=== PATIENT | female | born 1950 | race American Indian/Alaskan Native ===

== ENCOUNTER 2020-08-23 10:27 | Outpatient (REF) | payer MEDICARE, MEDICAID, SELFPAY ==
--- NOTE | 2020-08-23 11:02 | MHC.AU.HAS ---
Hearing Aid Evaluation Date of Visit: 08/23/20 Historical Information: Description of Hearing: Right: Borderline-normal sloping to moderate sensorineural hearing loss Left: Borderline-normal sloping to moderately-severe sensorineural hearing loss Summary: Patient was initially seen at our clinic in 2019 for a hearing aid evaluation; however, there was an issue with her insurance at the time. Her insurance has since been resolved, and she has received an updated audiological evaluation on 08/06/2020 at [facility]. Patient reports that she hears when people are talking to her, but often can't quite make out what they're saying. She also has noticed difficulty localizing sound. Hearing aid options were discussed. Patient would like a MICHELLE option with disposable batteries. Hearing Aid Prescription: Based on the individual?s shared listening needs, communication environments, dexterity, desire for connectivity, and personal preferences, the following prescription for amplification has been made: Right ear: Nail Feeder: Phonak Model: Audeo P70-13T Battery Size: 13 Color: P7 Grader Green Meat: 1M Left ear: Nail Feeder: Phonak Model: Audeo P70-13T Battery Size: 13 Color: P7 Grader Green Meat: 1M Action Taken/Action Needed: Hearing Instrument Fitting to be scheduled when materials arrive. Primary Diagnosis: H90.3 Bilateral Sensorineural Hearing Loss Signature: Provider: Cedric Bain CCC-A
== END 2020-08-23 10:28 | disposition home or self-care (01) ==
LOC: HO.HAP 10:27
PROVIDERS: Visit Provider Otolaryngology
DX: Z46.1 Encounter for fitting and adjustment of hearing aid (principal); H90.3 Sensorineural hearing loss, bilateral
CPT/HCPCS: 92591

== ENCOUNTER 2020-09-06 10:23 | Outpatient (REF) | payer MEDICARE, MEDICAID, SELFPAY ==
--- NOTE | 2020-09-06 12:52 | MHC.AU.HFA ---
Hearing Instrument Fitting- Adult- Binaural Date of Visit: 09/06/2020 Hearing Instruments Dispensed: Right Ear: Scrap Stripper Hand: Phonak Model: Audeo P70-13T Serial Number: [id number] Repair Warranty: 11/22/2023 Loss and Damage Warranty: 11/22/2023 Service Plan: 09/06/2021 Battery Size: 13 Color: P7 J2Ee Engineer: 1M Type of Dome: Small Open Type of Wax Guard: CeruShield Left Ear: Scrap Stripper Hand: Phonak Model: Audeo P70-13T Serial Number: [id number] Repair Warranty: 11/22/2023 Loss and Damage Warranty: 11/22/2023 Service Plan: 09/06/2021 Battery Size: 13 Color: P7 J2Ee Engineer: 1M Type of Dome: Small Open Type of Wax Guard: CeruShield Summary of Fitting: Feedback improvement manager run. Verifit performed and levels adjusted to better reach targets. Patient felt 100% was too loud. Lowered until patient felt was comfortable at 85%. Patient was pleased with the sound of the instruments. Hearing aid care and use were discussed and practiced. Paired hearing aids to her phone. Paired hearing aids to the JW Player dao. Recommendations: A hearing instrument follow-up was scheduled. Please call our clinic with any questions or concerns. Diagnosis Code(s): Primary Diagnosis: H90.3 Bilateral Sensorineural Hearing Loss Signature: Provider: Cedric Bain, [facility]
== END 2020-09-06 10:24 | disposition home or self-care (01) ==
LOC: HO.HAP 10:23
PROVIDERS: PCP Internal Medicine; Visit Provider Otolaryngology
DX: Z46.1 Encounter for fitting and adjustment of hearing aid (principal); H90.3 Sensorineural hearing loss, bilateral
CPT/HCPCS: V5011; V5020; V5160; V5261; V5266

== ENCOUNTER 2020-09-20 10:23 | Outpatient (REF) | payer MEDICARE, MEDICAID, SELFPAY ==
--- NOTE | 2020-09-21 08:12 | MHC.AU.HFU ---
Hearing Instrument Follow-Up- Binaural Date of Visit: 09/20/20 Right Ear: Vice President Of Sales: Phonak Model: Audeo P70-13T Serial Number: [id number] Repair Warranty: 12/13/2023 Loss and Damage Warranty: 12/13/2023 Service Plan: 09/20/2021 Battery Size: 13 Color: Ord Ironworker: 2M Type of Dome: Cap Dome Type of Wax Guard: CeruShield Dispensed By: [facility] Date of Fittin09/20/2020 Left Ear: Vice President Of Sales: Phonak Model: Audeo P70-13T Serial Number: [id number] Repair Warranty: 12/13/2023 Loss and Damage Warranty: 12/13/2023 Service Plan: 09/20/2020 Battery Size: 13 Color: Ord Ironworker: 1M Type of Dome: Cap Dome Type of Wax Guard: CeruShield Dispensed By: [facility] Date of Fittin09/20/2021 Follow-Up Summary: After patient's last appointment, she called to say she would prefer skin tone over the original color chosen. A pair was ordered in [employer]. The original pair (#[id number], [id number]) will be returned for credit to [employer]. The new hearing aids were programmed with the same settings as the original hearing aids. Patient reports that over the past few weeks with the hearing aids, she has gotten used to them and is now uncertain how much they are helping. Target gain was last set to 85%. Increased gain to 100%. Patient reported a significant improvement in sound, and stated that it was clear and comfortable. Patient reports she really liked the hearing aids connected to her phone, but her phone recently started to experience unrelated technical problems. She would like to re-pair them to the phone whenever it is able to be fixed or replaced. Patient felt she was having difficulty inserting the receivers deep enough into her ears, moreso in the right ear. A longer reefer truck driver (size 2M) was placed on the right instrument. This helped, but there was still difficulty maneuvering it into place. Replaced both domes with cap domes and changed acoustics/re-ran feedback ux design manager. Patient reported it was much easier to place the hearing aids in with the cap domes. Recommendations: Hearing instrument follow-up or maintenance as needed. Diagnosis Code(s): Primary Diagnosis: H90.3 Bilateral Sensorineural Hearing Loss Signature: Provider: Cedric Bain, [facility]
== END 2020-09-20 10:24 | disposition home or self-care (01) ==
LOC: HO.HAP 10:23
PROVIDERS: Visit Provider Internal Medicine
DX: Z13.89 Encounter for screening for other disorder (principal)

== ENCOUNTER 2020-12-31 10:29 | Outpatient (REF) | payer MEDICARE, MEDICAID, SELFPAY ==
--- NOTE | 2020-12-31 11:07 | MHC.AU.P13 ---
Hearing Instrument Problem Date of Visit: 12/31/20 Right Ear: Bridge Crew Member: Phonak Model: Audeo P70-13T Serial Number: [id number] Repair Warranty: 12/13/2023 Loss and Damage Warranty: 12/13/2023 Service Plan: 09/20/2021 Battery Size: 13 Color: [place] Voice Data Communications Engineer: 2M Type of Dome: Cap Dome Type of Wax Guard: CeruShield Dispensed By: [facility] Date of Fittin09/20/2020 Left Ear: Bridge Crew Member: Phonak Model: Audeo P70-13T Serial Number: [id number] Repair Warranty: 12/13/2023 Loss and Damage Warranty: 12/13/2023 Service Plan: 09/20/2020 Battery Size: 13 Color: [place] Voice Data Communications Engineer: 1M Type of Dome: Cap Dome Type of Wax Guard: CeruShield Dispensed By: [facility] Date of Fittin09/20/2021 Follow-Up Summary: Patient scheduled as maint as aids not working. Both aids cleaned, wax guards, batteries, and cap domes replaced - both amplifying clearly. Patient stated still not hearing well. Caryn Gilbetr saw patient - no occluding cerumen but firmware update was performed on hearing aids and patient stated sound was better. Recommendations: Recommendations: Hearing instrument follow-up or maintenance as needed. Diagnosis Code(s): Primary Diagnosis: H90.3 Bilateral Sensorineural Hearing Loss Signature: Provider: NILTON Eason-HIS
== END 2020-12-31 10:30 | disposition home or self-care (01) ==
LOC: HO.HAP 10:29
PROVIDERS: Visit Provider Internal Medicine
DX: Z13.89 Encounter for screening for other disorder (principal)

== ENCOUNTER 2021-01-31 11:28 | Outpatient (REF) | payer MEDICARE, MEDICAID, SELFPAY | END 2021-01-31 11:29 | disposition home or self-care (01) | LOC: HO.HAP 11:28 | PROVIDERS: Visit Provider Internal Medicine | DX: Z46.1 Encounter for fitting and adjustment of hearing aid (principal); H90.3 Sensorineural hearing loss, bilateral | CPT/HCPCS: V5266 ==

== ENCOUNTER 2021-02-28 09:53 | Outpatient (REF) | payer MEDICARE, MEDICAID, SELFPAY ==
--- NOTE | 2021-02-28 11:51 | MHC.AU.HFU ---
Hearing Instrument Follow-Up- Binaural Date of Visit: 02/28/21 Right Ear: [place]rene Dehydration Reactor Operator: Phonak Model: Audeo P70-13T Serial Number: [id number] Repair Warranty: 12/13/2023 Loss and Damage Warranty: 12/13/2023 Battery Size: 13 Color: [place] Plating Technician: 2M Type of Dome: Cap Dome Type of Wax Guard: CeruShield Dispensed By: [facility] Date of Fittin09/20/2020 Left Ear: Styrene Dehydration Reactor Operator: Phonak Model: Audeo P70-13T Serial Number: [id number] Repair Warranty: 12/13/2023 Loss and Damage Warranty: 12/13/2023 Battery Size: 13 Color: [place] Plating Technician: 1M Type of Dome: Cap Dome Type of Wax Guard: CeruShield Dispensed By: [facility] Date of Fittin09/20/2020 Follow-Up Summary: Patient reports she continues to not hear well with the hearing aids and wants custom ITC hearing aids. Extensively discussed we are past the trial period so brenda cannot exchange for a different model and she will not be eligible for new aids for 5 years. Patient wants prior authorization [facility] to try to get ITC aids. In discussing the hearing problems, patient reports the domes move in ears and sound quality of aids can vary significantly intermittently. Per Gail Klein, we will try custom c-shell molds then if problem continues will try to obtain prior authorization for change in model. Took impressions of both ears without complication. The impression show basically a right angle canal bends and very small canals. The shape of the canals are likely causing reduced sound quality when using the domes. Discussed how custom c-shells will likely improve sound quality/hearing. Patient continues to not be happy with not getting new aids, as well as reporting she thinks the aids were switched while she was sleeping as she reported to Tonio Sharma previously. Discussed if she were to get custom ITC aids, with the shape and size of the canals, the aids would look more like half or full shell customs which patient was also not happy about. Recommendations: Schedule appointment for Earmold Fitting and programming changes when c-shells are received. Services Performed: Ear Impression (Quantity): 2 Signature: Provider: Cedric Gilbert, [facility]
== END 2021-02-28 09:54 | disposition home or self-care (01) ==
LOC: HO.HAP 09:53
PROVIDERS: Visit Provider Internal Medicine
DX: Z46.1 Encounter for fitting and adjustment of hearing aid (principal); H90.3 Sensorineural hearing loss, bilateral
CPT/HCPCS: V5275

== ENCOUNTER 2021-03-19 12:25 | Outpatient (REF) | payer MEDICARE, MEDICAID, SELFPAY | END 2021-03-19 12:26 | disposition home or self-care (01) | LOC: HO.HAP 12:25 | PROVIDERS: Visit Provider Internal Medicine | DX: Z46.1 Encounter for fitting and adjustment of hearing aid (principal); H90.3 Sensorineural hearing loss, bilateral | CPT/HCPCS: V5264 ==

== ENCOUNTER 2022-04-08 18:37 | Inpatient (IN) | payer MEDICARE, MEDICAID, SELFPAY ==
--- OUTSIDE RECORDS SUMMARY | 2022-04-08 18:41 | XMS_ITS | Continuity of Care Document ---
:1950 Author Organization [facility] Address [address] [place] [address]- Care Team Providers Name Role Phone Ludmila Oviedo MD Primary Care Physician Encounter [facility] ACCT R [id number] Date(s): 01/07/22 - 02/13/[address] [address]- Encounter Diagnosis Muscle weakness (generalized) (Final) - Discharge Disposition: A-D/C Home Attending Physician: Ludmila Oviedo MD Admitting Physician: Ludmila Oviedo MD Referring Physician: Ludmila Oviedo MD Allergies, Adverse Reactions, Alerts No Known Allergies Medications Fiber Choice = 3 Gm, By Mouth, Daily, Maintenance, 07/05/17 9:31:10 EDT Start Date: 07/05/17 Status: Orderedlithium 300 mg oral capsule 1 capsule = 300 mg, By Mouth, Daily in AM, Maintenance, 07/05/17 9:27:26 EDT, Capsule Start Date: 07/05/17 Status: Orderedlithium 300 mg oral capsule 2 capsule = 600 mg, By Mouth, Daily at bedtime, 0 Refills, Maintenance, 07/05/17 12:54:34 EDT, Capsule Start Date: 07/05/17 Status: OrderedMultivitamin 1 tablet, By Mouth, Daily, Maintenance, 07/05/17 9:29:14 EDT Start Date: 07/05/17 Status: Orderedomeprazole 20 mg oral enteric coated capsule 1 capsule = 20 mg, By Mouth, Daily, # 30 capsule, 2 Refills, Maintenance, 09/25/20 14:28:00 EDT, EC Capsule, [id number], Partial fill upon patient request if the prescription is for a schedule II opioid drug. Start Date: 09/25/20 Stop Date: 12/24/20 Status: OrderedRisperDAL 0.25 mg oral tablet 0.25 mg, 1, tablet, By Mouth, 2 times a day, Refills 0, Maintenance, 10/26/19 13:57:00 EDT Start Date: 10/26/19 Status: Orderedtopiramate 100 mg oral tablet 1 tablet = 100 mg, By Mouth, Daily, Maintenance, 07/05/17 9:27:30 EDT, Tablet Start Date: 07/05/17 Status: OrderedTylenol Extra Strength 500 mg oral tablet 1 tablet = 500 mg, By Mouth, Every 4 hours, PRN as needed for fever, Maintenance, 07/05/17 9:32:17 EDT, Tablet Start Date: 07/05/17 Status: Ordered Problem List Condition Confirmation Course Effective Dates Status Health Stat us Informant Bipolar disease, Confirmed Active chronic Carpal tunnel Confirmed Active syndrome Insomnia Confirmed Active Social History Social History Type Response Smoking Status Never (less than 100 in life time) entered on: 10/26/19 Sex Patient Care team information Care Team PersonnelName: Ludmila Oviedo MD Position: Reference Physician Member Role: PCP Address: Address: [address] [address]- Care Team Related PersonsName: SANDIP POPE Name: NONE, NONE
--- OUTSIDE RECORDS SUMMARY | 2022-04-08 18:41 | XMS_ITS | Continuity of Care Document ---
:1950 Author Organization [facility] Address Unavailable , Care Team Providers Name Role Phone Armand KELLY, Jim Amezcua Primary Care Physician Encounter [facility] ACCT R [id number] Date(s): 04/24/21 - 08/22/21 [facility] Attending Physician: Howie ARREOLA, Kaia Zaman Admitting Physician: Howie ARREOLA, Kaia Zaman Referring Physician: Regino Combs Allergies, Adverse Reactions, Alerts No Known Allergies [...] Refills, Maintenance, 09/25/20 14:28:00 EDT, EC Capsule, [facility]pharm[facility] #[id number], Partial fill upon patient request if the [...] Date: 07/05/17 Status: Ordered Problem List Condition Effective Dates Status Health Status Informant Bipolar disease, chronic(Confirmed) Active Carpal tunnel syndrome(Confirmed) Active Insomnia(Confirmed) Active Social History Social History Type Response Smoking Status Never (less than 100 in life time) entered on: 10/26/19 Sex
--- OUTSIDE RECORDS SUMMARY | 2022-04-08 18:41 | XMS_ITS | Continuity of Care Document ---
:1950 Author Organization [facility] Address [address] [place] [address]- Care Team Providers Name Role Phone Jim Acuna MD Primary Care Physician [place] [facility] [place](s): 09/25/20 - 10/25/20 [facility] [address] [place] [address]- Attending Physician: Yamini Desai Admitting Physician: Yamini Desai Referring Physician: AdmtrYamini Allergies, Adverse Reactions, Alerts Substance Reaction Severity Status NKA Active Medications Fiber Choice = 3 Gm, By [...] Refills, Maintenance, 09/25/20 14:28:00 EDT, EC Capsule, [facility]/pharmacy #[id number], Partial fill upon patient request if the [...]
--- OUTSIDE RECORDS SUMMARY | 2022-04-08 18:41 | XMS_ITS | Continuity of Care Document ---
:1950 Author Organization [facility] Address [address] [place] [address]- Care Team Providers Name Role Phone Armand KELLY, Jim Amezcua Primary Care Physician Encounter [facility] Date(s): 11/23/19 - 12/23/19 [facility] [address] [place] [address]- [facility] Allergies, Adverse Reactions, Alerts Substance Reaction Severity [...] 07/05/17 9:29:14 EDT Start Date: 07/05/17 Status: OrderedRisperDAL 0.25 mg oral tablet 0.25 [...]
--- OUTSIDE RECORDS SUMMARY | 2022-04-08 18:41 | XMS_ITS | Continuity of Care Document ---
:1950 Author Organization [facility] Address [address] [place] [address]- Care Team Providers Name Role Phone Not on Staff, PCP Primary Care Physician Unavailable Encounter [facility] Date(s): 02/07/22 - 03/29/[address] [address]- Attending Physician: Danna Church NP Admitting Physician: Danna Church NP Referring Physician: Danna Church NP Allergies, Adverse Reactions, Alerts No Known Allergies Medications cetirizine 10 mg oral tablet 1 tablet = 10 mg, By Mouth, Daily, # 30 tablet, 0 Refills, Maintenance, 03/25/22 14:31:00 EST, Tablet, Partial fill upon patient request if the prescription is for a schedule II opioid drug. Start Date: 03/25/22 Status: OrderedFiber Choice = 3 Gm, By Mouth, Daily, Maintenance, 07/05/17 9:31:10 EDT Start Date: 07/05/17 Status: Orderedfurosemide 20 mg oral tablet 20 mg, 1, tablet, By Mouth, Daily, # 30 tablet, Refills 0, Maintenance, 03/25/22 14:33:00 EST, Partial fill upon patient request if the prescription is for a schedule II opioid drug. Start Date: 03/25/22 Status: OrderedhydrOXYzine hydrochloride 50 mg oral tablet 1 tablet = 50 mg, By Mouth, 4 times a day, PRN for anxiety, # 40 tablet, 0 Refills, Maintenance, 03/25/22 14:31:00 EST, Tablet, Partial fill upon patient request if the prescription is for a schedule II opioid drug. Start Date: 03/25/22 Status: Orderedlithium 300 mg oral capsule 1 capsule = 300 mg, By Mouth, Daily in AM, Maintenance, 07/05/17 9:27:26 EDT, Capsule Start Date: 07/05/17 Status: Orderedlithium 300 mg oral capsule 2 capsule = 600 mg, By Mouth, Daily at bedtime, 0 Refills, Maintenance, 07/05/17 12:54:34 EDT, Capsule Start Date: 07/05/17 Status: Orderedlithium 600 mg oral capsule 1 capsule = 600 mg, By Mouth, 2 times a day, # 60 capsule, 0 Refills, Maintenance, 03/25/22 14:32:00EST, Capsule, Partial fill upon patient request if the prescription is for a schedule II opioid drug. Start Date: 03/25/22 Status: OrderedMultivitamin 1 tablet, By Mouth, Daily, Maintenance, 07/05/17 9:29:14 EDT Start Date: 07/05/17 Status: Orderedomeprazole 20 mg oral enteric coated capsule 1 capsule = 20 mg, By Mouth, Daily, # 30 capsule, 2 Refills, Maintenance, 09/25/20 14:28:00 EDT, EC Capsule, [facility]/pharmacy #[id number], Partial fill upon patient request if the prescription is for a schedule II opioid drug. Start Date: 09/25/20 Stop Date: 12/24/20 Status: OrderedRisperDAL 0.25 mg oral tablet 0.25 mg, 1, tablet, By Mouth, 2 times a day, Refills 0, Maintenance, 10/26/19 13:57:00 EDT Start Date: 10/26/19 Status: OrderedrisperiDONE 1 mg oral tablet 1 mg, 1, tablet, By Mouth, Daily, # 30 tablet, Refills 0, Maintenance, 03/25/22 14:32:00 EST, Partial fill upon patient request if the prescription is for a schedule II opioid drug. Start Date: 03/25/22 Status: Orderedrosuvastatin 10 mg oral tablet 1 tablet = 10 mg, By Mouth, Daily, # 30 tablet, 0 Refills, Maintenance, 03/25/22 14:31:00 EST, Tablet, Partial fill upon patient request if the prescription is for a schedule II opioid drug. Start Date: 03/25/22 Status: Orderedtopiramate 100 mg oral tablet 1 tablet = 100 mg, By Mouth, Daily, Maintenance, 07/05/17 9:27:30 EDT, Tablet Start Date: 07/05/17 Status: Orderedtopiramate 200 mg oral tablet 1 tablet = 200 mg, By Mouth, 2 times a day, 0 Refills, Maintenance, 03/25/22 14:32:00 EST, Partial fill upon patient request if the prescription is for a schedule II opioid drug. Start Date: 03/25/22 Status: OrderedTylenol Extra Strength 500 mg oral [...] Patient Care team information Care Team PersonnelName: Not on Staff, PCP Position: S Physician (General Medicine) Member Role: PCP Care Team Related PersonsName: SANDIP POPE Name: NONE, NONE
--- OUTSIDE RECORDS SUMMARY | 2022-04-08 18:41 | XMS_ITS | Continuity of Care Document ---
:1950 Author Organization [facility] Address [address] [place] [address]- Care Team Providers Name Role Phone Armand KELLY, Jim Amezcua Primary Care Physician Encounter [facility] Date(s): 11/15/19 - 12/15/19 [facility] [address] [place] [address]- [facility] Allergies, Adverse Reactions, Alerts Substance Reaction Severity [...]
--- OUTSIDE RECORDS SUMMARY | 2022-04-08 18:41 | XMS_ITS | Continuity of Care Document ---
:1950 Author Organization [facility] Address [address] [place] [address]- Care Team Providers Name Role Phone Ludmila Oviedo MD Primary [id number] Date[facility] 12/11/21 - 03/07/22 [facility] [address] [place], [place] [address] Attending Physician: Ludmila Oviedo MD Admitting Physician: [...] Maintenance, 09/25/20 14:28:00 EDT, EC Capsule, [id number], Partial fill upon patient request if the [...] Physician Member Role: PCP Address: Address: [address] [address]- Care Team Related PersonsName: SANDIP POPE Name: NONE, NONE
--- OUTSIDE RECORDS SUMMARY | 2022-04-08 18:41 | XMS_ITS | Continuity of Care Document ---
:1950 Author Organization [facility] Address [address] [place] [address]- Care Team Providers Name Role Phone Not on Staff, PCP Primary Care Physician Unavailable [place] [facility] [place](s): 02/26/22 - 03/28/22 [facility] [address] [place] [address]- Attending Physician: Yamini Desai Admitting Physician: Ymaini Desai Referring Physician: Yamini Desai Allergies, Adverse Reactions, Alerts No Known Allergies [...] Refills, Maintenance, 09/25/20 14:28:00 EDT, EC Capsule, [facility]/pharmacy #[id number], Partial fill upon patient request if the [...]
--- OUTSIDE RECORDS SUMMARY | 2022-04-08 18:41 | XMS_ITS | Continuity of Care Document ---
:1950 Author Organization [facility] Address [address] [place] [address]- Care Team Providers Name Role Phone Jim Acuna MD Primary Care Physician Encounter [facility] Date(s): 04/01/19 - 04/01/[address] [address]- [facility] Attending Physician: Jim Acuna MD Allergies, Adverse Reactions, Alerts Substance Reaction Severity [...] 07/05/17 9:29:14 EDT Start Date: 07/05/17 Status: Orderedtopiramate 100 mg oral tablet 1 [...]
--- OUTSIDE RECORDS SUMMARY | 2022-04-08 18:42 | XMS_ITS | Continuity of Care Document ---
:1950 Author Organization [facility] Address [address] [place] [address]- Care Team Providers Name Role Phone Jim Acuna MD Primary Care Physician Encounter [facility] Date(s): 01/23/20 - 02/22/20 [facility] [address] [place] [address]- Attending Physician: Yamini Desai Admitting Physician: Yamini [...]
--- OUTSIDE RECORDS SUMMARY | 2022-04-08 18:42 | XMS_ITS | Continuity of Care Document ---
:1950 Author Organization [facility] Address [address] [place] [address]- Care Team Providers Name Role Phone Jim Acuna MD Primary Care Physician En[place] [facility] Date(s): 04/30/20 - 05/30/20 [facility] [address] [facility] [place] [address]- Attending Physician: Yamini Desai Admitting Physician: Yamini [...]
--- OUTSIDE RECORDS SUMMARY | 2022-04-08 18:42 | XMS_ITS | Continuity of Care Document ---
:1950 Author Organization [facility] Address [address] [place] [address]- Care Team Providers Name Role Phone Armand KELLY, Jim Amezcua Primary Care Physician [place] [facility] Date(s): 11/21/19 - 12/21/19 [facility] [address] [place] [address]- [facility] Allergies, Adverse Reactions, Alerts Substance Reaction Severity [...]
--- OUTSIDE RECORDS SUMMARY | 2022-04-08 18:42 | XMS_ITS ---
:1950 Author Name Jim Acuna Care Team Providers Name Role Phone Jim Acuna Unavailable Unavailable PROBLEMS Type Condition ICD9-CM Code [id number] Code Onset Condition SNO MED Code Dates Status Problem Flat foot [pes M21.42 Active 25868 007 planus] (acquired), left foot Problem Primary M19.071 Active [id number] osteoarthritis, right ankle and foot Problem Flat foot [pes M21.41 Active 99051 007 planus] (acquired), right foot ALLERGIES No Known Allergies ENCOUNTERS Encounter Location Date Diagnosis [facility] [address] June, [place] [facility] [place] [address] [facility] [place] [address] Nov, [place] [address] [facility] [address] [place] [address] Sep, [place] [address] [facility] [place] [address] May, 2015 [place] [address] [facility] [address] Apr, [place] [address] [facility] [address] [place] [address] Mar, Pain in t oe of right foot [facility] [place] M79.674 ; [place] [address] left foot M79.67 5 ; Keratoma L57.0 a nd Hyperhidrosis L7 4.[address] [facility] Mar, [place] [address] [facility] [address] [place] [address] Jan, [place] [address] [facility] [place] [address] Jan, Tinea ped is B35.3 ; Pain [place], [place] in toe of right foot M79.674 and Pain in toe of left foot M79 .675 [facility] [address] Jan, [place] [address] [facility] [place] [address] Dec, Peroneal tendinitis, [place], [place] right leg M76.71 ; Primary osteoart hritis, right ankle and foot M19.071 ; Tinea pedis B35.3 ; Flat lazaro t [pes planus] (acquire d), left foot M21.42 and Flat foot [pes planus] (ac quired), right foot M21.4 1 [facility] [place] [address] Nov, Primary o steoarthritis, [place], [place] right ankle and foot M19.071 ; Flat f oot [pes planus] (acquire d), left foot M21.42 ; Fl at foot [pes planus] (ac quired), right foot M21.4 1 and Peroneal tendini tis, right leg M76.71 [facility] [place] [address] Nov, [place] [address] [facility] [address] Oct, [place] [address] [facility] [address] Oct, Flat Foot , Congenital [place], [place] 754.61 ; Peronea l Tendonitis 726.7 9 and Arthritis - Dege nerative 719.97 IMMUNIZATIONS No Known Immunizations SOCIAL HISTORY Never Assessed REASON FOR REFERRAL FUNCTIONAL STATUS PLAN OF CARE VITAL SIGNS Height 5 ft 7 in in 2015-03-07 Weight 199 lbs 2015-03-07 BMI 31.16 kg/m2 2015-03-07 Heart Rate 53 /min 2015-03-07 Blood pressure systolic 150 mm Hg 2015-03-07 Blood pressure diastolic 84 mm Hg 2015-03-07 MEDICATIONS Medication Instructions Dosage Frequency Start End Duration Statu s Date Date Physical R > L pes . 18 Dec, 3-4 weeks Active Therapy . planus with 2014 peroneal tendonitis 2-3x/week Ciclopirox Apply to external 12h 18 Dec, 30 days Active Olamine 0.77% effected areas 2014 twice a day [place] Orally Three 1 capsule 8h Active Carbonate 300 times a day MG SEROquel 400 Orally Once a 1 tablet at 24h N ot-Taki MG day bedtime ng Topiramate 75 Orally Once a 1 tablet 24h Act jarett mg day Clotrimazole- Externally 1 application Jan, 30 days A ctive Betamethasone Twice a day to to affected 2014 1-0.05 % affected areas area on feet Oxybutynin Active clonazePAM Active PROCEDURES Procedure Date Ordered Result Body Site X-RAY EXAM OF RIGHT FOOT 3V Nov 01, 2014 RESULTS Name Result Date Reference Range X ray : Foot, right 3V REASON FOR VISIT Insurance Providers [facility] Health Member Patient Patient Patient Patient Patient Subscriber Subscriber Subscriber Group Insurance Plan Plan Plan Plan ID Relationship Address Phone Name Date of ID Name Date of No Type Insurance Insurance Insurance Coverage to Subscriber Address Phone Name Dates Medicare National [id number] Medicare self [place] [id number] 18 [id number] [facility] [address] [facility] [address] [facility] [place] [address] MEDICAL (GENERAL) HISTORY Type Description Date Medical History Back,Hip,and Knee pain Medical History Depression Medical History Fibromyalgia Medical History Chicken pox
--- OUTSIDE RECORDS SUMMARY | 2022-04-08 18:42 | XMS_ITS | Continuity of Care Document ---
:1950 Author Organization [facility] Address [address] [place] [address]- Care Team Providers Name Role Phone Not on Staff, PCP Primary Care Physician Unavailable Encounter [facility] Date(s): 02/27/22 - 03/29/[address] [address] Attending Physician: Yamini Desai Admitting Physician: Yamini Desai Referring Physician: Yamini Desai Allergies, Adverse [...] Refills, Maintenance, 09/25/20 14:28:00 EDT, EC Capsule, [facility]/pharmacy #[id number], Partial fill upon patient request if [...]
--- OUTSIDE RECORDS SUMMARY | 2022-04-08 18:42 | XMS_ITS | Continuity of Care Document ---
:1950 Author Organization [facility] Address [address] [place] [address]- Care Team Providers Name Role Phone Not on Staff, PCP Primary Care Physician Unavailable En[place] [facility] Date(s): 12/11/21 - 03/28/22 [facility] [address] [place] [address]- Attending Physician: Ludmila Oviedo MD Admitting Physician: [...] Refills, Maintenance, 09/25/20 14:28:00 EDT, EC Capsule, [facility]/pharmacy #[id number], Partial fill upon patient request if the [...]
--- OUTSIDE RECORDS SUMMARY | 2022-04-08 18:42 | XMS_ITS | Continuity of Care Document ---
:1950 Author Organization [facility] Address [address] [place] [address]- Care Team Providers Name Role Phone Ludmila Oviedo MD Primary Care Physician Encounter [facility] Date(s): 02/04/22 - 03/06/[address] [address] Attending Physician: Yamini Desai Admitting Physician: [...] Maintenance, 09/25/20 14:28:00 EDT, EC Capsule, [facility] #[id number], Partial fill upon patient request if the [...] Reference Physician Member Role: PCP Address: Address: [facility] [address] [address]- Care Team Related PersonsName: SANDIP POPE Name: NONE, NONE
--- OUTSIDE RECORDS SUMMARY | 2022-04-08 18:42 | XMS_ITS | Continuity of Care Document ---
:1950 Author Organization [facility] Address [address] [facility], 3rd Floor, [address] [place] [address]- Care Team Providers Name Role Phone Armand KELLY, Jim Amezcua Primary Care Physician Encounter [facility] Date(s): 02/16/19 - 02/26/19 [facility] [address] [facility], 3rd Floor, [address] [place] [address] [facility] Attending Physician: Yamini Desai Admitting Physician: Yamini Desai Referring Physician: Yamini Desai Allergies, Adverse Reactions, Alerts Substance Reaction Severity [...]
--- OUTSIDE RECORDS SUMMARY | 2022-04-08 18:42 | XMS_ITS | Continuity of Care Document ---
:1950 Author Organization [facility] Address Unavailable , Care Team Providers Name Role Phone Jim Acuna MD Primary Care Physician [place] [facility] Date(s): 11/21/20 - 12/21/20 [facility] Attending Physician: Yamini Desai Admitting Physician: Yamini [...] Refills, Maintenance, 09/25/20 14:28:00 EDT, EC Capsule, [facility]/pharmacy #[id number], Partial fill upon patient request if the [...]
--- OUTSIDE RECORDS SUMMARY | 2022-04-08 18:42 | XMS_ITS | Continuity of Care Document ---
:1950 Author Organization [facility] Address [address] [facility], 3rd Floor, [address] [place] [address]- Care Team Providers Name Role Phone Jim Acuna MD Primary Care Physician En[place] [facility] Date(s): 11/18/18 - 03/18/19 [facility] [address] [facility], 3rd Floor, [address] [place] [address]- [facility] Attending Physician: Owen Rasmussen MD Admitting Physician: Owen Rasmussen MD Referring Physician: Jim Acuna MD Allergies, Adverse Reactions, [...]
--- OUTSIDE RECORDS SUMMARY | 2022-04-08 18:42 | XMS_ITS | Continuity of Care Document ---
:1950 Author Organization [facility] Address [address] [place] [address]- Care Team Providers Name Role Phone Jim Acuna MD Primary Care Physician [place] [facility] [place](s): 01/16/20 - 02/15/20 [facility] [address] [place] [address]- Allergies, Adverse Reactions, Alerts Substance Reaction Severity [...]
--- OUTSIDE RECORDS SUMMARY | 2022-04-08 18:42 | XMS_ITS | Continuity of Care Document ---
:1950 Author Organization [facility] Address [address] [place] [address]- Care Team Providers Name Role Phone Jim Acuna MD Primary Care Physician [place] [facility] [id number] Date(s): 09/08/18 - 02/13/[address] [address]- [facility] Discharge Disposition: A-D/C Home Attending Physician: Jim Acuna MD Admitting Physician: Jim Acuna MD Referring Physician: Jim Acuna MD Allergies, [...]
[2022-04-08 20:00] VITALS: BP 119/69; PULSE 73; RESP 16; TEMP 36.8; O2SAT 97
--- NOTE | 2022-04-08 22:13 | PC.NURSE ---
pt arrived via ambulance and is a hospital to hospital transfer. a hospitalist consult has been entered. pts legal status is section 12b. please note that prior to hospital transfer pt was medicated with ativan 2 mg im for agitation. on arrival pt is very somnolent and is briefly attentive with verbal interaction. pt wants to be left alone to sleep. on arrival to her room pt experienced urinary urgency and incontinence. pt presents 04-04-22 at [facility] ED with c/o of dizziness and fall. pt has a hx of bradycardia. multiple radiological studies were performed as well as ekg and the gamut of lab work. all radiological studies were negative. (cta of head/neck/xray of right shoulder and hip). 12 lead ecg shows bradycardia with st and t wave abnormalities. lab work remarkable for sub therapeutic lithium level. while in the confines of the ed, pt began to exhibit paranoid and delusional thinking. pts current residence [facility] and staff at the group home expressed concerns with pts paranoia and delusional thinking. as noted previously, pt is very sedated and somnolent. she awakens to voice. she knows that she is at the [facility]. she is unsure of the date. as her conversation continues pt describes a bug that was implanted by the [employer] in her left ear. her conversation continues to develop into a conspiracy theory of the Jehovah witnesses taking over the world. at this juncture pt makes it quite clear that she wishes to sleep and does not want to participate in the interview any longer.
--- NOTE | 2022-04-08 23:16 | PC.ADMIT ---
pt arrived via ambulance and is a hospital to hospital transfer. a hospitalist consult has been entered. pts legal status is section 12b. please note that prior to hospital transfer pt was medicated with ativan 2 mg im for agitation. on arrival pt is very somnolent and is briefly attentive with verbal interaction. pt wants to be left alone to sleep. on arrival to her room pt experienced urinary urgency and incontinence. pt presents 04-04-22 at [facility] ED with c/o of dizziness and fall. pt has a hx of bradycardia. multiple radiological studies were performed as well as ekg and the gamut of lab work. all radiological studies were negative. (cta of head/neck/xray of right shoulder and hip). 12 lead ecg shows bradycardia with st and t wave abnormalities. lab work remarkable for sub therapeutic lithium level. while in the confines of the ed, pt began to exhibit paranoid and delusional thinking. [facility] and staff at the [facility] expressed concerns with pts paranoia and delusional thinking. as noted previously, pt is very sedated and somnolent. she awakens to voice. she knows that she is at the [facility]. she is unsure of the date. as her conversation continues pt describes a bug that was implanted by the [employer] in her left ear. her conversation continues to develop into a conspiracy theory of the Jehov[employer] witnesses taking over the world. at this juncture pt makes it quite clear that she wishes to sleep and does not want to participate in the interview any longer. Initialized on 04/08/22 22:13 - END OF NOTE
[2022-04-09 01:14] VITALS: BMI 28.0
[2022-04-09 07:30] VITALS: BP 125/68; PULSE 79; RESP 16; TEMP 36.9; O2SAT 97
[2022-04-09] MEDS: Lithium Carbonate 300 MG TABLET 600 MG PO ×2 (08:20→20:02)
[2022-04-09] MEDS: Topiramate 100 MG TABLET 200 MG PO (08:20)
[2022-04-09 08:46] LABS: Alanine Aminotransferase 12 U/L (0-31); Albumin Level 4.2 g/dL (3.5-5.0); Alkaline Phosphatase 100 U/L (39-117); Anion Gap 17 (12-20); Aspartate Amino Transferase 22 U/L (5-31); Bilirubin Total 0.6 mg/dL (0.0-1.0); Blood Urea Nitrogen 20 mg/dL (9-16); Calcium 9.8 mg/dL (8.4-10.2); Carbon Dioxide 20 mmol/L (22-29); Chloride 110 mmol/L (96-108); Cholesterol 224 mg/dL; Creatinine Clr Calc Pharmacy 74.5; Estimated Glomerular Filt Rate > 60; Glucose Fasting 99 mg/dL (60-99); HDL Cholesterol 63 mg/dL; LDL Cholesterol Calculated 146 mg/dl; Potassium 4.5 mmol/L (3.3-5.1); Sodium 142 mmol/L (135-145); Total Protein 7.2 g/dL (6.5-8.0); Triglycerides 77 mg/dL
--- NOTE | 2022-04-09 14:27 | P.CONHOSP_ITS ---
History of Present Illness Data of Consult Service Date: 04/09/22 Requesting physician: Adam Mason Primary Care Provider: Demar Physician Review of Systems Review of Systems: Denies any recent fever chills or decrease in appetite respiratory denies any shortness of breath coverage production cardiovascular Denied chest pain gastrointestinal denies any dysphagia abdominal pain nausea vomiting or diarrhea genitourinary denies any dysuria frequency or hematuria musculoskeletal denies any joint pain or swelling neuropsych denies any weakness or seizures all other systems reviewed are negative [facility] Medical History (Updated 04/09/22 @ 14:28 by Eliz Eason NP) Hyperlipidemia Social History Household Members: None Housing: Other Do you presently have visiting nurse or other home services: No Unable to assess alcohol history related to: Unknown Patient Tobacco Use Status: Tobacco use Unknown Smoked in Last 30 Days: No e-Cigarette/Vaping Use: Never Used Patient Interested in Nicotine Replacement: No Patient Given Instructions on How to Stop Smoking: No Second Hand Smoke Exposure: No Use of substances other than those prescribed or required for medical reasons: Unknown Substance Use Type: Unknown Last Used Substance: Unknown Currently Displaying Signs/Symptoms of Drug Intoxication Withdrawal: No Any prior treatment program specific to substance use: No Have you been hit, kicked, punched, or otherwise hurt by someone within the past year? If so, by whom?: No Do you feel safe in your current relationship?: No Current Relationship Is there a partner from a previous relationship who is making you feel unsafe now?: No Are you made to feel afraid or neglected: No Advance Directives: No Advance Directives Information Provided: No Do you have thoughts of harming others: None Do you have a plan to hurt others: No Plan Nutrition Risks: No Nutritional Risk Patient : No : No Poor oral hygiene: No Meds Allergies Allergy/AdvReac Type Severity Reaction Status Date / Time No Known Allergies Allergy Unverified 11/17/19 16:08 [No Known Allergies*] Active Medications: Current Medications Acetaminophen (Acetaminophen 325 Mg Tablet) 650 mg PO Q6H PRN PRN Reason: Headache/Pain Mild Scale (1-3) Al Hydroxide/Mg Hydroxide (Magnesium Hydrox/Alum Hydrox 30 Ml Oral.Susp) 30 ml PO Q6H PRN PRN Reason: Heartburn/Nausea Atorvastatin Calcium (Atorvastatin Calcium 40 Mg Tablet) 40 mg PO BEDTIME RAINA Last Admin: 04/08/22 21:00 Dose: Not Given Hydroxyzine HCl (Hydroxyzine Hcl 25 Mg Tablet) 25 mg PO Q6H PRN PRN Reason: Anxiety Hydroxyzine HCl (Hydroxyzine Hcl 50 Mg Tablet) 50 mg PO BEDTIME PRN PRN Reason: Sleep Morning Glory Carbonate (Morning Glory Carbonate 300 Mg Tablet) 600 mg PO BID [facility] Last Admin: 04/09/22 08:20 Dose: 600 mg Magnesium Hydroxide (Milk Of Magnesia 30 Ml Oral.Susp) 30 ml PO DAILY PRN PRN Reason: Constipation Risperidone (Risperidone 1 Mg Tablet) 1 mg PO BEDTIME [facility] Last Admin: 04/08/22 21:00 Dose: Not Given Topiramate (Topiramate 100 Mg Tablet) 200 mg PO DAILY [facility] Last Admin: 04/09/22 08:20 Dose: 200 mg Trazodone HCl (Trazodone Hcl 50 Mg Tablet) 50 mg PO BEDTIME MRX1 PRN PRN Reason: Insomnia Home Medications Medication Instructions Recorded Confirmed Last Taken Type Risperdal 1 mg PO BEDTIME 04/08/22 04/08/22 Unknown History Topamax 200 mg DAILY 04/08/22 04/08/22 Unknown History Vistaril 50 mg PO BEDTIME PRN Sleep 04/08/22 04/08/22 Unknown History lithium carbonate 600 mg PO BID 04/08/22 04/08/22 Unknown History rosuvastatin 10 mg tablet (Crestor) 10 mg PO BEDTIME 04/08/22 04/08/22 Unknown History Physical Exam Vital Signs and Narrative: Vital Signs: Last Vital Signs Temp 98.4 F 04/09/22 07:30 Pulse 79 04/09/22 07:30 Resp 16 04/09/22 07:30 BP 125/68 04/09/22 07:30 Pulse Ox 97 04/09/22 07:30 O2 Del Method 04/09/22 07:30 BMI result Body Mass Index 28.0 Appearing in no acute distress head is normocephalic atraumatic eyes pupils are PERRLA sclera is anicteric mouth throat mucous membranes are intact and moist neck is supple no lymphadenopathy, no JVD noted lung sounds are clear to auscultation heart regular rate rhythm, clear S1, S2 positive bowel sounds, abdomen is soft, nontender neuro patient is alert x3, no focal deficits Results Labs 04/09/22 07:47 Labs: Laboratory Results - last 24 hr 04/09/22 07:47 Anion Gap 17 Estim Creat Clear Calc 74.5 Estimated GFR > 60 Fasting Glucose 99 Calcium 9.8 Total Bilirubin 0.6 AST 22 ALT 12 Alkaline Phosphatase 100 Total Protein 7.2 Albumin 4.2 Triglycerides 77 Cholesterol 224 LDL Cholesterol, Calc 146 HDL Cholesterol 63 Assessment and Plan Plan 71 year old women admitted to [facility] psych Mental health management as per psychiatric team Hyperlipidemia statin Time Spent With Patient Time: Total time managing care of this patient today ____ minutes.
--- NOTE | 2022-04-09 15:05 | P.HPPS_ITS ---
[facility] Date of Service: 04/09/22 Chief Complaint: Psychosis Sources of Information: patient interviewed, chart reviewed and crisis/core team assessment reviewed Additional Sources of Information: Dr. Church was contacted with the permission of the patient HPI Subjective Notes: Cadena Warning and Section 12B Narrative: The patient is a 71-year-old female, , mother of 2 adult children, living in a facility called [facility], chronically homeless, with limited social support referred from the emergency room of [facility] for paranoia and psychosis. According to the crisis assessment, the patient fell in the nails alone, at that moment she reported to the EMS staff that she did not feel safe for driving and she was rushed to the emergency room for medical treatment. While she was in the emergency room, the patient was fully workout and disposition was for subacute rehab. While she was in the emergency room, the patient verbalized paranoid statements regarding Jehovah's witnesses who were interfering with her. The staff of [facility] was contact and appa rently the patient has been decompensating since November last year with paranoid statements against other residents and probably her compliance was poor.. The patient was transferring to this facility in a Section 12 be for psychiatric treatment. On interview the patient was pleasant and superficially cooperative, she explain how come she in the bone the emergency room, she stated that she follows treatment with Dr. Jonathan Church, in the past she had vertigo and she was admitted into the emergency room after falling. She adamantly denies suicidal ideation, homicidal ideation, auditory hallucinations. Even though she verbalize paranoid thoughts against providers stating that they are Jehovah's witnesses that harrasses her and she has accused that there is certain medical staff that are Jehovah's witnesses. We have the authorization of the patient regarding contacting collateral information and she agreed to give us permission to talk with his outpatient psychiatrist. Past Psychiatric History: The patient denied prior psychiatric history but she was a prior admission at [facility] in 2017 and she had other prior crisis assessments. Apparently, she follows treatment with an outpatient psychiatrist and she has been prescribed with lithium another medications. Her lithium level was nearly 0. Medical Evaluation Reviewed: Yes PMFSH Medical History Hyperlipidemia Family History: Denies Social History: The patient is the oldest of 4 children, her milestones were achieved at expected age and she was raised by her parents. She refused to provide any other information but apparently she is the mother of 2 adult children, she has very limited social support and she has worked in the past. At this moment she is chronically homeless and she has a housing unit at [facility] Substance History: Denies Trauma History: Denies Diagnostics Vital Signs (24Hr): Vital Signs - 24 hr 04/08/22 20:00 04/09/22 07:30 Temperature 98.2 F 98.4 F Pulse Rate 73 79 Respiratory Rate 16 16 Blood Pressure 119/69 125/68 Pulse Oximetry 97 97 Oxygen Delivery Method Room Air Room Air BMI result Body Mass Index 28.0 Labs 04/09/22 07:47 Labs: Laboratory Results - last 48 hr 04/09/22 07:47 Sodium 142 Potassium 4.5 Chloride 110 H Carbon Dioxide 20 L Anion Gap 17 BUN 20 H Creatinine 0.78 Estim Creat Clear Calc 74.5 Estimated GFR > 60 Fasting Glucose 99 Calcium 9.8 Total Bilirubin 0.6 AST 22 ALT 12 Alkaline Phosphatase 100 Total Protein 7.2 Albumin 4.2 Triglycerides 77 Cholesterol 224 LDL Cholesterol, Calc 146 HDL Cholesterol 63 Meds/Allergies Meds Home Medications Medication Instructions Recorded Confirmed Type Risperdal 1 mg PO BEDTIME 04/08/22 04/08/22 History Topamax 200 mg DAILY 04/08/22 04/08/22 History Vistaril 50 mg PO BEDTIME PRN Sleep 04/08/22 04/08/22 History lithium carbonate 600 mg PO BID 04/08/22 04/08/22 History rosuvastatin 10 mg tablet (Crestor) 10 mg PO BEDTIME 04/08/22 04/08/22 History Allergies Allergies Allergy/AdvReac Type Severity Reaction Status Date / Time No Known Allergies Allergy Unverified 11/17/19 16:08 [No Known Allergies*] Mental Status Exam Mental Status Exam Patient Appearance: Appropriate Patient Orientation: Person and Situation Level of Consciousness: Awake and Appropriate Patient Behavior: Guarded and Suspicious Mood Description: Calm and Relaxed Affect Description: Withdrawn and Labile Patient Cognition Impaired: No Ability to Follow Directions: Fair Speech Pattern: Clear Hallucinations: None Delusions: Paranoid Ideation Thought Process: Distracted and Slowed Thinking Thought Content: positive for [place], positive for Perseveration and positive for Poverty of Content Judgement: Fair Assessment & Plan Assessment & Plan (1) Bipolar disorder: Status: Acute Code(s): F31.9 - Bipolar disorder, unspecified (2) Psychosis: Status: Acute Code(s): F29 - Unspecified psychosis not due to a substance or known physiological condition Plan The patient is an elderly female with a prior history of bipolar disorder and chronic homelessness who was brought to the emergency room of [facility] after she fell in a nail salon. She was initially workout for medical problems but later on she showed paranoid delusions against staff and [place] was with Mrs.. She was transferring to this facility for psychiatric stabilization. According to the emergency room of [facility], her lithium level was nearly 0. Plan 1. Gather collateral information. We will call Dr. Church to gather more collateral information. 2. Continue with lithium Risperdal and other psychotropics medications. 3. Continue with medical workout. 4. Reassessment results include 4 hours Patient educated on: diagnosis and therapeutic strategies Guardian/Caregiver educated on: therapeutic strategies Informed Consent: further education needed Reason for continued inpatient stay Substantial Risk for: inability to function, rapid decompensation and med/psych decompensation Statement Statement: I have reviewed the history and physical and performed a pertinent examination on my patient. No changes have occurred unless specified. If the History and Physical was not performed prior to admission, the Hospitalist's service will be consulted for completing the admission physical. Time Spent With Patient Time: Total time managing care of this patient today _45___ minutes.
--- NOTE | 2022-04-09 15:10 | P.EN_ITS ---
Event Note Date of Service: 04/09/22 Event Note: Attempted to see patient for consultation at approximately 15:00. Patient was in a meeting room with the director social service. She was on the phone and the director social service had stated that she was still working with the patient. Unable to complete a full medical consultation. Time Spent With Patient Time: Total time managing care of this patient today ____ minutes.
[2022-04-09 18:00] VITALS: BP 131/69; PULSE 54; RESP 18; TEMP 36.2; O2SAT 98
[2022-04-09] MEDS: Atorvastatin Calcium 40 MG TABLET PO (20:02)
[2022-04-09] MEDS: hydrOXYzine HCL 50 MG TABLET PO (20:02)
[2022-04-09] MEDS: risperiDONE 1 MG TABLET PO (20:03)
[2022-04-10 07:30] VITALS: BP 127/69; PULSE 52; RESP 16; TEMP 36.5; O2SAT 100
[2022-04-10] MEDS: Lithium Carbonate 300 MG TABLET 600 MG PO (08:11)
[2022-04-10] MEDS: Topiramate 100 MG TABLET 200 MG PO (08:11)
--- NOTE | 2022-04-10 11:53 | P.DS_ITS ---
DS: Providers Provider Date of Service: 04/10/22 Date of admission: 04/08/22 18:37 Date of discharge: 04/10/22 Primary care physician: Unknown Physician Consults: 04/08/22 19:02 Consult to Hospitalist Routine Consulting Provider: Hospitalist Reason For Exam: Direct admission DS: Diagnosis Discharge Diagnosis (1) Bipolar disorder: Status: Acute (2) Psychosis: Status: Acute DS: Medications Discharge Medications Home Medications: Home Medications Medication Instructions Recorded Confirmed Risperdal 1 mg PO BEDTIME 04/08/22 04/08/22 Topamax 200 mg DAILY 04/08/22 04/08/22 Vistaril 50 mg PO BEDTIME PRN Sleep 04/08/22 04/08/22 lithium carbonate 600 mg PO BID 04/08/22 04/08/22 rosuvastatin 10 mg tablet (Crestor) 10 mg PO BEDTIME 04/08/22 04/08/22 Mental Status Exam Mental Status Exam Patient Appearance: Well Grooomed Patient Orientation: Person and Situation Level of Consciousness: Awake and Appropriate Patient Behavior: Guarded and Cooperative Mood Description: Withdrawn Affect Description: Constricted Patient Cognition Impaired: No Ability to Follow Directions: Good Speech Pattern: Clear Hallucinations: None Delusions: Paranoid Ideation Thought Process: Linear Thought Content: positive for Circumstantial Judgement: Fair Data Data Completed and Pending Completed studies during hospitalization [Text1]: 04/09/22 07:47 Sodium 142 Potassium 4.5 Chloride 110 H Carbon Dioxide 20 L Anion Gap 17 BUN 20 H Creatinine 0.78 Estim Creat Clear Calc 74.5 Estimated GFR > 60 Fasting Glucose 99 Calcium 9.8 Total Bilirubin 0.6 AST 22 ALT 12 Alkaline Phosphatase 100 Total Protein 7.2 Albumin 4.2 Triglycerides 77 Cholesterol 224 LDL Cholesterol, Calc 146 HDL Cholesterol 63 DS: Summary Hospital Course Hospital Course: The patient is a 71-year-old female with a long history of bipolar disorder who was admitted initially to the emergency room a [facility] after she fell in a salon, later assess for psychosis and transferred to this facility for psychiatric stabilization. Please see the HPI note of the admission note for further details. On admission, the patient presented herself with a Kadeem weighted grooming and proper ADL less and reported that she was doing fine she did know why she was brought here, she admitted chronic paranoid delusions against providers but she adamantly denies any safety concern concerns such as suicidal or homicidal thoughts. She wanted to be discharged she was on a 12 be. She agreed that we could contact his outpatient provider and I called him and he reported that she has a long history of noncompliance but overall she is safe in the community. We contact the staff of [facility] and they are not willing to take her back due to some concerns of safety. Even though that it is clear that the patient has chronic noncompliance and psychotic symptoms, there is no imminent risk to self or others that will suffice to file a Section 7 and 8. We discussed the situation with the patient and she wanted to be discharged. She will continue outpatient services with her regular providers. Time spent discussing smoking cessation with patient: 3 to 10 minutes Status at Discharge Functional status at discharge: independent ambulation Overall status at discharge: patient is back to baseline Time Spent with Patient Time attestation: Total time managing care of this patient today ____ minutes. Time spent: Less than 30 minutes Discharge Plan Discharge Anticipated Discharge Date/Time: 04/10/22 12:08 Patient Disposition: Home, Self-Care Discharge Diagnosis: Schizoaffective disorder bipolar type Referrals: Dr Ranjit MD [facility] [Other] - 1 Week Discharge Medications: Continued rosuvastatin [Crestor] 10 mg Tablet 10 mg PO BEDTIME 30 Days Qty: 30 0RF Risperdal 1 mg PO BEDTIME 30 Days Qty: 30 0RF Vistaril 50 mg PO BEDTIME PRN (Reason: Sleep) 30 Days Qty: 30 0RF Rx Instructions: may take 1 to 2 caps at bedtime lithium carbonate 600 mg PO BID 30 Days Qty: 60 0RF Changed Topamax 200 mg PO DAILY 30 Days Qty: 30 0RF Discharge Orders: Discharge Order (Routine); Ordered 04/10/22 Ordered By: Adam Mason Diet: Advance to usual diet Activity on Discharge: As tolerated Stand Alone Forms: Patient Portal Discharge page Care Plan Goals: Care plan goals achieved, no safety concerns Health Concerns: Continue treatment with outpatient providers Plan of Treatment: Continue treatment with outpatient provider Assessment: Elderly female with a long history of schizoaffective disorder bipolar type who was brought into the facility for delusional thinking against providers. Even though the patient is poorly compliant with treatment and she has chronic delusions as per his regular provider, she does not criteria of imminent danger to self or others so she will be discharged today
== END 2022-04-10 13:35 | disposition home or self-care (01) | DRG 885 ==
PROVIDERS: Admitting Provider Psychiatry & Neurology Psychiatry; Visit Provider Psychiatry & Neurology Psychiatry
DX: F31.9 Bipolar disorder, unspecified (principal); E78.5 Hyperlipidemia, unspecified; Z59.01 Sheltered homelessness; Z79.899 Other long term (current) drug therapy
CPT/HCPCS: 36415; 80053; 80061

== ENCOUNTER 2023-04-27 08:49 | Outpatient (REF) | payer MEDICARE, MEDICAID, SELFPAY ==
--- NOTE | ~2023-04-27 | XR_ITS ---
EXAMINATION: XR KNEE, RIGHT CLINICAL INFORMATION: Pain in right knee. COMPARISON: 01/14/2017 TECHNIQUE: 3 views of the right knee. FINDINGS: Trace joint effusion. Bones are diffusely demineralized. Severe degenerative changes in the lateral patellofemoral compartments with loss of the joint space, subchondral sclerosis and hypertrophic change. [id number]-ji-wkfnhlad degenerative changes in the medial compartment. XR/XR knee RT 3V IMPRESSION: Severe degenerative changes in the lateral and patellofemoral compartments.
== END 2023-04-27 08:50 | disposition home or self-care (01) ==
LOC: HO.HOSX 08:49
PROVIDERS: Visit Provider Orthopaedic Surgery
DX: M25.561 Pain in right knee (principal); Z79.899 Other long term (current) drug therapy
CPT/HCPCS: 73562; 99202

== ENCOUNTER 2023-04-27 11:13 | Outpatient (AMB) | payer MEDICARE, MEDICAID, SELFPAY ==
--- NOTE | 2023-04-27 11:56 | MHC.OFFVIS ---
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 Patient reports her pain has been going on for about a year and half. The patient states that she has been seen at [facility]. She has had injections which gave her minimal relief. She has also tried wearing a knee brace which gives her no relief. The patient states that she was told by a physician at [facility] that she has pins in my knees and questions whether or not they should be removed. Allergies No Known Allergies [No Known Allergies*] Allergy (Verified 04/27/23 12:04) Medication List - Last Reconciled 04/27/23 by Gurinder Doe MD hydroxyzine pamoate mg PO [lithium carbonate 600 mg PO BID 30 days] [Risperdal 1 mg PO BEDTIME 30 days] [Topamax 200 mg PO DAILY 30 days] PFSH Medical History Hyperlipidemia Social History Household Members: None Housing: Other Do you presently have visiting nurse or other home services: No Unable to assess alcohol history related to: Unknown Patient Tobacco Use Status: Never used Tobacco e-Cigarette/Vaping Use: Never Used Second Hand Smoke Exposure: No Substance Use Type: Unknown service: No Current occupational status: retired Sexual orientation: Straight/Heterosexual Physical Exam Vital Signs: BMI result Body Mass Index 25.8 Const Other: Well-nourished well-developed very friendly female awake alert and oriented x3 in no acute distress Extrem Other: Right knee examination shows a minimal effusion, palpable crepitus with range of motion, pain with range of motion, no instability Results Reviewed Results Reviewed: X-rays of the patient's right knee show severe joint space narrowing with grade 4 [id number] arthritis in the lateral compartment, no acute bony abnormalities, no evidence of foreign bodies Assessment & Plan Assessment & Plan (1) Right knee pain: Code(s): M25.561 - Pain in right knee Plan Ms. Bruce presents with right knee pain due to degenerative joint disease. I had a lengthy discussion with the patient regarding the treatment options. The patient's questions whether or not she has pins in her knee which need to be removed. I told the patient that I do not see any evidence of foreign bodies on her x-rays. I did discuss the possibility of total knee replacement surgery. The patient is not interested in that type of surgery at this time. She will continue with her activities as tolerated. She will follow up with me on an as-needed basis. I spent 22 minutes in reviewing the patient's records and imaging studies, seeing the patient and documenting in the medical record. Orders: Orders XR knee RT 3V Today M25.561 - Pain in right knee Coding Level of Care Code New Pt Level 2 (69080) Diagnoses Right knee pain M25.561
[2023-04-27 12:00] VITALS: BMI 25.8
== END 2023-04-27 12:35 | disposition home or self-care (01) ==
PROVIDERS: Visit Provider Orthopaedic Surgery
DX: M25.561 Pain in right knee (principal)
CPT/HCPCS: 99202

== ENCOUNTER 2023-06-02 09:56 | Outpatient (AMB) | payer MEDICARE, MEDICAID, SELFPAY ==
[2023-06-02 09:58] VITALS: BMI 25.8
--- NOTE | 2023-06-02 09:58 | A.OFFVIS_ITS ---
Intake Vital Signs 06/02/23 09:58 Height 5 ft 7 in Weight 165 lb BMI 25.8 Intake Visit Reasons: New Prop/ LT shoulder pain Intake Note: Mercedez is a 72 year old Right hand dominate female who presents with complaints of intermittent discomfort in her left shoulder. She denies any recent injuries. The patient states that she has difficulty sleeping because of her pain. She has not had an injection or been to physical therapy. Allergies No Known Allergies [No Known Allergies*] Allergy (Verified 06/02/23 10:47) Medication List - Last Reconciled 06/02/23 by Gurinder Doe MD hydroxyzine pamoate mg PO [lithium carbonate 600 mg PO BID 30 days] [Risperdal 1 mg PO BEDTIME 30 days] [Topamax 200 mg PO DAILY 30 days] [facility] Medical History Hyperlipidemia Social History (Updated 06/02/23 @ 10:48 by Shari Platt CMA) Household Members: None Housing: Other Do you presently have visiting nurse or other home services: No Unable to assess alcohol history related to: Unknown Patient Tobacco Use Status: Never used Tobacco e-Cigarette/Vaping Use: Never Used Second Hand Smoke Exposure: No Substance Use Type: Unknown service: No Current occupational status: retired Current occupation: Right hand dominate Sexual orientation: Straight/Heterosexual Physical Exam Vital Signs: BMI result Body Mass Index 25.8 Const Other: Well-nourished well-developed very friendly female awake alert and oriented x3 in no acute distress Extrem Other: Bilateral upper extremity examination shows good capillary refill, no skin lesions noted, normal sensation light touch Left shoulder examination shows slightly decreased range of motion when compared to her right shoulder, 4+ out of 5 strength with supraspinatus testing, positive impingement signs, no instability Results Reviewed Results Reviewed: X-rays of the patient's left shoulder show moderate acromioclavicular joint narrowing, a type 2 acromion, mild glenohumeral joint degenerative changes Assessment & Plan Assessment & Plan (1) Left shoulder pain: Code(s): M25.512 - Pain in left shoulder Plan Ms. Bruce presents with intermittent left shoulder discomfort due to impingement syndrome and early glenohumeral joint arthritis. I had a lengthy discussion with the patient regarding the treatment options. Not wish for a cortisone injection at this time. She does not wish to go to physical therapy. I did give her a prescription for Celebrex to help with her discomfort. She will continue with her range of motion exercises to prevent stiffness. She will follow up with me on an as-needed basis should her symptoms not plateau at an unacceptable level over the next few months. I spent 19 minutes in reviewing the patient's records and imaging studies, seeing the patient and documenting in the medical record. Orders: Orders XR shoulder LT min 2V Today M25.512 - Pain in left shoulder Medications: New celecoxib (Celebrex) 200 mg PO DAILY PRN 30 caps 2RF pain Coding Level of Care Code Est Pt Level 2 (71117) Diagnoses Left shoulder pain M25.512
== END 2023-06-02 11:03 | disposition home or self-care (01) ==
PROVIDERS: Visit Provider Orthopaedic Surgery
DX: M25.512 Pain in left shoulder (principal)
CPT/HCPCS: 99214

== ENCOUNTER 2023-06-02 11:19 | Outpatient (REF) | payer MEDICARE, MEDICAID, SELFPAY ==
--- NOTE | ~2023-06-02 | XR_ITS ---
EXAMINATION: XR SHOULDER, LEFT CLINICAL INFORMATION: Pain COMPARISON: None available. TECHNIQUE: AP external rotation, Grashey, scapular Y, and axillary views of the left shoulder. FINDINGS: Mild acromioclavicular joint space narrowing. Humeral spurring. No fracture or dislocation. Visualized ribs are unremarkable. Slightly elevated left hemidiaphragm with mild basilar atelectasis. XR/XR shoulder LT min 2V IMPRESSION: Mild degenerative changes.
== END 2023-06-02 11:20 | disposition home or self-care (01) ==
LOC: HO.HOSX 11:19
PROVIDERS: Visit Provider Orthopaedic Surgery
DX: M25.512 Pain in left shoulder (principal)
CPT/HCPCS: 73030; 99212

== ENCOUNTER 2023-08-13 10:39 | Outpatient (AMB) | payer MEDICARE, SELFPAY ==
--- NOTE | 2023-08-13 10:40 | MHC.OFFVIS ---
Intake Visit Reasons: Right knee pain Intake Note: Mercedez is a 73 year old female who presents to the office today with complaints of progressively worsening right knee pain and swelling. The patient describes her pain as sharp in nature. Her pain has gotten worse over the last year in spite of continued non operative treatments. The patient states that her insurance company would not cover the Celebrex. She continues to take Tylenol which gives her minimal relief. She wishes to hold off on surgery for as long as possible. She has done physical therapy exercises which aggravated her pain. The patient did have a cortisone injection in the past which gave her temporary relief. Allergies No Known Allergies [No Known Allergies*] Allergy (Verified 08/13/23 10:41) Medication List - Last Reconciled 08/14/23 by Gurinder Doe MD hydroxyzine pamoate mg PO [lithium carbonate 600 mg PO BID 30 days] meloxicam 15 mg PO DAILY PRN [Risperdal 1 mg PO BEDTIME 30 days] [Topamax 200 mg PO DAILY 30 days] [facility] Medical History Hyperlipidemia Social History (Updated 06/02/23 @ 10:48 by Shari Platt CMA) Household Members: None Housing: Other Do you presently have visiting nurse or other home services: No Unable to assess alcohol history related to: Unknown Patient Tobacco Use Status: Never used Tobacco e-Cigarette/Vaping Use: Never Used Second Hand Smoke Exposure: No Substance Use Type: Unknown service: No Current occupational status: retired Current occupation: Right hand dominate Sexual orientation: Straight/Heterosexual Physical Exam Const Other: Well-nourished well-developed very friendly female awake alert and oriented x3 in no acute distress Extrem Other: Bilateral lower extremity examination shows good capillary refill, no skin lesions noted, normal sensation light touch Right knee examination shows a moderate effusion, palpable crepitus with range of motion, pain with range of motion, no instability Office Procedures Joint Injection/Drain Joint Injection/Drain Primary Site: right knee Prep: site was prepped using aseptic technique Injected: 40 mg of, DepoMedrol and 1% plain lidocaine Procedure: The patient tolerated the procedure well Coding 42981 - Large joint Procedure code (CPT) selection complete Results Reviewed Results Reviewed: X-rays of the patient's right knee show joint space narrowing, subchondral sclerosis, no acute bony abnormalities Assessment & Plan Assessment & Plan (1) Arthritis of right knee: Code(s): M17.11 - Unilateral primary osteoarthritis, right knee Category: Medical (2) Right knee pain: Code(s): M25.561 - Pain in right knee Category: Medical Plan Ms. Bruce presents with progressively worsening right knee pain due to degenerative joint disease. I had a lengthy discussion with the patient regarding her treatment options. The patient wishes to hold off on total knee replacement surgery for as long as possible. I agree with this plan. The risks and benefits of a right knee cortisone injection were discussed at length with the patient. The patient wished to proceed. Prior to the injection I aspirated 10 cc of clear fluid from her right knee. The patient tolerated the injection well. She will continue with her activity modifications. She will follow up with me on an as-needed basis should her symptoms not plateau at an unacceptable level over the next few months. I spent 20 minutes in reviewing the patient's records and imaging studies, seeing the patient and documenting in the medical record. Orders: Orders AMB Joint Injection/Aspiration 08/13/23 M17.11 - Unilateral primary osteoarthritis, right knee Medications: New meloxicam 15 mg PO DAILY PRN 30 tabs 2RF pain Discontinued celecoxib (Celebrex) Discontinued Reason: Doctor's Order 200 mg PO DAILY PRN 30 caps 2RF pain Coding Level of Care Code Est Pt Level 3 (41378) Diagnoses Arthritis of right knee M17.11 Right knee pain M25.561 CPT Codes Coding - 84730 Large joint: 67290 - Large joint ([id number])
== END 2023-08-13 11:02 | disposition home or self-care (01) ==
PROVIDERS: Visit Provider Orthopaedic Surgery
DX: M17.11 Unilateral primary osteoarthritis, right knee (principal); M25.561 Pain in right knee
CPT/HCPCS: 20610; 99214

== ENCOUNTER → 2023-08-13 10:39 | Outpatient (BNVA) | payer MEDICARE, MEDICAID, SELFPAY | PROVIDERS: Visit Provider Orthopaedic Surgery | DX: M17.11 Unilateral primary osteoarthritis, right knee (principal); M25.561 Pain in right knee | CPT/HCPCS: 20610; 99212; J3301 ==

== ENCOUNTER 2023-11-06 11:20 | Outpatient (AMB) | payer MEDICARE, SELFPAY ==
[2023-11-06 11:29] VITALS: BMI 25.8
--- NOTE | 2023-11-06 11:29 | MHC.OFFVIS ---
Vital Signs 11/06/23 11:29 Height 5 ft 7 in Weight 165 lb BMI 25.8 Intake Visit Reasons: Right knee pain , Low back pain Intake Note: Mercedez is a 72 year old female who presents for follow-up of her right knee pain. Today the patient once again asks, are they are still pins in my knees? I have discussed with the patient at previous visits that I do not see any type of hardware on her x-rays. The patient states that at times her right knee ?bounces. She has been seen at [facility] but stopped going because they kept messing up my appointments. The patient did have a cortisone injection given into her right knee earlier this year which seemed to worsen her pain. She also reports intermittent low back pain. She does walk with a cane because of her pains. Allergies No Known Allergies [No Known Allergies*] Allergy (Verified 11/06/23 11:30) Medication List - Last Reconciled 11/06/23 by Gurinder Doe MD cane As directed hydroxyzine pamoate mg PO [lithium carbonate 600 mg PO BID 30 days] meloxicam 15 mg PO DAILY PRN [Risperdal 1 mg PO BEDTIME 30 days] [Topamax 200 mg PO DAILY 30 days] [facility] Medical History Hyperlipidemia Social History (Updated 06/02/23 @ 10:48 by Shari Platt CMA) Household Members: None Housing: Other Do you presently have visiting nurse or other home services: No Unable to assess alcohol history related to: Unknown Patient Tobacco Use Status: Never used Tobacco e-Cigarette/Vaping Use: Never Used Second Hand Smoke Exposure: No Substance Use Type: Unknown service: No Current occupational status: retired Current occupation: Right hand dominate Sexual orientation: Straight/Heterosexual Physical Exam Vital Signs: BMI result Body Mass Index 25.8 Back/Spine/Pelvis Other: Low back examination shows bilateral paraspinal muscle tenderness, negative straight leg raise bilaterally at 70 degrees, pain with range of motion Extrem Other: Right knee examination shows a minimal effusion, palpable crepitus with range of motion, pain with range of motion Results Reviewed Results Reviewed: X-rays of the patient's right knee taken in April of 2023 show severe joint space narrowing, subchondral sclerosis, no obvious hardware present Assessment & Plan Assessment & Plan (1) Right knee pain: Code(s): M25.561 - Pain in right knee Category: Medical (2) Low back pain: Code(s): M54.50 - Low back pain, unspecified Category: Medical Plan Ms. Bruce presents with low back pain most likely due to degenerative disc disease as well as right knee pain due to degenerative joint disease. I had a lengthy discussion with the patient regarding the treatment options. We will hold off on another cortisone injection because the last injection seemed to aggravate her pain. Because of the patient's history of significant psychosis I do not feel that she is a good candidate for a major elective surgical procedure such as a total knee arthroplasty. The patient is certainly welcome to go back to [facility] if she chooses to do so. The patient may be a candidate for something less invasive like a nerve block procedure or possible low back cortisone injection. Thus, I will arrange for her to have a consultation with Dr. Sahu here in our pain management department. She will follow-up as instructed. She will follow up with me on an as-needed basis. I spent 22 minutes in reviewing the patient's records and imaging studies, seeing the patient and documenting in the medical record. Orders: Referrals Pain Management Referral M25.561 - Pain in right knee, M54.50 - Low back pain, unspecified Coding Level of Care Code Est Pt Level 3 (77429) Complex EM visit Add On G2211 Diagnoses Right knee pain M25.561 Low back pain M54.50
== END 2023-11-06 11:47 | disposition home or self-care (01) ==
PROVIDERS: Visit Provider Orthopaedic Surgery
DX: M25.561 Pain in right knee (principal); M54.50 Low back pain, unspecified
CPT/HCPCS: 99213; G2211

== ENCOUNTER → 2023-11-06 11:20 | Outpatient (BNVA) | payer MEDICARE, MEDICAID, SELFPAY | PROVIDERS: Visit Provider Orthopaedic Surgery | DX: M25.561 Pain in right knee (principal); M54.50 Low back pain, unspecified | CPT/HCPCS: 99212 ==

== ENCOUNTER 2023-12-29 10:15 | Outpatient (REF) | payer MEDICARE, SELFPAY ==
[2023-12-29 12:20] LABS: Lithium 0.57 mmol/L (0.60-1.20)
[2023-12-29 12:54] LABS: Anion Gap 8 (12-20); Blood Urea Nitrogen 13 mg/dL (9-16); Calcium 9.9 mg/dL (8.4-10.2); Carbon Dioxide 27 mmol/L (22-29); Chloride 111 mmol/L (96-108); Estimated Glomerular Filt Rate > 60; Glucose Random 93 mg/dL (60-115); Potassium 3.3 mmol/L (3.3-5.1); Sodium 143 mmol/L (135-145)
[2023-12-29 12:59] LABS: Thyroid Stimulating Hormone 0.64 uIU/mL (0.32-4.0)
== END 2023-12-29 10:16 | disposition home or self-care (01) ==
LOC: HO.LAB 10:15
PROVIDERS: Visit Provider Clinical Nurse Specialist Psychiatric/Mental Health, Adult
DX: Z79.899 Other long term (current) drug therapy (principal)
CPT/HCPCS: 36415; 80048; 80178; 84443

== ENCOUNTER 2024-05-09 11:18 | Outpatient (AMB) | payer MEDICARE, SELFPAY ==
--- NOTE | 2024-05-09 11:20 | MHC.OFFVIS ---
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 She has a background of degenerative joint disease in the right knee, a condition for which a corticosteroid injection aggravated her symptoms. Due to her psychosis, surgical options were deferred. Degenerative disc disease contributes to her lumbar spine pain. She also has left shoulder pain from impingement syndrome and early arthritis, for which she refused cortisone. Current significant pain and swelling in the right leg may stem from venous or neuropathic etiologies. Recommendations include ultrasound for venous reflux. Pain Description - Pain has onset of several years, primarily in the right knee, now extending to the right calf and leg. - Described as pressure-like, with occasional sensations of being kicked. - Primary location: right calf extending to the ankle. - Exacerbating factors: ambulation over longer distances, community stress. - Alleviating factors: Not clearly stated. - Interferes with daily walking; fear of falling due to pain noted. Physical Exam - Musculoskeletal- Mild edema in the right claire; right leg appears slightly swollen compared to the left. Results - Tests: Recommended lower extremity duplex ultrasound to assess venous reflux. Pain Management - Affect: Pain significantly impacts mobility, causing fear of falls; frustration expressed over delay in surgical intervention. - Analgesia: Previously tried Celebrex; unclear continuation or current medication state; no goal pain levels stated. - Adverse Effects: Aggravation of pain noted post-corticosteroid injection in knee. - Activities of Daily Living: Difficulty walking; significant interference with ambulation and daily activities. - Aberrant Drug Related Behaviors: None reported. [facility] Medical History Hyperlipidemia Social History (Updated 06/02/23 @ 10:48 by Shari Platt CMA) Household Members: None Housing: Other Do you presently have visiting nurse or other home services: No Unable to assess alcohol history related to: Unknown Patient Tobacco Use Status: Never used Tobacco e-Cigarette/Vaping Use: Never Used Second Hand Smoke Exposure: No Substance Use Type: Unknown service: No Current occupational status: retired Current occupation: Right hand dominate Sexual orientation: Straight/Heterosexual Physical Exam Vital Signs: Last Vital Signs Pulse 54 05/09/24 11:22 Resp 16 05/09/24 11:22 BP 121/66 05/09/24 11:22 Pulse Ox 93 05/09/24 11:22 Oxygen Delivery Method Room Air 05/09/24 11:22 BMI result Body Mass Index 25.7 Assessment & Plan Assessment & Plan (1) Right calf pain: Code(s): M79.661 - Pain in right lower leg Category: Medical Plan Plan The patient's chronic conditions requiring management include degenerative joint disease in the right knee and degenerative disc disease of the lumbar spine. Different includes venous insufficiency for calf pain. An ultrasound will be performed to assess for venous reflux, with possible vascular surgery referral if findings support venous insufficiency. Compression stockings are advised to assist with swelling. Prior shoulder pain issues and knee-related concerns remain stable. Patient was informed and verbally consented to the use of an ambient scribe for clinic note documentation during this visit. Discussion Notes During our discussion, I addressed the potential for venous reflux contributing to the patient's right calf and leg pain, distinct from her knee issues. I explained the benefits and next steps of conducting an ultrasound to ascertain venous reflux existence. I outlined that if venous issues are confirmed, venous ablation might be pursued. Compression stockings were recommended as an interim strategy, with emphasis on usage protocol for maximum effectiveness. The patient consented to the plan, while we also discussed the timeline for follow-up following the diagnostic ultrasound. Patient Instructions - Expect a call to schedule a lower extremity duplex ultrasound. - Begin wearing compression stockings daily, starting in the morning before getting out of bed. - Monitor leg pain and swelling; reach out if symptoms significantly worsen. - Follow up post-ultrasound for further discussion on management based on results. Orders: Orders US venous duplex LE BI 05/09/24 M79.661 - Pain in right lower leg Coding Level of Care Code New Pt Level 4 (23535) Diagnoses Right calf pain M79.661
[2024-05-09 11:22] VITALS: BP 121/66; PULSE 54; RESP 16; O2SAT 93; BMI 25.7
--- OUTSIDE RECORDS SUMMARY | 2024-05-09 12:57 | XMS_ITS | Clinical Summary ---
Author Organization [facility] ity Address [address] [place] [address] Care Team Providers Care Emergency Nurse Name Role Phone Jim Acuna MD Primary Care Provider [phone] Social History Tobacco Use Types Packs/Day Years Used Date Smoking Tobacco: Never Assessed Comments Unknown Sex and Gender Information Value Date Recorded Sex Assigned at Not on file Legal Sex Female 7:20 AM EST Gender Identity Not on file Sexual Orientation Not on file Plan of Treatment Health Maintenance Due Date Last Done Comments Breast Cancer Screening 1950 DTaP,Tdap,and Td Vaccines (1 - Tdap) 06/18/1971 Pneumococcal Vaccine: 50+ Ye ars (1 of 1 - PCV) 2002 Zoster Vaccines (1 of 2) 2002 Colorectal Cancer Screening: Colonoscopy 02/02/2022 Depression Screening 02/02/2022 Falls Risk Assessment 02/02/2022 Hepatitis C Screening 02/02/2022 Osteoporosis Screening (Bone Density Screening) 02/02/2022 Social Influencers of Health Screening 02/02/2022 COVID-19 Vaccine ( - 2023-2 5 season) 2023 Influenza Vaccine (#1) 2023 RSV Immunization Patients 60 + Years Old (1 - 1-dose 75+ series) 06/18/2027 HIB Vaccines Aged Out No longer eligi ble based on patient's age to complete this topic HPV Vaccines Aged Out No longer eligi ble based on patient's age to complete this topic Hepatitis A Vaccines Aged Out No long er eligible based on patient's age to complete this topic Hepatitis B Vaccines Aged Out No long er eligible based on patient's age to complete this topic IPV Vaccines Aged Out No longer eligi ble based on patient's age to complete this topic MMR Vaccines Aged Out No longer eligi ble based on patient's age to complete this topic Meningococcal ACWY Vaccine Aged Out N o longer eligible based on patient's age to complete this topic Meningococcal B Vacine Aged Out No lo nger eligible based on patient's age to complete this topic RSV Immunization Patients Un allan 20 months Aged Out No longer eligible b ased on patient's age to complete this topic Varicella Vaccines Aged Out No longer eligible based on patient's age to complete this topic Care Teams Emergency Nurse Relationship Specialty Start Date End Date Jim Acuna MD [id number] PCP - General Internal Medicine 01/13/14
--- OUTSIDE RECORDS SUMMARY | 2024-05-09 12:57 | XMS_ITS | Data Portability ---
Author Organization [facility], Main Office Address [address] [place] [address] Care Team Providers Care Aeronautical Engineering Teacher Name Role Phone RAMIRO CHAPMAN Maintenance Mechanic Elevators [phone] [facility] Psychiatrist JUAN J MARSH Orthopedic Surgeon MISKEESHA MCKEE Neurologist URIAH DIMAS Tank Processor [phone] [facility] BREAST [facility] WELLNESS IMAGING ORDERS Glenda st Surgeon KALEB CUETO Fuel Verification Technician DARREN CALLAWAY Primary Care Provider Assessment Encounter Date Assessment Date Assessment LastModified by Organization Details LastModified Time 09/27/2021 09/27/2021 Portions of this record may have been created with voice recognition software. [email or web address] Not available 09/27/2021 12:42:54 Plan of Treatment Reminders Order Date Submit Date Provider Last Modified By Organization Details Last Modified Time Details Appointments None record ed. Lab lipid panel, serum 2021 [facility], [address], [place] [address], [address], 19:25:39 LDL, serum 2021 022 [facility], [address], [address], [place], [address], 19:25:37 noninv asive colore ctal cancer DNA + occult blood screen ing, QL, stool 2021 [facility] (Cologuard Orders Only), [address], [address], [place], [address], 14:00:27 unlist ed lab - GI profil e, stool, PCR 2021 [facility], [address], [address], [place], [address], 11:51:58 unlist ed lab - urinal ysis w/refl ex cultur e 2021 PATRICIA [facility] (Centralized Electronic Ordering - All Locations), Patient Can Go To The Location Of Their Choice, [id number] 15:10:36 BMP, serum or plasma 2021 PATRICIA [facility] (Centralized Electronic Ordering - All Locations), Patient Can Go To The Location Of Their Choice, [id number] 15:33:59 magnes ium, serum or plasma 2021 PATRICIA [facility] (Centralized Electronic Ordering - All Locations), Patient Can Go To The Location Of Their Choice, [id number] 15:34:00 CBC w/ auto diff 2021 PATRICIA [facility] (Centralized Electronic Ordering - All Locations), Patient Can Go To The Location Of Their Choice, [id number] 15:01:55 fecal occult blood, immuno assay, stool 2021 PATRICIA In-Office Order, Internal Use Only DO Not Attach Compendium DO Not Attach Compendium, Do Not Delete/merge, [id number] 05:01:02 Referral physic al therap ist referr al 2021 [email or web address] [facility], [address] [place], [address], 2 15:43:50 physic al therap ist referr al - Please see for BPPV 2021 [email or web address] [facility], [address], [place], [address], 3 10:48:56 dermat ologis t referr al - dark area of nail pls eval unsure if possib le melano ma 2021 [facility], [address], [address], [place], [address], 3 14:48:58 care manage ment referr al - Please set up RPM with BP monito r [facility], [address], [address], [place], [address], 2 09:06:09 Procedures None record ed. Surgeries None record ed. Imaging bone densit y 2021 bsmary [facility], [address], [place], [address], 3 12:44:58 US, duplex , arteri al, lower extrem ity, comple te 2021 [email or web address] Not available 3 12:54:43 ankle brachi al index, comple te [address] [facility], [address], [address], [place], [address], 3 11:58:56 pulse volume record ing 2021 [email or web address] [facility], [address], [address], [place], [address], 3 11:58:56 electr ocardi ogram 2021 [id number] In-Office Order, Internal Use Only DO Not Attach Compendium DO Not Attach Compendium, Do Not Delete/merge, [id number] 11:45:12 US, siobhan rdiogr am 2021 [email or web address] [facility] (Outt Non-Invasive Cardiology Scheduling), [address], [place], [address], 16:13:09 Medication Orders furose mide 20 mg tablet 2021 [id number], [address] [place], [address], 10:50:19 Patient TargetsNo targets recorded. Patient Instructions Encounter Date Encounter Id Patient Instructions Last Modified By Organization Details Last Modified Time 06/19/2021 [id number] colon cancer screening: care instructions [email or web address] Not available 06/19/2021 13:26:51 09/27/2021 [id number] advance care planning: care instructions [email or web address] Not available 09/27/2021 11:11:24 benign paroxysmal positional vertigo (bppv): care instructions [email or web address] Not available 09/27/2021 12:55:48 orthostatic vitals* [email or web address] Not available 10/07/2021 08:40:07 12/06/2021 [id number] preventing falls: care instructions [email or web address] Not available 12/06/2021 14:37:03 medicare preventive services guide (female 74yrs and under) [email or web address] Not available 12/06/2021 14:37:02 colon cancer screening: care instructions [email or web address] Not available 12/06/2021 14:37:02 high blood pressure: care instructions ckokar Not available 12/06/2021 14:37:03 learning about high blood pressure ckokar Not available 12/06/2021 14:37:03 02/08/2022 [id number] leg and ankle edema: care instructions [email or web address] Not available 02/08/2022 10:50:17 Reason for Referral Please set up RPM with BP mo nitor Referring Physician: Darren Callaway, Family Medicine, Encounter Date: 06/19/2021 Child Development Director Referral for N ail changes dark area of nail pls eval unsure if possible melanoma Referring Physician: Darren Callaway [facility], Encounter Date: 09/27/2021 Physical Therapist Referral for Benign paroxysmal positional vertigo Please see for BPPV Referring Physician: Darren Callaway [facility], Encounter Date: 09/27/2021 Physical Therapist Referral for Adult health examination Referring Physician: Darren Callaway [facility], Encounter Date: 12/06/2021 Results Created Date Observation Date Name Description Value Unit Range Abnormal Flag Note LastModifiedBy Organization Detail LastModifiedTime 12/07/1912/06/2022 COLOG UARD cologuard result Cancel led - Order d not applic able Not Available [facility] (Cologuard Orders Only) [address], [place], [address], 12/06/2022 06:47:57 09/28/1909/27/2021 GI PROFI LE, STOOL , PCR results Test Cance lled, food service order clerk error Not Available [facility] (Centralized Electronic Ordering - All Locations) Patient Can Go To The Location Of Their Choice, [id number] 09/27/2021 11:51:58 09/28/1909/27/2021 COMPL ETE CBC WITH DIFF WBC 3.6 K/mm3 (4.0-1 1.0) low Not Available [facility] (Centralized Electronic Ordering - All Locations) Patient Can Go To The Location Of Their Choice, 09/27/2021 15:01:54 09/28/1909/27/2021 COMPL ETE CBC WITH DIFF RBC 4.20 M/mm3 (4.20- 5.40) Not Available [facility] (Centralized Electronic Ordering - All Locations) Patient Can Go To The Location Of Their Choice, 09/27/2021 15:01:54 09/28/19 22 09/27/2021 COMPL ETE CBC WITH DIFF HGB 13.1 gm/dL (11.7- 15.5) Not Available [facility] (Centralized Electronic Ordering - All Locations) Patient Can Go To The Location Of Their Choice, 09/27/2021 15:01:54 09/28/1909/27/2021 COMPL ETE CBC WITH DIFF HCT 42.9 % (35.7- 45.8) Not Available [facility] (Centralized Electronic Ordering - All Locations) Patient Can Go To The Location Of Their Choice, 09/27/2021 15:01:54 09/28/1909/27/2021 COMPL ETE CBC WITH DIFF MCV 102.1 fL (80.0- 100.0) high Not Available [facility] (Centralized Electronic Ordering - All Locations) Patient Can Go To The Location Of Their Choice, 09/27/2021 15:01:54 09/28/1909/27/2021 COMPL ETE CBC WITH DIFF MCH 31.2 pg (27.0- 34.0) Not Available [facility] (Centralized Electronic Ordering - All Locations) Patient Can Go To The Location Of Their Choice, 09/27/2021 15:01:54 09/28/1909/27/2021 COMPL ETE CBC WITH DIFF MCHC 30.5 g/dL (33.0- 37.0) low Not Available [facility] (Centralized Electronic Ordering - All Locations) Patient Can Go To The Location Of Their Choice, 09/27/2021 15:01:54 09/28/1909/27/2021 COMPL ETE CBC WITH DIFF plt 213 K/mm3 (150-4 60) Not Available [facility] (Centralized Electronic Ordering - All Locations) Patient Can Go To The Location Of Their Choice, 09/27/2021 15:01:54 09/28/1909/27/2021 COMPL ETE CBC WITH DIFF RDW-SD 50.5 fL (<47.0 ) high Not Available [facility] (Centralized Electronic Ordering - All Locations) Patient Can Go To The Location Of Their Choice, 09/27/2021 15:01:54 09/28/1909/27/2021 COMPL ETE CBC WITH DIFF MPV 10.8 fL (9.4-1 2.4) Not Available [facility] (Centralized Electronic Ordering - All Locations) Patient Can Go To The Location Of Their Choice, 09/27/2021 15:01:54 09/28/1909/27/2021 COMPL ETE CBC WITH DIFF automated NRBC 0.0 #/100 _WBC' s Not Available [facility] (Centralized Electronic Ordering - All Locations) Patient Can Go To The Location Of Their Choice, 09/27/2021 15:01:54 09/28/19 22 09/27/2021 COMPL ETE CBC WITH DIFF abs. NRBC 0.0 K/mm3 Not Available [facility] (Centralized Electronic Ordering - All Locations) Patient Can Go To The Location Of Their Choice, 09/27/2021 15:01:54 09/28/1909/27/2021 COMPL ETE CBC WITH DIFF neut # 2.1 K/mm3 (1.3-7 .0) Not Available [facility] (Centralized Electronic Ordering - All Locations) Patient Can Go To The Location Of Their Choice, 09/27/2021 15:01:54 09/28/1909/27/2021 COMPL ETE CBC WITH DIFF lymph # 1.0 K/mm3 (0.8-3 .1) Not Available [facility] (Centralized Electronic Ordering - All Locations) Patient Can Go To The Location Of Their Choice, 09/27/2021 15:01:54 09/28/1909/27/2021 COMPL ETE CBC WITH DIFF mono# 0.4 K/mm3 (0.4-0 .9) Not Available [facility] (Centralized Electronic Ordering - All Locations) Patient Can Go To The Location Of Their Choice, 09/27/2021 15:01:54 09/28/1909/27/2021 COMPL ETE CBC WITH DIFF eo # 0.1 K/mm3 (0.0-0 .4) Not Available [facility] (Centralized Electronic Ordering - All Locations) Patient Can Go To The Location Of Their Choice, 09/27/2021 15:01:54 09/28/1909/27/2021 COMPL ETE CBC WITH DIFF baso # 0.0 K/mm3 (0.0-0 .1) Not Available [facility] (Centralized Electronic Ordering - All Locations) Patient Can Go To The Location Of Their Choice, 09/27/2021 15:01:54 09/28/1909/27/2021 COMPL ETE CBC WITH DIFF abs. imm gran 0.0 K/mm3 Not Available [facility] (Central[facility] Ordering - All Locations) Patient Can Go To The Location Of Their Choice, 09/27/2021 15:01:54 09/28/1909/27/2021 COMPL ETE CBC WITH DIFF neut 58.9 % (44-76 ) Not Available [facility] (Centralized Electronic Ordering - All Locations) Patient Can Go To The Location Of Their Choice, 09/27/2021 15:01:54 09/28/1909/27/2021 COMPL ETE CBC WITH DIFF lymph 27.5 % (15-43 ) Not Available [facility] (Centralized Electronic Ordering - All Locations) Patient Can Go To The Location Of Their Choice, 09/27/2021 15:01:54 09/28/1909/27/2021 COMPL ETE CBC WITH DIFF monocyte 10.2 % (4.5-1 0.5) Not Available [facility] (Centralized Electronic Ordering - All Locations) Patient Can Go To The Location Of Their Choice, 09/27/2021 15:01:54 09/28/1909/27/2021 COMPL ETE CBC WITH DIFF eo 2.5 % (0-6) Not Available [facility] (Centralized Electronic Ordering - All Locations) Patient Can Go To The Location Of Their Choice, 09/27/2021 15:01:54 09/28/1909/27/2021 COMPL ETE CBC WITH DIFF baso 0.6 % (0-2) Not Available [facility] (Centralized Electronic Ordering - All Locations) Patient Can Go To The Location Of Their Choice, 09/27/2021 15:01:54 09/28/1909/27/2021 COMPL ETE CBC WITH DIFF imm gran 0.3 % Not Available [facility] (Centralized Electronic Ordering - All Locations) Patient Can Go To The Location Of Their Choice, 09/27/2021 15:01:54 09/28/1909/27/2021 BASIC METAB OLIC PANEL glucose 84 mg/dL (70-99 ) Not Available [facility] (Centralized Electronic Ordering - All Locations) Patient Can Go To The Location Of Their Choice, 09/27/2021 15:33:59 09/28/1909/27/2021 BASIC METAB OLIC PANEL BUN 14 mg/dL (8-23) Not Available [facility] (Centralized Electronic Ordering - All Locations) Patient Can Go To The Location Of Their Choice, 09/27/2021 15:33:59 09/28/1909/27/2021 BASIC METAB OLIC PANEL creatinine 0.8 mg/dL (0.5-1 .0) Not Available [facility] (Centralized Electronic Ordering - All Locations) Patient Can Go To The Location Of Their Choice, 09/27/2021 15:33:59 09/28/1909/27/2021 BASIC METAB OLIC PANEL sodium 139 mmol/ L (133-1 45) Not Available [facility] (Centralized Electronic Ordering - All Locations) Patient Can Go To The Location Of Their Choice, 09/27/2021 15:33:59 09/28/1909/27/2021 BASIC METAB OLIC PANEL potassium 4.0 mmol/ L (3.6-5 .2) Not Available [facility] (Centralized Electronic Ordering - All Locations) Patient Can Go To The Location Of Their Choice, 09/27/2021 15:33:59 09/28/1909/27/2021 BASIC METAB OLIC PANEL chloride 109 mmol/ L (98-10 7) high Not Available [facility] (Centralized Electronic Ordering - All Locations) Patient Can Go To The Location Of Their Choice, 09/27/2021 15:33:59 09/28/1909/27/2021 BASIC METAB OLIC PANEL bicarbonate 21 mmol/ L (22-29 ) low Not Available [facility] (Centralized Electronic Ordering - All Locations) Patient Can Go To The Location Of Their Choice, 09/27/2021 15:33:59 09/28/1909/27/2021 BASIC METAB OLIC PANEL anion gap 9 (4-17) Not Available [facility] (Centralized Electronic Ordering - All Locations) Patient Can Go To The Location Of Their Choice, 09/27/2021 15:33:59 09/28/1909/27/2021 BASIC METAB OLIC PANEL calcium 9.5 mg/dL (8.6-1 0.5) Not Available [facility] (Centralized Electronic Ordering - All Locations) Patient Can Go To The Location Of Their Choice, 09/27/2021 15:33:59 09/28/1909/27/2021 BASIC METAB OLIC PANEL estimated GFR creatinine 80 mL/mi n/1.7 3_M2 Creat inine based estim ated glome rular filtr ation (eGFR ) in adult s is calcu lated using the Natio nal Kidne y Found ation recom martha d 2020 CKD-E PI equat ion. Estim ates GFR from serum creat inine , age and sex. Not Available [facility] (Centralized Electronic Ordering - All Locations) Patient Can Go To The Location Of Their Choice, 09/27/2021 15:33:59 09/28/1909/27/2021 MAGNE SIUM magnesium 2.2 mg/dL (1.6-2 .3) Not Available [facility] (Centralized Electronic Ordering - All Locations) Patient Can Go To The Location Of Their Choice, 09/27/2021 15:34:00 09/28/1909/27/2021 HAPTO GLOBI N haptoglobin 98 mg/dL (30-20 0) Not Available [facility] (Centralized Electronic Ordering - All Locations) Patient Can Go To The Location Of Their Choice, 09/27/2021 23:00:21 09/28/1909/27/2021 HEPAT IC FUNCT ION PANEL bilirubin,to glenn 0.3 mg/dL (0-1.2 ) Not Available [facility] (Centralized Electronic Ordering - All Locations) Patient Can Go To The Location Of Their Choice, 09/27/2021 23:00:22 09/28/1909/27/2021 HEPAT IC FUNCT ION PANEL bilirubin, direct <0.2 mg/dL (0-0.3 ) Not Available [facility] (Centralized Electronic Ordering - All Locations) Patient Can Go To The Location Of Their Choice, 09/27/2021 23:00:22 09/28/1909/27/2021 HEPAT IC FUNCT ION PANEL indirect bilirubin mg/dL (0.0-0 .7) Direc t bilir ubin is less than the measu reabl e limit . There fore, indir ect bilir ubin canno t be samira beltrán . Not Available [facility] (Centralized Electronic Ordering - All Locations) Patient Can Go To The Location Of Their Choice, 09/27/2021 23:00:09/28/1909/27/2021 HEPAT IC FUNCT ION PANEL albumin 4.8 gm/dL (3.4-4 .8) Not Available [facility] (Centralized Electronic Ordering - All Locations) Patient Can Go To The Location Of Their Choice, 09/27/2021 23:00:22 09/28/1909/27/2021 HEPAT IC FUNCT ION PANEL AST 18 U/L (0-32) Not Available [facility] (Centralized Electronic Ordering - All Locations) Patient Can Go To The Location Of Their Choice, 09/27/2021 23:00:09/28/1909/27/2021 HEPAT IC FUNCT ION PANEL ALT 14 U/L (0-33) Not Available [facility] (Centralized Electronic Ordering - All Locations) Patient Can Go To The Location Of Their Choice, 09/27/2021 23:00:22 09/28/1909/27/2021 HEPAT IC FUNCT ION PANEL alk phos 89 U/L (35-10 4) Not Available [facility] (Centralized Electronic Ordering - All Locations) Patient Can Go To The Location Of Their Choice, 09/27/2021 23:00:22 09/28/1909/27/2021 HEPAT IC FUNCT ION PANEL total protein 6.8 gm/dL (6.2-8 .2) Not Available [facility] (Centralized Electronic Ordering - All Locations) Patient Can Go To The Location Of Their Choice, 09/27/2021 23:00:09/28/1909/27/2021 LDH LDH 181 U/L (94-25 0) Not Available [facility] (Centralized Electronic Ordering - All Locations) Patient Can Go To The Location Of Their Choice, 09/27/2021 23:00:23 09/28/1909/27/2021 RETIC ULOCY TE COUNT retic % 1.2 % (0.9-2 .1) Not Available [facility] (Centralized Electronic Ordering - All Locations) Patient Can Go To The Location Of Their Choice, 09/27/2021 23:00:59 09/28/1909/27/2021 RETIC ULOCY TE COUNT reticulocyte count, corrected 1.1 % (0.9-2 .1) Not Available [facility] (Centralized Electronic Ordering - All Locations) Patient Can Go To The Location Of Their Choice, 09/27/2021 23:00:59 09/28/19 22 09/27/2021 RETIC ULOCY TE COUNT reticulocyte production index 1.1 % (1.0-2 .0) Not Available [facility] (Centralized Electronic Ordering - All Locations) Patient Can Go To The Location Of Their Choice, 09/27/2021 23:00:59 09/28/1909/27/2021 VITAM IN B12 vitamin B12 510 pg/mL (232-1 245) Not Available [facility] (Centralized Electronic Ordering - All Locations) Patient Can Go To The Location Of Their Choice, 09/27/2021 23:14:33 09/28/1909/27/2021 FOLIC ACID folic acid 11.1 NG/mL (4.8-3 7.3) Not Available [facility] (Centralized Electronic Ordering - All Locations) Patient Can Go To The Location Of Their Choice, 09/27/2021 23:14:34 09/28/1909/27/2021 TSH WITH REFLE X TO FT4 TSH 0.63 uIU/m L (0.4-4 .2) Not Available [facility] (Centralized Electronic Ordering - All Locations) Patient Can Go To The Location Of Their Choice, 09/27/2021 23:14:35 09/28/19 22 10/02/2021 METHY LMALO MARIA ELENA ACID, SERUM methylmaloni c acid, serum 127 Refer ence range : 0 to 378 Unit: nmol/ L (NOTE ) This test was linda brink and its perfo rmanc e bubba ervinri stics deter mined by [facility]. It has not been clear ed or appro marialuisa by the Food and Drug Admin istra tion. Test perfo rmed at [facility] [place] , [facility] [facility] , [place] [address] Not Available [facility] (Centralized Electronic Ordering - All Locations) Patient Can Go To The Location Of Their Choice, [id number] 10/02/2021 12:06:43 12/11/1912/10/2021 UA W/REF CRYSTAL CULTU RE appear/color LIGHT YELLO W CLEAR Not Available [facility] (Centralized Electronic Ordering - All Locations) Patient Can Go To The Location Of Their Choice, [id number] 12/10/2021 15:10:36 12/11/1912/10/2021 UA W/REF CRYSTAL CULTU RE sp. gravity 1.014 (1.002 -1.030 ) Not Available [facility] (Centralized Electronic Ordering - All Locations) Patient Can Go To The Location Of Their Choice, [id number] 12/10/2021 15:10:36 12/11/1912/10/2021 UA W/REF CRYSTAL CULTU RE urine pH 6.0 (5.0-8 .0) Not Available [facility] (Centralized Electronic Ordering - All Locations) Patient Can Go To The Location Of Their Choice, [id number] 12/10/2021 15:10:36 12/11/1912/10/2021 UA W/REF CRYSTAL CULTU RE urine albumin NEGATI VE (neg) Not Available [facility] (Centralized Electronic Ordering - All Locations) Patient Can Go To The Location Of Their Choice, [id number] 12/10/2021 15:10:36 12/11/1912/10/2021 UA W/REF CRYSTAL CULTU RE urine glucose NEGATI VE (neg) Not Available [facility] (Centralized Electronic Ordering - All Locations) Patient Can Go To The Location Of Their Choice, [id number] 12/10/2021 15:10:36 12/11/1912/10/2021 UA W/REF CRYSTAL CULTU RE urine ketones NEGATI VE (neg) Not Available [facility] (Centralized Electronic Ordering - All Locations) Patient Can Go To The Location Of Their Choice, [id number] 12/10/2021 15:10:36 12/11/1912/10/2021 UA W/REF CRYSTAL CULTU RE urine bilirubin NEGATI VE (neg) Not Available [facility] (Centralized Electronic Ordering - All Locations) Patient Can Go To The Location Of Their Choice, [id number] 12/10/2021 15:10:36 12/11/1912/10/2021 UA W/REF CRYSTAL CULTU RE urine hemoglobin NEGATI VE (neg) Not Available [facility] (Centralized Electronic Ordering - All Locations) Patient Can Go To The Location Of Their Choice, 12/10/2021 15:10:36 12/11/1912/10/2021 UA W/REF CRYSTAL CULTU RE urine nitrite NEGATI VE (neg) Not Available [facility] (Centralized Electronic Ordering - All Locations) Patient Can Go To The Location Of Their Choice, 12/10/2021 15:10:36 12/11/1912/10/2021 UA W/REF CRYSTAL CULTU RE urine leukocyte 1+ (neg) abnormal Not Available [facility] ([facility] Order[facility] - All Locations) Patient Can Go To The Location Of Their Choice, 12/10/2021 15:10:36 12/11/1912/10/2021 UA W/REF CRYSTAL CULTU RE urobilinogen NORMAL mg/dL (norm) Not Available [facility] Order[facility] - All Locations) Patient Can Go To The Location Of Their Choice, 12/10/2021 15:10:36 12/11/1912/10/2021 UA W/REF CRYSTAL CULTU RE urine WBCs 4 /hpf (0-5) Not Available [facility] (Centralized Electronic Ordering - All Locations) Patient Can Go To The Location Of Their Choice, 12/10/2021 15:10:36 12/11/1912/10/2021 UA W/REF CRYSTAL CULTU RE urine RBCs 2 /hpf (0-3) Not Available [facility] (Centralized Electronic Ordering - All Locations) Patient Can Go To The Location Of Their Choice, 12/10/2021 15:10:36 12/11/1912/10/2021 UA W/REF CRYSTAL CULTU RE bacteria SLIGHT hpf (neg) abnormal Not Available [facility] (Centralized Electronic Ordering - All Locations) Patient Can Go To The Location Of Their Choice, 12/10/2021 15:10:36 12/11/1912/10/2021 UA W/REF CRYSTAL CULTU RE mucus SLIGHT /lpf Not Available [facility] (Centralized Electronic Ordering - All Locations) Patient Can Go To The Location Of Their Choice, 12/10/2021 15:10:36 12/11/1912/10/2021 UA W/REF CRYSTAL CULTU RE squamous epith 1 /hpf (0-8) Not Available [facility] ([facility] Order[facility] - All Locations) Patient Can Go To The Location Of Their Choice, 12/10/2021 15:10:36 12/11/1912/10/2021 UA W/REF CRYSTAL CULTU RE clarity CLEAR (clear ) Not Available [facility] (Centralized Electronic Ordering - All Locations) Patient Can Go To The Location Of Their Choice, 12/10/2021 15:10:36 12/11/1912/10/2021 UA W/REF CRYSTAL CULTU RE culture indication CULTUR E INDICA NICOLAS Not Available [facility] (Centralized Electronic Ordering - All Locations) Patient Can Go To The Location Of Their Choice, 12/10/2021 15:10:36 12/11/1912/10/2021 LDL PRAFUL STERO L, DIREC T LDL cholesterol, direct 160 mg/dL (<130) high Not Available [facility] ([facility] Ordering - All Locations) Patient Can Go To The Location Of Their Choice, 12/10/2021 19:25:37 12/11/1912/10/2021 LIPID PANEL cholesterol, total 245 mg/dL (<200) high Not Available [facility] ([facility] Ordering - All Locations) Patient Can Go To The Location Of Their Choice, 12/10/2021 19:25:39 12/11/1912/10/2021 LIPID PANEL triglyceride 53 mg/dL (<150) Not Available [facility] ([facility] Order[facility] - All Locations) Patient Can Go To The Location Of Their Choice, 12/10/2021 19:25:39 12/11/1912/10/2021 LIPID PANEL HDL chol 82 mg/dL (>39) Not Available [facility] (Centralized Electronic Ordering - All Locations) Patient Can Go To The Location Of Their Choice, 12/10/2021 19:25:39 12/11/1912/10/2021 LIPID PANEL LDL cholesterol, calculated 152 mg/dL (0-130 ) high Not Available [facility] (Centralized Electronic Ordering - All Locations) Patient Can Go To The Location Of Their Choice, 12/10/2021 19:25:39 12/11/19 22 12/10/2021 LIPID PANEL non HDL cholesterol (calc) 163 mg/dL (<160) high Not Available [facility] ([facility] Order[facility] - All Locations) Patient Can Go To The Location Of Their Choice, [id number] 12/10/2021 19:25:39 12/11/19 22 12/10/2021 URINE CULTU RE specimen description URINE Not Available [facility] ([facility] Order[facility] - All Locations) Patient Can Go To The Location Of Their Choice, [id number] 12/11/2021 13:21:32 12/11/19 22 12/10/2021 URINE CULTU RE special requests NONE Reflex ed from [id number] Not Available [facility] (Centralized Electronic Ordering - All Locations) Patient Can Go To The Location Of Their Choice, [id number] 12/11/2021 13:21:32 12/11/19 22 12/11/2021 URINE CULTU RE culture Mixed bacter ial nury, indica tive of urogen ital contam inatio n. Not Available [facility] (Centralized Electronic Ordering - All Locations) Patient Can Go To The Location Of Their Choice, [id number] 12/11/2021 13:21:32 12/11/19 22 12/11/2021 URINE CULTU RE report status FINAL 2021 Not Available [facility] (Centralized Electronic Ordering - All Locations) Patient Can Go To The Location Of Their Choice, [id number] 12/11/2021 13:21:32 01/04/20 22 01/06/2022 GI PROFI LE, STOOL , PCR campylobacte r NEGAT ASPEN Campy lobac ter speci es targe t nucle ic acid not detec nicolas. Not Available [facility] (Centralized Electronic Ordering - All Locations) Patient Can Go To The Location Of Their Choice, [id number] 01/06/2022 15:38:08 01/04/20 22 01/06/2022 GI PROFI LE, STOOL , PCR plesiomonas shigelloides NEGAT ASPEN Pleis iomon as shige lloid es targe t nucle ic acid not detec nicolas. Not Available [facility] (Centralized Electronic Ordering - All Locations) Patient Can Go To The Location Of Their Choice, [id number] 01/06/2022 15:38:08 11/04/01/06/2022 GI PROFI LE, STOOL , PCR salmonella NEGAT ASPEN Salmo aaron speci es targe t nucle ic acid not detec nicolas. Not Available [facility] (Centralized Electronic Ordering - All Locations) Patient Can Go To The Location Of Their Choice, [id number] 01/06/2022 15:38:08 01/04/20 22 01/06/2022 GI PROFI LE, STOOL , PCR vibrio NEGAT ASPEN Vibri o speci es targe t nucle ic acid not detec nicolas. Not Available [facility] (Centralized Electronic Ordering - All Locations) Patient Can Go To The Location Of Their Choice, [id number] 01/06/2022 15:38:08 01/04/20 22 01/06/2022 GI PROFI LE, STOOL , PCR vibrio cholerae NEGAT ASPEN Vibri o praful ra targe t nucle ic acid not detec nicolas. Not Available [facility] (Centralized Electronic Ordering - All Locations) Patient Can Go To The Location Of Their Choice, [id number] 01/06/2022 15:38:08 01/04/20 22 01/06/2022 GI PROFI LE, STOOL , PCR yersinia enterocoliti ca NEGAT ASPEN Yersi kt enter ocoli naman targe t nucle ic acid not detec nicolas. Not Available [facility] (Centralized Electronic Ordering - All Locations) Patient Can Go To The Location Of Their Choice, [id number] 01/06/2022 15:38:08 01/04/20 22 01/06/2022 GI PROFI LE, STOOL , PCR enteroaggreg ative E coli NEGAT ASPEN Enter oaggr egati ve E. coli targe t nucle ic acid not detec nicolas. Not Available [facility] (Centralized Electronic Ordering - All Locations) Patient Can Go To The Location Of Their Choice, [id number] 01/06/2022 15:38:08 01/04/20 22 01/06/2022 GI PROFI LE, STOOL , PCR enteropathog enic E coli NEGAT ASPEN Enter opath ogeni c E. coli targe t nucle ic acid not detec nicolas. Not Available [facility] (Centralized Electronic Ordering - All Locations) Patient Can Go To The Location Of Their Choice, [id number] 01/06/2022 15:38:08 01/04/20 22 01/06/2022 GI PROFI LE, STOOL , PCR enterotoxige maria elena E coli NEGAT ASPEN Enter otoxi genic E. coli lt/st targe t nucle ic acid not detec nicolas. Not Available [facility] (Centralized Electronic Ordering - All Locations) Patient Can Go To The Location Of Their Choice, [id number] 01/06/2022 15:38:08 01/04/20 22 01/06/2022 GI PROFI LE, STOOL , PCR shigatoxin producing E coli NEGAT ASPEN Shiga -like toxin -prod ucing E. coli stx1/ stx2 targe t nucle ic acid not detec nicolas. Not Available [facility] (Centralized Electronic Ordering - All Locations) Patient Can Go To The Location Of Their Choice, [id number] 01/06/2022 15:38:08 01/04/2001/06/2022 GI PROFI LE, STOOL , PCR shigella/ent eroinvasive E coli NEGAT ASPEN Shige lla/E ntero invas aspen E. coli targe t nucle ic acid not detec nicolas. Not Available [facility] (Centralized Electronic Ordering - All Locations) Patient Can Go To The Location Of Their Choice, [id number] 01/06/2022 15:38:08 01/04/20 22 01/06/2022 GI PROFI LE, STOOL , PCR cryptosporid ium NEGAT ASPEN Crypt ospor idium targe t nucle ic acid not detec nicolas. Not Available [facility] (Centralized Electronic Ordering - All Locations) Patient Can Go To The Location Of Their Choice, [id number] 01/06/2022 15:38:08 01/04/20 22 01/06/2022 GI PROFI LE, STOOL , PCR cyclospora cayetanensis NEGAT ASPEN Cyclo spora cayet anens is targe t nucle ic acid not detec nicolas. Not Available [facility] (Centralized Electronic Ordering - All Locations) Patient Can Go To The Location Of Their Choice, [id number] 01/06/2022 15:38:08 01/04/20 22 01/06/2022 GI PROFI LE, STOOL , PCR entamoeba histolytica NEGAT ASPEN Entam oeba histo lytic a targe t nucle ic acid not detec nicolas. Not Available [facility] (Centralized Electronic Ordering - All Locations) Patient Can Go To The Location Of Their Choice, [facility] 01/06/2022 15:38:08 01/04/20 22 01/06/2022 GI PROFI LE, STOOL , PCR giardia lamblia NEGAT ASPEN Giard ia lambl ia targe t nucle ic acid not detec nicolas. Not Available [facility] (Centralized Electronic Ordering - All Locations) Patient Can Go To The Location Of Their Choice, [facility] 01/06/2022 15:38:08 01/04/20 22 01/06/2022 GI PROFI LE, STOOL , PCR adenovirus F 40/41 NEGAT ASPEN Adeno virus F40/4 1 targe t nucle ic acid not detec nicolas. Not Available [facility] (Centralized Electronic Ordering - All Locations) Patient Can Go To The Location Of Their Choice, [facility] 01/06/2022 15:38:08 01/04/20 22 01/06/2022 GI PROFI LE, STOOL , PCR astrovirus NEGAT ASPEN Stefano virus targe t nucle ic acid not detec nicolas. Not Available [facility] (Centralized Electronic Ordering - All Locations) Patient Can Go To The Location Of Their Choice, [facility] 01/06/2022 15:38:08 01/04/20 22 01/06/2022 GI PROFI LE, STOOL , PCR norovirus GI/gii NEGAT ASPEN Norov irus GI/GI I targe t nucle ic acid not detec nicolas. Not Available [facility] (Centralized Electronic Ordering - All Locations) Patient Can Go To The Location Of Their Choice, [facility] 01/06/2022 15:38:08 01/04/20 22 01/06/2022 GI PROFI LE, STOOL , PCR rotavirus A NEGAT ASPEN Rotav irus A targe t nucle ic acid not detec nicolas. Not Available [facility] (Centralized Electronic Ordering - All Locations) Patient Can Go To The Location Of Their Choice, [id number] 01/06/2022 15:38:08 01/04/20 22 01/06/2022 GI PROFI LE, STOOL , PCR sapovirus NEGAT ASPEN Sapov irus targe t nucle ic acid not detec nicolas. (NOTE ) All resul ts must be corre lated with clini myrna findi ngs. A negat aspen resul t does not exclu de the possi bilit y of bacte rial, viral or kristyn itic infec tion. Negat aspen test resul ts may occur from the prese nce of seque nce varia nts in the regio n targe nicolas by the assay , the prese nce of inhib itors , or an infec tion cause d by an organ ism not detec nicolas by the panel . Test resul ts may also be affec nicolas by concu rrent antiv iral/ antib acter ial/a ntipa rasit ic thera py or level s of organ isms in the speci men that are below the limit of detec tion for the test. Negat aspen resul ts shoul d not be used as the sole basis for diagn osis, treat ment, or other manag ement decis ions. Negat aspen resul ts in the setti ng of a gastr ointe eric l illne ss may be due to infec tion with patho gens that are not detec nicolas by this test or gastr ointe eric l infec tion that is not detec nicolas by a stool speci men. This assay is perfo rmed by multi plexe d PCR. = Not Available [facility] (Centralized Electronic Ordering - All Locations) Patient Can Go To The Location Of Their Choice, [facility] 01/06/2022 15:38:08 08/19/1908/18/2022 ALT ALT 18 U/L (0-33) Not Available [facility] (Centralized Electronic Ordering - All Locations) Patient Can Go To The Location Of Their Choice, [id number] 08/18/2022 16:17:07 08/19/1908/18/2022 LIPID PANEL cholesterol, total 254 mg/dL (<200) high Not Available [facility] (Centralized [facility] Ordering - All Locations) Patient Can Go To The Location Of Their Choice, [id number] 08/18/2022 16:17:08 08/19/1908/18/2022 LIPID PANEL triglyceride 41 mg/dL (<150) Not Available [facility] (Centralized [facility] Ordering - All Locations) Patient Can Go To The Location Of Their Choice, [id number] 08/18/2022 16:17:08 08/19/19 23 08/18/2022 LIPID PANEL HDL chol 89 mg/dL (>39) Not Available [facility] (Centralized Electronic Ordering - All Locations) Patient Can Go To The Location Of Their Choice, [id number] 08/18/2022 16:17:08 08/19/19 23 08/18/2022 LIPID PANEL LDL cholesterol, calculated 157 mg/dL (0-130 ) high Not Available [facility] (Centralized Electronic Ordering - All Locations) Patient Can Go To The Location Of Their Choice, [id number] 08/18/2022 16:17:08 08/19/19 23 08/18/2022 LIPID PANEL non HDL cholesterol (calc) 165 mg/dL (<160) high Not Available [facility] (Centralized Electronic Ordering - All Locations) Patient Can Go To The Location Of Their Choice, [id number] 08/18/2022 16:17:08 08/27/19 22 08/26/2021 MAMMO , scree ale, digit al, bilat eral PROCED URE: MM Digita l Mammo Screen ing INDICA TION: Screen ing for breast cancer . No known palpab le abnorm alitie s. Benign LEFT breast needle biopsy in 2003. COMPAR TRICE: Prior mammog chacho dating back to 014, most recent 021. TECHNI QUE: Full-f ield digita l CC and MLO 3-D tomosy nthesi s images of both breast s were acquir ed. Comput er-aid ed detect ion (CAD) was utiliz ed in the interp retati on of this study. DENSIT Y: The breast tissue contai ns scatte red areas of fibrog landul ar densit y. FINDIN GS: RIGHT breast : On the RIGHT MLO view, slight ly above the traveling buyer ior nipple line at anteri or depth there is a single view nodula r asymme try (MLO tomosy nthesi s image 33). LEFT breast : In the latera l LEFT breast , approx imatel y 3:00 positi on there is a focal asymme try, anteri or to mid depth (CC tomosy nthesi s image 26, MLO tomosy nthesi s image 21). IMPRES MARCIANO: RIGHT breast asymme try on the MLO view and LEFT breast focal asymme try. Recomm end additi onal diagno stic imagin -D Spot compre ssion CC of the LEFT breast , 3-D spot compre ssion bilate ral MLO, 3-D full field bilate ral ML views and schedu led ultras ound. RECOMM ENDATI ON: Bilate ral diagno stic 3D tomosy nthesi s with schedu led ultras ound BI-RAD S: 0 (Incom plete - Need Additi onal Imagin g Evalua tion. We will recall the flor godinez.) Lay letter mailed to flor godinez WSN: [id number] Orderi ng Physic jessica: Jim Foley Class: Outpat ient [facility] (Outpt Imaging) [address], [place], [address], 08/26/2021 15:58:16 09/13/19 22 09/12/2021 US, riki godinez, limit ed PROCED URE: MM Digita l Mammo Bilate ral, US Breast Bilate ral Limite d INDICA TION: Called back from screen ing for a 1 view asymme try in the right breast (MLO projec tion) and for focal asymme try in the latera l left breast . COMPAR TRICE: 022, 021 and 11/04/19 20. TECHNI QUE: Digita l diagno stic mammog roxana consis ting of 3-D spot MLO and full 90 degree of the right breast . 3-D spot MLO, spot CC and full 90 degree view of the left breast . Comput er-aid ed detect ion (CAD) was utiliz ed in the interp retati on of this study. In additi on, target ed high-r esolut ion ultras ound of sites of mammog raphic concer n in both breast s. FINDIN GS: Right breast : Supple mental views demons trate the area of origin al concer n to efface comple tely withou t suspic ious underl zo mass or other abnorm ality. In order to furthe r evalua te this, focuse d ultras ound was perfor med. The right breast was scanne d latera lly from 8:00 throug h 11:00 1-6 cm from nipple at the site of origin al concer n. No cysts, solid lesion s or areas of distor tion. Left breast : Supple mental views demons trate the area of origin al concer n to efface comple tely withou t suspic ious underl zo abnorm ality. In order to furthe r evalua te this, focuse d ultras ound was perfor med. The left breast was scanne d from 1:00 throug h 4:00, 2-8 cm from nipple . No cysts, solid lesion s or areas of distor tion. IMPRES MARCIANO: No persis tent mammog raphic or sonogr aphic abnorm alitie s at site of origin al mammog raphic concer n in each breast . Unless otherw ise indica nicolas clinic ally, recomm end patien t return in 1 year for bilate ral screen ing mammog roxana. RECOMM ENDATI ON: Annual mammog raphic screen ing BI-RAD S: 2 (Benig n) Lay letter mailed to flor godinez WSN: [id number] Orderi ng Physic jessica: Jim Foley Dictat ed By: Emiliana Haji MD, I Dictat ed Date/T ganga: 11:59 a Review ed By: Emiliana Haji MD, I Signed By: Emiliana Haji MD, I Signed Date/T ganga: 11:59 am Transc ribed By: LUCIA Transc ribed Date/T ganga: 11:55 am Patien t Class: Outpat ient [email or web address] [facility] (Outpt Imaging) [address], [place], [address], 09/13/2021 15:29:35 09/13/19 22 09/12/2021 mm digit al mammo bilat eral PROCED URE: MM Digita l Mammo Bilate ral, US Breast Bilate ral Limite d INDICA TION: Called back from screen ing for a 1 view asymme try in the right breast (MLO projec tion) and for focal asymme try in the latera l left breast . COMPAR TRICE: 022, 021 and 11/04/19 20. TECHNI QUE: Digita l diagno stic mammog roxana consis ting of 3-D spot MLO and full 90 degree of the right breast . 3-D spot MLO, spot CC and full 90 degree view of the left breast . Comput er-aid ed detect ion (CAD) was utiliz ed in the interp retati on of this study. In additi on, target ed high-r esolut ion ultras ound of sites of mammog raphic concer n in both breast s. FINDIN GS: Right breast : Supple mental views demons trate the area of origin al concer n to efface comple tely withou t suspic ious underl zo mass or other abnorm ality. In order to furthe r evalua te this, focuse d ultras ound was perfor med. The right breast was scanne d latera lly from 8:00 throug h 11:00 1-6 cm from nipple at the site of origin al concer n. No cysts, solid lesion s or areas of distor tion. Left breast : Supple mental views demons trate the area of origin al concer n to efface comple tely withou t suspic ious underl zo abnorm ality. In order to furthe r evalua te this, focuse d ultras ound was perfor med. The left breast was scanne d from 1:00 throug h 4:00, 2-8 cm from nipple . No cysts, solid lesion s or areas of distor tion. IMPRES MARCIANO: No persis tent mammog raphic or sonogr aphic abnorm alitie s at site of origin al mammog raphic concer n in each breast . Unless otherw ise indica nicolas clinic ally, recomm end flor godinez return in 1 year for bilate ral screen ing mammog roxana. RECOMM ENDATI ON: Annual mammog raphic screen ing BI-RAD S: 2 (Benig n) Lay letter mailed to flor godinez WSN: [id number] Orderi ng Physic jessica: Jim Foley Dictat ed By: Emiliana Haji MD, I Dictat ed Date/T ganga: 11:59 am Review ed By: Emiliana Haji MD, I Signed By: Emiliana Haji MD, I Signed Date/T ganga: 11:59 am Transc ribed By: LUCIA Transc riptio n Date/T ganga: 11:55 am Birads : Patien t Class: Outpat ient [email or web address] [facility] (Outpt Imaging) [address], [place], [address], 09/13/2021 15:28:45 09/28/19 22 09/27/2021 elect rocar diogr am No observ ation record ed. [email or web address] In-Office Order Internal Use Only DO Not Attach Compendium DO Not Attach Compendium, Do Not Delete/merge, [id number] 09/27/2021 15:03:08 09/28/19 elect rocar diogr am No observ ation record ed. [email or web address] In-Office Order Internal Use Only DO Not Attach Compendium DO Not Attach Compendium, Do Not Delete/merge, [id number] 09/27/2021 12:58:52 08/23/19 23 08/11/2022 DEXA, axial skele ton Name:Pedro godinez ID: [id number] Age:72 years Sex:Fe male Ethnic ity:Wh ite Date of : [birth year] Reason : M85.80 ; Clinic al Questi on(s): Other: Referr ing Provid er:Vanessa Callaway MD Study: Dexa Bone Densit y (Axial ) Bone Densit y: Region BMD T-Scor e Z-Scor e Classi ficati on AP Spine 1.011 -0.3 1.8 Normal TOTAL HIP 0.629 -2.6 -1.1 Osteop orosis FEM NECK 0.537 -2.8 -1.0 Osteop orosis 10-yea r Fractu re Risk: Fractu re Risk Not Report ed: FRAX not report ed becaus e: Some T-scor e for Spine Total or Hip Total or Femora l Neck at or below -2.5 Impres marciano: The flor t has osteop orosis as determ ined by WHO criter ia. WSN: [id number] Orderi ng Physic jessica: Melita Callaway Dictat ed By: Hector Watts MD Dictperla ed Date/T ganga: 4:41 pm Review ed By: Hector Watts MD Signed By: Hector Watts MD P Signed Date/T ganga: 4:41 pm Transc ribed By: LUCIA Transc ribed Date/T ganga: 4:41 pm Patien t Class: Outpat ient [facility] (Outpt Imaging) [address], [place], [address], 09/01/2022 13:12:38 08/23/19 23 08/22/2022 bone densi ty No observ ation record ed. [email or web address] [facility] [address], [place], [address], 08/22/2022 18:01:22 Result Notes None recorded. Problems Name Problem SNOMED Code Status Onset Date Resolution Date Notes Provider Name and Address Organization Details Recorded Time Abdomina l pain 54905238 Completed 201209/20/2013 RECORDED 07/01/19 13 10:11AM BY IRVING MARTINEZ MA, RACHAELATI ON/ADDEN DUM Not Available [facility] 4 13:53:50 Acute sinusiti s 93832148 Completed 201309/20/2013 RECORDED 06/09/19 14 9:29AM BY IRVING MARTINEZ MA, ANNOTATI ON/ADDEN DUM HANNAH Freeman, [facility] 9 10:46:37 Anemia 785604543 Active Christal mast [facility] 0 15:44:01 Bipolar I disorder 144865858 Completed 201209/20/2013 RECORDED 04/09/19 13 1:50AM BY IRVING MARTINEZ MA, RACHAELATI ON/ADDEN DUM Not Available [facility] 4 13:53:50 Benign paroxysm al position al vertigo 792847942 Completed 07/06/2016 Jim Acuna MD [address], [place], [address] , [facility] 7 12:18:11 Bipolar disorder 99729147 Active Christal mast, [facility] 0 15:44:01 Screenin g for malignan t neoplasm of breast Completed 201209/20/2013 RECORDED 02/25/20 13 10:09AM BY IRVING MARTINEZ MA, ANNOTATI ON/ADDEN DUM Not Available [facility] 4 13:53:50 Carpal tunnel syndrome 68728737 Active Christal mast, [facility] 0 15:44:02 Neck pain 70004162 Completed 201109/20/2013 RECORDED 12/31/19 12 2:59PM BY IRVING MARTINEZ MA, ANNOTATI ON/ADDEN DUM Umberto Frost MD [address] [address], [place], [address] [facility] 8 14:00:26 Chondrom alacia of patella 45161586 Completed 201009/20/2013 RECORDED 07/20/19 11 9:02AM BY IRVING MARTINEZ MA, ANNOTATI ON/ADDEN DUM Not Available [facility] 4 13:53:51 Screenin g for malignan t neoplasm of colon Completed 201209/20/2013 RECORDED 02/25/20 13 10:09AM BY IRVING MARTINEZ MA, ANNOTATI ON/ADDEN DUM Not Available [facility] 4 13:53:51 Respirat ory finding 432505145 Completed 200709/20/2013 IMPRESSI ON: PROBABLY RELATED TO OBESITY; RECORDED 11/30/19 08 9:59AM BY IRVING MARTINEZ MA, ANNOTATI ON/ADDEN DUM Not Available [facility] 4 13:53:51 Edema 356336423 Completed 201109/20/2013 RECORDED 09/26/19 12 11:26AM BY IRVING MARTINEZ MA, ANNOTATI ON/ADDEN DUM Not Available [facility] 4 13:53:51 Pain in elbow 08525839 Completed 201109/20/2013 IMPRESSI ON: NORMAL EXAM. CANNOT REPRODUC E PAIN TODAY. WILL FOLLOW UP NEEDED.; RECORDED 09/26/19 12 11:27AM BY IRVING MARTINEZ MA, RACHAELATI ON/ADDEN DUM Not Available [facility] 4 13:53:51 Dizzines s and giddines s 354914170 Completed 201109/20/2013 RECORDED 09/26/19 12 11:27AM BY IRVING MARTINEZ MA, RACHAELATI ON/ADDEN DUM Not Available [facility] 4 13:53:51 Follow-u p encounte r Completed 201209/20/2013 RECORDED 05/13/19 13 2:25PM BY IRVING MARTINEZ MA, HE ON/ADDEN DUM Not Available [facility] 4 13:53:51 Essentia l hyperten marciano 41408507 Active Christal mast [facility] 0 15:44:01 Malaise and fatigue 704980635 Completed 201109/20/2013 RECORDED 09/26/19 12 11:27AM BY IRVING MARTINEZ MA, EH ON/ADDEN DUM Not Available [facility] 4 13:53:51 Fibromyo sitis 64184849 Active Christal mast [facility] 0 15:44:01 Adult health examinat ion Completed 201309/20/2013 RECORDED 05/13/19 14 11:06AM BY KACEY LOZOYA MA, RACHAELATI ON/ADDEN DUM Not Available [facility] 4 13:53:51 General examinat ion of patient Completed 200709/20/2013 RECORDED 11/30/19 08 9:59AM BY IRVING MARTINEZ MA, ANNOTTONY ON/ADDEN DUM Not Available [facility] 4 13:53:51 Gastroes ophageal reflux disease 228876052 Active Christal mast, [facility] 0 15:44:02 Hypercho lesterol emia 94631648 Completed 201209/20/2013 RECORDED 02/25/20 13 10:09AM BY IRVING MARTINEZ MA, ANNOTATI ON/ADDEN DUM Not Available [facility] 4 13:53:51 Hyperlip idemia 92601936 Active Christal mast, [facility] 0 15:44:02 Hypersom kt 87561790 Completed 201109/20/2013 RECORDED 09/26/19 12 11:27AM BY IRVING MARTINEZ MA, ANNOTATI ON/ADDEN DUM Not Available [facility] 4 13:53:51 Irritabl e bowel syndrome 00999421 Active Christal mast, [facility] 0 15:44:01 Laborato ry procedur e performe d 126309395 Completed 201209/20/2013 RECORDED 05/13/19 13 2:25PM BY IRVING MARTINEZ MA, ANNOTATI ON/ADDEN DUM Not Available [facility] 4 13:53:52 Lateral epicondy litis 675780781 Completed 201109/20/2013 RECORDED 07/22/19 12 9:36AM BY JIM ACUNA MD, ANNOTATI ON/ADDEN DUM Not Available [facility] 4 13:53:52 Low back pain 797699175 Completed 201109/20/2013 RECORDED 09/26/19 12 11:27AM BY IRVING MARTINEZ MA, ANNOTATI ON/ADDEN DUM Not Available [facility] 4 13:53:52 Renewal of prescrip tion Completed 201209/20/2013 RECORDED 02/25/20 13 10:08AM BY IRVING MARTINEZ MA, ANNOTATI ON/ADDEN DUM Not Available [facility] 4 13:53:52 Menstrua tion finding Completed 201209/20/2013 RECORDED 04/09/19 13 1:50AM BY IRVING MARTINEZ MA, ANNOTATI ON/ADDEN DUM Not Available [facility] 4 13:53:52 Influenz a vaccine needed [id number] 06 Completed 201009/20/2013 DATE: 02/20/20 11; RECORDED 09/26/19 12 11:27AM BY IRVING MARTINEZ MA, HE ON/ADDEN DUM Not Available [facility] 4 13:53:52 Patient status finding 726354513 Completed 201209/20/2013 RECORDED 02/25/20 13 10:08AM BY IRVING MARTINEZ MA, ANNOTATI ON/ADDEN DUM Not Available [facility] 4 13:53:53 Obesity 127632496 Active Christal mast, [facility] 0 15:44:01 Osteoart hritis 806697674 Active Christal mast, [facility] 0 15:44:02 Wrist joint pain 028775319 Completed 201109/20/2013 RECORDED 09/26/19 12 11:27AM BY IRVING MARTINEZ MA, ANNOTATI ON/ADDEN DUM Not Available [facility] 4 13:53:53 Knee pain Completed 201109/20/2013 RECORDED 09/26/19 12 11:27AM BY IRVING MARTINEZ MA, ANNOTATI ON/ADDEN DUM Not Available [facility] 4 13:53:53 Psychoti c disorder 03452641 Completed 200809/20/2013 RECORDED 12/27/19 09 10:34AM BY JIM ACUNA MD, ANNOTATI ON/ADDEN DUM Not Available [facility] 4 13:53:53 Tinea pedis 3446122 Completed 201209/20/2013 RECORDED 02/25/20 13 10:08AM BY IRVING MARTINEZ MA, ANNOTTONY ON/ADDEN DUM HANNAH Freeman [facility] 2 09:58:30 Tinnitus 11778381 Completed 201109/20/2013 RECORDED 09/26/19 12 11:26AM BY IRVING MARTINEZ MA, ANNOTTONY ON/ADDEN DUM Not Available [facility] 4 13:53:53 Enthesop athy of hip region 17709739 Completed 200809/20/2013 RECORDED 12/27/19 09 10:35AM BY JIM ACUNA MD, ANNOTATI ON/ADDEN DUM Not Available [facility] 4 13:53:53 Heart murmur 70864421 Completed 200809/20/2013 IMPRESSI ON: RULE OUT SIGNIFIC ANT AORTIC STENOSIS ; RECORDED 12/27/19 09 10:34AM BY JIM ACUNA MD, ANNOTATI ON/ADDEN DUM HANNAH Freeman, [facility] 8 11:15:53 Urge incontin ence of urine 18236459 Completed 201109/20/2013 RECORDED 09/26/19 12 11:27AM BY IRVING MARTINEZ MA, ANNOTTONY ON/ADDEN DUM Not Available [facility] 4 13:53:53 Increase d frequenc y of urinatio n 452420298 Completed 201209/20/2013 RECORDED 02/25/20 13 10:08AM BY IRVING MARTINEZ MA, ANNOTATI ON/ADDEN DUM Not Available [facility] 4 13:53:53 Abdomina l pain 20589781 Completed 201210/10/2013 RECORDED 07/01/19 13 10:11AM BY IRVING MARTINEZ MA, ANNOTTONY ON/ADDEN DUM Not Available Formerly [facility] 4 06:28:43 Acute sinusiti s [id number] Completed 201310/10/2013 RECORDED 06/09/19 14 9:29AM BY IRVING MARTINEZ MA, ANNOTATI ON/ADDEN DUM Irving lechuga MA [facility], [facility] 9 10:46:37 Bipolar I disorder [id number] Completed 201210/10/2013 RECORDED 04/09/19 13 1:50AM BY IRVING MARTINEZ MA, ANNOTATI ON/ADDEN DUM Not Available [facility] 4 06:28:43 Screenin g for malignan t neoplasm of breast Completed 201210/10/2013 RECORDED 02/25/20 13 10:09AM BY IRVING MARTINEZ MA, ANNOTATI ON/ADDEN DUM Not Available [facility] 4 06:28:43 Neck pain [id number] Completed 201110/10/2013 RECORDED 12/31/19 12 2:59PM BY IRVING MARTINEZ MA, ANNOTATI ON/ADDEN DUM Umberto Frost MD [address], [facility] [place], [address] , [facility] 8 14:00:26 Chondrom alacia of patella [id number] Completed 201010/10/2013 RECORDED 07/20/19 11 9:02AM BY IRVING MARTINEZ MA, ANNOTATI ON/ADDEN DUM Not Available [facility] 4 06:28:43 Screenin g for malignan t neoplasm of colon Completed 201210/10/2013 RECORDED 02/25/20 13 10:09AM BY IRVING MARTINEZ MA, ANNOTATI ON/ADDEN DUM Not Available [facility] 4 06:28:43 Respirat ory finding [id number] Completed 200710/10/2013 IMPRESSI ON: PROBABLY RELATED TO OBESITY; RECORDED 11/30/19 08 9:59AM BY IRVING MARTINEZ MA, ANNOTATI ON/ADDEN DUM Not Available [facility] 4 06:28:43 Edema [id number] Completed 201110/10/2013 RECORDED 09/26/19 12 11:26AM BY IRVING MARTINEZ MA, ANNOTATI ON/ADDEN DUM Not Available [facility] 4 06:28:43 Pain in elbow [id number] Completed 201110/10/2013 IMPRESSI ON: NORMAL EXAM. CANNOT REPRODUC E PAIN TODAY. WILL FOLLOW UP NEEDED.; RECORDED 09/26/19 12 11:27AM BY IRVING MARTINEZ MA, HE ON/ADDEN DUM Not Available [facility] 4 06:28:43 Dizzines s and giddines s [id number] Completed 201110/10/2013 RECORDED 09/26/19 12 11:27AM BY IRVING MARTINEZ MA, HE ON/ADDEN DUM Not Available [facility] 4 06:28:43 Follow-u p encounte r Completed 201210/10/2013 RECORDED 05/13/19 13 2:25PM BY IRVING MARTINEZ MA, HE ON/ADDEN DUM Not Available [facility] 4 06:28:43 Malaise and fatigue [id number] Completed 201110/10/2013 RECORDED 09/26/19 12 11:27AM BY IRVING MARTINEZ MA, RACHAELATI ON/ADDEN DUM Not Available [facility] 4 06:28:43 Adult health examinat ion Completed 201310/10/2013 RECORDED 05/13/19 14 11:06AM BY KACEY LOZOYA MA, HE ON/ADDEN DUM Not Available [facility] 4 06:28:43 General examinat ion of patient Completed 200710/10/2013 RECORDED 11/30/19 08 9:59AM BY IRVING MARTINEZ MA, HE ON/ADDEN DUM Not Available [facility] 4 06:28:43 Hypercho lesterol emia [id number] Completed 201210/10/2013 RECORDED 02/25/20 13 10:09AM BY IRVING MARTINEZ MA, HE ON/ADDEN DUM Not Available [facility] 4 06:28:43 Hypersom kt [id number] Completed 201110/10/2013 RECORDED 09/26/19 12 11:27AM BY IRVING MARTINEZ MA, ANNOTATI ON/ADDEN DUM Not Available [facility] 4 06:28:43 Lateral epicondy litis [id number] Completed 201110/10/2013 RECORDED 07/22/19 12 9:36AM BY JIM ACUNA MD, RACHAELATI ON/ADDEN DUM Not Available [facility] 4 06:28:43 Low back pain 152483604 Completed 201110/10/2013 RECORDED 09/26/19 12 11:27AM BY IRVING MARTINEZ MA, ANNOTATI ON/ADDEN DUM Not Available [facility] 4 06:28:43 Renewal of prescrip tion Completed 201210/10/2013 RECORDED 02/25/20 13 10:08AM BY IRVING MARTINEZ MA, HE ON/ADDEN DUM Not Available [facility] 4 06:28:43 Menstrua tion finding Completed 201210/10/2013 RECORDED 04/09/19 13 1:50AM BY IRVING MARTINEZ MA, HE ON/ADDEN DUM Not Available [facility] 4 06:28:43 Influenz a vaccine needed [id number] 06 Completed 201010/10/2013 DATE: 02/20/20 11; RECORDED 09/26/19 12 11:27AM BY IRVING MARTINEZ MA, ANNOTATI ON/ADDEN DUM Not Available [facility] 4 06:28:43 Wrist joint pain [id number] Completed 201110/10/2013 RECORDED 09/26/19 12 11:27AM BY IRVING MARTINEZ MA, ANNOTATI ON/ADDEN DUM Not Available [facility] 4 06:28:44 Knee pain Completed 201110/10/2013 RECORDED 09/26/19 12 11:27AM BY IRVING MARTINEZ MA, ANNOTATI ON/ADDEN DUM Not Available [facility] 4 06:28:44 Psychoti c disorder [id number] Completed 200810/10/2013 RECORDED 12/27/19 09 10:34AM BY JIM ACUNA MD, ANNOTATI ON/ADDEN DUM Not Available [facility] 4 06:28:44 Tinea pedis 1260935 Completed 201210/10/2013 [place], [facility] 2 09:58:30 Tinnitus 72439542 Completed 201110/10/2013 RECORDED 09/26/19 12 11:26AM BY IRVING MARTINEZ MA, ANNOTATI ON/ADDEN DUM Not Available [facility] 4 06:28:44 Enthesop athy of hip region 60020612 Completed 200810/10/2013 RECORDED 12/27/19 09 10:35AM BY JIM ACUNA MD, ANNOTATI ON/ADDEN DUM Not Available [facility] 4 06:28:44 Heart murmur 29090272 Completed 200810/10/2013 IMPRESSI ON: RULE OUT SIGNIFIC ANT AORTIC STENOSIS ; RECORDED 12/27/19 09 10:34AM BY JIM ACUNA MD, ANNOTATI ON/ADDEN DUM [place], [facility] 8 11:15:53 Urge incontin ence of urine 75691615 Completed 201110/10/2013 RECORDED 09/26/19 12 11:27AM BY IRVING MARTINEZ MA, ANNOTATI ON/ADDEN DUM Not Available [facility] 4 06:28:44 Increase d frequenc y of urinatio n [id number] Completed 201210/10/2013 RECORDED 02/25/20 13 10:08AM BY IRVING MARTINEZ MA, ANNOTATI ON/ADDEN DUM Not Available [facility] 4 06:28:44 Upper abdomina l pain 97164866 Completed 07/06/2016 Jim Acuna MD [address], [place], [address] , [facility] 7 12:17:35 Urge incontin ence of urine 75255220 Active Christal mast, [facility] 0 15:44:01 Neck pain 37228868 Completed 07/06/2016 Umberto Frost MD [address], [place], [address] , [facility] 8 14:00:26 Ulnar neuropat hy 315292262 Active Christaldeo mast, [facility] 0 15:44:01 Eczema 67354468 Active 2016 Christal mast, [facility] 0 10:21:02 Acute sinusiti s 73024478 Completed 06/23/2018 [place], [facility] 9 10:46:37 Cough 57062689 Completed 07/13/2017 [place], [facility] 8 11:32:18 Inflamma tion of rotator cuff tendon 725466427 Active Christal mast, [facility] 0 15:44:02 Foot pain 01129834 Completed 09/09/2017 Sakina mast, [facility] 8 13:26:54 Greater trochant mariela pain syndrome 7276597 Active Christaldeo mast, [facility] 0 15:44:01 Osteoart hritis of knee 586049740 Active Christal Odell null, [facility] 0 15:44:01 Advance directiv genesis barrett with patient 624440109 Active Christal Odell null, [facility] 0 15:44:02 Fatigue 03490412 Completed 07/06/2016 Jim Acuna MD [address], [place], [address] , [facility] 7 12:17:31 Leukocyt es in urine 140402938 Active Christal Jose R mast, [facility] 0 15:44:01 Urinary tract infectio us disease 64502571 Completed 07/06/2016 Jim Acuna MD [address], [place], [address] , [facility] 7 12:17:42 Candidia sis of skin 50146613 Completed 07/06/2016 Jim Acuna MD [address], [place], [address] , [facility] 7 12:17:49 Edema of lower extremit y 212751163 Active Christal Jose R mast, [facility] 0 15:44:01 Keratoco nus 41641056 Active 2016 Christaldeo mast, [facility] 0 15:44:01 Osteopen ia 098203591 Completed 201308/22/2022 Darren Callaway MD [address], [place], [address] , [facility] 3 18:00:45 Heart murmur 14399918 Active 2017 Christal Odell null, [facility] 0 15:44:02 Neck pain 01526684 Active 2017 Christal Odell kezia, [facility] 0 15:44:02 Internal hemorrho ids 80547583 Active 2002 Christal Odelldeo mast, [facility] 0 15:44:02 Soft corn 58844926 Active 2016 Christaldeo mast, [facility] 0 15:44:02 Cellulit is and abscess of toe 843442278 Completed 201609/12/2019 [place], [facility] 0 10:59:12 Onychomy cosis 589420338 Active 2016 Christal mast, [facility] 0 15:44:01 Ulcer of toe 439325582 Active 2016 Christal mast [facility] 0 15:44:02 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 e 695808429 Active 2013 Christal mast, [facility] 0 10:21:02 Mixed bipolar I disorder 55258609 Active 2013 Christal mast, [facility] 0 10:21:02 Edema 381743399 Active 2016 Christal mast [facility] 0 10:21:02 Macrocyt osis - no anemia 685154319 Active 2019 Christaldeo mast, [facility] 0 15:44:02 Thoracic back pain 508347939 Active 2019 Regino Bah PA-C [address], [place], [address] , [facility] 0 14:10:22 Tinea pedis 8216596 Active 2012 [place], [facility] 2 09:58:30 Hyperten marciano monitori ng status 314961078 Active 2022 dis enroll Renetta Eason kezia [facility] 3 09:44:35 Osteopor osis 08957781 Active 2022 Darren Callaway MD [address], [place], [address] , [facility] 3 18:00:39 Problem Notes None recorded. Procedures Surgical History Date Name Laterality Status Provider Name and Address Organization Details Recorded Time 09/28/19 22 Advanced Care Planning completed Irving montes MA [facility] 09/27/2021 10:24:58 09/13/19 22 Most Recent Mammogram completed Christal Odell [facility] 09/13/2021 15:29:18 09/13/19 22 Mammogram screening completed Christalaravind Odell [facility] 09/13/2021 15:29:11 09/13/19 22 ultrasonography of bilateral breasts completed Christal Odell [facility] 09/13/2021 15:29:49 09/12/19 20 Six-Item Cognitive Test completed Irving montes MA [facility] 09/12/2019 11:17:21 08/17/19 19 Mini-Cog Test completed Irving montes MA [facility] 08/16/2018 09:51:34 07/14/19 18 Mini-Cog Test completed Irving montes MA [facility] 07/13/2017 11:48:01 04/22/19 17 Date of Last Pap Smear completed Irving montes MA [facility] 12/31/2016 08:56:34 04/30/19 16 Advanced Care Planning completed Irving montes MA [facility] 04/30/2015 13:14:24 08/24/19 14 Most Recent Bone Density completed Irving montes MA [facility] 12/31/2016 08:57:31 08/24/19 14 Dxa bone density hunter vrt fx completed Irving montes MA [facility] 12/31/2016 08:57:41 02/01/20 03 Date of Last Colonoscopy completed Doreen Mahmood MA [facility] 07/04/2016 10:30:29 02/01/20 03 Colonoscopy completed Irving montes MA [facility] 08/16/2018 09:39:15 03/02/18 99 excision of uterine polyp completed Irving montes MA [facility] 04/24/2018 08:47:27 Cologuard completed Irving montes MA [facility] 12/06/2021 14:12:10 Imaging Results Imaging Date Name Status LastModified by Organization Details LastModified Time 08/26/2021 MAMMO, screening, digital, bilateral completed [facility] (Outpt Imaging) [address] [place], [address], 08/26/2021 15:58:16 09/12/2021 US, breast, limited completed [email or web address] [facility] (Outpt Imaging) [address] [place], [address], 09/13/2021 15:29:35 09/12/2021 mm digital mammo bilateral completed [email or web address] (Outpt Imaging) [address] [place], [address], 09/13/2021 15:28:45 09/27/2021 electrocardiogram completed [email or web address] In- Office Order Internal Use Only DO Not Attach Compendium DO Not Attach Compendium, Do Not Delete/merge, [id number] 09/27/2021 15:03:08 09/27/2021 electrocardiogram completed [email or web address] In-Offi ce Order Internal Use Only DO Not Attach Compendium DO Not Attach Compendium, Do Not Delete/merge, [id number] 09/27/2021 12:58:52 08/11/2022 DEXA, axial skeleton completed [facility] (Outpt Imaging) [address], [place], [address], 09/01/2022 13:12:38 08/22/2022 bone density completed [facility] [address], [place], [address], 08/22/2022 18:01:22 Procedure Notes None recorded. Medical Equipment None Reported. Allergies No known drug allergies Medications Name Sig Start Date Stop Date Status Note LastModified by Organization Details LastModified Time Prescript ion - New 01/29 completed Not Available Not Available Not Available Seroquel 300 mg tablet active Not Available Not Available Not Available tretinoin 0.1 % topical cream 04/22 completed Not Available Not Available Not Available prednison e 10 mg tablet active Not Available Not Available Not Available trazodone 50 mg tablet active Not Available Not Available Not Available triamcino lone acetonide 0.5 % topical cream 05/04 completed Not Available Not Available Not Available cetirizin e 10 mg tablet TAKE 1 TABLET BY MOUTH EVERY DAY active Not Available Not Available No t Available oxybutyni n chloride ER 10 mg tablet,ex tended release 24 hr 05/04 completed Not Available Not Available Not Available ibuprofen 800 mg tablet 04/22 completed Not Available Not Available Not Available tretinoin 0.025 % topical cream Apply 1 applicat ion every day by topical route in the evening for 14 days. 09/27 completed Not Available Not Available Not Available fluconazo le 200 mg tablet active Not Available Not Available Not Available meloxicam 15 mg tablet Take 1 tablet every day by oral route for 30 days. active Not Available Not Available No t Available propranol ol ER 60 mg capsule,2 4 hr,extend ed release Take 1 capsule every day by oral route at bedtime. 06/18 completed Not Available Not Available Not Available clonazepa m 1 mg tablet active Not Available Not Available Not Available pimecroli mus 1 % topical cream APPLY TWICE DAILY TO RIGHT EYEBROW DURING NEXT FLARE. APPLY UP TO 6 WEEKS. 09/27 completed Not Available Not Available Not Available clindamyc in HCl 150 mg capsule 04/22 completed Not Available Not Available Not Available hydroxyzi ne pamoate 50 mg capsule TAKE 1-2 CAPSULES BY MOUTH AT BEDTIME NEEDED active Not Available Not Available No t Available topiramat e 25 mg tablet Take 1 tablet twice a day by oral route for 30 days. active Not Available Not Available No t Available acetamino phen 300 mg-codein e 30 mg tablet active Not Available Not Available Not Available tretinoin 0.05 % topical cream 04/22 completed Not Available Not Available Not Available sulfameth oxazole 800 mg-trimet hoprim 160 mg tablet 01/17 completed Not Available Not Available Not Available omeprazol e 40 mg capsule,d elayed release Take 1 capsule every day by oral route. 2013 active Not Available Not Available Not Avai lable acetamino phen 500 mg tablet Take 2 tablets every day by oral route as needed. 09/09 completed Not Available Not Available Not Available triamtere ne 37.5 mg-hydroc hlorothia zide 25 mg capsule DAILY 01/16 completed RECORDED 01/17/20 10 9:49AM BY BETSY POMPA , OFFICE VISIT; Not Available Not Available Not Available amoxicill in 500 mg tablet active Not Available Not Available Not Available tolterodi ne 2 mg tablet AT BEDTIME active Not Available Not Available No t Available temazepam 15 mg capsule active Not Available Not Available Not Available amitripty line 10 mg tablet Take 1 tablet every day by oral route for 90 days. 01/28 completed Okay to dispense , despite age,pt says she stopped Not Available Not Available Not Available lithium carbonate 600 mg capsule TAKE 1 CAPSULE BY MOUTH TWICE A DAY active Not Available Not Available No t Available lithium carbonate 300 mg capsule 01/17 completed Not Available Not Available Not Available cephalexi n 500 mg capsule 01/17 completed Not Available Not Available Not Available clotrimaz ole-betam ethasone 1 %-0.05 % topical cream APPLY EXTERNAL LY TO THE AFFECTED AREA TWICE DAILY 09/27 completed Not Available Not Available Not Available nystatin- triamcino lone 100,000 unit/g-0. 1 % topical cream TWO TIMES DAILY 07/01 completed RECORDED 07/02/19 13 6:32PM BY JIM ACUNA MD, PHONE ENCOUNTE R; Not Available Not Available Not Available indapamid e 1.25 mg tablet Take 1 tablet every day by oral route for 90 days. 09/24 completed Not Available Not Available Not Available omeprazol e 20 mg capsule,d elayed release TAKE 1 CAPSULE BY MOUTH EVERY DAY 12/26 completed Not Available Not Available Not Available codeine 10 mg-guaife nesin 100 mg/5 mL oral liquid Take 10 mL every 4 hours by oral route for 5 days. 2014 active Not Available Not Available Not Avai lable topiramat e 200 mg tablet TAKE 1 TABLET BY MOUTH EVERY DAY active Not Available Not Available No t Available furosemid e 20 mg tablet TAKE 1 TABLET BY MOUTH EVERY DAY active Not Available Not Available No t Available Seroquel 100 mg tablet active Not Available Not Available Not Available gabapenti n 100 mg capsule Take 1 capsule 3 times a day by oral route for 10 days. 09/27 completed Not Available Not Available Not Available ibuprofen 600 mg tablet Take 1 tablet 3 times a day by oral route as needed for 10 days. 06/18 completed Not Available Not Available Not Available methylpre dnisolone 4 mg tablets in a dose pack Take by oral route per package instruct ions as tapering dose. 06/19 completed Not Available Not Available Not Available ketoconaz ole 2 % topical cream APPLY TOPICALL Y TO THE AFFECTED AREA TWICE A DAY 2022 active Not Available Not Available Not Avai lable topiramat e 100 mg tablet active Not Available Not Available Not Available lithium carbonate 300 mg tablet 12/31 completed Not Available Not Available Not Available fluticaso ne propionat e 50 mcg/actua tion nasal spray,leny pension SPRAY 2 SPRAYS INTO EACH NOSTRIL EVERY DAY active Not Available Not Available No t Available risperido ne 1 mg tablet TAKE 1 TABLET BY MOUTH EVERY DAY IN THE EVENING active Not Available Not Available No t Available ipratropi um bromide 21 mcg (0.03 %) nasal spray Wyalusing 2 sprays 3 times a day by nasal route for 30 days. active Not Available Not Available No t Available naproxen 500 mg tablet active Not Available Not Available Not Available Seroquel 200 mg tablet Take 1 tablet every day by oral route for 30 days. active Not Available Not Available No t Available amoxicill in 875 mg-potass ium clavulana te 125 mg tablet Take 1 tablet twice a day by oral route for 10 days. active Not Available Not Available No t Available bacitraci n-polymyx in B 500 unit-10,0 00 unit/gram eye ointment active Not Available Not Available Not Available clindamyc in phosphate 1 % topical solution active Not Available Not Available Not Available ciclopiro x 0.77 % topical gel APPLY TO AFFECTED AREA DIRECTED 01/17 completed Not Available Not Available Not Available hydroxyzi ne pamoate 25 mg capsule active Not Available Not Available Not Available ciclopiro x 0.77 % topical cream 01/17 completed Not Available Not Available Not Available minocycli ne 100 mg tablet TWO TIMES DAILY 02/12 completed RECORDED 02/13/20 12 2:59PM BY IRVING MARTINEZ MA, OFFICE VISIT; Not Available Not Available Not Available rosuvasta tin 10 mg tablet TAKE 1 TABLET BY MOUTH AT BEDTIME active Not Available Not Available No t Available topiramat e 50 mg tablet active Not Available Not Available Not Available nitrofura ntoin monohydra te/macroc rystals 100 mg capsule Take 1 capsule twice a day by oral route for 7 days. 01/28 completed Not Available Not Available Not Available Vicodin EVERY 6 HOURS PRN PAIN 02/12 completed RECORDED 02/13/20 12 2:59PM BY RIVING MARTINEZ MA, OFFICE VISIT; Not Available Not Available Not Available Seroquel 2 TABS, 300 MG, DAILY, 30 DAY(S) 05/03 completed Not Available Not Available Not Available Keflex take twice a day for 1 week 01/19 completed Given at [facility] 12/29/17 Not Available Not Available Not Available Oxytrol 1 TAB(S), 10 MG/24 HR, ONCE A DAY, 30 DAY(S) 04/22 completed Not Available Not Available Not Available Seroquel 400 mg tablet Take 1 tablet every day by oral route at bedtime for 30 days. active Not Available Not Available No t Available calcium 600 mg (as carbonate )-vit D3 10 mcg (400 unit)-min erals tablet Take 1 tablet every day by oral route. 07/13 completed FYI, no 600 availabl e only 400 or 800. Ins does not cover 800 so pharm will do 400. Not Available Not Available Not Available hydrochlo rothiazid e 12.5 mg tablet 12/13 completed Not Available Not Available Not Available Voltaren 1 % topical gel active Not Available Not Available Not Available Fiber Laxative (methylce llulose) 500 mg tablet TAKE ONE TABLET BY MOUTH EVERY DAY 04/01 completed Not Available Not Available Not Available Calcium with Vit D3 600 mg (as carbonate )-12.5 mcg (500 unit) capsule Take 1 capsule twice a day by oral route. 07/08 completed Not Available Not Available Not Available Centrum Silver Women 8 mg iron-400 mcg-50 mcg tablet Take 1 tablet every day by oral route. 09/27 completed Not Available Not Available Not Available Vitals Date Recorded Body height Body mass index (BMI) Body weight Heart rate Oxygen saturation Oxygen saturation in Arterial blood by Pulse oximetry Body temperature Systolic blood pressure Diastolic blood pressure Systolic blood pressure Diastolic blood pressure Provider Name and Address Organization Details Last Updated DateTime 2 168.91 cm 28.3 kg/m2 55651.4 4 g 47 /min 100 % 100 % 98.24 [degF] 150 mm[Hg] 77 mm[Hg] 132 mm[Hg] 80 mm[Hg] Doreen Mahmood MA [facility] 2 13:08:38 Date Recorded Heart rate Systolic blood pressure Diastolic blood pressure Provider Name and Address Organization Details Last Updated DateTime 07/11/2021 50 /min 113 mm[Hg] 77 mm[Hg] Not Available [facility] 07/11/2021 17:45:03 Date Recorded Heart rate Systolic blood pressure Diastolic blood pressure Provider Name and Address Organization Details Last Updated DateTime 07/10/2021 46 /min 128 mm[Hg] 71 mm[Hg] Not Available [facility] 07/11/2021 17:46:05 Date Recorded Body height Body mass index (BMI) Body weight Heart rate Oxygen saturation Oxygen saturation in Arterial blood by Pulse oximetry Body temperature Heart rate Heart rate Heart rate Systolic blood pressure Diastolic blood pressure Systolic blood pressure Diastolic blood pressure Systolic blood pressure Diastolic blood pressure Systolic blood pressure Diastolic blood pressure Provider Name and Address Organization Details Last Updated DateTime 2 168.91 cm 27.7 kg/m2 11091.0 7 g 51 /min 98 % 98 % 98.24 [degF] 42 /min 53 /min 48 /min 108 mm[Hg] 62 mm[Hg] 100 mm[Hg] 72 mm[Hg] 116 mm[Hg] 66 mm[Hg] 118 mm[Hg] 62 mm[Hg] Irving arias MA [facility] 2 11:38:19 Date Recorded Body height Body mass index (BMI) Body weight Heart rate Oxygen saturation Oxygen saturation in Arterial blood by Pulse oximetry Body temperature Systolic blood pressure Diastolic blood pressure Provider Name and Address Organization Details Last Updated DateTime 2 168.91 cm 28.3 kg/m2 49436.4 4 g 56 /min 99 % 99 % 98.24 [degF] 129 mm[Hg] 74 mm[Hg] Irving arias [place] [facility] [facility] 2 14:11:12 Social History Question Answer Notes LastModified by Organizat ion Details LastModified Time Tobacco Smoking Status Never [facility]2013 12:55:47 Do You Have An Advance Directive? Yes HCP Information not available 04/30/2015 What Is Your Level Of Alcohol Consumption? None Information not available 11/04/2013 What Is Your Level Of Caffeine Consumption? Occasional Soda Information not available 11/04/2013 How Much Tobacco Do You Chew? None Information not available 04/30/2015 In The 14 Days Before Symptom Onset, Have You Had Close Contact With A Laboratory-confi rmed COVID-19 While That Case Was Ill? No Information not available 08/19/2019 In The 14 Days Before Symptom Onset, Have You Had Close Contact With A Person Who Is Under Investigation For COVID-19 While That Person Was Ill? No Information not available 08/19/2019 Have You Been To An Area Known To Be High Risk For COVID-19? No Information not available 09/12/2019 Are You Currently Employed? No Retired Information not available 11/04/2013 What Type Of Diet Are You Following? REGULAR Information not available 11/04/2013 Which Illicit Or Recreational Drugs Have You Used? None Information not available 11/04/2013 Do You Or Have You Ever Used E-cigarettes Or Vape? 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 With Others Lives In Longterm With 5 Other [facility] Information not available 08/16/2018 Do You Take Precautions To Prevent Distracted Driving? Yes Information not available 04/30/2015 How Often Do You Need To Have Someone Help You When You Read Instructions, Pamphlets, Or Other Written Material From Your Doctor Or Pharmacy? Never Information not available 04/30/2015 Have You Served In The ? No abolcun Information not available 07/04/2016 Have You Or Anyone In Your Household Had Any Of The Following Symptoms In The Last 14 Days: Sore Throat, Cough, Chills, Body Aches For Unknown Reasons, Shortness Of Breath For Unknown Reasons, Loss Of Smell, Loss Of Taste, Fever At Or Greater Than 100 Degrees Fahrenheit? No Information not available 09/12/2019 Are You Or Anyone In Your Household A Health Care Provider Or Emergency Responder? No Information not available 09/12/2019 To The Best Of Your Knowledge Have You Been In Close Proximity To Any Individual Who Tested Positive For COVID-19? No Information not available 09/12/2019 *AWV ONLY* Are You Presently Prescribed Opioid Medication By PCP Or Specialist? If YES -Provider Assess The Benefit For Other, Non-opioid Pain Therapies Instead, Even If The Patient Does Not Have OUD But Is Possibly At Risk. No Information not available 03/12/2020 Have You Recently Traveled To A COVID-19 High Risk Area Or Gathering In The Last 10 Days? No Information not available 03/12/2020 What Was The Date Of Your Most Recent Tobacco Screening? 09/27/2021 Information not available 09/27/2021 How Many Children Do You Have? 2 Marleen Information not available 07/13/2017 Seat Belts Used Routinely Yes Information not available 04/30/2015 Are You Sexually Active? No Information not available 04/30/2015 Smoke Alarm In Home Yes Information not available 04/30/2015 At What Age Did You Start Smoking Tobacco? 0 Information not available 04/30/2015 Are You Passively Exposed To Smoke? No Information not available 04/30/2015 Do You Or Have You Ever Used Smokeless Tobacco? Never Used Smokeless Tobacco Information not available 08/19/2019 How Much Tobacco Do You Smoke? No Information not available 11/04/2013 Do You Use Any Illicit Or Recreational Drugs? No Information not available 09/24/2020 Do You Use Sunscreen Routinely? Yes In Face Cream Information not available 04/30/2015 How Many Years Have You Smoked Tobacco? 0 Information not available 04/30/2015 Do You Or Have You Ever Used Any Other Forms Of Tobacco Or Nicotine? No Information not available 09/27/2021 Sex: Unknown Functional Status Question Answer Note LastModified by Organizat ion Details LastModified Time Are you able to walk? YESWOREST Information not available 09/24/2020 Are you able to care for yourself? Yes Information not available 11/04/2013 What is your exercise level? Moderate walking 4 x week Information not available 09/27/2021 Mental Status None recorded. Family History Relationship Description Onset Age of this Age Resolved Age Notes LastModified by Organization Details LastModified Time Unspecified Relation Heart disease duane Not available 01/06 13:54:42 Unspecified Relation Hypercholest erolemia [email or web address] Not available 01/06 13:54:42 Father No current problems or disability [email or web address] s Not available 09/12/2019 10:59:26 Mother No current problems or disability [email or web address] s Not available 09/12/2019 10:59:26 Medical History Condition Response Other Y Gynecological History Statement/Question Response Date of Last Pap Smear 04/22/2016 Date of Last Colonoscopy 01/31/2003 Most Recent Mammogram 09/12/2021 Most Recent Bone Density 08/23/2013 Obstetrics History GPAL:G 0 P 0 0 0 0 Immunizations Vaccine Type Date Status Note Provider Name and Address Organization Details Recorded Time pneumococcal polysaccharide PPV23 019 completed HANNAH Gonzalez [facility] 10/18/2021 14:56:22 Tdap 016 completed HANNAH Gonzalez [facility] 10/18/2021 14:56:23 Influenza, split virus, quadrivalent, PF 017 cancelled patient objection Not Available [facility] 03/19/2019 02:22:07 zoster live 017 cancelled patient objection Not Available [facility] 03/19/2019 02:21:33 Pneumococcal conjugate PCV 13 018 cancelled patient objection Not Available [facility] 03/19/2019 02:21:38 Influenza, high-dose, trivalent, PF 018 cancelled patient objection Not Available [facility] 03/19/2019 02:22:14 Influenza, high-dose, quadrivalent, PF 020 cancelled patient objection Regino Bah PA-C [address] [facility] [address], [place], [address], [facility] 01/18/2020 11:55:35 varicella 000 completed Christal mast, [facility] 12/08/2019 15:44:02 Td (adult), 2 Lf tetanus toxoid, preservative free, adsorbed [address] [facility] 12/08/2019 15:44:02 Past Encounters Encounter ID Performer Location Encounter Start Date Encounter Closed Date Diagnosis/Indication Diagnosis SNOMED-CT Code Diagnosis ICD10 Code Diagnosis Note [id number] [facility] [address] [facility] [place] [address] 04/08/2005 00:00:00 [id number] [facility] er[facility] [address] [facility],[address] [place] [address] 10/07/2005 00:00:00 [id number] [facility] er[facility] [address] [facility],[address] [place] [address] 09/01/2004 00:00:00 [id number] auto[facility] er[facility] [address] [facility] [place] [address] 03/14/2004 00:00:00 [id number] [facility] er[facility] [address] [facility],[address] [place] [address] 04/21/2006 00:00:00 [id number] [facility] [address] [facility],[address] [place] [address] 11/25/2006 00:00:00 [id number] [facility] er[facility] [address] [facility],[address] [place] [address] 05/25/2007 00:00:00 [id number] auto[facility] er[facility] [address] [facility],[address] [place] [address] 11/30/2007 00:00:00 [id number] [facility] er[facility] [address] [facility],[address] [place] [address] 12/17/2007 00:00:00 [id number] [facility] er[facility] [address] [facility] [place] [address] 03/13/2008 00:00:00 [id number] auto[facility] er[facility] [address] [facility],[address] [place] [address] 04/19/2008 00:00:00 [id number] auto[facility] erce [address] [facility],[address] [place] [address] 05/24/2008 00:00:00 [id number] auto[facility] erce [address] [facility] [address] [place] [address] 12/26/2008 00:00:00 [id number] auto[facility] erce [address] [facility] [address] [place] [address] 02/13/2009 00:00:00 [id number] auto[facility] erce [address] [place] [address] 07/11/2009 00:00:00 [id number] auto[facility]Comm erce [address] [facility],[address] [place] [address] 01/16/2010 00:00:00 [id number] auto[facility] erce [address] [facility],[address] [place] [address] 07/19/2010 00:00:00 [id number] auto[facility] erce [address] [facility],[address] [place] [address] 10/16/2010 00:00:00 [id number] autoEComm erce [address] [facility],[address] [place] [address] 01/08/2011 00:00:00 [id number] auto[facility]Comm erce [address] [facility],[address] [place] [address] 02/19/2011 00:00:00 [id number] auto[facility]Comm erce [address] [facility],[address] [place] [address] 07/22/2011 00:00:00 [id number] auto[facility]Comm erce [address] [facility],[address] [place] [address] 09/26/2011 00:00:00 [id number] auto[facility]Comm erce [address] [facility],[address] [place] [address] 12/31/2011 00:00:00 [id number] auto[facility]Comm erce [address] [facility],[address] [place] [address] 02/13/2012 00:00:00 [id number] autoEComm erce [address] [facility] [place] [address] 05/12/2012 00:00:00 [id number] auto[facility]Comm [place] [address] [facility] [place] [address] 06/30/2012 00:00:00 [id number] autoEComm erce [address] [facility] [place] [address] 02/24/2013 00:00:00 [id number] [facility] [place] [address] [facility] [place] [address] 05/12/2013 00:00:00 [id number] Irving lechuga MA Main Office [address] [facility] [address] [place] [address] 11/04/2013 12:44:53 11/04/2013 13:18:10 Upper abdominal pain 28577565 [id number] Main Office [address] [address] [place] [address] 11/23/2013 10:19:13 11/23/2013 11:07:31 Bipolar disorder [id number] Off lithium for at least 2 weeks with psychotic features today. We called her pharmacy and she does not have a script for lithium there. Spoke with Nimco at [facility] who confirmed that patient's psychiatri st has left the practice and she needs to get appt with another psych provider. She states that they will take care of the lithium and getting her set up with new psych provider. [id number] Irving lechuga MA Main Office [address] [address] [place] [address] 01/06/2014 13:39:27 01/06/2014 14:34:19 Urge incontinence of urine 42306516 Benign par oxysmal positional vertigo 970033310 Neck pain 08250458 Bipolar disorder 40227411 Body mass index 30+ - obesity 752684188 [id number] Sakina Fournier MA Main Office [address] [facility] [address] [place] [address] 01/23/2014 10:15:09 01/23/2014 11:24:01 Screening for malignant neoplasm of colon 127055715 Ulnar neuropathy 911532744 Eczema 10822835 [id number] Dee Dee Chapa Main Office [address] [address] [place] [address] 03/23/2014 12:52:26 03/23/2014 13:36:12 Ulnar neuropathy 114373321 Eczema 66016369 [id number] Sanjuana Montero MA Main Office [address] [address] [place] [address] 05/12/2014 13:19:24 05/12/2014 13:51:13 Acute sinusitis 81967779 Cough 15036318 Inflammati on of rotator cuff tendon 352564995 Urge incon tinence of urine 69237793 [id number] Main Office [address] [address] [place] [address] 06/02/2014 09:56:15 06/02/2014 11:15:11 Foot pain 03757180 [id number] Kacey Lozoya Main Office [address] [address] [place] [address] 08/04/2014 13:49:12 08/04/2014 15:04:43 Inflammation of rotator cuff tendon 806042031 Greater tr ochanteric pain syndrome 0921902 Osteoarthr itis of knee 204978810 Left knee pain [id number] Irving lechuga MA Main Office [address] [address] [place] [address] 08/28/2014 15:41:48 08/28/2014 16:15:35 Osteoarthritis of knee 700484050 [id number] Jim Acuna MD Main Office [address] [address] [place] [address] 04/30/2015 12:54:18 04/30/2015 14:20:29 Adult health examination 143550335 Z00.00 Advance di rective discussed with patient 453220984 Z71.89 Body mass index 30+ - obesity 897306912 Z68.32 Administra tion of diphtheria, pertussis, and tetanus vaccine 041568477 Z23 Eczema 74327840 L30.9 Fatigue 46501856 R53.83 Hyperlipidemia 14441230 E78.5 Urge incon tinence of urine 92847564 N39.41 Bipolar disorder 9411928 4 F31.9 [id number] Jim Acuna MD Main Office [address] [address] [place] [address] 09/28/2015 15:19:11 09/28/2015 16:05:15 Edema of lower extremity 895607291 R60.0 Likely related to OA and swelling of right knee [id number] Jim Acuna MD Main Office [address] [address] [place] [address] 01/30/2016 12:37:28 01/30/2016 13:31:39 Edema of lower extremity 427209017 R60.0 Likely related to OA and swelling of right knee [id number] Jim Acuna MD Main Office [address] [address] [place] [address] 07/04/2016 10:56:03 07/04/2016 11:59:10 Adult health examination 744148347 Z00.00 Osteoarthr itis of knee 687658496 M17.0 Varicella vaccination 68 591166 Z23 Screening for malignant neoplasm of breast 981789832 Z12.39 Greater tr ochanteric pain syndrome 8746551 M70.62 Essential hypertension 10049948 I10 Stable on present medication s. Edema of l ower extremity 555159728 R60.0 Likely related to OA and swelling of right knee Bipolar disorder 9996965 4 F31.9 Stable on mood stabilizer s. Followed by psychiatry . [id number] Jim Acuna MD Main Office [address] [address] [place] [address] 10/02/2016 13:49:43 10/02/2016 13:57:42 [id number] Jim Acuna MD Main Office [address] [address] [place] [address] 11/05/2016 09:30:51 11/05/2016 14:09:26 [id number] Rupa Desiree Main Office [address] [address] [place] [address] 12/12/2016 11:35:08 12/12/2016 12:23:48 Ulcer of toe 312874198 L97.509 infected fungal ulcer of R. 5th toe. Start Abx as directed and antifungal . POdiatry referral [facility] w/i 1 week. Cellulitis of toe 725305 04 L03.031 [id number] Jim Acuna MD Main Office [address] [address] [place] [address] 12/29/2016 09:20:06 12/29/2016 10:50:03 Tinea pedis 4439454 B35.3 Osteoarthr itis of knee 490382000 M17.0 [id number] Jim Acuna MD Main Office [address] [address] [place] [address] 01/15/2017 10:56:09 01/15/2017 12:48:49 Immunization refused 277701638 Z28.21 Unexplaine d visual loss 682734752 H54.7 [id number] Jim Acuna MD Main Office [address] [address] [place] [address] 01/28/2017 14:14:29 01/28/2017 15:14:32 Carpal tunnel syndrome 70294235 G56.01 G56.02 Intolerant of cold 06567 000 R68.89 [id number] Jim Acuna MD Main Office [address] [address] [place] [address] 03/27/2017 15:38:56 03/27/2017 16:55:30 Neck pain 42002223 M54.2 [id number] Jim Acuna MD Main Office [address] [address] [place] [address] 03/31/2017 09:37:21 03/31/2017 16:40:58 [id number] Jim Acuna MD Main Office [address] [address] [place] [address] 05/20/2017 09:25:07 05/20/2017 13:50:34 [id number] Jim Acuna MD Main Office [address] [address] [place] [address] 06/15/2017 10:57:28 06/15/2017 11:57:04 Screening for malignant neoplasm of colon 385269191 Z12.11 Screening for malignant neoplasm of breast 439691988 Z12.31 Hepatitis C screening 41 7955818 Z11.59 Irritable bowel syndrome 92396750 K58.9 Fatigue 81086006 R53.83 Neck pain 13503898 M54.2 [id number] Jim Acuna MD Main Office [address] [address] [place] [address] 07/08/2017 09:51:00 07/08/2017 14:40:19 [id number] Jim Acuna MD Main Office [address] [address] [place] [address] 07/13/2017 11:27:59 07/13/2017 12:39:37 Screening for malignant neoplasm of colon 538738079 Z12.11 Screening for malignant neoplasm of breast 493661008 Z12.31 Administra tion of pneumococcal vaccine 50982250 Z23 Adult heal th examination 514740427 Z00.00 Essential hypertension 31054382 I10 Stable on present medication s. At [facility] ed risk for falls 203267803 Z91.81 Bipolar disorder 9452979 4 F31.9 Stable on mood stabilizer s. Followed by psychiatry . Daily headache 111896269 1 03 R51 [id number] Debbie edward Main Office [address] [address] [place] [address] 09/09/2017 14:06:29 09/09/2017 15:20:20 Eruption 220830540 R21 more so itchy nodules on various aspects of body, curr 2 lesions on R hand (dorsum) - will get derm eval - meanwhile, trial of zyrtec bedtime, could use benadryl cream topically, and give empiric bactrim - and probiotic supp/yogur t [id number] Umberto Frost MD Main Office [address] [address] [place] [address] 10/27/2017 13:21:07 10/27/2017 14:06:27 Neck pain 02986255 M54.2 Neck sprain possibly from sleeping in a sitting up position. [id number] Jim Acuna MD Main Office [address] [address] [place] [address] 11/16/2017 08:34:27 11/16/2017 09:36:09 Neck pain 10531459 M54.2 pt confused about voltaren gel, wishes to use tablet for pain. rec nap 500mg bid c food, can use moist heat / hep, and if no sig help then try voltaren gel Osteoarthr itis of knee 865195455 M17.11 cont to f/u c ortho [id number] Jim Acuna MD Main Office [address] [address] [place] [address] 12/31/2017 09:37:15 12/31/2017 16:42:22 [id number] Jim Acuna MD Main Office [address] [address] [place] [address] 01/08/2018 13:10:17 01/08/2018 14:31:30 Influenza vaccine needed 8186589006 106 Z23 Acute cystitis 58083137 N30.01 Improved with abx. [id number] Jim Acuna MD Main Office [address] [address] [place] [address] 01/25/2018 10:28:45 01/25/2018 11:23:07 Edema of lower extremity 192270836 R60.0 Likely related to OA and swelling of right knee Bipolar disorder 0789253 4 F31.9 Stable on mood stabilizer s. Followed by psychiatry . [id number] Jim Acuna MD Main Office [address] [address] [place] [address] 04/24/2018 08:42:01 04/24/2018 10:03:44 Screening for malignant neoplasm of breast 152141291 Z12.31 Screening for malignant neoplasm of colon 108757272 Z12.11 Increased thirst 5740819 03 R63.1 Fatigue 99041125 R53.83 Tremor 28365043 R25.1 Likely medication side effect from Li salts Bipolar disorder 1210934 4 F31.9 Stable on mood stabilizer s. Followed by psychiatry . [id number] Jim Acuna MD Main Office [address] [address] [place] [address] 06/18/2018 09:41:12 06/18/2018 11:19:33 Lightheadedness 502784921 R42 check labs and US, normal neuro exam for today. Pt to call if acutely worsening. Unable to do EKG today as machine not working, pt declines going to cardiology office for this. Will come back next week to do this. BP low, will have pt stop hctz to see if this helps Neck pain 15500611 M54.2 pt has known arthritis, consider PT referral. Advised to try tylenol 2 tabs bid with local heat and if not better to call. [id number] Mercedez Damián Main Office [address] [facility] [address] [place] [address] 07/12/2018 14:47:11 07/12/2018 15:47:19 Numbness of hand 088954202 R20.0 check addtional labs and do EMG of upper extremitie s Lightheadedness 97679464 8 R42 workup so far negative, will add labs above and awaiting echo. Pt advised to keep hydrated and change position slowly. If testing negative consider neurology referral. Pt seeing Dr Acuna in a month [id number] Jim Acuna MD Main Office [address] [address] [place] [address] 08/16/2018 09:20:14 08/16/2018 10:53:40 Screening for malignant neoplasm of breast 178843779 Z12.31 Administra tion of pneumococcal vaccine 63175708 Z23 Screening for malignant neoplasm of colon 997954292 Z12.11 Adult heal th examination 846958423 Z00.00 Essential hypertension 38208066 I10 Stable on present medication s. Osteoarthr itis of knee 905569460 M17.0 Bipolar disorder 1447291 4 F31.9 Stable on mood stabilizer s. Followed by psychiatry . Body mass index 25-29 - overweight 099450662 E66.3 Z68.25 Neck pain 86315681 M54.2 [id number] Jim Acuna MD Main Office [address] [address] [place] [address] 09/17/2018 09:57:38 09/17/2018 12:43:17 [id number] Jim Acuna MD Main Office [address] [address] [place] [address] 09/20/2018 09:05:25 09/20/2018 10:46:33 Headache 21881266 R51 [id number] Debbie edward Main Office [address] [address] [place] [address] 01/28/2019 10:52:53 01/28/2019 11:39:09 Vertigo 721228961 R42 mild and brief only when turns head to left while in bed, of note pt with unilateral hearing loss on left dx by ENT and is trying to get a hearing aid, will refer to ENT for possible need for imaging due to unilateral hearing loss and vertigo. we will make appt Hearing loss 25109387 H9 1.92 dx prior to this visit by ENT, trying to get a heaaring aid for the left no hx of imaging as per pt [id number] Jim Acuna MD Main Office [address] [address] [place] [address] 04/01/2019 09:52:05 04/01/2019 10:54:38 Essential hypertension 73712557 I10 Stable on present medication s. Bipolar disorder 4894177 4 F31.9 Stable on mood stabilizer s. Followed by psychiatry . Body mass index 25-29 - overweight 157692687 E66.3 Z68.25 [id number] Jim Acuna MD Main Office [address] [address] [place] [address] 08/19/2019 09:56:11 08/19/2019 10:40:59 Hyperlipidemia 80557363 E78.5 Fatigue 76676946 R53.83 Edema of l ower extremity 969579492 R60.0 Likely related to OA and swelling of right knee [id number] Jim Acuna MD Main Office [address] [address] [place] [address] 09/12/2019 10:32:49 09/12/2019 11:42:12 Adult health examination 041191358 Z00.00 Declines PT program for fall prevention Essential hypertension 06787289 I10 Stable on present medication s. Edema of l ower extremity 618320971 R60.0 Likely related to OA and swelling of right knee Osteoarthr itis of knee 702414111 M17.0 Bipolar disorder 2083250 4 F31.9 Stable on mood stabilizer s. Followed by psychiatry . [id number] Regino Bah PA-C Main Office [address] [address] [place] [address] 12/14/2019 09:14:43 12/14/2019 10:35:34 Essential hypertension 38140979 I10 bp stable lately off of meds, encouraged pt to begin low dose indapamide if her bp > 140/90 ? 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 - no evidence of tia/cva - filled out clearance for dental work Edema of l ower extremity 612300368 R60.0 stable today - could use diuretic prn, rec elevate LE prn, consider resume comp socks prn [id number] Regino Bah PA-C Main Office [address] [address] [place] [address] 01/18/2020 10:19:01 01/18/2020 12:01:57 Influenza vaccine needed 2206832031 106 Z23 Thoracic back pain 28616 8004 M54.6 R rhomboid major sprain - printed other exercises from web and gave to pt, also could use warm compress or prn tyl [id number] Jim Acuna MD Main Office [address] [address] [place] [address] 03/12/2020 09:58:06 03/12/2020 11:15:43 Essential hypertension 74771956 I10 Stable on present medication s. Screening for malignant neoplasm of colon 330405857 Z12.11 Agrees to do FIT test. Declines repeat colonoscop y. Bipolar disorder 4198873 4 F31.9 Stable on mood stabilizer s. Followed by psychiatry . [id number] Regino Bah PA-C Main Office [address] [address] [place] [address] 07/18/2020 14:41:21 07/18/2020 16:12:57 Poor short-term memory 597263814 R41.3 will get neuro eval as per pt request - see hpi and pe as well Bipolar disorder 7190685 4 F31.9 cont meds, f/u c therapist, psychiatri st as dir pt seemed very paranoid today - offered reassuranc e that her skull was normal - see above * will fwd this note to psych * [id number] Jim Acuna MD Main Office [address] [address] [place] [address] 09/24/2020 10:00:37 09/24/2020 11:36:05 Adult health examination 441971228 Z00.00 Declines PT program for fall prevention Essential hypertension 10075168 I10 Stable on present medication s. Fatigue 37906623 R53.83 Hyperlipidemia 30825893 E78.5 Tinea pedis 2861900 B35. 3 right foot between 4th and 5th digits Mixed bipo lar I disorder 92267712 F31.60 Followed by psychiatry . Stable on lithium [id number] Darren Callaway MD Main Office [address] [facility] [address] [facility] [address] 12/26/2020 09:19:14 12/26/2020 10:08:29 Essential hypertension 53808153 I10 Stable without medication Advised to cw lifestyle changes Mixed bipo lar I disorder 14661290 F31.60 Followed by psychiatry . Stable on lithium Pain in both feet 164354 0044 [id number] M79.671 likely related to OA. Hyperlipidemia 44751010 E78.5 ASCVD 9.8% patient was not taking medication as prescribed .Advised to start due to risk will f/u in 6 mo visit.Medi cation adherence advised.Al so discussed lifestyle changes. [id number] Darren Callaway MD Main Office [address] [facility] [address] [facility] [place] [address] 05/03/2021 10:18:54 05/03/2021 10:59:53 Greater trochanteric pain syndrome 2133542 M70.61 M70.62 Denies hx smoking or calf tenderness .Pain in lateral aspect worse in PM hx consistent with bursitis.H owever, the weakness and tingling is more spinal pathology. Denies loss of bowel and bladder incontinen ce.Patient could not stand on one leg to do the trendelinb urg sign.Some weakness in left hip thus will get xray and little difference in limb length noted.Will also refer to PSSPFor bursitis PT referral placed and medrol sent.Medro missy rodriges started for pain.Gabap entin for neuropathi c type symptoms.R ed flags discussed if loss of feeling or sensation/ unable to walk or unable to control bowel or bladder then to go to ED . Neuropathy [id number] G62 .9 Notes to neuropathi c type pain going down legsThen tells me she also get down arms.On lithium thus will check levles. [id number] Darren Callaway MD Main Office [address] [facility] [address] [facility] [place] [address] 06/19/2021 12:39:29 06/19/2021 13:28:32 Essential hypertension 61978255 I10 Stable without medication within JNC 8 guideline but will do RPM to see if we need to regulate her bp more.Mercedez in asymptmati c.Advised to cw lifestyle changesLow sodium diet discussedC ounseled on diet/exerc iseAdvised to keep BP daily BP log and technique counseled. Red flags of HTN emergency discussed and when to go to ED. Screening for malignant neoplasm of colon 609872073 Z12.11 Z12.12 does not want to have colo prefers FIT.saurabhe nena, limitation discussed. [id number] Bronwyn Hightower MA Main Office [address] [facility] [place] [address] 09/27/2021 10:18:49 09/27/2021 11:45:11 Essential hypertension 00525937 I10 Mercedez's blood pressures been stable she was enrolled in remote patient monitoring however she tells me that she would like disenroll, she will reach out to the company to do this.Advis ed to cw lifestyle changesLow sodium diet discussedC ounseled on diet/exerc iseAdvised to keep BP daily BP log and technique counseled. Red flags of HTN emergency discussed and when to go to ED. Mixed bipo lar I disorder 61186094 F31.60 Followed by psychiatry . Stable on lithium/ri speridone. Advance di rective discussed with patient 155220609 Z71.89 Dizziness 732351056 R42 Mercedez's dizziness is triggered and episodic, an EKG was done which was unrevealin g however there is some mild bradycardi a I suspect this is due to her bipolar medication . It is known that risperidon e can cause some dizziness while laying down she was advised to follow it up with her cardiologi st. She notes a history of a heart murmur however I could not appreciate this on auscultati on given that she has a dizziness I will get an echocardio gram to further evaluate this.And orthostati cs was done, which was negative.I will also have her get some lab work.Hydra tion was enforced, advised to stay away from alcohol, also advised to limit caffeine intake. Nail changes 494278548 L 60.9 Carolyn nail changes was noted on the left thumb she denies any trauma she notes it was only noted when she went and got a manicure, and there is some darkening in the nailbed I have referred her to a dermatolog ist to ensure that this is not anything sinister. Incontinence of feces 72 371408 R15.9 A digital rectal exam was present, she does have a history of urge urinary incontinen ce which she tells me may be mixed with stool however she cannot say for certain. On digital rectal exam rectal tone was still preserved, anal wink was appreciate d. For now and get a stool study and a urine test and further follow this up during her next visit given assuring physical exam. Benign par oxysmal positional vertigo 045178181 H81.10 Although this Hallpike was negative she notes that she had this before in the past and she did some vestibular therapy with good relief.Giv en the benign nature of physical therapy offered to provide it to her again. [id number] Darren Callaway MD Main Office [address] [facility] 207 [place] [address] 12/06/2021 13:55:38 12/06/2021 14:51:23 Adult health examination 905656778 Z00.00 Patient was counseled on healthy diet, exercise and nutrition due to Body mass index is 28.3 kg/m? ? ?. Last Colonoscop y:Date: 01/31/2003R esult: NegPlan: Does not want to get colonoscop y, prefers cologuard will order. Last Mammogram: Date: 09/12/21Res ult: Birad-2Pla n: Last Pap smearDate: 04/22/16Res ult: Neg for NICKI. TZ present, HPV negPlan: notes had more recent. will try to get records. Bone density scanDate: 08/22/13Res ult: Osteopenia Plan: repeat ordered Vaccines:T dAP: 04/20/15Zos ter rec: advised, but she declined. Understand s risk.PCV20 : Script providedPP SV23: 08/16/18Inf luenza: declined, understand s risk.Covid : advised to get, declined, understand s risk. Routine labs today Immunizati on status reviewed. Will screen based on risk factors. Regular dental and ophtho care advised as well as seat belt and sunscreen use. Distracted driving discussed. Medication reconciled . Advance directives discussed. Essential hypertension 65176477 I10 Stable on present medication s. Hyperlipidemia 14471296 E78.5 ASCVD 9.8% patient was not taking medication as prescribed .Advised to start due to risk will f/u in 6 mo visit.Medi cation adherence advised.Al so discussed lifestyle changes. 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 Stable on lithium Administra tion of pneumococcal vaccine 78982753 Z23 Incontinence of feces 72 468020 R15.9 Notes resolved. Influenza vaccination declined 209161758 Z28.21 Pain in bi lateral legs [id number] 7585424 M79.604 M79.605 No calf tenderness on exam, mold +1 edema.Gerald es cristel sx. Bone density finding 385 461301 M85.80 Screening for malignant neoplasm of colon 303721137 Z12.11 Z12.12 does not want to have colo prefers FIT.juan barrett, limitation discussed. [id number] Debbie edward [facility] [address] [place] [address] 02/08/2022 10:45:00 02/10/2022 12:02:30 Edema of lower extremity 974361297 R60.0 new problem to examiner, I reviewed [facility] in 12/06/21 in detail. had one plus edema bilateral then, will have pt start 20mg lasix in middday and f/u in a month in office. also will check why did not have LE US that Dr Callaway had planned on at [facility] 12/06. [id number] Darren Callaway MD Main Office [address] [facility] [address] [facility] [place] [address] 04/11/2022 08:49:28 04/11/2022 12:58:26 Health Concerns Section Related Observation LastModified by Organization Detai ls LastModified Time None Recorded Concern Status LastModified by Organization Details LastModified Time None Recorded Advance Directives Directive Y: HCP Payers Encounter Date Sequence Insurance Name Policy Number Policy Carson Covered Member ID Carson Member ID Guarantor Name 06/19/2021 2 [place] [facility] Mercedez Bruce [id number] Mercedez Bruce 06/19/2021 1 [place] B[place] [employer] Mercedez Bruce [id number] Mercedez Burnss 09/27/2021 2 [place] [facility] Mercedez Burnss [id number] Mercedez Burnss 09/27/2021 1 MEDICARE B-[place]: [facility] Mercedez Burnss [id number] Mercedez Burnss 12/06/2021 2 [place] [facility] Mercedez Burnss [id number] Mercedez Burnss 12/06/2021 1 [place] [facility] Mercedez Burnss [id number] Mercedez Burnss 02/08/2022 2 [place] [facility] Mercedez Burnss [id number] Mercedez Burnss 02/08/2022 1 [place] [facility] Mercedez Burnss [id number] Mercedez Burnss 04/11/2022 2 [place] [facility] Mercedez Burnss [id number] Mercedez Burnss 04/11/2022 1 [place] [facility] Mercedez Burnss [id number] Mercedez Bruce Notes Date Note Type Note Provider Name and Address Organization Details Recorded Time 06/19/2021 text/html Hypertension F/UReported bypatient.Associated Symptoms:no dizziness; no lightheadedness; no chest pain; no shortness of breath; no palpitations; no edema; no calf pain with exertion Lifestyle:limiting/av oiding saltNotes:Reports good adherence.Was on thiazide in past. Here as patient is aware she needs colonoscpy, tells me she prefer FIT test.No fhx of colon ca or symptoms within herself, discussed limitation and she understands. Darren Callaway MD [address] [address], [place], [address], [facility] 06/19/2021 13:29:58 09/27/2021 text/html Hypertension F/UReported bypatient.Associated Symptoms:no dizziness; no lightheadedness; no chest pain; no shortness of breath; no palpitations; no edema; no calf pain with exertion Lifestyle:limiting/av oiding saltNotes:Reports good adherence.Was on thiazide in past.Skin LesionReported bypatient.Location:[facility] nds (left thumb) Duration:started 1 week(s) ago Onset/Timing:abrupt Context:no known trigger; denies truama Associated Symptoms:no fever; no cold symptoms; no nausea; no vomiting; no urinary symptoms; no skin flakes; no scabbing; no bruising; no draining; no lesions multiplying; no lesions spreadingSyncope/Dizz inessReported bypatient.Quality:jermain m spinning Duration:lasts minutes (5 min); typical duration is 5 minutes Onset/Timin weeks onsent, notes 3-4 days/ week. Context:supine Aggravating Factors:worse with lying down Associated Symptoms:no recent vomiting; no associated palpitations;diarrhea ; Notes diarrhea.Notes:occurs when lay down, notes room spin. Patient was supposed to have a physical appointment today however had various concerns he wanted to discuss this includes feeling dizzy, changes in her nails, and questionable fecal incontinence. Darren Callaway MD [address], [address], [facility] 09/27/2021 12:43:17 12/06/2021 text/html Hypertension F/UReported bypatient.Associated Symptoms:no dizziness; no lightheadedness; no chest pain; no shortness of breath; no palpitations; no edema; no calf pain with exertion Lifestyle:limiting/av oiding saltNotes:Reports good adherence.Was on thiazide in past.Medicare Annual Wellness VisitReported bypatient.Diet and Nutrition:healthy diet Fracture Risk:no recent explained fracture Physical Activity:exercises on a regular basis; discussed weightbearing activities Depression Risk:anxious. Concentration and Memory:no memory lapses or loss Speech/Motor difficulties:no speech difficulties Hearing:supposed to get hearing aids from ENT. Vision:no vision problems; wears contacts. Activities of Daily Living:able to bathe with limited or no assistance; able to contol urination and bowels; able to dress with limited or no assistance; able to feed self with limited or no assistance; able to get out of chair or bed with limited or no assistance; able to groom with limited or no assistance; able to toilet with limited or no assistance Instrumental Activities of Daily Living:able to do house work with limited or no assistance; able to grocery shop with limited or no assistance; able to manage medications with limited or no assistance; able to manage money with limited or no assistance; able to prepare meals with limited or no assistance; able to use the phone with limited or no assistance Falls Risk Assessment:no fall since last visit Home Safety:reviewed sun protection; working smoke/CO detectors; use of seatbelts; no fire armsSkin LesionReported bypatient.Location:[facility] nds (left thumb) Duration:started 1 week(s) ago Onset/Timing:abrupt Context:no known trigger; denies truama Associated Symptoms:no fever; no cold symptoms; no nausea; no vomiting; no urinary symptoms; no skin flakes; no scabbing; no bruising; no draining; no lesions multiplying; no lesions spreadingSyncope/Dizz inessReported bypatient.Quality:jermain m spinning Duration:lasts minutes (5 min); typical duration is 5 minutes Onset/Timin weeks onsent, notes 3-4 days/ week. Context:supine Aggravating Factors:worse with lying down Associated Symptoms:no recent vomiting; no associated palpitations;diarrhea ; Notes diarrhea.Notes:occurs when lay down, notes room spin. Patient present for well adult visit Complaints: Notes hx of circulation issues, tells me had work up in past, Is not using ASA. OTC/Herbal supplements use: centrum vitamin. 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 Darren Callaway MD [address] [address], [place], [address], [facility] 12/06/2021 14:43:15 02/08/2022 text/html telehealth visit . Pt is complaining of bilateral LE swelling, I reviewed [facility]V from 01/21 and one plus edema was noted on exam with DR Callaway. Pt notes a little bit of feeling winded, went to ER last week and was given script for lasix but did not start med. Also was to get bilater LE US ordered by Dr Callaway but she has not heard of an appt. Debbie mast, [facility] [place] 02/08/2022 10:59:08 04/11/2022 text/html Hospitalization Contact RecordReported bypatient.[facility] UpHospital: [facility]; admit date: (Please enter in format 'MM/DD/YYYY') (04/08/2022); date of discharge: (Please enter in format 'MM/DD/YYYY') (04/10/2022); date of contact: (Please enter in format 'MM/DD/YYYY') (04/11/2022)Notes:Med icare covered inpatient stay? yes Medicare JUDIE with in 48 working hours? yes High Complexity code valid on or before:April Moderate Complexity code valid on or before: April HCP on file? no MOLST on file? no Discharge Summary available? yes 71 year old female with long standing history of bipolar disorder and psychosis initially was seen at [facility] ED after sustaining a fall in a salon. Patient was evaluated noted psychosis was transferred to [facility] for psychiatric stabilization. Evaluation:chronic paranoidlong history non compliance Patient was admitted for 2 days monitored closely, patient continue to express she wanted to be discharge. At this point patient was at baseline and discharge to follow closely with outpatient services. Darren Callaway MD [address], [place], [address], [place] [facility] [place] 04/11/2022 12:58:24 OBGyn Episode No OBEpisode recorded.
--- OUTSIDE RECORDS SUMMARY | 2024-05-09 12:57 | XMS_ITS | Patient Health Record ---
Author Organization [facility] Address [address] [place] [address] Care Team Providers Care Computing Services Director Name Role Phone Jim Acuna MD Primary Care Provider Unavailab Nithya Roman Unavailable [phone] Reason For Referral No Information Medications Medication SIG (Take, Route, Frequency, Duration) Notes Start Date End Date Status SEROquel 400 MG 1 tablet at bedtime Orally Once a day Not-Taking oxyBUTYnin Active Physical Therapy . . R > L pes planus w ith peroneal tendonitis 2-3x/week for 3-4 weeks 01/17/2015 Active Ciclopirox Olamine 0.77% external Apply to effected areas twice a day for 30 days 01/17/2015 Active clonazePAM Active Topiramate 75 mg 1 tablet Orally Once a day Active Clotrimazole-Betamethaso ne 1-0.05 % 1 application to affected area Externally Twice a day to affected areas on feet for 30 days 02/22/2015 Active Jal Carbonate 300 MG 1 capsule Orall y Three times a day Active Social History Tobacco use other than smoking: Question Answer Notes Are you an other tobacco user? No Problems Problem Type SNOMED Code ICD Code Onset Dates Problem Status W/U Status Risk Notes Problem Localized, primary osteoarthritis of the ankle and/or foot (614607438) Primary osteoarthrit is, right ankle and foot (M19.071) Active confirmed Problem Pes planus (49541920) Flat foot [pes planus] (acquired), left foot (M21.42) Active confirmed Problem Pes planus (15427515) Flat foot [pes planus] (acquired), right foot (M21.41) Active confirmed Plan Of Treatment No Information Insurance Providers Payer Name Payer Address Payer Phone Subscriber Number Group Number Insured Name Patient Relationship to Insured Coverage Start Date Coverage End Date Medicare [employer] [address] [place] [address] [id number] Mercedez Bruce Self - patient is the insured Medical (General) History Medical History History ICD Code Back,Hip,and Knee pain Depression Fibromyalgia Chicken pox
== END 2024-05-09 11:40 | disposition home or self-care (01) ==
PROVIDERS: Referring Provider Orthopaedic Surgery; Visit Provider Internal Medicine
DX: M79.661 Pain in right lower leg (principal)
CPT/HCPCS: 99204

== ENCOUNTER → 2024-05-09 11:18 | Outpatient (BNVA) | payer MEDICARE, SELFPAY | PROVIDERS: Referring Provider Orthopaedic Surgery; Visit Provider Internal Medicine | DX: M79.661 Pain in right lower leg (principal) | CPT/HCPCS: 99202 ==

== ENCOUNTER 2024-06-22 09:39 | Outpatient (REF) | payer MEDICARE, SELFPAY ==
--- NOTE | ~2024-06-22 | US_ITS ---
EXAMINATION: US LOWER EXTREMITY VENOUS (REFLUX EXAM), BILATERAL CLINICAL INFORMATION: Pain in the right lower extremity COMPARISON: None. TECHNIQUE: Color flow triplex imaging and compression Doppler was performed to evaluate both the deep and the superficial systems bilaterally. To evaluate the superficial system, the examination was performed in the upright position. Color-flow Doppler ultrasound and compression ultrasound were utilized. In addition, maneuvers were utilized to demonstrate reflux. FINDINGS: 1. DEEP VENOUS ULTRASOUND OF THE RIGHT LOWER EXTREMITY: Common Femoral Vein: Compressible, normal respiratory variation and augmented flow. Femoral Vein: Compressible, normal color flow and augmentation. Popliteal Vein: Compressible, normal augmentation. Deep Reflux: There is no evidence of reflux in the deep system in either the common femoral vein, superficial femoral or the popliteal vein. There is no evidence of a Angel's cyst. 2. SUPERFICIAL ULTRASOUND WITH DOPPLER OF RIGHT LOWER EXTREMITY: GREAT SAPHENOUS VEIN: Saphenofemoral Junction: 0.4 cm; Reflux: 0 ms Proximal Thigh: 0.2 cm; Reflux: 0 ms Mid Thigh: 0.1 cm; Reflux: 0 ms Distal Thigh: 0.1 cm; Reflux: 0 ms At Knee: 0.2 cm; Reflux: 0 ms Proximal Calf: 0.1 cm; Reflux: 0 ms Mid Calf: 0.1 cm; Reflux: 0 ms Distal Calf: 0.2 cm; Reflux: 0 ms DUPLICATED MEDIAL GREAT SAPHENOUS VEIN: Diameter: None imaged Reflux: NA DUPLICATED LATERAL GREAT SAPHENOUS VEIN: Diameter: 0.2 cm. Reflux: NA SMALL SAPHENOUS VEIN: Saphenopopliteal Junction: 0.2 cm; Reflux: 0 ms Proximal: 0.1 cm; Reflux: 0 ms Distal: 0.1 cm; Reflux: 0 ms VEIN OF GIACOMINI: Size: NA Reflux: NA PERFORATORS: Location: Small saphenous vein mid segment and great saphenous vein distal thigh and to mid calf. Size: 0.1-0.2 cm. Reflux: NA VARICOSITIES: Location: None imaged. Size: NA Reflux: NA 3. DEEP VENOUS ULTRASOUND OF THE LEFT LOWER EXTREMITY: Common Femoral Vein: Compressible, normal respiratory variation and augmented flow. Femoral Vein: Compressible, normal color flow and augmentation. Popliteal Vein: Compressible, normal augmentation. Deep Reflux: There is no evidence of reflux in the deep system in either the common femoral vein, superficial femoral or the popliteal vein. There is no evidence of a Angel's cyst. 4. SUPERFICIAL ULTRASOUND WITH DOPPLER OF LEFT LOWER EXTREMITY: GREAT SAPHENOUS VEIN: Saphenofemoral Junction: 0.4 cm; Reflux: 0 ms Proximal Thigh: 0.4 cm; Reflux: 0 ms Mid Thigh: 0.1 cm; Reflux: 0 ms Distal Thigh: 0.3 cm; Reflux: 0 ms At Knee: 0.2 cm; Reflux: 0 ms Proximal Calf: 0.2 cm; Reflux: 0 ms Mid Calf: 0.1 cm; Reflux: 0 ms Distal Calf: 0.1 cm; Reflux: 0 ms DUPLICATED MEDIAL GREAT SAPHENOUS VEIN: Diameter: None imaged Reflux: NA DUPLICATED LATERAL GREAT SAPHENOUS VEIN: Diameter: 0.2 cm. Reflux: NA SMALL SAPHENOUS VEIN: Saphenopopliteal Junction: 0.2 cm; Reflux: 0 ms Proximal: 0.2 cm; Reflux: 0 ms Distal: 0.1 cm; Reflux: 0 ms VEIN OF GIACOMINI: Size: NA Reflux: NA PERFORATORS: Location: Great saphenous vein, mid calf segment. Size: 0.2 cm. Reflux: NA VARICOSITIES: Location: None Imaged Size: NA Reflux: NA US/US venous duplex LE BI IMPRESSION: Right: No venous insufficiency. Perforators without reflux. Left: No venous insufficiency. Perforators without reflux. Electronically signed by: Magdiel Mcdonald MD 06/23/2024 07:27 AM EDT
--- OUTSIDE RECORDS SUMMARY | 2024-06-22 10:51 | XMS_ITS | Data Portability ---
Author Organization [facility], Main Office Address [address] [place] [address] Care Team Providers Care Missile Technician Name Role Phone RAMIRO CHAPMAN Lye Peel Operator [phone] [facility] OTHER [facility] Psychiatrist JUAN J MARSH Orthopedic Surgeon [phone] MISKEESHA MCKEE Neurologist URIAH DIMAS Television Installer Helper [facility] ORDERS Glenda st Surgeon KALEB CUETO Hand Painter [phone] DARREN CALLAWAY Primary Care Provider Assessment Encounter [...] lipid panel, serum 2021 [facility], [address], [place] [address], [address], 19:25:39 LDL, serum 2021 022 [facility], [address], [address], [place], [address], 19:25:37 noninv asive colore ctal cancer DNA + occult blood screen ing, QL, stool 2021 [facility] (Cologuard Orders Only), [address], [address], [place], [address], 14:00:27 unlist ed lab - GI profil e, stool, PCR 2021 [facility], [address], [address], [place], [address], 11:51:58 unlist ed lab - urinal ysis w/refl ex cultur e 2021 PATR[facility]IA [facility] (Centralized Electronic Ordering - All Locations), Patient Can Go To The Location Of Their Choice, [id number] 15:10:36 BMP, serum or plasma 2021 PATRICIA [facility] (Centralized Electronic Ordering - All Locations), Patient Can Go To The Location Of Their Choice, [address] 15:33:59 magnes ium, serum or plasma 2021 PATR[facility] (Centralized Electronic Ordering - All Locations), Patient Can Go To The Location Of Their Choice, [address] 15:34:00 CBC w/ auto diff 2021 PATRICIA [facility] (Centralized Electronic Ordering - All Locations), Patient Can Go To The Location Of Their Choice, [address] 15:01:55 fecal occult blood, immuno assay, stool 2021 PATRICIA In-Office Order, Internal Use Only DO Not Attach Compendium DO Not Attach Compendium, Do Not Delete/merge, [id number] 05:01:02 Referral physic al therap ist referr al 2021 [facility], [address] [place], [address], 2 15:43:50 physic al therap ist referr al - Please see for BPPV 2021 [email or web address] [facility], [address], [place], [address], 3 10:48:56 dermat ologis t referr al - dark area of nail pls eval unsure if possib le melano ma 2021 [facility], [address], [address], [place], [address], 3 14:48:58 care manage ment referr al - Please set up RPM with BP monito r 2021 [facility], [address], [address], [place], [address], 2 09:06:09 Procedures None record ed. Surgeries None record ed. Imaging bone densit y 2021 bsmary [facility], [address], [place], [address], 3 12:44:58 US, duplex , arteri al, lower extrem ity, comple te 2021 [email or web address] Not available 3 12:54:43 ankle brachi al index, comple te 2021 [facility], [address], [address], [place], [address], 3 11:58:56 pulse volume record ing 2021 arelisasen [facility], [address], [address], [place], [address], 3 11:58:56 electr ocardi ogram 2021 In-Office Order, Internal Use Only DO Not Attach Compendium DO Not Attach Compendium, Do Not Delete/merge, [id number] 11:45:12 US, siobhan rdiogr am 2021 [id number] [facility] (Outt Non-Invasive Cardiology Scheduling), [address], [place], [address], 16:13:09 Medication Orders furose mide 20 mg tablet 2021 [id number], [address] [place], [address], 10:50:19 Patient TargetsNo targets recorded. Patient Instructions Encounter Date Encounter Id Patient Instructions Last Modified By Organization Details Last Modified Time 06/19/2021 [id number] colon cancer screening: care instructions [email or web address] Not available 06/19/2021 13:26:51 09/27/2021 [id number] advance care planning: care instructions [email or web address] Not available 09/27/2021 11:11:24 benign paroxysmal positional vertigo (bppv): care instructions ckokar Not available 09/27/2021 12:55:48 orthostatic vitals* [email or web address] Not available 10/07/2021 08:40:07 12/06/2021 [id number] preventing falls: care instructions ckokar Not available 12/06/2021 14:37:03 medicare preventive services guide (female 74yrs and under) ckokar Not available 12/06/2021 14:37:02 colon cancer screening: care instructions ckokar Not available 12/06/2021 14:37:02 high blood pressure: care instructions ckokar Not available 12/06/2021 14:37:03 learning about high blood pressure ckokar Not available 12/06/2021 14:37:03 02/08/2022 [id number] leg and ankle edema: care instructions [email or web address] Not available 02/08/2022 10:50:17 Reason for Referral Please set up RPM with BP mo nitor Referring Physician: Darren Callaway, Family Medicine, Encounter Date: 06/19/2021 Sales Exhibitor Referral for N ail changes dark area of nail pls eval unsure if possible melanoma Referring Physician: Darren Callaway [facility], Encounter Date: 09/27/2021 Physical Therapist Referral for Benign paroxysmal positional vertigo Please see for BPPV Referring Physician: Darren Callaway [facility], Encounter Date: 09/27/2021 Physical Therapist Referral for Adult health examination Referring Physician: Darren Callaway [facility], Encounter Date: 12/06/2021 Results Created Date Observation Date Name Description Value Unit Range Abnormal Flag Note LastModifiedBy Organization Detail LastModifiedTime 12/07/1912/06/2022 COLOG UARD cologuard result Cancel led - Order d not applic able Not Available [facility] (Cologuard Orders Only) [address], [place], [address], 12/06/2022 06:47:57 09/28/1909/27/2021 GI PROFI LE, STOOL , PCR results Test Cance lled, order worker error Not Available [facility] (Centralized Electronic Ordering - All Locations) Patient Can Go To The Location Of Their Choice, [id number] 09/27/2021 11:51:58 09/28/1909/27/2021 COMPL ETE CBC WITH [...] e bubba ervinri stics deter [facility] by [facility]. It has not been clear ed or appro marialuisa by the Food and Drug Admin istra tion. Test perfo rmed at [facility] [place] , [facility] , [place] [address] Not Available [facility] (Centralized Electronic Ordering - All Locations) Patient Can Go To The Location Of Their Choice, [id number] 10/02/2021 12:06:43 12/11/1912/10/2021 UA W/REF CRYSTAL CULTU RE appear/color LIGHT YELLO W CLEAR Not Available [facility] (Centralized Electronic Ordering - All Locations) Patient Can Go To The Location Of Their Choice, [id number] 12/10/2021 15:10:36 12/11/1912/10/2021 UA W/REF CRYSTAL CULTU RE sp. gravity 1.014 (1.002 -1.030 ) Not Available [facility] (Centralized Electronic Ordering - All Locations) Patient Can Go To The Location Of Their Choice, [id number] 12/10/2021 15:10:36 12/11/1912/10/2021 UA W/REF CRYSTAL CULTU RE urine pH 6.0 (5.0-8 .0) Not Available [facility] (Centralized Electronic Ordering - All Locations) Patient Can Go To The Location Of Their Choice, [id number] 12/10/2021 15:10:36 12/11/1912/10/2021 UA W/REF CRYSTAL CULTU RE urine albumin NEGATI VE (neg) Not Available [facility] (Centralized Electronic Ordering - All Locations) Patient Can Go To The Location Of Their Choice, [id number] 12/10/2021 15:10:36 12/11/1912/10/2021 UA W/REF CRYSTAL CULTU RE urine glucose NEGATI VE (neg) Not Available [facility] (Centralized Electronic Ordering - All Locations) Patient Can Go To The Location Of Their Choice, [id number] 12/10/2021 15:10:36 12/11/1912/10/2021 UA W/REF CRYSTAL CULTU RE urine ketones NEGATI VE (neg) Not Available [facility] (Centralized Electronic Ordering - All Locations) Patient Can Go To The Location Of Their Choice, [id number] 12/10/2021 15:10:36 12/11/1912/10/2021 UA W/REF CRYSTAL CULTU RE urine bilirubin NEGATI VE (neg) Not Available [facility] (Centralized Electronic Ordering - All Locations) Patient Can Go To The Location Of Their Choice, [id number] 12/10/2021 15:10:36 12/11/1912/10/2021 UA W/REF CRYSTAL CULTU [...] Go To The Location Of Their Choice, [id number] 12/10/2021 19:25:39 12/11/19 22 12/10/2021 URINE CULTU RE specimen description URINE Not Available [facility] ([facility] Order[facility] - All Locations) Patient Can Go To The Location Of Their Choice, [id number] 12/11/2021 13:21:32 12/11/19 22 12/10/2021 URINE CULTU RE special requests NONE Reflex ed from [id number] Not Available [facility] (Centralized Electronic Ordering - All Locations) Patient Can Go To The Location Of Their Choice, [id number] 12/11/2021 13:21:32 12/11/19 22 12/11/2021 URINE CULTU RE culture Mixed bacter ial nury, indica tive of urogen ital contam inatio n. Not Available [facility] (Centralized Electronic Ordering - All Locations) Patient Can Go To The Location Of Their Choice, [id number] 12/11/2021 13:21:32 12/11/19 22 12/11/2021 URINE CULTU RE report status FINAL 2021 Not Available [facility] (Centralized Electronic Ordering - All Locations) Patient Can Go To The Location Of Their Choice, [id number] 12/11/2021 13:21:32 01/04/20 22 01/06/2022 GI PROFI LE, STOOL , PCR campylobacte r NEGAT ASPEN Campy lobac ter speci es targe t nucle ic acid not detec nicolas. Not Available [facility] (Centralized Electronic Ordering - All Locations) Patient Can Go To The Location Of Their Choice, [id number] 01/06/2022 15:38:08 01/04/20 22 01/06/2022 GI PROFI LE, STOOL , PCR plesiomonas shigelloides NEGAT ASPEN Pleis iomon as shige lloid es targe t nucle ic acid not detec nicolas. Not Available [facility] (Centralized Electronic Ordering - All Locations) Patient Can Go To The Location Of Their Choice, [id number] 01/06/2022 15:38:08 11/04/01/06/2022 GI PROFI LE, STOOL , PCR salmonella NEGAT ASPEN Salmo aaron speci es targe t nucle ic acid not detec nicolas. Not Available [facility] (Centralized Electronic Ordering - All Locations) Patient Can Go To The Location Of Their Choice, [id number] 01/06/2022 15:38:08 01/04/20 22 01/06/2022 GI PROFI LE, STOOL , PCR vibrio NEGAT ASPEN Vibri o speci es targe t nucle ic acid not detec nicolas. Not Available [facility] (Centralized Electronic Ordering - All Locations) Patient Can Go To The Location Of Their Choice, [id number] 01/06/2022 15:38:08 01/04/20 22 01/06/2022 GI PROFI LE, STOOL , PCR vibrio cholerae NEGAT ASPEN Vibri o praful ra targe t nucle ic acid not detec nicolas. Not Available [facility] (Centralized Electronic Ordering - All Locations) Patient Can Go To The Location Of Their Choice, [id number] 01/06/2022 15:38:08 01/04/20 22 01/06/2022 GI PROFI LE, STOOL , PCR yersinia enterocoliti ca NEGAT ASPEN Yersi kt enter ocoli naman targe t nucle ic acid not detec nicolas. Not Available [facility] (Centralized Electronic Ordering - All Locations) Patient Can Go To The Location Of Their Choice, [id number] 01/06/2022 15:38:08 01/04/20 22 01/06/2022 GI PROFI LE, STOOL , PCR enteroaggreg ative E coli NEGAT ASPEN Enter oaggr egati ve E. coli targe t nucle ic acid not detec nicolas. Not Available [facility] (Centralized Electronic Ordering - All Locations) Patient Can Go To The Location Of Their Choice, [id number] 01/06/2022 15:38:08 01/04/20 22 01/06/2022 GI PROFI LE, STOOL , PCR enteropathog enic E coli NEGAT ASPEN Enter opath ogeni c E. coli targe t nucle ic acid not detec nicolas. Not Available [facility] (Centralized Electronic Ordering - All Locations) Patient Can Go To The Location Of Their Choice, [id number] 01/06/2022 15:38:08 01/04/20 22 01/06/2022 GI PROFI LE, STOOL , PCR enterotoxige maria elena E coli NEGAT ASPEN Enter otoxi genic E. coli lt/st targe t nucle ic acid not detec nicolas. Not Available [facility] (Centralized Electronic Ordering - All Locations) Patient Can Go To The Location Of Their Choice, [id number] 01/06/2022 15:38:08 01/04/20 22 01/06/2022 GI PROFI LE, STOOL , PCR shigatoxin producing E coli NEGAT ASPEN Shiga -like toxin -prod ucing E. coli stx1/ stx2 targe t nucle ic acid not detec nicolas. Not Available [facility] (Centralized Electronic Ordering - All Locations) Patient Can Go To The Location Of Their Choice, [id number] 01/06/2022 15:38:08 01/04/2001/06/2022 GI PROFI LE, STOOL , PCR shigella/ent eroinvasive E coli NEGAT ASPEN Shige lla/E ntero invas aspen E. coli targe t nucle ic acid not detec nicolas. Not Available [facility] (Centralized Electronic Ordering - All Locations) Patient Can Go To The Location Of Their Choice, [id number] 01/06/2022 15:38:08 01/04/20 22 01/06/2022 GI PROFI LE, STOOL , PCR cryptosporid ium NEGAT ASPEN Crypt ospor idium targe t nucle ic acid not detec nicolas. Not Available [facility] (Centralized Electronic Ordering - All Locations) Patient Can Go To The Location Of Their Choice, [id number] 01/06/2022 15:38:08 01/04/20 22 01/06/2022 GI PROFI LE, STOOL , PCR cyclospora cayetanensis NEGAT ASPEN Cyclo spora cayet anens is targe t nucle ic acid not detec nicolas. Not Available [facility] (Centralized Electronic Ordering - All Locations) Patient Can Go To The Location Of Their Choice, [id number] 01/06/2022 15:38:08 01/04/20 22 01/06/2022 GI PROFI LE, STOOL , PCR entamoeba histolytica NEGAT ASPEN Entam oeba histo lytic a targe t nucle ic acid not detec nicolas. Not Available [facility] (Centralized Electronic Ordering - All Locations) Patient Can Go To The Location Of Their Choice, [facility] 01/06/2022 15:38:08 01/04/20 22 01/06/2022 GI PROFI LE, STOOL , PCR giardia lamblia NEGAT ASPEN Giard ia lambl ia targe t nucle ic acid not detec nicolas. Not Available [facility] (Centralized Electronic Ordering - All Locations) Patient Can Go To The Location Of Their Choice, [facility] 01/06/2022 15:38:08 01/04/20 22 01/06/2022 GI PROFI LE, STOOL , PCR adenovirus F 40/41 NEGAT ASPEN Adeno virus F40/4 1 targe t nucle ic acid not detec nicolas. Not Available [facility] (Centralized Electronic Ordering - All Locations) Patient Can Go To The Location Of Their Choice, [facility] 01/06/2022 15:38:08 01/04/20 22 01/06/2022 GI PROFI LE, STOOL , PCR astrovirus NEGAT ASPEN Stefano virus targe t nucle ic acid not detec nicolas. Not Available [facility] (Centralized Electronic Ordering - All Locations) Patient Can Go To The Location Of Their Choice, [facility] 01/06/2022 15:38:08 01/04/20 22 01/06/2022 GI PROFI LE, STOOL , PCR norovirus GI/gii NEGAT ASPEN Norov irus GI/GI I targe t nucle ic acid not detec nicolas. Not Available [facility] (Centralized Electronic Ordering - All Locations) Patient Can Go To The Location Of Their Choice, [facility] 01/06/2022 15:38:08 01/04/20 22 01/06/2022 GI PROFI LE, STOOL , PCR rotavirus A NEGAT ASPEN Rotav irus A targe t nucle ic acid not detec nicolas. Not Available [facility] (Centralized Electronic Ordering - All Locations) Patient Can Go To The Location Of Their Choice, [id number] 01/06/2022 15:38:08 01/04/20 22 01/06/2022 GI PROFI [...] Go To The Location Of Their Choice, [facility] 01/06/2022 15:38:08 08/19/1908/18/2022 ALT ALT 18 U/L (0-33) Not Available [facility] (Centralized Electronic Ordering - All Locations) Patient Can Go To The Location Of Their Choice, [id number] 08/18/2022 16:17:07 08/19/1908/18/2022 LIPID PANEL cholesterol, total 254 mg/dL (<200) high Not Available [facility] (Centralized [facility] Ordering - All Locations) Patient Can Go To The Location Of Their Choice, [id number] 08/18/2022 16:17:08 08/19/1908/18/2022 LIPID PANEL triglyceride 41 mg/dL (<150) Not Available [facility] (Centralized Electronic Ordering - All Locations) Patient Can Go To The Location Of Their Choice, [id number] 08/18/2022 16:17:08 08/19/19 23 08/18/2022 LIPID PANEL HDL chol 89 mg/dL (>39) Not Available [facility] (Centralized Electronic Ordering - All Locations) Patient Can Go To The Location Of Their Choice, [id number] 08/18/2022 16:17:08 08/19/19 23 08/18/2022 LIPID PANEL LDL cholesterol, calculated 157 mg/dL (0-130 ) high Not Available [facility] (Centralized Electronic Ordering - All Locations) Patient Can Go To The Location Of Their Choice, [id number] 08/18/2022 16:17:08 08/19/19 23 08/18/2022 LIPID PANEL non HDL cholesterol (calc) 165 mg/dL (<160) high Not Available [facility] (Centralized Electronic Ordering - All Locations) Patient Can Go To The Location Of Their Choice, [id number] 08/18/2022 16:17:08 08/27/19 22 08/26/2021 MAMMO , [...] RIGHT MLO view, slight ly above the thread reeler ior nipple line at anteri or depth [...] Lay letter mailed to flor godinez WSN: [id number] Orderi ng Physic jessica: Jim Foley Class: Outpat ient [email or web address] [facility] (Outpt Imaging) [address], [place], [address], 08/26/2021 15:58:16 09/13/19 22 09/12/2021 US, riki [...] Lay letter mailed to flor godinez WSN: [id number] Orderi ng Physic jessica: Jim Foley Dictat ed By: Emiliana Haji MD, I Dictat ed Date/T ganga: 11:59 a Review ed By: Emiliana Haji MD, I Signed By: Emiliana Haji MD, I Signed Date/T ganga: 11:59 am Transc ribed By: LUCIA Transc ribed Date/T ganga: 11:55 am Patien t Class: Outpat ient [email or web address] [facility] (Outpt Imaging) [address] [facility], [place], [address], 09/13/2021 15:29:35 09/13/19 22 09/12/2021 mm digit [...] Lay letter mailed to flor godinez WSN: [id number] Orderi ng Physic jessica: Jim Foley Dictat ed By: Emiliana Haji MD, I Dictat ed Date/T ganga: 11:59 am Review ed By: Emiliana Haji MD, I Signed By: Emiliana Haji MD, I Signed Date/T ganga: 11:59 am Transc ribed By: LUCIA Transc riptio n Date/T ganga: 11:55 am Birads : Patien t Class: Outpat ient [email or web address] [facility] (Outpt Imaging) [address], [place], [address], 09/13/2021 15:28:45 09/28/19 22 09/27/2021 elect rocar diogr am No observ ation record ed. [email or web address] In-Office Order Internal Use Only DO Not Attach Compendium DO Not Attach Compendium, Do Not Delete/merge, [id number] 09/27/2021 15:03:08 09/28/19 elect rocar diogr am No observ ation record ed. [email or web address] In-Office Order Internal Use Only DO Not Attach Compendium DO Not Attach Compendium, Do Not Delete/merge, [id number] 09/27/2021 12:58:52 08/23/19 23 08/11/2022 DEXA, axial skele ton Name:Pedro godinez ID: [id number] Age:72 years Sex:Fe male Ethnic ity:Wh [...] determ ined by WHO criter ia. WSN: [id number] Orderi ng Physic jessica: Melita Callaway Dictat ed By: Hector Watts MD Dictperla ed Date/T ganga: 4:41 pm Review ed By: Hector Watts MD Signed By: Hector Watts MD P Signed Date/T ganga: 4:41 pm Transc ribed By: LUCIA Transc ribed Date/T ganga: 4:41 pm Patien t Class: [facility] (Outpt Imaging) [address], [place], [address], 09/01/2022 13:12:38 08/23/19 23 08/22/2022 bone densi ty No observ ation record ed. [email or web address] [facility] [address], [place], [address], 08/22/2022 18:01:22 Result Notes None recorded. Problems Name Problem SNOMED Code Status Onset Date Resolution Date Notes Provider Name and Address Organization Details Recorded Time Abdomina l pain 88266863 Completed 201209/20/2013 RECORDED 07/01/19 13 10:11AM BY IRVING MARTINEZ MA, RACHAELATI ON/ADDEN DUM Not Available [facility] 4 13:53:50 Acute sinusiti s 92656021 Completed 201309/20/2013 RECORDED 06/09/19 14 9:29AM BY IRVING MARTINEZ MA, ANNOTATI ON/ADDEN DUM HANNAH Freeman, [facility] 9 10:46:37 Anemia 182107881 Active Christal mast [facility] 0 15:44:01 Bipolar I disorder 301915602 Completed 201209/20/2013 RECORDED 04/09/19 13 1:50AM BY IRVING MARTINEZ MA, RACHAELATI ON/ADDEN DUM Not Available [facility] 4 13:53:50 Benign paroxysm al position al vertigo 848743199 Completed 07/06/2016 Jim Acuna MD [address] [facility] [facility] [address], [place], [address] , [facility] 7 12:18:11 Bipolar disorder 89375403 Active Christal mast, [facility] 0 15:44:01 Screenin g for malignan t neoplasm of breast Completed 201209/20/2013 RECORDED 02/25/20 13 10:09AM BY IRVING MARTINEZ MA, ANNOTATI ON/ADDEN DUM Not Available [facility] 4 13:53:50 Carpal tunnel syndrome 97206372 Active Christal mast, [facility] 0 15:44:02 Neck pain 80611902 Completed 201109/20/2013 RECORDED 12/31/19 12 2:59PM BY IRVING MARTINEZ MA, ANNOTATI ON/ADDEN DUM Umberto Frost MD [address] [address], [facility] [place], [address] [facility] 8 14:00:26 Chondrom alacia of patella 13298030 Completed 201009/20/2013 RECORDED 07/20/19 11 9:02AM BY IRVING MARTINEZ MA, ANNOTATI ON/ADDEN DUM Not Available [facility] 4 13:53:51 Screenin g for malignan t neoplasm of colon Completed 201209/20/2013 RECORDED 02/25/20 13 10:09AM BY IRVING MARTINEZ MA, ANNOTATI ON/ADDEN DUM Not Available [facility] 4 13:53:51 Respirat ory finding 007120063 Completed 200709/20/2013 IMPRESSI ON: PROBABLY RELATED TO OBESITY; RECORDED 11/30/19 08 9:59AM BY IRVING MARTINEZ MA, ANNOTATI ON/ADDEN DUM Not Available [facility] 4 13:53:51 Edema 642470065 Completed 201109/20/2013 RECORDED 09/26/19 12 11:26AM BY IRVING MARTINEZ MA, ANNOTATI ON/ADDEN DUM Not Available [facility] 4 13:53:51 Pain in elbow 27178813 Completed 201109/20/2013 IMPRESSI ON: NORMAL EXAM. CANNOT REPRODUC E PAIN TODAY. WILL FOLLOW UP NEEDED.; RECORDED 09/26/19 12 11:27AM BY IRVING MARTINEZ MA, RACHAELATI ON/ADDEN DUM Not Available [facility] 4 13:53:51 Dizzines s and giddines s 498725756 Completed 201109/20/2013 RECORDED 09/26/19 12 11:27AM BY IRVING MARTINEZ MA, RACHAELATI ON/ADDEN DUM Not Available [facility] 4 13:53:51 Follow-u p encounte r Completed 201209/20/2013 RECORDED 05/13/19 13 2:25PM BY IRVING MARTINEZ MA, HE ON/ADDEN DUM Not Available [facility] 4 13:53:51 Essentia l hyperten marciano 81220868 Active Christal mast [facility] 0 15:44:01 Malaise and fatigue 404791336 Completed 201109/20/2013 RECORDED 09/26/19 12 11:27AM BY IRVING MARTINEZ MA, HE ON/ADDEN DUM Not Available [facility] 4 13:53:51 Fibromyo sitis 36909497 Active Christal mast [facility] 0 15:44:01 Adult health examinat ion Completed 201309/20/2013 RECORDED 05/13/19 14 11:06AM BY KACEY LOZOYA MA, RACHAELATI ON/ADDEN DUM Not Available [facility] 4 13:53:51 General examinat ion of patient Completed 200709/20/2013 RECORDED 11/30/19 08 9:59AM BY IRVING MARTINEZ MA, ANNOTTONY ON/ADDEN DUM Not Available [facility] 4 13:53:51 Gastroes ophageal reflux disease 696095939 Active Christal mast, [facility] 0 15:44:02 Hypercho lesterol emia 25033640 Completed 201209/20/2013 RECORDED 02/25/20 13 10:09AM BY IRVING MARTINEZ MA, ANNOTATI ON/ADDEN DUM Not Available [facility] 4 13:53:51 Hyperlip idemia 55720348 Active Christal mast, [facility] 0 15:44:02 Hypersom kt 65849337 Completed 201109/20/2013 RECORDED 09/26/19 12 11:27AM BY IRVING MARTINEZ MA, ANNOTATI ON/ADDEN DUM Not Available [facility] 4 13:53:51 Irritabl e bowel syndrome 86724167 Active Christal mast, [facility] 0 15:44:01 Laborato ry procedur e performe d 485791693 Completed 201209/20/2013 RECORDED 05/13/19 13 2:25PM BY IRVING MARTINEZ MA, ANNOTATI ON/ADDEN DUM Not Available [facility] 4 13:53:52 Lateral epicondy litis 799676860 Completed 201109/20/2013 RECORDED 07/22/19 12 9:36AM BY JIM ACUNA MD, ANNOTATI ON/ADDEN DUM Not Available [facility] 4 13:53:52 Low back pain 327192656 Completed 201109/20/2013 RECORDED 09/26/19 12 11:27AM BY IRVING MARTINEZ MA, ANNOTATI ON/ADDEN DUM Not Available [facility] 4 13:53:52 Renewal of prescrip tion Completed 201209/20/2013 RECORDED 02/25/20 13 10:08AM BY IRVING MARTINEZ MA, ANNOTATI ON/ADDEN DUM Not Available [facility] 4 13:53:52 Menstrua tion finding Completed 201209/20/2013 RECORDED 04/09/19 13 1:50AM BY IRVING MARTINEZ MA, ANNOTATI ON/ADDEN DUM Not Available [facility] 4 13:53:52 Influenz a vaccine needed [id number] 06 Completed 201009/20/2013 DATE: 02/20/20 11; RECORDED 09/26/19 12 11:27AM BY IRVING MARTINEZ MA, HE ON/ADDEN DUM Not Available [facility] 4 13:53:52 Patient status finding [id number] Completed 201209/20/2013 RECORDED 02/25/20 13 10:08AM BY IRVING MARTINEZ MA, ANNOTATI ON/ADDEN DUM Not Available [facility] 4 13:53:53 Obesity 833538741 Active Christal mast, [facility] 0 15:44:01 Osteoart hritis 319615088 Active Christal mast, [facility] 0 15:44:02 Wrist joint pain 447838262 Completed 201109/20/2013 RECORDED 09/26/19 12 11:27AM BY IRVING MARTINEZ MA, ANNOTATI ON/ADDEN DUM Not Available [facility] 4 13:53:53 Knee pain Completed 201109/20/2013 RECORDED 09/26/19 12 11:27AM BY IRVING MARTINEZ MA, ANNOTATI ON/ADDEN DUM Not Available [facility] 4 13:53:53 Psychoti c disorder 99883897 Completed 200809/20/2013 RECORDED 12/27/19 09 10:34AM BY JIM ACUNA MD, ANNOTATI ON/ADDEN DUM Not Available [facility] 4 13:53:53 Tinea pedis 1985220 Completed 201209/20/2013 RECORDED 02/25/20 13 10:08AM BY IRVING MARTINEZ MA, ANNOTTOYN ON/ADDEN DUM HANNAH Freeman [facility] 2 09:58:30 Tinnitus 88835116 Completed 201109/20/2013 RECORDED 09/26/19 12 11:26AM BY IRVING MARTINEZ MA, ANNOTTONY ON/ADDEN DUM Not Available [facility] 4 13:53:53 Enthesop athy of hip region 20063617 Completed 200809/20/2013 RECORDED 12/27/19 09 10:35AM BY JIM ACUNA MD, ANNOTATI ON/ADDEN DUM Not Available [facility] 4 13:53:53 Heart murmur 32738848 Completed 200809/20/2013 IMPRESSI ON: RULE OUT SIGNIFIC ANT AORTIC STENOSIS ; RECORDED 12/27/19 09 10:34AM BY JIM ACUNA MD, ANNOTATI ON/ADDEN DUM HANNAH Freeman, [facility] 8 11:15:53 Urge incontin ence of urine 15893361 Completed 201109/20/2013 RECORDED 09/26/19 12 11:27AM BY IRVING MARTINEZ MA, ANNOTTONY ON/ADDEN DUM Not Available [facility] 4 13:53:53 Increase d frequenc y of urinatio n 145215750 Completed 201209/20/2013 RECORDED 02/25/20 13 10:08AM BY IRVING MARTINEZ MA, ANNOTATI ON/ADDEN DUM Not Available [facility] 4 13:53:53 Abdomina l pain 86140410 Completed 201210/10/2013 RECORDED 07/01/19 13 10:11AM BY IRVING MARTINEZ MA, ANNOTTONY ON/ADDEN DUM Not Available [facility] 4 06:28:43 Acute sinusiti s 77372584 Completed 201310/10/2013 RECORDED 06/09/19 14 9:29AM BY IRVING MARTINEZ MA, ANNOTATI ON/ADDEN DUM Irving lechuga MA [facility], [facility] 9 10:46:37 Bipolar I disorder 587530308 Completed 201210/10/2013 RECORDED 04/09/19 13 1:50AM BY IRVING MARTINEZ MA, ANNOTATI ON/ADDEN DUM Not Available [facility] 4 06:28:43 Screenin g for malignan t neoplasm of breast Completed 201210/10/2013 RECORDED 02/25/20 13 10:09AM BY IRVING MARTINEZ MA, ANNOTATI ON/ADDEN DUM Not Available [facility] 4 06:28:43 Neck pain 18288871 Completed 201110/10/2013 RECORDED 12/31/19 12 2:59PM BY IRVING MARTINEZ MA, ANNOTATI ON/ADDEN DUM Umberto Frost MD [address] [facility] [address], [facility] [place], [address] , [facility] 8 14:00:26 Chondrom alacia of patella 87789131 Completed 201010/10/2013 RECORDED 07/20/19 11 9:02AM BY IRVING MARTINEZ MA, ANNOTATI ON/ADDEN DUM Not Available [facility] 4 06:28:43 Screenin g for malignan t neoplasm of colon Completed 201210/10/2013 RECORDED 02/25/20 13 10:09AM BY IRVING MARTINEZ MA, ANNOTATI ON/ADDEN DUM Not Available [facility] 4 06:28:43 Respirat ory finding 046334635 Completed 200710/10/2013 IMPRESSI ON: PROBABLY RELATED TO OBESITY; RECORDED 11/30/19 08 9:59AM BY IRVING MARTINEZ MA, ANNOTATI ON/ADDEN DUM Not Available [facility] 4 06:28:43 Edema 589704418 Completed 201110/10/2013 RECORDED 09/26/19 12 11:26AM BY IRVING MARTINEZ MA, ANNOTATI ON/ADDEN DUM Not Available [facility] 4 06:28:43 Pain in elbow 14745006 Completed 201110/10/2013 IMPRESSI ON: NORMAL EXAM. CANNOT REPRODUC E PAIN TODAY. WILL FOLLOW UP NEEDED.; RECORDED 09/26/19 12 11:27AM BY IRVING MARTINEZ MA, HE ON/ADDEN DUM Not Available [facility] 4 06:28:43 Dizzines s and giddines s 971265561 Completed 201110/10/2013 RECORDED 09/26/19 12 11:27AM BY IRVING MARTINEZ MA, HE ON/ADDEN DUM Not Available [facility] 4 06:28:43 Follow-u p encounte r Completed 201210/10/2013 RECORDED 05/13/19 13 2:25PM BY IRVING MARTINEZ MA, HE ON/ADDEN DUM Not Available [facility] 4 06:28:43 Malaise and fatigue 592666168 Completed 201110/10/2013 RECORDED 09/26/19 12 11:27AM BY IRVING MARTINEZ MA, RACHAELATI ON/ADDEN DUM Not Available [facility] 4 06:28:43 Adult health examinat ion Completed 201310/10/2013 RECORDED 05/13/19 14 11:06AM BY KACEY LOZOYA MA, HE ON/ADDEN DUM Not Available [facility] 4 06:28:43 General examinat ion of patient Completed 200710/10/2013 RECORDED 11/30/19 08 9:59AM BY IRVING MARTINEZ MA, HE ON/ADDEN DUM Not Available [facility] 4 06:28:43 Hypercho lesterol emia 86216893 Completed 201210/10/2013 RECORDED 02/25/20 13 10:09AM BY IRVING MARTINEZ MA, HE ON/ADDEN DUM Not Available [facility] 4 06:28:43 Hypersom kt 98435478 Completed 201110/10/2013 RECORDED 09/26/19 12 11:27AM BY IRVING MARTINEZ MA, ANNOTATI ON/ADDEN DUM Not Available [facility] 4 06:28:43 Lateral epicondy litis 473380172 Completed 201110/10/2013 RECORDED 07/22/19 12 9:36AM BY JIM AUCNA MD, RACHAELATI ON/ADDEN DUM Not Available [facility] 4 06:28:43 Low back pain 216015584 Completed 201110/10/2013 RECORDED 09/26/19 12 11:27AM BY IRVING MARTINEZ MA, ANNOTATI ON/ADDEN DUM Not Available [facility] 4 06:28:43 Renewal of prescrip tion Completed 201210/10/2013 RECORDED 02/25/20 13 10:08AM BY IRVING MARTINEZ MA, HE ON/ADDEN DUM Not Available [facility] 4 06:28:43 Menstrua tion finding Completed 201210/10/2013 RECORDED 04/09/19 13 1:50AM BY IRVING MARTINEZ MA, HE ON/ADDEN DUM Not Available [facility] 4 06:28:43 Influenz a vaccine needed [id number] 06 Completed 201010/10/2013 DATE: 02/20/20 11; RECORDED 09/26/19 12 11:27AM BY IRVING MARTINEZ MA, ANNOTATI ON/ADDEN DUM Not Available [facility] 4 06:28:43 Wrist joint pain 407404677 Completed 201110/10/2013 RECORDED 09/26/19 12 11:27AM BY IRVING MARTINEZ MA, ANNOTATI ON/ADDEN DUM Not Available [facility] 4 06:28:44 Knee pain Completed 201110/10/2013 RECORDED 09/26/19 12 11:27AM BY IRVING MARTINEZ MA, ANNOTATI ON/ADDEN DUM Not Available [facility] 4 06:28:44 Psychoti c disorder 99881593 Completed 200810/10/2013 RECORDED 12/27/19 09 10:34AM BY JIM ACUNA MD, ANNOTATI ON/ADDEN DUM Not Available [facility] 4 06:28:44 Tinea pedis 0835663 Completed 201210/10/2013 HANNAH Freeman, [facility] 2 09:58:30 Tinnitus 06540916 Completed 201110/10/2013 RECORDED 09/26/19 12 11:26AM BY IRVING MARTINEZ MA, ANNOTATI ON/ADDEN DUM Not Available [facility] 4 06:28:44 Enthesop athy of hip region 25697958 Completed 200810/10/2013 RECORDED 12/27/19 09 10:35AM BY JIM ACUNA MD, ANNOTATI ON/ADDEN DUM Not Available [facility] 4 06:28:44 Heart murmur 47842167 Completed 200810/10/2013 IMPRESSI ON: RULE OUT SIGNIFIC ANT AORTIC STENOSIS ; RECORDED 12/27/19 09 10:34AM BY JIM ACUNA MD, ANNOTATI ON/ADDEN DUM HANNAH Freeman, [facility] 8 11:15:53 Urge incontin ence of urine 65077260 Completed 201110/10/2013 RECORDED 09/26/19 12 11:27AM BY IRVING MARTINEZ MA, ANNOTATI ON/ADDEN DUM Not Available [facility] 4 06:28:44 Increase d frequenc y of urinatio n 921423563 Completed 201210/10/2013 RECORDED 02/25/20 13 10:08AM BY IRVING MARTINEZ MA, ANNOTATI ON/ADDEN DUM Not Available [facility] 4 06:28:44 Upper abdomina l pain 41600247 Completed 07/06/2016 Jim Acuna MD [address] [facility] [address], [place], [address] , [facility] 7 12:17:35 Urge incontin ence of urine 97725272 Active Christal mast, [facility] 0 15:44:01 Neck pain 61418388 Completed 07/06/2016 Umberto Frost MD [address] [facility] [address], [place], [address] , [facility] 8 14:00:26 Ulnar neuropat hy 669640554 Active Christaldeo mast, [facility] 0 15:44:01 Eczema 99698356 Active 2016 Christal mast, [facility] 0 10:21:02 Acute sinusiti s 93347612 Completed 06/23/2018 HANNAH Freeman, [facility] 9 10:46:37 Cough 37255484 Completed 07/13/2017 HANNAH Freeman, [facility] 8 11:32:18 Inflamma tion of rotator cuff tendon 722756254 Active Christal mast, [facility] 0 15:44:02 Foot pain 59400326 Completed 09/09/2017 Sakina mast, [facility] 8 13:26:54 Greater trochant mariela pain syndrome 2665345 Active Christaldeo mast, [facility] 0 15:44:01 Osteoart hritis of knee 762535126 Active Christal Odell null, [facility] 0 15:44:01 Advance directiv genesis [place] with patient 031464483 Active Christal Odell null, [facility] 0 15:44:02 Fatigue 44995070 Completed 07/06/2016 Jim Acuna MD [address], [place], [address] , [facility] 12:17:31 Leukocyt es in urine 055850048 Active Christal Jose R mast, [facility] 0 15:44:01 Urinary tract infectio us disease 34856462 Completed 07/06/2016 Jim Acuna MD [address], [place], [address] , [facility] 7 12:17:42 Candidia sis of skin 79748922 Completed 07/06/2016 Jim Acuna MD [address], [place], [address] , [facility] 7 12:17:49 Edema of lower extremit y 268539957 Active Christal Jose R mast, [facility] 0 15:44:01 Keratoco nus 87105551 Active 2016 Christaldeo mast, [facility] 0 15:44:01 Osteopen ia 258691322 Completed 201308/22/2022 Darren Callaway MD [address], [place], [address] , [facility] 18:00:45 Heart murmur 99018170 Active 2017 Christal Odell null, [facility] 0 15:44:02 Neck pain 80311356 Active 2017 Christal Odell kezia, [facility] 0 15:44:02 Internal hemorrho ids 02371343 Active 2002 Christal Odelldeo mast, [facility] 0 15:44:02 Soft corn 97944919 Active 2016 Christaldeo mast, [facility] 0 15:44:02 Cellulit is and abscess of toe 751364474 Completed 201609/12/2019 HANNAH Freeman, [facility] 0 10:59:12 Onychomy cosis 839232195 Active 2016 Christal mast, [facility] 0 15:44:01 Ulcer of toe 843188876 Active 2016 Christal mast [facility] 0 15:44:02 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 e 428069975 Active 2013 Christal mast, [facility] 0 10:21:02 Mixed bipolar I disorder 71391312 Active 2013 Christal mast, [facility] 0 10:21:02 Edema 646170661 Active 2016 Christal mast [facility] 0 10:21:02 Macrocyt osis - no anemia 828387073 Active 2019 Christaldeo mast, [facility] 0 15:44:02 Thoracic back pain 868956076 Active 2019 Regino Bah PA-C [address] [facility] [address], [place], [address] , [facility] 0 14:10:22 Tinea pedis 5719516 Active 2012 HANNHA Freeman, [facility] 2 09:58:30 Hyperten marciano monitori ng status 801019833 Active 2022 dis enroll Renetta Eason kezia [facility] 3 09:44:35 Osteopor osis 36062957 Active 2022 Darren Callaway MD [address] [facility] [address], [place], [address] , [facility] 3 18:00:39 Problem Notes None recorded. Procedures Surgical History Date Name Laterality Status Provider Name and Address Organization Details Recorded Time 09/28/19 22 Advanced Care Planning completed Irving montes MA [facility] 09/27/2021 10:24:58 09/13/19 22 Most Recent Mammogram completed Christal Odell [facility] 09/13/2021 15:29:18 09/13/19 22 Mammogram screening completed Christalaravind Odell [facility] 09/13/2021 15:29:11 09/13/19 22 ultrasonography of bilateral breasts completed Christal Odell [facility] 09/13/2021 15:29:49 09/12/19 20 Six-Item Cognitive Test completed Irving montes MA [facility] 09/12/2019 11:17:21 08/17/19 19 Mini-Cog Test completed Irving montes MA [facility] 08/16/2018 09:51:34 07/14/19 18 Mini-Cog Test completed Irving montes MA [facility] 07/13/2017 11:48:01 04/22/19 17 Date of Last Pap Smear completed Irving montes MA [facility] 12/31/2016 08:56:34 04/30/19 16 Advanced Care Planning completed Irving montes MA [facility] 04/30/2015 13:14:24 08/24/19 14 Most Recent Bone Density completed Irving montes MA [facility] 12/31/2016 08:57:31 08/24/19 14 Dxa bone density hunter vrt fx completed Irving montes MA [facility] 12/31/2016 08:57:41 02/01/20 03 Date of Last Colonoscopy completed Doreen Mahmood MA [facility] 07/04/2016 10:30:29 02/01/20 03 Colonoscopy completed Irving montes MA [facility] 08/16/2018 09:39:15 03/02/18 99 excision of uterine polyp completed Irving montes MA [facility] 04/24/2018 08:47:27 Cologuard completed Irving montes MA [facility] 12/06/2021 14:12:10 Imaging Results Imaging Date Name Status LastModified by Organization Details LastModified Time 08/26/2021 MAMMO, screening, digital, bilateral completed [email or web address] [facility] (Outpt Imaging) [address] [place], [address], 08/26/2021 15:58:16 09/12/2021 US, breast, limited completed [email or web address] [facility] (Outpt Imaging) [address] [place], [address], 09/13/2021 15:29:35 09/12/2021 mm digital mammo bilateral completed [email or web address] (Outpt Imaging) [address] [place], [address], 09/13/2021 15:28:45 09/27/2021 electrocardiogram completed [email or web address] In- Office Order Internal Use Only DO Not Attach Compendium DO Not Attach Compendium, Do Not Delete/merge, [id number] 09/27/2021 15:03:08 09/27/2021 electrocardiogram completed [email or web address] In-Offi ce Order Internal Use Only DO Not Attach Compendium DO Not Attach Compendium, Do Not Delete/merge, [id number] 09/27/2021 12:58:52 08/11/2022 DEXA, axial skeleton completed [facility] (Outpt Imaging) [address], [place], [address], 09/01/2022 13:12:38 08/22/2022 bone density completed [facility] [address], [place], [address], 08/22/2022 18:01:22 Procedure Notes None recorded. Medical [...] bromide 21 mcg (0.03 %) nasal spray [place] 2 sprays 3 times a day by [...] for 1 week 01/19 completed Given at [facility] 12/29/17 Not Available Not Available Not Available [...] Updated DateTime 2 168.91 cm 28.3 kg/m2 61129.4 4 g 47 /min 100 % 100 % 98.24 [degF] 150 mm[Hg] 77 mm[Hg] 132 mm[Hg] 80 mm[Hg] Doreen Mahmood MA [facility] 2 13:08:38 Date Recorded Heart rate Systolic blood pressure Diastolic blood pressure Provider Name and Address Organization Details Last Updated DateTime 07/11/2021 50 /min 113 mm[Hg] 77 mm[Hg] Not Available [facility] 07/11/2021 17:45:03 Date Recorded Heart rate Systolic blood pressure Diastolic blood pressure Provider Name and Address Organization Details Last Updated DateTime 07/10/2021 46 /min 128 mm[Hg] 71 mm[Hg] Not Available [facility] 07/11/2021 17:46:05 Date Recorded Body height Body [...] Updated DateTime 2 168.91 cm 27.7 kg/m2 39085.0 7 g 51 /min 98 % 98 % 98.24 [degF] 42 /min 53 /min 48 /min 108 mm[Hg] 62 mm[Hg] 100 mm[Hg] 72 mm[Hg] 116 mm[Hg] 66 mm[Hg] 118 mm[Hg] 62 mm[Hg] Irving arias MA [facility] 2 11:38:19 Date Recorded Body height Body mass index (BMI) Body weight Heart rate Oxygen saturation Oxygen saturation in Arterial blood by Pulse oximetry Body temperature Systolic blood pressure Diastolic blood pressure Provider Name and Address Organization Details Last Updated DateTime 2 168.91 cm 28.3 kg/m2 22818.4 4 g 56 /min 99 % 99 % 98.24 [degF] 129 mm[Hg] 74 mm[Hg] Irving arias MA [facility] 2 14:11:12 Social History Question Answer Notes LastModified by Organizat ion Details LastModified Time Tobacco Smoking Status [facility] 12:55:47 Do You Have An Advance [...] 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 With Others Lives In Prison With 5 Other Women [facility] Information not available 08/16/2018 Do You [...] pneumococcal polysaccharide PPV23 019 completed HANNAH Gonzalez [facility] 10/18/2021 14:56:22 Tdap 016 completed HANNAH Gonzalez [facility] 10/18/2021 14:56:23 Influenza, split virus, quadrivalent, PF 017 cancelled patient objection Not Available [facility] 03/19/2019 02:22:07 zoster live 017 cancelled patient objection Not Available [facility] 03/19/2019 02:21:33 Pneumococcal conjugate PCV 13 018 cancelled patient objection Not Available [facility] 03/19/2019 02:21:38 Influenza, high-dose, trivalent, PF 018 cancelled patient objection Not Available [facility] 03/19/2019 02:22:14 Influenza, high-dose, quadrivalent, PF 020 cancelled patient objection Regino Bah PA-C [address] [facility] [address], [place], [address], [facility] 01/18/2020 11:55:35 varicella 000 completed [facility] mast[facility] 12/08/2019 15:44:02 Td (adult), 2 Lf tetanus toxoid, preservative free, adsorbed 000 completed Christal mast [facility] 12/08/2019 15:44:02 Past Encounters Encounter ID Performer Location Encounter Start Date Encounter Closed Date Diagnosis/Indication Diagnosis SNOMED-CT Code Diagnosis ICD10 Code Diagnosis Note [id number] auto[facility] [address] [facility] [place] [address] 04/08/2005 00:00:00 [id number] autoEComm erce [address] [facility] [place] [address] 10/07/2005 00:00:00 [id number] autoEComm erce [address] [facility] [place] [address] 09/01/2004 00:00:00 [id number] autoEComm erce [address] [facility] [place] [address] 03/14/2004 00:00:00 [id number] auto[facility]Comm erce [address] [facility] [place] [address] 04/21/2006 00:00:00 [id number] auto[facility] erce [address] [facility] [place] [address] 11/25/2006 00:00:00 [id number] auto[facility] erce [address] [facility] [place] [address] 05/25/2007 00:00:00 [id number] auto[facility]Comm erce [address] [facility] [place] [address] 11/30/2007 00:00:00 [id number] auto[facility]Comm erce [address] [facility] [place] [address] 12/17/2007 00:00:00 [id number] autoEComm erce [address] [facility] [place] [address] 03/13/2008 00:00:00 [id number] autoEComm erce [address] [facility] [place] [address] 04/19/2008 00:00:00 [id number] auto[facility]Comm erce [address] [facility] [place] [address] 05/24/2008 00:00:00 [id number] autoEComm erce [address] [facility] [address] [place] [address] 12/26/2008 00:00:00 [id number] auto[facility]Comm erce [address] [facility] [address] [place] [address] 02/13/2009 00:00:00 [id number] auto[facility] erce [address] [place] [address] 07/11/2009 00:00:00 [id number] auto[facility]Comm erce [address] [facility] [place] [address] 01/16/2010 00:00:00 [id number] autoEComm erce [address] [facility] [place] [address] 07/19/2010 00:00:00 [id number] autoEComm erce [address] [facility] [place] [address] 10/16/2010 00:00:00 [id number] autoEComm erce [address] [facility] [place] [address] 01/08/2011 00:00:00 [id number] autoEComm erce [address] [facility] [place] [address] 02/19/2011 00:00:00 [id number] autoEComm erce [address] [facility] [place] [address] 07/22/2011 00:00:00 [id number] autoEComm erce [address] [facility] [place] [address] 09/26/2011 00:00:00 [id number] autoEComm erce [address] [facility] [place] [address] 12/31/2011 00:00:00 [id number] autoEComm erce [address] [facility] [place] [address] 02/13/2012 00:00:00 [id number] auto[facility]Comm erce [address] [facility] [place] [address] 05/12/2012 00:00:00 [id number] [facility] [place] [address] [facility] [place] [address] 06/30/2012 00:00:00 [id number] autoEComm erce [address] [facility] [place] [address] 02/24/2013 00:00:00 [id number] [facility] [place] [address] [facility] [place] [address] 05/12/2013 00:00:00 [id number] Irving lechuga MA Main Office [address] [facility] [address] [place] [address] 11/04/2013 12:44:53 11/04/2013 13:18:10 Upper abdominal pain 07111853 [id number] Main Office [address] [address] [place] [address] 11/23/2013 10:19:13 11/23/2013 11:07:31 Bipolar disorder 17479593 Off lithium for at least 2 weeks with psychotic features today. We called her pharmacy and she does not have a script for lithium there. Spoke with Nimco at [facility] who confirmed that patient's psychiatri st has left the practice and she needs to get appt with another psych provider. She states that they will take care of the lithium and getting her set up with new psych provider. [id number] Irving lechuga MA Main Office [address] [address] [place] [address] 01/06/2014 13:39:27 01/06/2014 14:34:19 Urge incontinence of urine 79714707 Benign par oxysmal positional vertigo 830623334 Neck pain 50025213 Bipolar disorder 77747466 Body mass index 30+ - obesity 150000809 [id number] Sakina Fournier MA Main Office [address] [facility] [address] [place] [address] 01/23/2014 10:15:09 01/23/2014 11:24:01 Screening for malignant neoplasm of colon 427340820 Ulnar neuropathy 989256689 Eczema 71855889 [id number] Dee Dee Chapa Main Office [address] [address] [place] [address] 03/23/2014 12:52:26 03/23/2014 13:36:12 Ulnar neuropathy 682745820 Eczema 08027097 [id number] Sanjuana Montero MA Main Office [address] [address] [place] [address] 05/12/2014 13:19:24 05/12/2014 13:51:13 Acute sinusitis 34097936 Cough 25549816 Inflammati on of rotator cuff tendon 006321207 Urge incon tinence of urine 91205633 [id number] Main Office [address] [address] [place] [address] 06/02/2014 09:56:15 06/02/2014 11:15:11 Foot pain 73697868 [id number] Kacey Lozoya Main Office [address] [address] [place] [address] 08/04/2014 13:49:12 08/04/2014 15:04:43 Inflammation of rotator cuff tendon 239407022 Greater tr ochanteric pain syndrome 5269343 Osteoarthr itis of knee 582742829 Left knee pain [id number] Irving lechuga [place] Main Office [address] [address] [place] [address] 08/28/2014 15:41:48 08/28/2014 16:15:35 Osteoarthritis of knee 897488104 [id number] Jim Acuna MD Main Office [address] [address] [place] [address] 04/30/2015 12:54:18 04/30/2015 14:20:29 Adult health examination 254502397 Z00.00 Advance di rective discussed with patient 489818139 Z71.89 Body mass index 30+ - obesity 719358155 Z68.32 Administra tion of diphtheria, pertussis, and tetanus vaccine 192468303 Z23 Eczema 02202241 L30.9 Fatigue 55260347 R53.83 Hyperlipidemia 95460535 E78.5 Urge incon tinence of urine 34877239 N39.41 Bipolar disorder 5004990 4 F31.9 [id number] Jim Acuna MD Main Office [address] [address] [place] [address] 09/28/2015 15:19:11 09/28/2015 16:05:15 Edema of lower extremity 885986226 R60.0 Likely related to OA and swelling of right knee [id number] Jim Acuna MD Main Office [address] [address] [place] [address] 01/30/2016 12:37:28 01/30/2016 13:31:39 Edema of lower extremity 434209119 R60.0 Likely related to OA and swelling of right knee [id number] Jim Acuna MD Main Office [address] [address] [place] [address] 07/04/2016 10:56:03 07/04/2016 11:59:10 Adult health examination 766082344 Z00.00 Osteoarthr itis of knee 848500229 M17.0 Varicella vaccination 68 419720 Z23 Screening for malignant neoplasm of breast 308292362 Z12.39 Greater tr ochanteric pain syndrome 1884216 M70.62 Essential hypertension 71528300 I10 Stable on present medication s. Edema of l ower extremity 334008980 R60.0 Likely related to OA and swelling of right knee Bipolar disorder 2468455 4 F31.9 Stable on mood stabilizer s. Followed by psychiatry . [id number] Jim Acuna MD Main Office [address] [address] [place] [address] 10/02/2016 13:49:43 10/02/2016 13:57:42 [id number] Jim Acuna MD Main Office [address] [address] [place] [address] 11/05/2016 09:30:51 11/05/2016 14:09:26 [id number] Rupa Desiree Main Office [address] [address] [place] [address] 12/12/2016 11:35:08 12/12/2016 12:23:48 Ulcer of toe 607408742 L97.509 infected fungal ulcer of R. 5th toe. Start Abx as directed and antifungal . POdiatry referral [facility] w/i 1 week. Cellulitis of toe 235977 04 L03.031 [id number] Jim Acuna MD Main Office [address] [address] [place] [address] 12/29/2016 09:20:06 12/29/2016 10:50:03 Tinea pedis 8469618 B35.3 Osteoarthr itis of knee 903079011 M17.0 [id number] Jim Acuna MD Main Office [address] [address] [place] [address] 01/15/2017 10:56:09 01/15/2017 12:48:49 Immunization refused 741669088 Z28.21 Unexplaine d visual loss 968289781 H54.7 [id number] Jim Acuna MD Main Office [address] [address] [place] [address] 01/28/2017 14:14:29 01/28/2017 15:14:32 Carpal tunnel syndrome 23051012 G56.01 G56.02 Intolerant of cold 61967 000 R68.89 [id number] Jim Acuna MD Main Office [address] [address] [place] [address] 03/27/2017 15:38:56 03/27/2017 16:55:30 Neck pain 74119851 M54.2 [id number] Jim Acuna MD Main Office [address] [address] [place] [address] 03/31/2017 09:37:21 03/31/2017 16:40:58 [id number] Jim Acuna MD Main Office [address] [address] [place] [address] 05/20/2017 09:25:07 05/20/2017 13:50:34 [id number] Jim Acuna MD Main Office [address] [address] [place] [address] 06/15/2017 10:57:28 06/15/2017 11:57:04 Screening for malignant neoplasm of colon 640586108 Z12.11 Screening for malignant neoplasm of breast 558050382 Z12.31 Hepatitis C screening 41 0590937 Z11.59 Irritable bowel syndrome 17438648 K58.9 Fatigue 70989379 R53.83 Neck pain 77722958 M54.2 [id number] Jim Acuna MD Main Office [address] [address] [place] [address] 07/08/2017 09:51:00 07/08/2017 14:40:19 [id number] Jim Acuna MD Main Office [address] [address] [place] [address] 07/13/2017 11:27:59 07/13/2017 12:39:37 Screening for malignant neoplasm of colon 049859169 Z12.11 Screening for malignant neoplasm of breast 065380699 Z12.31 Administra tion of pneumococcal vaccine 03446680 Z23 Adult heal th examination 057034684 Z00.00 Essential hypertension 66791862 I10 Stable on present medication s. At [facility] ed risk for falls 164877097 Z91.81 Bipolar disorder 5417575 4 F31.9 Stable on mood stabilizer s. Followed by psychiatry . Daily headache 344061520 1 03 R51 [id number] Debbie edward Main Office [address] [address] [place] [address] 09/09/2017 14:06:29 09/09/2017 15:20:20 Eruption 530483878 R21 more so itchy nodules on various aspects of body, curr 2 lesions on R hand (dorsum) - will get derm eval - meanwhile, trial of zyrtec bedtime, could use benadryl cream topically, and give empiric bactrim - and probiotic supp/yogur t [id number] Umberto Frost MD Main Office [address] [address] [place] [address] 10/27/2017 13:21:07 10/27/2017 14:06:27 Neck pain 60332023 M54.2 Neck sprain possibly from sleeping in a sitting up position. [id number] Jim Acuna MD Main Office [address] [address] [place] [address] 11/16/2017 08:34:27 11/16/2017 09:36:09 Neck pain 16237393 M54.2 pt confused about voltaren gel, wishes to use tablet for pain. rec nap 500mg bid c food, can use moist heat / hep, and if no sig help then try voltaren gel Osteoarthr itis of knee 652796192 M17.11 cont to f/u c ortho [id number] Jim Acuna MD Main Office [address] [address] [place] [address] 12/31/2017 09:37:15 12/31/2017 16:42:22 [id number] Jim Acuna MD Main Office [address] [address] [place] [address] 01/08/2018 13:10:17 01/08/2018 14:31:30 Influenza vaccine needed 6810782434 106 Z23 Acute cystitis 69031717 N30.01 Improved with abx. [id number] Jim Acuna MD Main Office [address] [address] [place] [address] 01/25/2018 10:28:45 01/25/2018 11:23:07 Edema of lower extremity 794460117 R60.0 Likely related to OA and swelling of right knee Bipolar disorder 7473928 4 F31.9 Stable on mood stabilizer s. Followed by psychiatry . [id number] Jim Acuna MD Main Office [address] [address] [place] [address] 04/24/2018 08:42:01 04/24/2018 10:03:44 Screening for malignant neoplasm of breast 191039712 Z12.31 Screening for malignant neoplasm of colon 323954306 Z12.11 Increased thirst 8009629 03 R63.1 Fatigue 33347429 R53.83 Tremor 10703455 R25.1 Likely medication side effect from Li salts Bipolar disorder 1064530 4 F31.9 Stable on mood stabilizer s. Followed by psychiatry . [id number] Jim Acuna MD Main Office [address] [address] [place] [address] 06/18/2018 09:41:12 06/18/2018 11:19:33 Lightheadedness 036422126 R42 check labs and US, normal neuro exam for today. Pt to call if acutely worsening. Unable to do EKG today as machine not working, pt declines going to cardiology office for this. Will come back next week to do this. BP low, will have pt stop hctz to see if this helps Neck pain 68231259 M54.2 pt has known arthritis, consider PT referral. Advised to try tylenol 2 tabs bid with local heat and if not better to call. [id number] Mercedez Damián Main Office [address] [facility] [address] [place] [address] 07/12/2018 14:47:11 07/12/2018 15:47:19 Numbness of hand 536875453 R20.0 check addtional labs and do EMG of upper extremitie s Lightheadedness 69998710 8 R42 workup so far negative, will add labs above and awaiting echo. Pt advised to keep hydrated and change position slowly. If testing negative consider neurology referral. Pt seeing Dr Acuna in a month [id number] Jim Acuna MD Main Office [address] [address] [place] [address] 08/16/2018 09:20:14 08/16/2018 10:53:40 Screening for malignant neoplasm of breast 289307025 Z12.31 Administra tion of pneumococcal vaccine 71465741 Z23 Screening for malignant neoplasm of colon 706273649 Z12.11 Adult heal th examination 323692151 Z00.00 Essential hypertension 59099980 I10 Stable on present medication s. Osteoarthr itis of knee 744022171 M17.0 Bipolar disorder 8703635 4 F31.9 Stable on mood stabilizer s. Followed by psychiatry . Body mass index 25-29 - overweight 162464246 E66.3 Z68.25 Neck pain 23752983 M54.2 [id number] Jim Acuna MD Main Office [address] [address] [place] [address] 09/17/2018 09:57:38 09/17/2018 12:43:17 [id number] Jim Acuna MD Main Office [address] [address] [place] [address] 09/20/2018 09:05:25 09/20/2018 10:46:33 Headache 49004601 R51 [id number] Debbie edward Main Office [address] [address] [place] [address] 01/28/2019 10:52:53 01/28/2019 11:39:09 Vertigo 088888087 R42 mild and brief only when turns head to left while in bed, of note pt with unilateral hearing loss on left dx by ENT and is trying to get a hearing aid, will refer to ENT for possible need for imaging due to unilateral hearing loss and vertigo. we will make appt Hearing loss 24060584 H9 1.92 dx prior to this visit by ENT, trying to get a heaaring aid for the left no hx of imaging as per pt [id number] Jim Acuna MD Main Office [address] [address] [place] [address] 04/01/2019 09:52:05 04/01/2019 10:54:38 Essential hypertension 25664746 I10 Stable on present medication s. Bipolar disorder 6495229 4 F31.9 Stable on mood stabilizer s. Followed by psychiatry . Body mass index 25-29 - overweight 608351697 E66.3 Z68.25 [id number] Jim Acuna MD Main Office [address] [address] [place] [address] 08/19/2019 09:56:11 08/19/2019 10:40:59 Hyperlipidemia 28051990 E78.5 Fatigue 38444487 R53.83 Edema of l ower extremity 783340998 R60.0 Likely related to OA and swelling of right knee [id number] Jim Acuna MD Main Office [address] [address] [place] [address] 09/12/2019 10:32:49 09/12/2019 11:42:12 Adult health examination 275532512 Z00.00 Declines PT program for fall prevention Essential hypertension 47806181 I10 Stable on present medication s. Edema of l ower extremity 580671777 R60.0 Likely related to OA and swelling of right knee Osteoarthr itis of knee 752238197 M17.0 Bipolar disorder 9594223 4 F31.9 Stable on mood stabilizer s. Followed by psychiatry . [id number] Regino Bah PA-C Main Office [address] [address] [place] [address] 12/14/2019 09:14:43 12/14/2019 10:35:34 Essential hypertension 80985626 I10 bp stable lately off of meds, encouraged pt to begin low dose indapamide if her bp > 140/90 ? 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 - no evidence of tia/cva - filled out clearance for dental work Edema of l ower extremity 451822289 R60.0 stable today - could use diuretic prn, rec elevate LE prn, consider resume comp socks prn [id number] Regino Bah PA-C Main Office [address] [address] [place] [address] 01/18/2020 10:19:01 01/18/2020 12:01:57 Influenza vaccine needed 6581143770 106 Z23 Thoracic back pain 25888 8004 M54.6 R rhomboid major sprain - printed other exercises from web and gave to pt, also could use warm compress or prn tyl [id number] Jim Acuna MD Main Office [address] [address] [place] [address] 03/12/2020 09:58:06 03/12/2020 11:15:43 Essential hypertension 21314659 I10 Stable on present medication s. Screening for malignant neoplasm of colon 383007285 Z12.11 Agrees to do FIT test. Declines repeat colonoscop y. Bipolar disorder 5081728 4 F31.9 Stable on mood stabilizer s. Followed by psychiatry . [id number] Regino Bah PA-C Main Office [address] [address] [place] [address] 07/18/2020 14:41:21 07/18/2020 16:12:57 Poor short-term memory 767147108 R41.3 will get neuro eval as per pt request - see hpi and pe as well Bipolar disorder 3057658 4 F31.9 cont meds, f/u c therapist, psychiatri st as dir pt seemed very paranoid today - offered reassuranc e that her skull was normal - see above * will fwd this note to psych * [id number] Jim Acuna MD Main Office [address] [address] [place] [address] 09/24/2020 10:00:37 09/24/2020 11:36:05 Adult health examination 195059749 Z00.00 Declines PT program for fall prevention Essential hypertension 51512014 I10 Stable on present medication s. Fatigue 26116592 R53.83 Hyperlipidemia 19314526 E78.5 Tinea pedis 0788342 B35. 3 right foot between 4th and 5th digits Mixed bipo lar I disorder 28376774 F31.60 Followed by psychiatry . Stable on lithium [id number] Darren Callaway MD Main Office [address] [facility] [address] [place] [address] 12/26/2020 09:19:14 12/26/2020 10:08:29 Essential hypertension 22506971 I10 Stable without medication Advised to cw lifestyle changes Mixed bipo lar I disorder 59377702 F31.60 Followed by psychiatry . Stable on lithium Pain in both feet 418572 9526 8705516 M79.671 likely related to OA. Hyperlipidemia 67454111 E78.5 ASCVD 9.8% patient was not taking medication as prescribed .Advised to start due to risk will f/u in 6 mo visit.Medi cation adherence advised.Al so discussed lifestyle changes. [id number] Darren Callaway MD Main Office [address] [facility] [address] [facility] [place] [address] 05/03/2021 10:18:54 05/03/2021 10:59:53 Greater trochanteric pain syndrome 1083294 M70.61 M70.62 Denies hx smoking or calf [...] then to go to ED . Neuropathy 683385797 G62 .9 Notes to neuropathi c type pain going down legsThen tells me she also get down arms.On lithium thus will check levles. [id number] Darren Callaway MD Main Office [address] [facility] [address] [facility] [place] [address] 06/19/2021 12:39:29 06/19/2021 13:28:32 Essential hypertension 76393855 I10 Stable without medication within JNC 8 guideline but will do RPM to see if we need to regulate her bp more.Mercedez in asymptmati c.Advised to cw lifestyle changesLow sodium diet discussedC ounseled on diet/exerc iseAdvised to keep BP daily BP log and technique counseled. Red flags of HTN emergency discussed and when to go to ED. Screening for malignant neoplasm of colon 651355559 Z12.11 Z12.12 does not want to have colo prefers FIT.saurabhe nena, limitation discussed. [id number] Bronwyn Hightower MA Main Office [address] [facility] [place] [address] 09/27/2021 10:18:49 09/27/2021 11:45:11 Essential hypertension 10144491 I10 Mercedez's blood pressures been stable she [...] to ED. Mixed bipo lar I disorder 30044526 F31.60 Followed by psychiatry . Stable on lithium/ri speridone. Advance di rective discussed with patient 028876232 Z71.89 Dizziness 787811973 R42 Mercedez's dizziness is triggered and episodic, [...] advised to limit caffeine intake. Nail changes 682271058 L 60.9 Carolyn nail changes was noted on the left thumb she denies any trauma she notes it was only noted when she went and got a manicure, and there is some darkening in the nailbed I have referred her to a dermatolog ist to ensure that this is not anything sinister. Incontinence of feces 72 657586 R15.9 A digital rectal exam was present, [...] physical exam. Benign par oxysmal positional vertigo 145454578 H81.10 Although this Hallpike was negative she notes that she had this before in the past and she did some vestibular therapy with good relief.Giv en the benign nature of physical therapy offered to provide it to her again. [id number] Darren Callaway MD Main Office [address] [facility] [address] [place] [address] 12/06/2021 13:55:38 12/06/2021 14:51:23 Adult health examination 835941764 Z00.00 Patient was counseled on healthy diet, [...] reconciled . Advance directives discussed. Essential hypertension 73545893 I10 Stable on present medication s. Hyperlipidemia 44750169 E78.5 ASCVD 9.8% patient was not taking medication as prescribed .Advised to start due to risk will f/u in 6 mo visit.Medi cation adherence advised.Al so discussed lifestyle changes. Mixed bipo lar I disorder 74967623 F31.60 Followed by psychiatry . Stable on lithium Administra tion of pneumococcal vaccine 89335963 Z23 Incontinence of feces 72 404505 R15.9 Notes resolved. Influenza vaccination declined 683908023 Z28.21 Pain in bi lateral legs 4132683978 9880973 M79.604 M79.605 No calf tenderness on exam, mold +1 edema.Gerald es cristel sx. Bone density finding 385 728026 M85.80 Screening for malignant neoplasm of colon 714266980 Z12.11 Z12.12 does not want to have colo prefers FIT.juan barrett, limitation discussed. [id number] Debbie edward Telehealt h [address] [place] [address] 02/08/2022 10:45:00 02/10/2022 12:02:30 Edema of lower extremity 814064255 R60.0 new problem to examiner, I reviewed [facility] in 12/06/21 in detail. had one plus edema bilateral then, will have pt start 20mg lasix in middday and f/u in a month in office. also will check why did not have LE US that Dr Callaway had planned on at [facility] 12/06. [id number] Darren Callaway MD Main Office [address] [facility] [address] [facility] [place] [address] 04/11/2022 08:49:28 04/11/2022 12:58:26 Health Concerns Section Related Observation LastModified by Organization Detai ls LastModified Time None Recorded Concern Status LastModified by Organization Details LastModified Time None Recorded Advance Directives Directive Y: HCP Payers Encounter Date Sequence Insurance Name Policy Number Policy Carson Covered Member ID Carson Member ID Guarantor Name 06/19/2021 2 [place] [facility] Mercedez Bruce [id number] Mercedez Bruce 06/19/2021 1 [place] [employer] SERVICES Mercedez Bruce [id number] Mercedez Burnss 09/27/2021 2 [place] [facility] Mercedez Burnss [id number] Mercedez Burnss 09/27/2021 1 MEDICARE B-[place]: [facility] Mercedez Burnss [id number] Mercedez Burnss 12/06/2021 2 [place] [facility] Mercedez Burnss [id number] Mercedez Burnss 12/06/2021 1 [place] [facility] SERVICES Mercedez Burnss [id number] Mercedez Burnss 02/08/2022 2 [place] [facility] Mercedez Burnss [id number] Mercedez Burnss 02/08/2022 1 [place] [facility] SERVICES Mercedez uBrnss [id number] Mercedez Burnss 04/11/2022 2 [place] [facility] Mercedez Burnss [id number] Mercedez Burnss 04/11/2022 1 [place] [facility] SERVICES Mercedez Burnss [id number] Mercedez Bruce Notes Date Note Type [...] and she understands. Darren Callaway MD [address] [address], [place], [address] [facility]/19/2021 13:29:58 09/27/2021 text/html Hypertension F/UReported bypatient.Associated [...] questionable fecal incontinence. Darren Callaway MD [address], [address], [facility] 09/27/2021 12:43:17 12/06/2021 text/html Hypertension F/UReported bypatient.Associated [...] using ASA. OTC/Herbal supplements use: centrum vitamin. 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 Darren Callaway MD [address] [address], [place], [address], [facility] 12/06/2021 14:43:15 02/08/2022 text/html telehealth visit . [...] not heard of an appt. Debbie mast, [facility] [place] 02/08/2022 10:59:08 04/11/2022 text/html Hospitalization Contact RecordReported bypatient.Follow UpHospital: [facility]; admit date: (Please enter in format [...] disorder and psychosis initially was seen at [facility] ED after sustaining a fall in a salon. Patient was evaluated noted psychosis was transferred to [facility] for psychiatric stabilization. Evaluation:chronic paranoidlong history non compliance Patient was admitted for 2 days monitored closely, patient continue to express she wanted to be discharge. At this point patient was at baseline and discharge to follow closely with outpatient services. Darren Callaway MD [address], [place], [address], [place] [facility] [place] 04/11/2022 12:58:24 OBGyn Episode No OBEpisode recorded.
--- OUTSIDE RECORDS SUMMARY | 2024-06-22 10:51 | XMS_ITS | Clinical Summary ---
Author Organization [facility] ity Address [address] [place] [address] Care Team Providers Care Operations Trainer Name Role Phone Jim Acuna MD Primary Care Provider Social History Tobacco Use Types Packs/Day Years [...] Influencers of Health Screening 02/02/2022 COVID-19 Vaccine (2023-2 5 season) 2023 Influenza Vaccine (Season Ended) 2024 RSV Immunization Adult Patie nts (1 - 1-dose 75+ series) 06/18/2027 HIB [...] age to complete this topic Meningococcal B Vaccine Aged Out No l onger eligible based on patient's age to complete this topic RSV Immunization Patients Un allan 20 months Aged Out No longer eligible b ased on patient's age to complete this topic Varicella Vaccines Aged Out No longer eligible based on patient's age to complete this topic Care Teams Operations Trainer Relationship Specialty Start Date End Date Jim Acuna MD [address] PCP - General Internal Medicine 01/13/14
--- OUTSIDE RECORDS SUMMARY | 2024-06-22 10:51 | XMS_ITS | Patient Health Record ---
Author Organization [facility] Address [address] [place] [address] Care Team Providers Care Clothes Separator Name Role Phone Jim Acuna MD Primary Care Provider Unavailab Nithya Roman Unavailable [phone] Reason For Referral No Information Medications Medication [...] on feet for 30 days 02/22/2015 Active Mcintosh Carbonate 300 MG 1 capsule Orall y Three times a day Active Social History Tobacco use other than smoking: Question Answer Notes Are you an other tobacco user? No Problems Problem Type SNOMED Code ICD Code Onset Dates Problem Status W/U Status Risk Notes Problem Localized, primary osteoarthritis of the ankle and/or foot (861905118) Primary osteoarthrit is, right ankle and foot (M19.071) Active confirmed Problem Pes planus (40162507) Flat foot [pes planus] (acquired), left foot (M21.42) Active confirmed Problem Pes planus (20776419) Flat foot [pes planus] (acquired), right foot (M21.41) Active confirmed Plan Of Treatment No Information Insurance Providers Payer Name Payer Address Payer Phone Subscriber Number Group Number Insured Name Patient Relationship to Insured Coverage Start Date Coverage End Date Medicare [employer] [address] [place] [address] [id number] Mercedez Bruce Self - patient is the insured Medical (General) History Medical History History ICD Code Back,Hip,and Knee pain Depression Fibromyalgia Chicken pox
== END 2024-06-22 09:40 | disposition home or self-care (01) ==
LOC: HO.US 09:39
PROVIDERS: Visit Provider Internal Medicine
DX: M79.661 Pain in right lower leg (principal)
CPT/HCPCS: 93970

== ENCOUNTER → 2024-06-22 09:41 | Outpatient (BNV) | payer MEDICARE, SELFPAY | PROVIDERS: Visit Provider Radiology Diagnostic Radiology | DX: M79.661 Pain in right lower leg (principal) | CPT/HCPCS: 93970 ==

== ENCOUNTER → 2024-07-27 10:50 | Outpatient (BNVA) | payer MEDICARE, SELFPAY | PROVIDERS: Visit Provider Internal Medicine ==

== ENCOUNTER 2024-09-01 11:53 | Outpatient (REF) | payer MEDICARE, SELFPAY ==
[2024-09-01 12:16] LABS: MANUAL DIFF FLAG NO
--- OUTSIDE RECORDS SUMMARY | 2024-09-01 12:29 | XMS_ITS | Data Portability ---
Author Organization [facility], Main Office Address [address] [place] [address] Care Team Providers Care Sales Representative Rural Power Name Role Phone RAMIRO CHAPMAN Compugraph Operator [facility] PHYSICALTH ERAPY (AMOR SANTACRUZ) OTHER [facility] Psychiatrist JUAN J MARSH Orthopedic Surgeon KEESHA ABEBE Neurologist URIAH DIMAS Bailing Machine Operator [phone] [facility] BREAST AND WELLNESS IMAGING ORDERS [facility] Surgeon KALEB CUETO Anesthesia Assistant [phone] DARREN CALLAWAY Primary Care Provider [phone] Assessment Encounter Date Assessment Date Assessment LastModified by Organization Details LastModified Time 09/27/2021 09/27/2021 Portions of this record may have been created with voice recognition software. [email or web address] Not available 09/27/2021 12:42:54 Plan of Treatment Reminders Order Date Submit Date Provider Last Modified By Organization Details Last Modified Time Details Appointments None record ed. Lab lipid panel, serum 2021 PATRICIA [facility], [address], [place] [address], [address], 19:25:39 LDL, serum 2021 022 PATRICIA [facility], [address], [place] [address], [address], 19:25:37 noninv asive colore ctal cancer DNA + occult blood screen ing, QL, stool 2021 [facility] (Cologuard Orders Only), [address], [address], [place], [address], 14:00:27 unlist ed lab - GI profil e, stool, PCR 2021 PATRICIA [facility], [address], [address], [place], [place], [address], 11:51:58 unlist ed lab - urinal ysis w/refl ex cultur e 2021 PATRICIA [facility] (Centralized Electronic Ordering - All Locations), Patient Can Go To The Location Of Their Choice, 15:10:36 BMP, serum or plasma 2021 PATRICIA [facility] (Centralized Electronic Ordering - All Locations), Patient Can Go To The Location Of Their Choice, 15:33:59 magnes ium, serum or plasma 2021 PATRICIA [facility] (Centralized Electronic Ordering - All Locations), Patient Can Go To The Location Of Their Choice, 15:34:00 CBC w/ auto diff 2021 PATRICIA [facility] (Centralized Electronic Ordering - All Locations), Patient Can Go To The Location Of Their Choice, 15:01:55 fecal occult blood, immuno assay, stool 2021 PATRICIA In-Office Order, Internal Use Only DO Not Attach Compendium DO Not Attach Compendium, Do Not Delete/merge, [id number] 05:01:02 Referral physic al therap ist referr al 2021 lori [facility], [address], [place], [address], 2 15:43:50 physic al therap ist referr al - Please see for BPPV 2021 [email or web address] [facility], [address], [place], [address], 3 10:48:56 dermat ologis t referr al - dark area of nail pls eval unsure if possib le melano ma 2021 lori [facility], [address], [address], [place], [address], 3 14:48:58 care manage ment referr al - Please set up RPM with BP monito r 2021 [facility], [address], [address], [place], [address], 2 09:06:09 Procedures None record ed. Surgeries None record ed. Imaging bone densit y 2021 [email or web address] [facility], [address], [place], [address], 3 12:44:58 US, duplex , arteri al, lower extrem ity, comple te 2021 [email or web address] Not available 3 12:54:43 ankle brachi al index, comple te 2021 mchasen [facility], [address], [address], [place], [address], 3 11:58:56 pulse volume record ing 2021 mchasen [facility], [address], [address], [place], [address], 3 11:58:56 electr ocardi ogroxana 2021 In-Office Order, Internal Use Only DO Not Attach Compendium DO Not Attach Compendium, Do Not Delete/merge, [id number] 11:45:12 US, siobhan rdiogr am 2021 lori [facility] (Outt Non-Invasive Cardiology Scheduling), [address] [place], [address], 16:13:09 Medication Orders furose mide 20 mg tablet 2021 [id number], [address] [facility], [place], [address], 10:50:19 Patient TargetsNo targets recorded. Patient Instructions Encounter Date Encounter Id Patient Instructions Last Modified By Organization Details Last Modified Time 06/19/2021 [id number] colon cancer screening: care instructions [email or web address] Not available 06/19/2021 13:26:51 09/27/2021 [id number] advance care planning: care instructions ckokar Not available 09/27/2021 11:11:24 benign paroxysmal positional vertigo (bppv): care instructions ckokar Not available 09/27/2021 12:55:48 orthostatic vitals* [email or web address] Not available 10/07/2021 08:40:07 12/06/2021 [id number] preventing falls: care instructions ckokar Not available 12/06/2021 14:37:03 medicare preventive services guide (female 74yrs and under) ckokar Not available 12/06/2021 14:37:02 colon cancer screening: care instructions ckokar Not available 12/06/2021 14:37:02 high blood pressure: care instructions ckokar Not available 12/06/2021 14:37:03 learning about high blood pressure ckokar Not available 12/06/2021 14:37:03 02/08/2022 [id number] leg and ankle edema: care instructions [email or web address] Not available 02/08/2022 10:50:17 Reason for Referral Please set up RPM with BP mo nitor Referring Physician: Darren Callaway, Family Medicine, Encounter Date: 06/19/2021 Increment Manager Referral for N ail changes dark area of nail pls eval unsure if possible melanoma Referring Physician: Darren Callaway [facility], Encounter Date: 09/27/2021 Physical Therapist Referral for Benign paroxysmal positional vertigo Please see for BPPV Referring Physician: Darren Callaway [facility], Encounter Date: 09/27/2021 Physical Therapist Referral for Adult health examination Referring Physician: Darren Callaway [facility], Encounter Date: 12/06/2021 Results Created Date Observation Date Name Description Value Unit Range Abnormal Flag Note LastModifiedBy Organization Detail LastModifiedTime 12/07/1912/06/2022 COLOG UARD cologuard result Cancel led - Order d not applic able Not Available [facility] (Cologuard Orders Only) [address], [place], [address], 12/06/2022 06:47:57 09/28/1909/27/2021 GI PROFI LE, STOOL , PCR results Test Cance lled, order builder error Not Available [facility] (Centralized Electronic Ordering - All Locations) Patient Can Go To The Location Of Their Choice, [id number] 09/27/2021 11:51:58 09/28/1909/27/2021 COMPL ETE CBC WITH DIFF WBC 3.6 K/mm3 (4.0-1 1.0) low Not Available [facility] (Centralized Electronic Ordering - All Locations) Patient Can Go To The Location Of Their Choice, 09/27/2021 15:01:54 09/28/19 22 09/27/2021 COMPL ETE CBC WITH DIFF RBC 4.20 [...] 22 09/27/2021 COMPL ETE CBC WITH DIFF automated NRBC [...] The Location Of Their Choice, 09/27/2021 15:01:54 09/28/1920 0909/27/2021 COMPL ETE CBC WITH DIFF abs. imm [...] indir ect bilir ubin canno t be calcu lated . Not Available [facility] (Centralized Electronic Ordering - All Locations) Patient Can Go To The Location Of Their Choice, 09/27/2021 23:00:22 09/28/1909/27/2021 HEPAT IC FUNCT ION PANEL albumin 4.8 [...] 23:00:22 09/28/1909/27/2021 HEPAT IC FUNCT ION PANEL ALT 14 [...] Location Of Their Choice, 09/27/2021 23:00:22 09/28/1909/27/2021 LDH LDH 181 U/L (94-25 0) Not [...] 23:00:59 09/28/1909/27/2021 RETIC ULOCY TE COUNT reticulocyte production index [...] The Location Of Their Choice, 09/27/2021 23:14:35 09/28/1910/02/2021 METHY LMALO MARIA ELENA ACID, SERUM methylmaloni c acid, serum 127 Refer ence range : 0 to 378 Unit: nmol/ L (NOTE ) This test was linda brink and its perfo ximenaanc e bubba ervinri stics deter mined by [facility] [employer] . It has not been clear ed or appro marialuisa by the Food and Drug Admin istra tion. Test perfo rmed at [facility] [place] , [facility] [facility] , [place] [address] Not Available [facility] (Centralized Electronic Ordering - All Locations) Patient Can Go To The Location Of Their Choice, [id number] 10/02/2021 12:06:43 12/11/1912/10/2021 UA W/REF CRYSTAL CULTU RE appear/color LIGHT YELLO W CLEAR Not Available [facility] (Centralized Electronic Ordering - All Locations) Patient Can Go To The Location Of Their Choice, [id number] 12/10/2021 15:10:36 12/11/1912/10/2021 UA W/REF CRYSTAL CULTU RE sp. gravity 1.014 (1.002 -1.030 ) Not Available [facility] (Centralized Electronic Ordering - All Locations) Patient Can Go To The Location Of Their Choice, [id number] 12/10/2021 15:10:36 12/11/1912/10/2021 UA W/REF CRYSTAL CULTU RE urine pH 6.0 (5.0-8 .0) Not Available [facility] (Centralized Electronic Ordering - All Locations) Patient Can Go To The Location Of Their Choice, [id number] 12/10/2021 15:10:36 12/11/1912/10/2021 UA W/REF CRYSTAL CULTU RE urine albumin NEGATI VE (neg) Not Available [facility] (Centralized Electronic Ordering - All Locations) Patient Can Go To The Location Of Their Choice, [id number] 12/10/2021 15:10:36 12/11/1912/10/2021 UA W/REF CRYSTAL CULTU RE urine glucose NEGATI VE (neg) Not Available [facility] (Centralized Electronic Ordering - All Locations) Patient Can Go To The Location Of Their Choice, [id number] 12/10/2021 15:10:36 12/11/1912/10/2021 UA W/REF CRYSTAL CULTU RE urine ketones NEGATI VE (neg) Not Available [facility] (Centralized Electronic Ordering - All Locations) Patient Can Go To The Location Of Their Choice, 12/10/2021 15:10:36 12/11/1912/10/2021 UA W/REF CRYSTAL CULTU RE urine bilirubin NEGATI VE (neg) Not Available [facility] (Centralized Electronic Ordering - All Locations) Patient Can Go To The Location Of Their Choice, [id number] 12/10/2021 15:10:36 12/11/1912/10/2021 UA W/REF CRYSTAL CULTU [...] The Location Of Their Choice, 12/10/2021 15:10:36 12/11/19 22 12/10/2021 UA W/REF CRYSTAL CULTU RE clarity CLEAR [...] Go To The Location Of Their Choice, [id number] 12/10/2021 19:25:39 12/11/19 22 12/10/2021 URINE CULTU RE specimen description URINE Not Available [facility] (Central[facility] Ordering - All Locations) Patient Can Go To The Location Of Their Choice, [id number] 12/11/2021 13:21:32 12/11/19 22 12/10/2021 URINE CULTU RE special requests NONE Reflex ed from [id number] Not Available [facility] (Centralized Electronic Ordering - All Locations) Patient Can Go To The Location Of Their Choice, [id number] 12/11/2021 13:21:32 12/11/19 22 12/11/2021 URINE CULTU RE culture Mixed bacter ial nury, indica tive of urogen ital contam inatio n. Not Available [facility] (Centralized Electronic Ordering - All Locations) Patient Can Go To The Location Of Their Choice, [id number] 12/11/2021 13:21:32 12/11/1912/11/2021 URINE CULTU RE report status FINAL 2021 Not Available [facility] (Centralized Electronic Ordering - All Locations) Patient Can Go To The Location Of Their Choice, [id number] 12/11/2021 13:21:32 01/04/20 22 01/06/2022 GI PROFI LE, STOOL , PCR campylobacte r NEGAT ASPEN Campy lobac ter speci es targe t nucle ic acid not detec nicolas. Not Available [facility] (Centralized Electronic Ordering - All Locations) Patient Can Go To The Location Of Their Choice, [id number] 01/06/2022 15:38:08 01/04/20 22 01/06/2022 GI PROFI LE, STOOL , PCR plesiomonas shigelloides NEGAT ASPEN Pleis iomon as shige lloid es targe t nucle ic acid not detec nicolas. Not Available [facility] (Centralized Electronic Ordering - All Locations) Patient Can Go To The Location Of Their Choice, [id number] 01/06/2022 15:38:08 01/04/20 22 01/06/2022 GI PROFI LE, STOOL , PCR salmonella NEGAT ASPEN Salmo aaron speci es targe t nucle ic acid not detec nicolas. Not Available [facility] (Centralized Electronic Ordering - All Locations) Patient Can Go To The Location Of Their Choice, [id number] 01/06/2022 15:38:08 01/04/20 22 01/06/2022 GI PROFI LE, STOOL , PCR vibrio NEGAT ASPEN Vibri o speci es targe t nucle ic acid not detec nicolas. Not Available [facility] (Centralized Electronic Ordering - All Locations) Patient Can Go To The Location Of Their Choice, [id number] 01/06/2022 15:38:08 01/04/20 22 01/06/2022 GI PROFI LE, STOOL , PCR vibrio cholerae NEGAT ASPEN Vibri o praful ra targe t nucle ic acid not detec nicolas. Not Available [facility] (Centralized Electronic Ordering - All Locations) Patient Can Go To The Location Of Their Choice, [id number] 01/06/2022 15:38:08 01/04/20 22 01/06/2022 GI PROFI LE, STOOL , PCR yersinia enterocoliti ca NEGAT ASPEN Yersi kt enter ocoli naman targe t nucle ic acid not detec nicolas. Not Available [facility] (Centralized Electronic Ordering - All Locations) Patient Can Go To The Location Of Their Choice, [id number] 01/06/2022 15:38:08 01/04/20 22 01/06/2022 GI PROFI LE, STOOL , PCR enteroaggreg ative E coli NEGAT ASPEN Enter oaggr egati ve E. coli targe t nucle ic acid not detec nicolas. Not Available [facility] (Centralized Electronic Ordering - All Locations) Patient Can Go To The Location Of Their Choice, [id number] 01/06/2022 15:38:08 01/04/20 22 01/06/2022 GI PROFI LE, STOOL , PCR enteropathog enic E coli NEGAT ASPEN Enter opath ogeni c E. coli targe t nucle ic acid not detec nicolas. Not Available [facility] (Centralized Electronic Ordering - All Locations) Patient Can Go To The Location Of Their Choice, [id number] 01/06/2022 15:38:08 01/04/20 22 01/06/2022 GI PROFI LE, STOOL , PCR enterotoxige maria elena E coli NEGAT ASPEN Enter otoxi genic E. coli lt/st targe t nucle ic acid not detec nicolas. Not Available [facility] (Centralized Electronic Ordering - All Locations) Patient Can Go To The Location Of Their Choice, [id number] 01/06/2022 15:38:08 01/04/20 22 01/06/2022 GI PROFI LE, STOOL , PCR shigatoxin producing E coli NEGAT ASPEN Shiga -like toxin -prod ucing E. coli stx1/ stx2 targe t nucle ic acid not detec nicolas. Not Available [facility] (Centralized Electronic Ordering - All Locations) Patient Can Go To The Location Of Their Choice, [id number] 01/06/2022 15:38:08 01/04/20 22 01/06/2022 GI PROFI LE, STOOL , PCR shigella/ent eroinvasive E coli NEGAT ASPEN Shige lla/E ntero invas aspen E. coli targe t nucle ic acid not detec nicolas. Not Available [facility] (Centralized Electronic Ordering - All Locations) Patient Can Go To The Location Of Their Choice, [id number] 01/06/2022 15:38:08 01/04/20 22 01/06/2022 GI PROFI LE, STOOL , PCR cryptosporid ium NEGAT ASPEN Crypt ospor idium targe t nucle ic acid not detec nicolas. Not Available [facility] (Centralized Electronic Ordering - All Locations) Patient Can Go To The Location Of Their Choice, [id number] 01/06/2022 15:38:08 01/04/20 22 01/06/2022 GI PROFI LE, STOOL , PCR cyclospora cayetanensis NEGAT ASPEN Cyclo spora cayet anens is targe t nucle ic acid not detec nicolas. Not Available [facility] (Centralized Electronic Ordering - All Locations) Patient Can Go To The Location Of Their Choice, [id number] 01/06/2022 15:38:08 01/04/20 22 01/06/2022 GI PROFI LE, STOOL , PCR entamoeba histolytica NEGAT ASPEN Entam oeba histo lytic a targe t nucle ic acid not detec nicolas. Not Available [facility] (Centralized Electronic Ordering - All Locations) Patient Can Go To The Location Of Their Choice, [id number] 01/06/2022 15:38:08 01/04/20 22 01/06/2022 GI PROFI LE, STOOL , PCR giardia lamblia NEGAT APSEN Giard ia lambl ia targe t nucle ic acid not detec nicolas. Not Available [facility] (Centralized Electronic Ordering - All Locations) Patient Can Go To The Location Of Their Choice, [id number] 01/06/2022 15:38:08 01/04/20 22 01/06/2022 GI PROFI LE, STOOL , PCR adenovirus F 40/41 NEGAT ASPEN Adeno virus F40/4 1 targe t nucle ic acid not detec nicolas. Not Available [facility] (Centralized Electronic Ordering - All Locations) Patient Can Go To The Location Of Their Choice, [id number] 01/06/2022 15:38:08 01/04/20 22 01/06/2022 GI PROFI LE, STOOL , PCR astrovirus NEGAT ASPEN Stefano virus targe t nucle ic acid not detec nicolas. Not Available [facility] (Centralized Electronic Ordering - All Locations) Patient Can Go To The Location Of Their Choice, [id number] 01/06/2022 15:38:08 01/04/20 22 01/06/2022 GI PROFI LE, STOOL , PCR norovirus GI/gii NEGAT ASPEN Norov irus GI/GI I targe t nucle ic acid not detec nicolas. Not Available [facility] (Centralized Electronic Ordering - All Locations) Patient Can Go To The Location Of Their Choice, [id number] 01/06/2022 15:38:08 01/04/20 22 01/06/2022 GI PROFI LE, STOOL , PCR rotavirus A NEGAT ASPEN Rotav irus A targe t nucle ic acid not detec nicolas. Not Available [facility] (Centralized Electronic Ordering - All Locations) Patient Can Go To The Location Of Their Choice, [id number] 01/06/2022 15:38:08 01/04/20 22 01/06/2022 GI PROFI [...] Go To The Location Of Their Choice, [id number] 01/06/2022 15:38:08 08/19/1908/18/2022 ALT ALT 18 U/L (0-33) Not Available [facility] (Centralized Electronic Ordering - All Locations) Patient Can Go To The Location Of Their Choice, [id number] 08/18/2022 16:17:07 08/19/1908/18/2022 LIPID PANEL cholesterol, total 254 mg/dL (<200) high Not Available [facility] (Central[facility] Ordering - All Locations) Patient Can Go To The Location Of Their Choice, [id number] 08/18/2022 16:17:08 08/19/1908/18/2022 LIPID PANEL triglyceride 41 mg/dL (<150) Not Available [facility] (Central[facility] Ordering - All Locations) Patient Can Go To The Location Of Their Choice, [id number] 08/18/2022 16:17:08 08/19/19 23 08/18/2022 LIPID PANEL HDL chol 89 mg/dL (>39) Not Available [facility] (Centralized Electronic Ordering - All Locations) Patient Can Go To The Location Of Their Choice, [id number] 08/18/2022 16:17:08 08/19/19 23 08/18/2022 LIPID PANEL LDL cholesterol, calculated 157 mg/dL (0-130 ) high Not Available [facility] (Centralized Electronic Ordering - All Locations) Patient Can Go To The Location Of Their Choice, [id number] 08/18/2022 16:17:08 08/19/19 23 08/18/2022 LIPID PANEL non HDL cholesterol (calc) 165 mg/dL (<160) high Not Available [facility] (Centralized Electronic Ordering - All Locations) Patient Can Go To The Location Of Their Choice, [id number] 08/18/2022 16:17:08 08/27/1908/26/2021 MAMMO , scree ale, digit al, bilat [...] RIGHT MLO view, slight ly above the carpenter's assistant ior nipple line at anteri or depth [...] g Evalua tion. We will recall the juliette godinez.) Lay letter mailed to juliette godinez WSN: [id number] Orderi ng Physic jessica: Jim Foleyangelika godinez Class: Outpat ient [facility] (Outpt Imaging) [address], [place], [address], 08/26/2021 15:58:16 09/13/19 22 09/12/2021 US, riki [...] 2 (Benig n) Lay letter mailed to juliette t WSN: [id number] Orderi Physic jessica: Jim Foley Dictat ed By: Emiliana Haji MD, I Dictat ed Date/T ganga: 11:59 a Review ed By: Emiliana Haji MD, I Signed By: Emiliana Haji MD, I Signed Date/T ganga: 11:59 am Transc ribed By: LUCIA Transc ribed Date/T ganga: 11:55 am Patien t Class: Outpat ient [email or web address] [facility] (Outpt Imaging) [address] [facility] [address], [place], [address], 09/13/2021 15:29:35 09/13/19 22 09/12/2021 mm digit [...] ise indica nicolas clinic ally, recomm end patiangelika t return in 1 year for bilate ral screen ing mammog roxana. RECOMM ENDATI ON: Annual mammog raphic screen ing BI-RAD S: 2 (Benig n) Lay letter mailed to juliette godinez WSN: [id number] Orderi ng Physic jessica: Jim Foley Dictat ed By: Emiliana Haji MD, I Dictat ed Date/T ganga: 11:59 am Review ed By: Emiliana Haji MD, I Signed By: Emiliana Haji MD, I Signed Date/T ganga: 11:59 am Transc ribed By: LUCIA Transc riptio n Date/T ganga: 11:55 am Birads : Juliette t Class: Outpat ient [email or web address] [facility] (Outpt Imaging) [address], [place], [address], 09/13/2021 15:28:45 09/28/19 22 09/27/2021 elect rocar diogr am No observ ation record ed. [email or web address] In-Office Order Internal Use Only DO Not Attach Compendium DO Not Attach Compendium, Do Not Delete/merge, [id number] 09/27/2021 15:03:08 09/28/19 elect rocar diogr am No observ ation record ed. [email or web address] In-Office Order Internal Use Only DO Not Attach Compendium DO Not Attach Compendium, Do Not Delete/merge, [id number] 09/27/2021 12:58:52 08/23/19 23 08/11/2022 DEXA, axial skele ton Name:Pedro godinez ID: [id number] Age:72 years Sex:Fe male Ethnic ity:Wh [...] at or below -2.5 Impres marciano: The juliette t has osteop orosis as determ ined by WHO criter ia. WSN: [id number] Orderi ng Physic jessica: Melita Callaway Dictat ed By: Mac KELLY, Hector Monet ed Date/T ganga: 4:41 pm Review ed By: Mac Hector KELLY Signed By: Hector Watts MD Signed Date/T ganga: 4:41 pm Transc ribed By: LUCIA Transc ribed Date/T ganga: 4:41 pm Patien t Class: Outpat ient [email or web address] [facility] (Outpt Imaging) [address], [place], [address], 09/01/2022 13:12:38 08/23/19 23 08/22/2022 bone densi ty No observ ation record ed. [facility] [address], [place], [address], 08/22/2022 18:01:22 Result Notes Documentation Provider Name and Address Organization Details Recorded Time Mammo, Screening, Digital, Bilateral : PROCEDURE: MM Digital Mammo Screening INDICATION: Screening for breast cancer. No known palpable abnormalities. Benign LEFT breast needle biopsy in 2003. COMPARISON: Prior mammograms dating back to 08/23/2013, most recent 08/25/2020. TECHNIQUE: Full-field digital CC and MLO 3-D tomosynthesis images of both breasts were acquired. Computer-aided detection (CAD) was utilized in the interpretation of this study. DENSITY: The breast tissue contains scattered areas of fibroglandular density. FINDINGS: RIGHT breast: On the RIGHT MLO view, slightly above the posterior nipple line at anterior depth there is a single view nodular asymmetry (MLO tomosynthesis image 33). LEFT breast: In the lateral LEFT breast, approximately 3:00 position there is a focal asymmetry, anterior to mid depth (CC tomosynthesis image 26, MLO tomosynthesis image 21). IMPRESSION: RIGHT breast asymmetry on the MLO view and LEFT breast focal asymmetry. Recommend additional diagnostic imagin-D Spot compression CC of the LEFT breast, 3-D spot compression bilateral MLO, 3-D full field bilateral ML views and scheduled ultrasound. RECOMMENDATION: Bilateral diagnostic 3D tomosynthesis with scheduled ultrasound BI-RADS: 0 (Incomplete - Need Additional Imaging Evaluation. We will recall the patient.) Lay letter mailed to patient WSN: [id number] Ordering Physician: Jim Acuna Patient Class: Outpatient Rosalind mast, [facility] 08/26/2021 15:58:16 Dexa, Axial Skeleton : Name:MERCEDEZ SINGH Age:72 years Sex:Female Ethnicity:White Date of :1950 Reason: M85.80; Clinical Question(s): Other: Referring Provider:Darren Callaway MD Study:Dexa Bone Density (Axial) Bone Density: Region BMD T-Score Z-Score Classification AP Spine 1.011 -0.3 1.8 Normal TOTAL HIP 0.629 -2.6 -1.1 Osteoporosis FEM NECK 0.537 -2.8 -1.0 Osteoporosis 10-year Fracture Risk: Fracture Risk Not Reported: FRAX not reported because: Some T-score for Spine Total or Hip Total or Femoral Neck at or below -2.5 Impression: The patient has osteoporosis as determined by WHO criteria. WSN: [id number] Ordering Physician: Darren Callaway Dictated By: Damián Watts MD Dictated Date/Time: 08/22/22 4:41 pm Reviewed By: Damián Watts MD Signed By: Damián Watts MD Signed Date/Time: 08/22/22 4:41 pm Transcribed By: LUCIA Transcribed Date/Time: 08/22/22 4:41 pm Patient Class: Outpatient JESSY Hernández [facility] 09/01/2022 13:12:38 Problems Name Problem SNOMED Code Status Onset Date Resolution Date Notes Provider Name and Address Organization Details Recorded Time Abdomina l pain 39648367 Completed 201209/20/2013 RECORDED 07/01/19 13 10:11AM BY IRVING MARTINEZ MA, ANNOTATI ON/ADDEN DUM Not Available [facility] 4 13:53:50 Acute sinusiti s [id number] Completed 201309/20/2013 RECORDED 06/09/19 14 9:29AM BY IRVING MARTINEZ MA, ANNOTATI ON/ADDEN DUM HANNAH Freeman [facility] 9 10:46:37 Anemia [id number] Active Christal mast [facility] 0 15:44:01 Bipolar I disorder [id number] Completed 201209/20/2013 RECORDED 04/09/19 13 1:50AM BY IRVING MARTINEZ MA, ANNOTATI ON/ADDEN DUM Not Available [facility] 4 13:53:50 Benign paroxysm al position al vertigo [id number] Completed 07/06/2016 Jim Acuna MD [address] [facility] [address], [place], [address] , [facility] 7 12:18:11 Bipolar disorder 04842328 Active Christal mast, [facility] 0 15:44:01 Screenin g for malignan t neoplasm of breast Completed 201209/20/2013 RECORDED 02/25/20 13 10:09AM BY IRVING MARTINEZ MA, ANNOTATI ON/ADDEN DUM Not Available [facility] 4 13:53:50 Carpal tunnel syndrome 64218624 Active Christal mast, [facility] 0 15:44:02 Neck pain 14629215 Completed 201109/20/2013 RECORDED 12/31/19 12 2:59PM BY IRVING MARTINEZ MA, ANNOTATI ON/ADDEN DUM Umberto Frost MD [address], [place], [address] , [facility] 8 14:00:26 Chondrom alacia of patella 62866779 Completed 201009/20/2013 RECORDED 07/20/19 11 9:02AM BY IRVING MARTINEZ MA, ANNOTATI ON/ADDEN DUM Not Available [facility] 4 13:53:51 Screenin g for malignan t neoplasm of colon Completed 201209/20/2013 RECORDED 02/25/20 13 10:09AM BY IRVING MARTINEZ MA, ANNOTATI ON/ADDEN DUM Not Available [facility] 4 13:53:51 Respirat ory finding [id number] Completed 200709/20/2013 IMPRESSI ON: PROBABLY RELATED TO OBESITY; RECORDED 11/30/19 08 9:59AM BY IRVING MARTINEZ MA, ANNOTATI ON/ADDEN DUM Not [facility] 4 13:53:51 Edema 967685233 Completed 201109/20/2013 RECORDED 09/26/19 12 11:26AM BY IRVING MARTINEZ MA, ANNOTATI ON/ADDEN DUM Not [facility] 4 13:53:51 Pain of elbow region 53883689 Completed 201109/20/2013 IMPRESSI ON: NORMAL EXAM. CANNOT REPRODUC E PAIN TODAY. WILL FOLLOW UP NEEDED.; RECORDED 09/26/19 12 11:27AM BY IRVING MARTINEZ MA, HE ON/ADDEN DUM Not Available [facility] 4 13:53:51 Dizzines s and giddines s 297897102 Completed 201109/20/2013 RECORDED 09/26/19 12 11:27AM BY IRVING MARTINEZ MA, HE ON/ADDEN DUM Not Available [facility] 4 13:53:51 Follow-u p encounte r Completed 201209/20/2013 RECORDED 05/13/19 13 2:25PM BY IRVING MARTINEZ MA, HE ON/ADDEN DUM Not Available [facility] 4 13:53:51 Essentia l hyperten marciano 19537113 Active Christal mast [place] - [facility] 0 15:44:01 Malaise and fatigue 283174580 Completed 201109/20/2013 RECORDED 09/26/19 12 11:27AM BY IRVING MARTINEZ MA, HE ON/ADDEN DUM Not Available [facility] 4 13:53:51 Fibromyo sitis 68416039 Active Christal mast [facility] 0 15:44:01 Adult health examinat ion Completed 201309/20/2013 RECORDED 05/13/19 14 11:06AM BY GINA LOZOYA MA, ANNOTATI ON/ADDEN DUM Not Available [facility] 4 13:53:51 General examinat ion of patient Completed 200709/20/2013 RECORDED 11/30/19 08 9:59AM BY IRVING MARTINEZ MA, ANNOTATI ON/ADDEN DUM Not Available [facility] 4 13:53:51 Gastroes ophageal reflux disease 652451058 Active Christal mast [facility] 0 15:44:02 Hypercho lesterol emia 09366160 Completed 201209/20/2013 RECORDED 02/25/20 13 10:09AM BY IRVING MARTINEZ MA, ANNOTATI ON/ADDEN DUM Not Available [facility] 4 13:53:51 Hyperlip idemia 00626807 Active Christal mats [facility] 0 15:44:02 Hypersom kt 60908215 Completed 201109/20/2013 RECORDED 09/26/19 12 11:27AM BY IRVING MARTINEZ MA, ANNOTATI ON/ADDEN DUM Not Available [facility] 4 13:53:51 Irritabl e bowel syndrome 59018703 Active Christal mast [facility] 0 15:44:01 Laborato ry procedur e performe d 423507735 Completed 201209/20/2013 RECORDED 05/13/19 13 2:25PM BY IRVING MARTINEZ MA, ANNOTATI ON/ADDEN DUM Not Available [facility] 4 13:53:52 Lateral epicondy litis 776122110 Completed 201109/20/2013 RECORDED 07/22/19 12 9:36AM BY JIM ACUNA MD, ANNOTATI ON/ADDEN DUM Not Available [facility] 4 13:53:52 Low back pain 320488905 Completed 201109/20/2013 RECORDED 09/26/19 12 11:27AM BY IRVING MARTINEZ MA, ANNOTATI ON/ADDEN DUM Not Available [facility] 4 13:53:52 Renewal of prescrip tion Completed 201209/20/2013 RECORDED 02/25/20 13 10:08AM BY IRVING MARTINEZ MA, ANNOTATI ON/ADDEN DUM Not Available [facility] 4 13:53:52 Menstrua tion finding Completed 201209/20/2013 RECORDED 04/09/19 13 1:50AM BY IRVING MARTINEZ MA, ANNOTATI ON/ADDEN DUM Not Available [facility] 4 13:53:52 Influenz a vaccine needed [id number] 06 Completed 201009/20/2013 DATE: 02/20/20 11; RECORDED 09/26/19 12 11:27AM BY IRVING MARTINEZ MA, ANNOTATI ON/ADDEN DUM Not Available [facility] 4 13:53:52 Patient status finding [id number] Completed 201209/20/2013 RECORDED 02/25/20 13 10:08AM BY IRVING MARTINEZ MA, ANNOTATI ON/ADDEN DUM Not Available [facility] 4 13:53:53 Obesity 156878057 Active Christal mast [facility] 0 15:44:01 Osteoart hritis 765833856 Active Christal mast [facility] 0 15:44:02 Pain of joint of wrist 759597890 Completed 201109/20/2013 RECORDED 09/26/19 12 11:27AM BY IRVING MARTINEZ MA, ANNOTATI ON/ADDEN DUM Not Available [facility] 4 13:53:53 Knee pain Completed 201109/20/2013 RECORDED 09/26/19 12 11:27AM BY IRVING MARTINEZ MA, ANNOTATI ON/ADDEN DUM Not Available [facility] 4 13:53:53 Psychoti c disorder 04763969 Completed 200809/20/2013 RECORDED 12/27/19 09 10:34AM BY JIM ACUNA MD, ANNOTATI ON/ADDEN DUM Not Available [facility] 4 13:53:53 Tinea pedis 4908687 Completed 201209/20/2013 RECORDED 02/25/20 13 10:08AM BY IRVING MARTINEZ MA, ANNOTTONY ON/ADDEN DUM HANNAH Freeman, [facility] 2 09:58:30 Tinnitus 16326704 Completed 201109/20/2013 RECORDED 09/26/19 12 11:26AM BY IRVING MARTINEZ MA, ANNOTTONY ON/ADDEN DUM Not Available [facility] 4 13:53:53 Enthesop athy of hip region 67757312 Completed 200809/20/2013 RECORDED 12/27/19 09 10:35AM BY JIM ACUNA MD, ANNOTTONY ON/ADDEN DUM Not Available [facility] 4 13:53:53 Heart murmur 44397999 Completed 200809/20/2013 IMPRESSI ON: RULE OUT SIGNIFIC ANT AORTIC STENOSIS ; RECORDED 12/27/19 09 10:34AM BY JIM ACUNA MD, ANNOTATI ON/ADDEN DUM HANNAH Freeman, [facility] 8 11:15:53 Urge incontin ence of urine 52440964 Completed 201109/20/2013 RECORDED 09/26/19 12 11:27AM BY IRVING MARTINEZ MA, ANNOTTONY ON/ADDEN DUM Not Available [facility] 4 13:53:53 Increase d frequenc y of urinatio n 880066232 Completed 201209/20/2013 RECORDED 02/25/20 13 10:08AM BY IRVING MARTINEZ MA, ANNOTATI ON/ADDEN DUM Not Available [facility] 4 13:53:53 Abdomina l pain 47369727 Completed 201210/10/2013 RECORDED 07/01/19 13 10:11AM BY IRVING MARTINEZ MA, ANNOTATI ON/ADDEN DUM Not Available [facility] 4 06:28:43 Acute sinusiti s 55965151 Completed 201310/10/2013 RECORDED 06/09/19 14 9:29AM BY IRVING MARTINEZ MA, ANNOTATI ON/ADDEN DUM HANNAH Freeman, [facility] 9 10:46:37 Bipolar I disorder 038955074 Completed 201210/10/2013 RECORDED 04/09/19 13 1:50AM BY IRVING MARTINEZ MA, ANNOTATI ON/ADDEN DUM Not Available [facility] 4 06:28:43 Screenin g for malignan t neoplasm of breast Completed 201210/10/2013 RECORDED 02/25/20 13 10:09AM BY IRVING MARTINEZ MA, ANNOTATI ON/ADDEN DUM Not Available [facility] 4 06:28:43 Neck pain 85514595 Completed 201110/10/2013 RECORDED 12/31/19 12 2:59PM BY IRVING MARTINEZ MA, ANNOTATI ON/ADDEN DUM Umberto Frost MD [address] [address], [place], [address] , [facility] 8 14:00:26 Chondrom alacia of patella 10038632 Completed 201010/10/2013 RECORDED 07/20/19 11 9:02AM BY IRVING MARTINEZ MA, ANNOTATI ON/ADDEN DUM Not Available [facility] 4 06:28:43 Screenin g for malignan t neoplasm of colon Completed 201210/10/2013 RECORDED 02/25/20 13 10:09AM BY IRVING MARTINEZ MA, ANNOTATI ON/ADDEN DUM Not Available [facility] 4 06:28:43 Respirat ory finding 882240546 Completed 200710/10/2013 IMPRESSI ON: PROBABLY RELATED TO OBESITY; RECORDED 11/30/19 08 9:59AM BY IRVING MARTINEZ MA, ANNOTATI ON/ADDEN DUM Not Available [facility] 4 06:28:43 Edema 830841396 Completed 201110/10/2013 RECORDED 09/26/19 12 11:26AM BY IRVING MARTINEZ MA, RACHAELATI ON/ADDEN DUM Not Available [facility] 4 06:28:43 Pain of elbow region 39845850 Completed 201110/10/2013 IMPRESSI ON: NORMAL EXAM. CANNOT REPRODUC E PAIN TODAY. WILL FOLLOW UP NEEDED.; RECORDED 09/26/19 12 11:27AM BY IRVING MARTINEZ MA, ANNOTATI ON/ADDEN DUM Not Available [facility] 4 06:28:43 Dizzines s and giddines s 934743764 Completed 201110/10/2013 RECORDED 09/26/19 12 11:27AM BY IRVING MARTINEZ MA, HE ON/ADDEN DUM Not Available [facility] 4 06:28:43 Follow-u p encounte r Completed 201210/10/2013 RECORDED 05/13/19 13 2:25PM BY IRVING MARTINEZ MA, EH ON/ADDEN DUM Not Available [facility] 4 06:28:43 Malaise and fatigue 043465154 Completed 201110/10/2013 RECORDED 09/26/19 12 11:27AM BY IRVING MARTINEZ MA, ANNOTATI ON/ADDEN DUM Not Available [facility] 4 06:28:43 Adult health examinat ion Completed 201310/10/2013 RECORDED 05/13/19 14 11:06AM BY GINA LOZOYA MA, ANNOTATI ON/ADDEN DUM Not Available [facility] 4 06:28:43 General examinat ion of patient Completed 200710/10/2013 RECORDED 11/30/19 08 9:59AM BY IRVING MARTINEZ MA, ANNOTATI ON/ADDEN DUM Not Available [facility] 4 06:28:43 Hypercho lesterol emia 77707017 Completed 201210/10/2013 RECORDED 02/25/20 13 10:09AM BY IRVING MARTINEZ MA, ANNOTATI ON/ADDEN DUM Not Available [facility] 4 06:28:43 Hypersom kt 36149426 Completed 201110/10/2013 RECORDED 09/26/19 12 11:27AM BY IRVING MARTINEZ MA, ANNOTATI ON/ADDEN DUM Not Available [facility] 4 06:28:43 Lateral epicondy litis 581052845 Completed 201110/10/2013 RECORDED 07/22/19 12 9:36AM BY JIM ACUNA MD, ANNOTATI ON/ADDEN DUM Not Available [facility] 4 06:28:43 Low back pain 094148631 Completed 201110/10/2013 RECORDED 09/26/19 12 11:27AM BY IRVING MARTINEZ MA, ANNOTATI ON/ADDEN DUM Not Available [facility] 4 06:28:43 Renewal of prescrip tion Completed 201210/10/2013 RECORDED 02/25/20 13 10:08AM BY IRVING MARTINEZ MA, ANNOTATI ON/ADDEN DUM Not Available [facility] 4 06:28:43 Menstrua tion finding Completed 201210/10/2013 RECORDED 04/09/19 13 1:50AM BY IRVING MARTINEZ MA, HE ON/ADDEN DUM Not Available [facility] 4 06:28:43 Influenz a vaccine needed [id number] 06 Completed 201010/10/2013 DATE: 02/20/20 11; RECORDED 09/26/19 12 11:27AM BY IRVING MARTINEZ MA, ANNOTTONY ON/ADDEN DUM Not Available [facility] 4 06:28:43 Pain of joint of wrist 340076718 Completed 201110/10/2013 RECORDED 09/26/19 12 11:27AM BY IRVING MARTINEZ MA, ANNOTTONY ON/ADDEN DUM Not Available [facility] 4 06:28:44 Knee pain Completed 201110/10/2013 RECORDED 09/26/19 12 11:27AM BY IRVING MARTINEZ MA, ANNOTTONY ON/ADDEN DUM Not Available [facility] 4 06:28:44 Psychoti c disorder 75770333 Completed 200810/10/2013 RECORDED 12/27/19 09 10:34AM BY JIM ACUNA MD, ANNOTATI ON/ADDEN DUM Not Available [facility] 4 06:28:44 Tinea pedis 6714638 Completed 201210/10/2013 HANNAH Freeman MA - [facility] 2 09:58:30 Tinnitus 77310063 Completed 201110/10/2013 RECORDED 09/26/19 12 11:26AM BY IRVING MARTINEZ MA, ANNOTATI ON/ADDEN DUM Not Available [facility] 4 06:28:44 Enthesop athy of hip region 01809812 Completed 200810/10/2013 RECORDED 12/27/19 09 10:35AM BY JIM ACUNA MD, ANNOTATI ON/ADDEN DUM Not Available [facility] 4 06:28:44 Heart murmur 61832787 Completed 200810/10/2013 IMPRESSI ON: RULE OUT SIGNIFIC ANT AORTIC STENOSIS ; RECORDED 12/27/19 09 10:34AM BY JIM ACUNA MD, ANNOTATI ON/ADDEN DUM HANNAH Freeman, [facility] 8 11:15:53 Urge incontin ence of urine 82902198 Completed 201110/10/2013 RECORDED 09/26/19 12 11:27AM BY IRVING MARTINEZ MA, ANNOTTONY ON/ADDEN DUM Not Available [facility] 4 06:28:44 Increase d frequenc y of urinatio n 103944024 Completed 201210/10/2013 RECORDED 02/25/20 13 10:08AM BY IRVING MARTINEZ MA, ANNOTATI ON/ADDEN DUM Not Available [facility] 4 06:28:44 Upper abdomina l pain 85441193 Completed 07/06/2016 Jim Acuna MD [address], [place], [address] , [facility] 7 12:17:35 Urge incontin ence of urine 10870430 Active Christal mast, [facility] 0 15:44:01 Neck pain 41852261 Completed 07/06/2016 Umberto Frost MD [address], [place], [address] , [facility] 8 14:00:26 Ulnar neuropat hy 968968710 Active Christal mast [facility] 0 15:44:01 Eczema 53450916 Active 2016 Christal mast [facility] 0 10:21:02 Acute sinusiti s 19993234 Completed 06/23/2018 HANNAH Freeman, [facility] 9 10:46:37 Cough 13343431 Completed 07/13/2017 Irving lechuga HANNAH null, [facility] 8 11:32:18 Inflamma tion of rotator cuff tendon 716399925 Active Christal mast, [facility] 0 15:44:02 Foot pain 73884462 Completed 09/09/2017 Sakina Fournier MA null, [facility] 8 13:26:54 Greater trochant mariela pain syndrome 8520998 Active Christal mast, [facility] 0 15:44:01 Osteoart hritis of knee [facility]2896337 [facility] Advance directiv e lyndon d with patient 701981428 [facility] 15:44:02 Fatigue 54678739 Completed 07/06/2016 Jim Acuna MD [address] [address], [place], [address] , [facility] 7 12:17:31 Leukocyt es in urine 258864727 [facility] 15:[facility] Urinary tract infectio us disease 66427779 Completed 07/06/2016 Jim Acuna MD [address] [address], [place], [address] , [facility] 7 12:17:42 Candidia sis of skin 64800539 Completed 07/06/2016 Jim Acuna MD [address] [address], [place], [address] , [facility] 7 12:17:49 Edema of lower extremit y 349162362 [facility] 15:44:01 Keratoco nus 19026330 Active 2016 Christaldeo mast, [facility] 0 15:44:01 Osteopen ia 235916782 Completed 201308/22/2022 Darren Callaway MD [address], [facility] [place], [address] , [facility] 3 18:00:45 Heart murmur 61886497 Active 2017 Christaldeo mast, [facility] 0 15:44:02 Neck pain 70164922 Active 2017 Christaldeo dOell null, [facility] 0 15:44:02 Internal hemorrho ids 74961842 Active 2002 Christaldeo mast, [facility] 0 15:44:02 Soft corn 82425517 Active 2016 Christal mast, [facility] 0 15:44:02 Cellulit is and abscess of toe 173789009 Completed 201609/12/2019 [facility] 0 10:59:12 Onychomy cosis 013237318 Active 2016 Christaldeo mast, [facility] 0 15:44:01 Ulcer of toe 713591159 Active 2016 Christaldeo mast, [facility] 0 15:44:02 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 e 619084599 Active 2013 Christaldeo Odell null, [facility] 0 10:21:02 Mixed bipolar I disorder 12114245 Active 2013 Christaldeo mast, [facility] 0 10:21:02 Edema 057175260 [facility] 0 10:21:02 Macrocyt osis - no anemia 659311649 Active 2019 Christal mast [facility] 0 15:44:02 Thoracic back pain 568803589 Active 2019 Regino Bah PA-C [address], [place], [address] , [facility] 0 14:10:22 Tinea pedis 6948110 Active 2012 HANNAH Freeman, [facility] 2 09:58:30 Hyperten marciano monitori ng status 542563941 Active 2022 dis enroll Renetta Jenaro mast [facility] 3 09:44:35 Osteopor osis 53591061 Active 2022 Darren Callaway MD [address], [place], [address] , [facility] 3 18:00:39 Problem Notes None recorded. Procedures Surgical History Date Name Laterality Status Provider Name and Address Organization Details Recorded Time 09/28/19 22 Advanced Care Planning completed Irving montes MA [facility] 09/27/2021 10:24:58 09/13/19 22 Most Recent Mammogram completed Christal Odell [facility] 09/13/2021 15:29:18 09/13/19 22 Mammogram screening completed Christal Odell [facility] 09/13/2021 15:29:11 09/13/19 22 ultrasonography of bilateral breasts completed Christal Odell [facility] 09/13/2021 15:29:49 09/12/19 20 Six-Item Cognitive Test completed Irving montes MA [facility] 09/12/2019 11:17:21 08/17/19 19 Mini-Cog Test completed Irving montes MA [facility] 08/16/2018 09:51:34 07/14/19 18 Mini-Cog Test completed Irving Cabral-Vishal montes MA [facility] 07/13/2017 11:48:01 04/22/19 17 Date of Last Pap Smear completed Irving Cabral-Vishal montes, HANNAH [facility] 12/31/2016 08:56:34 04/30/19 16 Advanced Care Planning completed Irving Cabral-Vishal os, HANNAH [facility] 04/30/2015 13:14:24 08/24/19 14 Most Recent Bone Density completed Irving Cabral-Vishalherbert montes [facility] 12/31/2016 08:57:31 08/24/19 14 Dxa bone density hunter vrt fx completed Irving Cabral-Vishalherbert montes [facility] 12/31/2016 08:57:41 02/01/20 03 Date of Last Colonoscopy completed Doreen Mahmood MA [facility] 07/04/2016 10:30:29 02/01/20 03 Colonoscopy completed Irving Cabral-Vishalherbert montes [facility] 08/16/2018 09:39:15 03/02/18 99 excision of uterine polyp completed Irving montes [facility] 04/24/2018 08:47:27 Cologuard completed Irving Cabral-Vishal jyoti, [facility] 12/06/2021 14:12:10 Imaging Results None recorded. Procedure Notes None recorded. Medical Equipment None [...] bromide 21 mcg (0.03 %) nasal spray [place] 2 sprays 3 times a day by [...] for 1 week 01/19 completed Given at [facility] 12/29/17 Not Available Not Available Not Available [...] blood by Pulse oximetry Body temperature Systolic And Diastolic Systolic And Diastolic Provider Name and Address Organization Details Last Updated DateTime 2 168.91 cm 28.3 kg/m2 15253.4 4 g 47 /min 100 % 100 % 98.24 [degF] 150/77 mm[Hg] 132/80 mm[Hg] Doreen Mahmood MA [facility] 2 13:08:38 Date Recorded Heart rate Systolic And Diastolic Provider Name and Address Organization Details Last Updated DateTime 07/10/2021 46 /min 128/71 mm[Hg] Not Available [facility] 07/11/2021 17:46:05 Date Recorded Heart rate Systolic And Diastolic Provider Name and Address Organization Details Last Updated DateTime 07/11/2021 50 /min 113/77 mm[Hg] Not Available [facility] 07/11/2021 17:45:03 Date Recorded Body height Body mass index (BMI) Body weight Heart rate Oxygen saturation Oxygen saturation in Arterial blood by Pulse oximetry Body temperature Heart rate Heart rate Heart rate Systolic And Diastolic Systolic And Diastolic Systolic And Diastolic Systolic And Diastolic Provider Name and Address Organization Details Last Updated DateTime 2 168.91 cm 27.7 kg/m2 35806.0 7 g 51 /min 98 % 98 % 98.24 [degF] 42 /min 53 /min 48 /min 108/62 mm[Hg] 100/72 mm[Hg] 116/66 mm[Hg] 118/62 mm[Hg] Irving arias MA [facility] 2 11:38:19 Date Recorded Body height Body mass index (BMI) Body weight Heart rate Oxygen saturation Oxygen saturation in Arterial blood by Pulse oximetry Body temperature Systolic And Diastolic Provider Name and Address Organization Details Last Updated DateTime 2 168.91 cm 28.3 kg/m2 09662.4 4 g 56 /min 99 % 99 % 98.24 [degF] 129/74 mm[Hg] Irving arias MA [facility] 2 14:11:12 Social History Question Answer Notes LastModified by Organizat ion Details LastModified Time Tobacco Smoking Status Never Smoker HANNAH Vann [facility] 11/04/2013 12:55:47 Do You Have An Advance Directive? Yes HCP Information not available 04/30/2015 What Is Your Level Of Caffeine Consumption? [...] For COVID-19? No Information not available 09/12/2019 What Type Of Diet Are You Following? REGULAR Information not available 11/04/2013 Which Illicit Or Recreational Drugs Have You Used? None Information not available 11/04/2013 Live Alone Or With Others? With Others Lives In [place] With 5 Other Women [email or web address] Information not available 08/16/2018 Do You Take [...] How Many Children Do You Have? 2 Ezzard And Miguel Information not available 07/13/2017 Seat Belts Used Routinely Yes Information not available 04/30/2015 Are You Sexually Active? No Information not available 04/30/2015 Smoke Alarm In Home Yes Information not available 04/30/2015 At What Age Did You Start Smoking Tobacco? 0 Information not available 04/30/2015 Are You Passively Exposed To Smoke? No Information not available 04/30/2015 How Much Tobacco Do You Smoke? No Information not available 11/04/2013 Do You Use Sunscreen Routinely? Yes In Face Cream Information not available 04/30/2015 How Many Years Have You Smoked Tobacco? 0 Information not available 04/30/2015 Sex: Unknown Functional Status Question Answer Note LastModified by Organizat ion Details LastModified Time Do you use any illicit or recreational drugs? No Information not available 09/24/2020 Do you or have you ever used any other forms of tobacco or nicotine? No Information not available 09/27/2021 What is your level of alcohol consumption? None Information not available 11/04/2013 Do you or have you ever used smokeless tobacco? Never used smokeless tobacco Information not available 08/19/2019 Are you currently employed? No retired Information not available 11/04/2013 Are you able to walk? YESWOREST Information not available 09/24/2020 Are you able to care for yourself? 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 Never used electronic cigarettes Information not available 08/16/2018 What is your exercise level? Moderate walking 4 x week Information not available 09/27/2021 Mental Status None recorded. Family History Relationship Description Onset Age of this Age Resolved Age Notes LastModified by Organization Details LastModified Time Unspecified Relation Heart disease [email or web address] Not available 01/06 13:54:42 Unspecified Relation Hypercholest [...] pneumococcal polysaccharide PPV23 019 completed HANNAH Gonzalez [facility] 10/18/2021 14:56:22 Tdap 016 completed HANNAH Gonzalez [facility] 10/18/2021 14:56:23 Influenza, split virus, quadrivalent, PF 017 cancelled patient objection Not Available [facility] 03/19/2019 02:22:07 zoster live 017 cancelled patient objection Not Available [facility] 03/19/2019 02:21:33 Pneumococcal conjugate PCV 13 018 cancelled patient objection Not Available [facility] 03/19/2019 02:21:38 Influenza, high-dose, trivalent, PF 018 cancelled patient objection Not Available [facility] 03/19/2019 02:22:14 Influenza, high-dose, quadrivalent, PF 020 cancelled patient objection Regino Bah PA-C [address] [address], [place], [address], [facility] 01/18/2020 11:55:35 varicella completed Christal Odell null, [facility] 12/08/2019 15:44:02 Td (adult), 2 Lf tetanus toxoid, preservative free, adsorbed completed Christal Odell null, [facility] 12/08/2019 15:44:02 Past Encounters Encounter ID Performer Location Encounter Start Date Encounter Closed Date Diagnosis/Indication Diagnosis SNOMED-CT Code Diagnosis ICD10 Code Diagnosis Note [id number] [facility] [address] [facility] [place] [address] 04/08/2005 00:00:00 [id number] autoEComm erce [address] [facility] [place] [address] 10/07/2005 00:00:00 [id number] autoEComm erce [address] [facility] [place] [address] 09/01/2004 00:00:00 [id number] autoEComm erce [address] [facility] [place] [address] 03/14/2004 00:00:00 [id number] autoEComm erce [address] [facility] [place] [address] 04/21/2006 00:00:00 [id number] autoEComm erce [address] [facility] [place] [address] 11/25/2006 00:00:00 [id number] autoEComm erce [address] [facility] [place] [address] 05/25/2007 00:00:00 [id number] autoEComm erce [address] [place] [address] 11/30/2007 00:00:00 [id number] autoEComm erce [address] [place] [address] 12/17/2007 00:00:00 [id number] autoEComm erce [address] [place] [address] 03/13/2008 00:00:00 [id number] autoEComm erce [address] [facility] [place] [address] 04/19/2008 00:00:00 [id number] autoEComm erce [address] [facility] [place] [address] 05/24/2008 00:00:00 [id number] autoEComm erce [address] [facility] [place] [address] 12/26/2008 00:00:00 [id number] autoEComm erce [address] [facility] [place] [address] 02/13/2009 00:00:00 [id number] autoEComm erce [address] [facility] [place] [address] 07/11/2009 00:00:00 [id number] autoEComm erce [address] [facility] [place] [address] 01/16/2010 00:00:00 [id number] autoEComm erce [address] [facility] [place] [address] 07/19/2010 00:00:00 [id number] autoEComm erce [address] [place] [address] 10/16/2010 00:00:00 [id number] autoEComm erce [address] [facility] [place] [address] 01/08/2011 00:00:00 [id number] autoEComm erce [address] [facility] [place] [address] 02/19/2011 00:00:00 [id number] autoEComm erce [address] [facility] [place] [address] 07/22/2011 00:00:00 [id number] autoEComm erce [address] [facility] [place] [address] 09/26/2011 00:00:00 [id number] autoEComm erce [address] [facility] [place] [address] 12/31/2011 00:00:00 [id number] autoEComm erce [address] [facility] [place], [place] [address] 02/13/2012 00:00:00 [id number] autoEComm erce [address] [facility] [place], [place] [address] 05/12/2012 00:00:00 [id number] autoEComm erce [address] [facility] [place] [address] 06/30/2012 00:00:00 [id number] autoEComm erce [address] [facility] [place] [address] 02/24/2013 00:00:00 [id number] autoEComm erce [address] [facility] [place] [address] 05/12/2013 00:00:00 [id number] Jim Acuna MD Main Office [address] [facility] [address] [place], [place] [address] 11/04/2013 12:44:53 11/04/2013 13:18:10 Upper abdominal pain [id number] ANNEMARIE Peterson Main Office [address] [facility] [address] [place], [place] [address] 11/23/2013 10:19:13 11/23/2013 11:07:31 Bipolar disorder 10816789 Off lithium for at least 2 weeks with psychotic features today. We called her pharmacy and she does not have a script for lithium there. Spoke with Nimco at [facility] who confirmed that patient's psychiatri st has left the practice and she needs to get appt with another psych provider. She states that they will take care of the lithium and getting her set up with new psych provider. [id number] Jim Acuna MD Main Office [address] [address] [place] [address] 01/06/2014 13:39:27 01/06/2014 14:34:19 Urge incontinence of urine 94844434 Benign par oxysmal positional vertigo 665502664 Neck pain 07590280 Bipolar disorder 89550566 Body mass index 30+ - obesity 245294956 [id number] Jim Acuna MD Main Office [address] [address] [place] [address] 01/23/2014 10:15:09 01/23/2014 11:24:01 Screening for malignant neoplasm of colon 084223935 Ulnar neuropathy 277906177 Eczema 44319303 [id number] Jim Acuna MD Main Office [address] [address] [place] [address] 03/23/2014 12:52:26 03/23/2014 13:36:12 Ulnar neuropathy 170982035 Eczema 14438102 [id number] Jim Acuna MD Main Office [address] [address] [place] [address] 05/12/2014 13:19:24 05/12/2014 13:51:13 Acute sinusitis 53942380 Cough 38325060 Inflammati on of rotator cuff tendon 087615988 Urge incon tinence of urine 03599494 [id number] Jim Acuna MD Main Office [address] [address] [place] [address] 06/02/2014 09:56:15 06/02/2014 11:15:11 Foot pain 89536662 [id number] Jim Acuna MD Main Office [address] [address] [place] [address] 08/04/2014 13:49:12 08/04/2014 15:04:43 Inflammation of rotator cuff tendon 128885645 Greater tr ochanteric pain syndrome 3312513 Osteoarthr itis of knee 072863289 Left knee pain [id number] Jim Acuna MD Main Office [address] [address] [place] [address] 08/28/2014 15:41:48 08/28/2014 16:15:35 Osteoarthritis of knee 709309261 [id number] Jim Acuna MD Main Office [address] [address] [place] [address] 04/30/2015 12:54:18 04/30/2015 14:20:29 Adult health examination 817551425 Z00.00 Advance di rective discussed with patient 106602239 Z71.89 Body mass index 30+ - obesity 881947170 Z68.32 Administra tion of diphtheria, pertussis, and tetanus vaccine 850941102 Z23 Eczema 90267139 L30.9 Fatigue 48002479 R53.83 Hyperlipidemia 28963235 E78.5 Urge incon tinence of urine 62108438 N39.41 Bipolar disorder 2834390 4 F31.9 [id number] Jim Acuna MD Main Office [address] [address] [place] [address] 09/28/2015 15:19:11 09/28/2015 16:05:15 Edema of lower extremity 670433604 R60.0 Likely related to OA and swelling of right knee [id number] Jim Acuna MD Main Office [address] [address] [place] [address] 01/30/2016 12:37:28 01/30/2016 13:31:39 Edema of lower extremity 759560201 R60.0 Likely related to OA and swelling of right knee [id number] Jim Acuna MD Main Office [address] [address] [place] [address] 07/04/2016 10:56:03 07/04/2016 11:59:10 Adult health examination 853487725 Z00.00 Osteoarthr itis of knee 107896827 M17.0 Varicella vaccination 68 410828 Z23 Screening for malignant neoplasm of breast 835108090 Z12.39 Greater tr ochanteric pain syndrome 7808927 M70.62 Essential hypertension 42392995 I10 Stable on present medication s. Edema of l ower extremity 142738392 R60.0 Likely related to OA and swelling of right knee Bipolar disorder 2522645 4 F31.9 Stable on mood stabilizer s. Followed by psychiatry . [id number] Jim Acuna MD Main Office [address] [address] [place] [address] 10/02/2016 13:49:43 10/02/2016 13:57:42 [id number] Jim Acuna MD Main Office [address] [address] [place] [address] 11/05/2016 09:30:51 11/05/2016 14:09:26 [id number] Marisabel Bah PA-C Main Office [address] [address] [place] [address] 12/12/2016 11:35:08 12/12/2016 12:23:48 Ulcer of toe 343489242 L97.509 infected fungal ulcer of R. 5th toe. Start Abx as directed and antifungal . POdiatry referral ISMA w/i 1 week. Cellulitis of toe 772795 04 L03.031 [id number] Jim Acuna MD Main Office [address] [address] [place] [address] 12/29/2016 09:20:06 12/29/2016 10:50:03 Tinea pedis 7757457 B35.3 Osteoarthr itis of knee 654342241 M17.0 [id number] Jim Acuna MD Main Office [address] [address] [place] [address] 01/15/2017 10:56:09 01/15/2017 12:48:49 Immunization refused 372190122 Z28.21 Unexplaine d visual loss 708684263 H54.7 [id number] Jim Acuna MD Main Office [address] [address] [place] [address] 01/28/2017 14:14:29 01/28/2017 15:14:32 Carpal tunnel syndrome 54468330 G56.01 G56.02 Intolerant of cold 65309 000 R68.89 [id number] Jim Acuna MD Main Office [address] [address] [place] [address] 03/27/2017 15:38:56 03/27/2017 16:55:30 Neck pain 86961116 M54.2 [id number] Jim Acuna MD Main Office [address] [address] [place] [address] 03/31/2017 09:37:21 03/31/2017 16:40:58 [id number] Jim Acuna MD Main Office [address] [address] [place] [address] 05/20/2017 09:25:07 05/20/2017 13:50:34 [id number] Jim Acuna MD Main Office [address] [address] [place] [address] 06/15/2017 10:57:28 06/15/2017 11:57:04 Screening for malignant neoplasm of colon 644615898 Z12.11 Screening for malignant neoplasm of breast 005872655 Z12.31 Hepatitis C screening 41 5707426 Z11.59 Irritable bowel syndrome 25650042 K58.9 Fatigue 40490754 R53.83 Neck pain 13387157 M54.2 [id number] Jim Acuna MD Main Office [facility] [address] [place] [address] 07/08/2017 09:51:00 07/08/2017 14:40:19 [id number] Jim Acuna MD Main Office [address] [address] [place] [address] 07/13/2017 11:27:59 07/13/2017 12:39:37 Screening for malignant neoplasm of colon 722851774 Z12.11 Screening for malignant neoplasm of breast 058768081 Z12.31 Administra tion of pneumococcal vaccine 49613565 Z23 Adult [facility] th examination 929376860 Z00.00 Essential hypertension 20000658 I10 Stable on present medication s. At [facility] ed risk for falls 936077900 Z91.81 Bipolar disorder 9753197 4 F31.9 Stable on mood stabilizer s. Followed by psychiatry . Daily headache 834346729 1 03 R51 [id number] Regino Bah PA-C Main Office [address] [address] [place] [address] 09/09/2017 14:06:29 09/09/2017 15:20:20 Eruption 953857764 R21 more so itchy nodules on various aspects of body, curr 2 lesions on R hand (dorsum) - will get derm eval - meanwhile, trial of zyrtec bedtime, could use benadryl cream topically, and give empiric bactrim - and probiotic supp/yogur t [id number] Umberto Frost MD Main Office [address] [address] [place] [address] 10/27/2017 13:21:07 10/27/2017 14:06:27 Neck pain 06359755 M54.2 Neck sprain possibly from sleeping in a sitting up position. [id number] Regino Bah PA-C Main Office [address] [address] [place] [address] 11/16/2017 08:34:27 11/16/2017 09:36:09 Neck pain 40165678 M54.2 pt confused about voltaren gel, wishes to use tablet for pain. rec nap 500mg bid c food, can use moist heat / hep, and if no sig help then try voltaren gel Osteoarthr itis of knee 599915169 M17.11 cont to f/u c ortho [id number] Jim Acuna MD Main Office [address] [address] [place] [address] 12/31/2017 09:37:15 12/31/2017 16:42:22 [id number] Jim Acuna MD Main Office [facility] [address] [place] [address] 01/08/2018 13:10:17 01/08/2018 14:31:30 Influenza vaccine needed 0389993755 106 Z23 Acute cystitis 26989668 N30.01 Improved with abx. [id number] Jim Acuna MD Main Office [facility] [address] [place] [address] 01/25/2018 10:28:45 01/25/2018 11:23:07 Edema of lower extremity 784175515 R60.0 Likely related to OA and swelling of right knee Bipolar disorder 2251583 4 F31.9 Stable on mood stabilizer s. Followed by psychiatry . [id number] Jim Acuna MD Main Office [address] [address] [place] [address] 04/24/2018 08:42:01 04/24/2018 10:03:44 Screening for malignant neoplasm of breast 062576208 Z12.31 Screening for malignant neoplasm of colon 799443795 Z12.11 Increased thirst 7902307 03 R63.1 Fatigue 60676670 R53.83 Tremor 72380937 R25.1 Likely medication side effect from Li salts Bipolar disorder 1576043 4 F31.9 Stable on mood stabilizer s. Followed by psychiatry . [id number] Debbie edward MD Main Office [address] [place] [address] 06/18/2018 09:41:12 06/18/2018 11:19:33 Lightheadedness 810799647 R42 check labs and US, normal neuro exam for today. Pt to call if acutely worsening. Unable to do EKG today as machine not working, pt declines going to cardiology office for this. Will come back next week to do this. BP low, will have pt stop hctz to see if this helps Neck pain 12568007 M54.2 pt has known arthritis, consider PT referral. Advised to try tylenol 2 tabs bid with local heat and if not better to call. [id number] Kan Newton MD Main Office [address] [place] [address] 07/12/2018 14:47:11 07/12/2018 15:47:19 Numbness of hand 116496853 R20.0 check addtional labs and do EMG of upper extremitie s Lightheadedness 70907804 8 R42 workup so far negative, will add labs above and awaiting echo. Pt advised to keep hydrated and change position slowly. If testing negative consider neurology referral. Pt seeing Dr Acuna in a month [id number] Jim Acuna MD Main Office [address] [place] [address] 08/16/2018 09:20:14 08/16/2018 10:53:40 Screening for malignant neoplasm of breast 482654913 Z12.31 Administra tion of pneumococcal vaccine 22456074 Z23 Screening for malignant neoplasm of colon 787262340 Z12.11 Adult heal th examination 199025325 Z00.00 Essential hypertension 75776617 I10 Stable on present medication s. Osteoarthr itis of knee 472121516 M17.0 Bipolar disorder 3238275 4 F31.9 Stable on mood stabilizer s. Followed by psychiatry . Body mass index 25-29 - overweight 049617785 E66.3 Z68.25 Neck pain 61181394 M54.2 [id number] Jim Acuna MD Main Office [address] [address] [place] [address] 09/17/2018 09:57:38 09/17/2018 12:43:17 [id number] Jim Acuna MD Main Office [address] [address] [place] [address] 09/20/2018 09:05:25 09/20/2018 10:46:33 Headache 45816041 R51 [id number] Debbie edward MD Main Office [address] [address] [place] [address] 01/28/2019 10:52:53 01/28/2019 11:39:09 Vertigo 616209080 R42 mild and brief only when turns head to left while in bed, of note pt with unilateral hearing loss on left dx by ENT and is trying to get a hearing aid, will refer to ENT for possible need for imaging due to unilateral hearing loss and vertigo. we will make appt Hearing loss 28624393 H9 1.92 dx prior to this visit by ENT, trying to get a heaaring aid for the left no hx of imaging as per pt [id number] Jim Acuna MD Main Office [address] [address] [place] [address] 04/01/2019 09:52:05 04/01/2019 10:54:38 Essential hypertension 15382533 I10 Stable on present medication s. Bipolar disorder 3645884 4 F31.9 Stable on mood stabilizer s. Followed by psychiatry . Body mass index 25-29 - overweight 457968524 E66.3 Z68.25 [id number] Jim Acuna MD Main Office [address] [address] [place] [address] 08/19/2019 09:56:11 08/19/2019 10:40:59 Hyperlipidemia 49725099 E78.5 Fatigue 96301082 R53.83 Edema of l ower extremity 547159495 R60.0 Likely related to OA and swelling of right knee [id number] Jim Acuna MD Main Office [address] [facility] [address] [place] [address] 09/12/2019 10:32:49 09/12/2019 11:42:12 Adult health examination 052643709 Z00.00 Declines PT program for fall prevention Essential hypertension 57062515 I10 Stable on present medication s. Edema of l ower extremity 311837177 R60.0 Likely related to OA and swelling of right knee Osteoarthr itis of knee 393865923 M17.0 Bipolar disorder 6308354 4 F31.9 Stable on mood stabilizer s. Followed by psychiatry . [id number] Kan Newton MD Main Office [address] [address] [place] [address] 12/14/2019 09:14:43 12/14/2019 10:35:34 Essential hypertension 77890262 I10 bp stable lately off of meds, encouraged pt to begin low dose indapamide if her bp > 140/90 ? 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 - no evidence of tia/cva - filled out clearance for dental work Edema of l ower extremity 627456877 R60.0 stable today - could use diuretic prn, rec elevate LE prn, consider resume comp socks prn [id number] Kan Newton MD Main Office [address] [address] [place] [address] 01/18/2020 10:19:01 01/18/2020 12:01:57 Influenza vaccine needed 1776011748 106 Z23 Thoracic back pain 22324 8004 M54.6 R rhomboid major sprain - printed other exercises from web and gave to pt, also could use warm compress or prn tyl [id number] Jim Acuna MD Main Office [address] [facility] [address] [place] [address] 03/12/2020 09:58:06 03/12/2020 11:15:43 Essential hypertension 75869548 I10 Stable on present medication s. Screening for malignant neoplasm of colon 711396225 Z12.11 Agrees to do FIT test. Declines repeat colonoscop y. Bipolar disorder 4559864 4 F31.9 Stable on mood stabilizer s. Followed by psychiatry . [id number] Regino Bah PA-C Main Office [address] [address] [place] [address] 07/18/2020 14:41:21 07/18/2020 16:12:57 Poor short-term memory 314869907 R41.3 will get neuro eval as per pt request - see hpi and pe as well Bipolar disorder 8798273 4 F31.9 cont meds, f/u c therapist, psychiatri st as dir pt seemed very paranoid today - offered reassuranc e that her skull was normal - see above * will fwd this note to psych * [id number] Jim Acuna MD Main Office [address] [address] [place] [address] 09/24/2020 10:00:37 09/24/2020 11:36:05 Adult health examination 163950025 Z00.00 Declines PT program for fall prevention Essential hypertension 90820511 I10 Stable on present medication s. Fatigue 71884852 R53.83 Hyperlipidemia 21801855 E78.5 Tinea pedis 3622636 B35. 3 right foot between 4th and 5th digits Mixed bipo lar I disorder 07162466 F31.60 Followed by psychiatry . Stable on lithium [id number] Darren Callaway MD Main Office [address] [address] [place] [address] 12/26/2020 09:19:14 12/26/2020 10:08:29 Essential hypertension 15190777 I10 Stable without medication Advised to cw lifestyle changes Mixed bipo lar I disorder 14206017 F31.60 Followed by psychiatry . Stable on lithium Pain in both feet 083037 6299 5127476 M79.671 likely related to OA. Hyperlipidemia 57091334 E78.5 ASCVD 9.8% patient was not taking medication as prescribed .Advised to start due to risk will f/u in 6 mo visit.Medi cation adherence advised.Al so discussed lifestyle changes. [id number] Darren Callaway MD Main Office [address] [address] [place] [address] 05/03/2021 10:18:54 05/03/2021 10:59:53 Greater trochanteric pain syndrome 6817584 M70.61 M70.62 Denies hx smoking or calf [...] bursitis PT referral placed and medrol sent.Medro l antelmo started for pain.Gabap entin for neuropathi c type symptoms.R ed flags discussed if loss of feeling or sensation/ unable to walk or unable to control bowel or bladder then to go to ED . Neuropathy 681085771 G62 .9 Notes to neuropathi c type pain going down legsThen tells me she also get down arms.On lithium thus will check levles. [id number] Darren Callaway MD Main Office [address] [address] 06/19/2021 12:39:29 06/19/2021 13:28:32 Essential hypertension 94285228 I10 Stable without medication within JNC 8 guideline but will do RPM to see if we need to regulate her bp more.Mercedez in asymptmati c.Advised to cw lifestyle changesLow sodium diet discussedC ounseled on diet/exerc iseAdvised to keep BP daily BP log and technique counseled. Red flags of HTN emergency discussed and when to go to ED. Screening for malignant neoplasm of colon 725189825 Z12.11 Z12.12 does not want to have colo prefers FIT.ordere d, limitation discussed. [id number] Darren Callaway MD Main Office [address] [address] 09/27/2021 10:18:49 09/27/2021 11:45:11 Essential hypertension 60598464 I10 Mercedez's blood pressures been stable she was enrolled in remote patient monitoring however she tells me that she would like disenroll, she will reach out to the [employer] to do this.Advis ed to cw lifestyle changesLow sodium diet discussedC ounseled on diet/exerc iseAdvised to keep BP daily BP log and technique counseled. Red flags of HTN emergency discussed and when to go to ED. Mixed bipo lar I disorder 03463919 F31.60 Followed by psychiatry . Stable on lithium/ri speridone. Advance di rective discussed with patient 872779807 Z71.89 Dizziness 351150316 R42 Mercedez's dizziness is triggered and episodic, [...] advised to limit caffeine intake. Nail changes 322096908 L 60.9 Carolyn nail changes was noted on the left thumb she denies any trauma she notes it was only noted when she went and got a manicure, and there is some darkening in the nailbed I have referred her to a dermatolog ist to ensure that this is not anything sinister. Incontinence of feces 72 535704 R15.9 A digital rectal exam was present, [...] physical exam. Benign par oxysmal positional vertigo 532676225 H81.10 Although this Hallpike was negative she notes that she had this before in the past and she did some vestibular therapy with good relief.Giv en the benign nature of physical therapy offered to provide it to her again. [id number] Darren Callaway MD Main Office [address] [place] [address] 12/06/2021 13:55:38 12/06/2021 14:51:23 Adult health examination 717115320 Z00.00 Patient was counseled on healthy diet, exercise and nutrition due to Body mass index is 28.3 kg/m . Last Colonoscop y:Date: 01/31/2003R esult: NegPlan: Does [...] reconciled . Advance directives discussed. Essential hypertension 95485634 I10 Stable on present medication s. Hyperlipidemia 95343127 E78.5 ASCVD 9.8% patient was not taking medication as prescribed .Advised to start due to risk will f/u in 6 mo visit.Medi cation adherence advised.Al so discussed lifestyle changes. Mixed bipo lar I disorder 42963485 F31.60 Followed by psychiatry . Stable on lithium Administra tion of pneumococcal vaccine 26288841 Z23 Incontinence of feces 72 881193 R15.9 Notes resolved. Influenza vaccination declined 392746636 Z28.21 Pain in bi lateral legs 1058591987 9044648 M79.604 M79.605 No calf tenderness on exam, mold +1 edema.Gerald es cristel sx. Bone density finding 385 641294 M85.80 Screening for malignant neoplasm of colon 435889196 Z12.11 Z12.12 does not want to have colo prefers FIT.ordere d, limitation discussed. [id number] Debbie edward MD [facility] [address] [place] [address] 02/08/2022 10:45:00 02/10/2022 12:02:30 Edema of lower extremity 485338529 R60.0 new problem to examiner, I reviewed AWV in 12/06/21 in detail. had one plus edema bilateral then, will have pt start 20mg lasix in middday and f/u in a month in office. also will check why did not have LE US that Dr Callaway had planned on at [facility] 12/06. [id number] Darren Callaway MD Main Office [address] [facility] [address] [place] [address] 04/11/2022 08:49:28 04/11/2022 12:58:26 Health Concerns Section Related Observation LastModified by Organization Detai ls LastModified Time None Recorded Concern Status LastModified by Organization Details LastModified Time None Recorded Advance Directives Directive Y: HCP Payers Insurance Date Sequence Insurance Name Policy Number Policy Carson Covered Member ID [place] Member ID Guarantor Name 06/25/2022 2 [place] [facility] Mercedez Fish Teo [id number] Mercedez Singh 09/27/2021 2 [place] [facility] Mercedez Singh [id number] Mercedez Singh 06/25/2022 1 [place] [employer] SERVICES Mercedez Fish Teo [id number] Mercedez Singh Notes Date Note Type Note Provider Name [...] and she understands. Darren Callaway MD [address] [facility] [address], [place], [address], [facility] 06/19/2021 13:29:58 09/27/2021 text/html Hypertension F/UReported bypatient.Associated [...] no lesions multiplying; no lesions spreadingSyncope/Dizz inessReported bypatient.Quality:jremain m spinning Duration:lasts minutes (5 min); typical [...] questionable fecal incontinence. Darren Callaway MD [address], [address] 09/27/2021 12:43:17 12/06/2021 text/html Hypertension F/UReported bypatient.Associated [...] using ASA. OTC/Herbal supplements use: centrum vitamin. [employer] hx:Age of menarche: age 12Age of menopause: [...] and questionable fecal incontinence. Darren Callaway MD [address] [address], [place], [address], [facility] 12/06/2021 14:43:15 02/08/2022 text/html telehealth visit . [...] not heard of an appt. Debbie mast, [facility] 02/08/2022 10:59:08 04/11/2022 text/html Hospitalization Contact RecordReported bypatient.Follow UpHospital: [facility]; admit date: (Please enter in format [...] disorder and psychosis initially was seen at [facility] ED after sustaining a fall in a salon. Patient was evaluated noted psychosis was transferred to [facility] for psychiatric stabilization. Evaluation:chronic paranoidlong history non compliance Patient was admitted for 2 days monitored closely, patient continue to express she wanted to be discharge. At this point patient was at baseline and discharge to follow closely with outpatient services. Darren Callaway MD [address] [facility] [address], [place], [address], [place] [facility] 04/11/2022 12:58:24 OBGyn Episode No OBEpisode recorded.
--- OUTSIDE RECORDS SUMMARY | 2024-09-01 12:29 | XMS_ITS | Clinical Summary ---
Author Organization [facility] ity Address [address] [place] [address] Care Team Providers Care Abrasive Band Winder Name Role Phone Jim Acuna MD Primary Care Provider [phone] Social History Tobacco Use Types Packs/Day Years [...] 2023-2 5 season) 2023 Influenza Vaccine (#1) 2024 RSV Immunization Adult Patie nts (1 [...] age to complete this topic Care Teams Abrasive Band Winder Relationship Specialty Start Date End Date Jim Acuna MD [address] PCP - General Internal Medicine 01/13/14
--- OUTSIDE RECORDS SUMMARY | 2024-09-01 12:29 | XMS_ITS | Patient Health Record ---
Author Organization [facility] Address [address] [place] [address] Care Team Providers Care Stewarding Supervisor Name Role Phone Jim Acuna MD Primary Care Provider Unavailab Nithya Roman Unavailable [phone] Reason For Referral No Information Medications Medication SIG (Take, Route, Frequency, Duration) Notes Start Date End Date Status SEROquel 400 MG 1 tablet at bedtime Orally Once a day Not-Taking oxyBUTYnin Active Physical Therapy . . R > L pes planus w ith peroneal tendonitis 2-3x/week; Duration: 3-4 weeks 01/17/2015 Active Ciclopirox Olamine 0.77% external Apply to effected areas twice a day; Duration: 30 days 01/17/2015 Active clonazePAM Active Topiramate 75 mg 1 tablet Orally Once a day Active Clotrimazole-Betamethaso ne 1-0.05 % 1 application to affected area Externally Twice a day to affected areas on feet; Duration: 30 days 02/22/2015 Active Streeter Carbonate 300 MG 1 capsule Orall y Three times a day Active Social History Tobacco use other than smoking: Question Answer Notes Are you an other tobacco user? No Problems Problem Type SNOMED Code ICD Code Onset Dates Problem Status W/U Status Risk Notes Problem Localized, primary osteoarthritis of the ankle and/or foot (620498973) Primary osteoarthrit is, right ankle and foot (M19.071) Active confirmed Problem Pes planus (07702889) Flat foot [pes planus] (acquired), left foot (M21.42) Active confirmed Problem Pes planus (74107193) Flat foot [pes planus] (acquired), right foot (M21.41) Active confirmed Plan Of Treatment No Information Insurance Providers Payer Name Payer Address Payer Phone Subscriber Number Group Number Insured Name Patient Relationship to Insured Coverage Start Date Coverage End Date Medicare National [employer] [address] [place] [address] [id number] Mercedez Bruce Self - patient is the insured Medical (General) History Medical History History ICD Code Back,Hip,and Knee pain Depression Fibromyalgia Chicken pox
[2024-09-01 12:31] LABS: Hematocrit 42.9 % (37.0-47.0); Hemoglobin 13.3 g/dl (12.0-16.0); Imm Gran Abs Auto 0.01 X10*3/uL (0.00-0.03); Imm Gran Pct Auto 0.2 % (0.0-0.4); Lymphocytes Absolute Auto 1.1 X10*3/uL (1.2-4.9); Mean Corpuscular HGB Conc 31.0 g/dl (31.0-35.0); Mean Corpuscular Hemoglobin 30.9 pg (27.0-33.0); Mean Corpuscular Volume 99.8 fL (80.0-98.0); NRBC Abs Auto 0.000 X10*3/uL (0.0-0.012); NRBC Pct Auto 0.0 /100WBC (0.0-0.2); Platelet Count 207 X10*3/uL (160-400); Red Blood Count 4.30 X10*6/uL (4.20-5.50); White Blood Count 4.2 X10*3/uL (4.8-10.8)
[2024-09-01 13:01] LABS: Lithium 0.56 mmol/L (0.60-1.20)
[2024-09-01 13:19] LABS: Blood Urea Nitrogen 19 mg/dL (9-16); Estimated Glomerular Filt Rate > 60
[2024-09-01 13:28] LABS: Thyroid Stimulating Hormone 0.29 uIU/mL (0.32-4.0)
== END 2024-09-01 11:54 | disposition home or self-care (01) ==
LOC: HO.LAB 11:53
PROVIDERS: Visit Provider Clinical Nurse Specialist Psychiatric/Mental Health, Adult
DX: F25.0 Schizoaffective disorder, bipolar type (principal)
CPT/HCPCS: 36415; 80178; 82565; 84443; 84520; 85025

== ENCOUNTER 2025-02-21 08:25 | Outpatient (REF) | payer MEDICARE, SELFPAY ==
--- OUTSIDE RECORDS SUMMARY | 2025-02-21 13:30 | XMS_ITS | Patient Health Record ---
Author Organization [facility] Address [address] [place] [address] Care Team Providers Care Technical Expert Name Role Phone Jim Acuna MD Primary Care Provider Unavailab Nithya Roman Unavailable [phone] Reason For Referral No Information Medications Medication [...] on feet; Duration: 30 days 02/22/2015 Active Ferry Carbonate 300 MG 1 capsule Orall y Three times a day Active Social History Tobacco use other than smoking: Question Answer Notes Are you an other tobacco user? No Problems Problem Type SNOMED Code ICD Code Onset Dates Problem Status W/U Status Risk Notes Problem Localized, primary osteoarthritis of the ankle and/or foot (798061187) Primary osteoarthrit is, right ankle and foot (M19.071) Active confirmed Problem Pes planus (83163659) Flat foot [pes planus] (acquired), left foot (M21.42) Active confirmed Problem Pes planus (27412931) Flat foot [pes planus] (acquired), right foot (M21.41) Active confirmed Plan Of Treatment No Information Insurance Providers Payer Name Payer Address Payer Phone Subscriber Number Group Number Insured Name Patient Relationship to Insured Coverage Start Date Coverage End Date Medicare National [employer] [address] [place] [address] [id number] Mercedez Bruce Self - patient is the insured Medical (General) History Medical History History ICD Code Back,Hip,and Knee pain Depression Fibromyalgia Chicken pox
--- OUTSIDE RECORDS SUMMARY | 2025-02-21 13:30 | XMS_ITS | Data Portability ---
Author Organization [facility], Main Office Address [address] [place] [address] Care Team Providers Care Hot Header Operator Name Role Phone RAMIRO CHAPMAN Polisher Implant [facility] Psychiatrist JUAN J MARSH Orthopedic Surgeon KEESHA ABEBE Neurologist [facility] BREAST AND WELLNESS IMAGING ORDERS [place] Surgeon AKLEB CUETO Dock Attendant DARREN CALLAWAY Primary Care Provider Assessment Encounter [...] lipid panel, serum 2021 PATR[facility]IA [facility], [address], [place] [place], [address], 19:25:39 LDL, serum 2021 [facility], [address], [place] [place], [address], 19:25:37 noninv asive colore ctal cancer DNA + occult blood screen ing, QL, stool [facility], [address], [address], [place], [address], 14:00:27 unlist ed lab - GI profil e, stool, PCR 2021 [facility], [address], [address], [place], [address], 11:51:58 unlist ed lab - urinal ysis w/refl ex cultur e 2021 PATRICIA [facility] (Centralized Electronic Ordering - All Locations), Patient Can Go To The Location Of Their Choice, [id number] 15:10:36 BMP, serum or plasma 2021 PATRICIA [facility] (Centralized Electronic Ordering - All Locations), Patient Can Go To The Location Of Their Choice, [address] 15:33:59 magnes ium, serum or plasma 2021 PATRICIA [facility] (Centralized Electronic Ordering - All Locations), Patient Can Go To The Location Of Their Choice, [id number] 15:34:00 CBC w/ auto diff 2021 PATRICIA [facility] (Centralized Electronic Ordering - All Locations), Patient Can Go To The Location Of Their Choice, [address] 15:01:55 fecal occult blood, immuno assay, stool 2021 PATRICIA In-Office Order, Internal Use Only DO Not Attach Compendium DO Not Attach Compendium, Do Not Delete/merge, [id number] 05:01:02 Referral physic al therap ist referr al 2021 [email or web address] [facility], [address], [place], [address], 10/07/202 2 15:43:50 physic al therap ist referr al - Please see for BPPV 2021 [email or web address] [facility], [address], [place], [address], 3 10:48:56 dermat ologis t referr al - dark area of nail pls eval unsure if possib le melano elvis 2021 lori [facility], [address], [address], [facility] [place], [address], 14:48:58 care manage ment referr al - Please set up RPM with BP monito r 2021 [facility], [address], [address], [place], [address], 2 09:06:09 Procedures None record ed. Surgeries None record ed. Imaging bone densit y 2021 [email or web address] [facility], [address], [place], [address], 3 12:44:58 US, duplex , arteri al, lower extrem ity, comple te 2021 [email or web address] Not available 3 12:54:43 ankle brachi al index, comple te 2021 arelisasen [facility], [address], [address], [place], [address], 3 11:58:56 pulse volume record ing 2021 ancan [facility], [address], [address], [place], [address], 3 11:58:56 electr ocardi ogram 2021 [email or web address] In-Office Order, Internal Use Only DO Not Attach Compendium DO Not Attach Compendium, Do Not Delete/merge, [id number] 11:45:12 US, siobhan rdiogr am 2021 022 [email or web address] [facility] (Outt Non-Invasive Cardiology Scheduling), [address] , [place], [address], 16:13:09 Medication Orders furose mide 20 mg tablet 2021 022 [id number], [address] [place], [address], 10:50:19 Patient TargetsNo targets recorded. Patient Instructions Encounter Date Encounter Id Patient Instructions Last Modified By Organization Details Last Modified Time 06/19/2021 [id number] Colorectal Cancer Screening: Care Instructions ckokar Not available 06/19/2021 13:26:51 09/27/2021 [id number] advance care planning: care instructions ckokar Not available 09/27/2021 11:11:24 benign paroxysmal positional vertigo (bppv): care instructions ckokar Not available 09/27/2021 12:55:48 orthostatic vitals* mchasen Not available 10/07/2021 08:40:07 12/06/2021 [id number] preventing falls: care instructions ckokar Not available 12/06/2021 14:37:03 medicare preventive services guide (female 74yrs and under) ckokar Not available 12/06/2021 14:37:02 Colorectal Cancer Screening: Care Instructions ckokar Not available 12/06/2021 14:37:02 high blood pressure: care instructions ckokar Not available 12/06/2021 14:37:03 learning about high blood pressure ckokar Not available 12/06/2021 14:37:03 02/08/2022 [id number] leg and ankle edema: care instructions [email or web address] Not available 02/08/2022 10:50:17 Reason for Referral Please set up RPM with BP mo nitor Referring Physician: Darren Callaway, Family Medicine, Encounter Date: 06/19/2021 Traffic Warehouse Supervisor Referral for N ail changes dark area of nail pls eval unsure if possible melanoma Referring Physician: Darren Callaway [facility], Encounter Date: 09/27/2021 Physical Therapist Referral for Benign paroxysmal positional vertigo Please see for BPPV Referring Physician: Darren Callaway [facility], Encounter Date: 09/27/2021 Physical Therapist Referral for Adult health examination Referring Physician: Darren Callaway [facility], Encounter Date: 12/06/2021 Results Created Date Observation Date Name Description Value Unit Range Abnormal Flag Note LastModifiedBy Organization Detail LastModifiedTime 12/07/1912/06/2022 COLOG UARD cologuard result Cancel led - Order d not applic able Not Available [facility] [address], [place], [address], 12/06/2022 06:47:57 09/28/1909/27/2021 GI PROFI LE, STOOL , PCR results Test Cance lled, mail order biller error Not Available [facility] (Centralized Electronic Ordering - All Locations) Patient Can Go To The Location Of Their Choice, 09/27/2021 11:51:58 09/28/1909/27/2021 COMPL ETE CBC WITH [...] 15:01:54 09/28/1909/27/2021 COMPL ETE CBC WITH DIFF HGB 13.1 [...] 22 09/27/2021 COMPL ETE CBC WITH DIFF MCV 102.1 fL (80.0- 100.0) high Not Available [facility] (Centralized Electronic Ordering - All Locations) Patient Can Go To The Location Of Their Choice, 09/27/2021 15:01:54 09/28/19 22 09/27/2021 COMPL ETE CBC WITH DIFF MCH 31.2 pg (27.0- 34.0) Not Available [facility] (Centralized Electronic Ordering - All Locations) Patient Can Go To The Location Of Their Choice, 09/27/2021 15:01:54 09/28/1909/27/2021 COMPL ETE CBC WITH DIFF MCHC 30.5 g/dL (33.0- 37.0) low Not Available [facility] (Centralized Electronic Ordering - All Locations) Patient Can Go To The Location Of Their Choice, 09/27/2021 15:01:09/28/1909/27/2021 COMPL ETE CBC WITH DIFF plt 213 [...] 09/28/1909/27/2021 COMPL ETE CBC WITH DIFF abs. NRBC [...] The Location Of Their Choice, 09/27/2021 15:33:59 09/28/19 22 09/27/2021 BASIC METAB OLIC PANEL estimated GFR creatinine 80 mL/mi n/1.7 3_M2 Creat inine based estim ated geronimo lara ation (eGFR ) in adult s is calcu lated using the Natio nal Kidne y Found ation recom martha d 2020 CKD-E PI equat ion. Estim ates GFR from serum creat inine , age and sex. Not Available [facility] (Centralized Electronic Ordering - All Locations) Patient Can Go To The Location Of Their Choice, [id number] 09/27/2021 15:33:59 09/28/19 22 09/27/2021 MAGNE SIUM magnesium 2.2 mg/dL (1.6-2 .3) Not Available [facility] (Centralized Electronic Ordering - All Locations) Patient Can Go To The Location Of Their Choice, [id number] 09/27/2021 15:34:00 09/28/19 22 09/27/2021 HAPTO GLOBI N haptoglobin 98 mg/dL (30-20 0) Not Available [facility] (Centralized Electronic Ordering - All Locations) Patient Can Go To The Location Of Their Choice, [id number] 09/27/2021 23:00:21 09/28/1909/27/2021 HEPAT IC FUNCT ION PANEL bilirubin,to glenn 0.3 mg/dL (0-1.2 ) Not Available [facility] (Centralized Electronic Ordering - All Locations) Patient Can Go To The Location Of Their Choice, [id number] 09/27/2021 23:00:22 09/28/1909/27/2021 HEPAT IC FUNCT ION PANEL bilirubin, direct <0.2 mg/dL (0-0.3 ) Not Available [facility] (Centralized Electronic Ordering - All Locations) Patient Can Go To The Location Of Their Choice, [id number] 09/27/2021 23:00:22 09/28/1909/27/2021 HEPAT IC FUNCT ION [...] The Location Of Their Choice, 09/27/2021 23:00:59 07/29/20 22 09/27/2021 RETIC ULOCY TE COUNT reticulocyte count, corrected [...] nmol/ L (NOTE ) This test was devel oped and its perfo rmanc e bubba cteri stics deter mined by [employer] [facility]. It has not been clear ed or appro marialuisa by the Food and Drug Admin istra tion. [facility] , [address] [place] [address] , [place] [address] Not Available [facility] (Centralized Electronic Ordering - All Locations) Patient Can Go To The Location Of Their Choice, 10/02/2021 12:06:43 12/11/1912/10/2021 UA W/REF CRYSTAL CULTU [...] Go To The Location Of Their Choice, [id number] 12/10/2021 15:10:36 12/11/1912/10/2021 UA W/REF CRYSTAL CULTU RE urine nitrite NEGATI VE (neg) Not Available [facility] (Centralized Electronic Ordering - All Locations) Patient Can Go To The Location Of Their Choice, [facility] 12/10/2021 15:10:36 12/11/19 22 12/10/2021 UA W/REF CRYSTAL CULTU RE urine leukocyte 1+ (neg) abnormal Not Available [facility] ([facility] Order[facility] - All Locations) Patient Can Go To The Location Of Their Choice, [facility] 12/10/2021 15:10:36 12/11/1912/10/2021 UA W/REF CRYSTAL CULTU RE urobilinogen NORMAL mg/dL (norm) Not Available [facility] ([facility] - [facility] Locations) Patient Can Go To The Location Of Their Choice, [facility] 12/10/2021 15:10:36 12/11/1912/10/2021 UA W/REF CRYSTAL CULTU RE urine WBCs 4 /hpf (0-5) Not Available [facility] (Centralized Electronic Ordering - All Locations) Patient Can Go To The Location Of Their Choice, [facility] 12/10/2021 15:10:36 12/11/1912/10/2021 UA W/REF CRYSTAL CULTU RE urine RBCs 2 /hpf (0-3) Not Available [facility] (Centralized Electronic Ordering - All Locations) Patient Can Go To The Location Of Their Choice, [facility] 12/10/2021 15:10:36 12/11/1912/10/2021 UA W/REF CRYSTAL CULTU RE bacteria SLIGHT hpf (neg) abnormal Not Available [facility] (Centralized Electronic Ordering - All Locations) Patient Can Go To The Location Of Their Choice, [facility] 12/10/2021 15:10:36 12/11/1912/10/2021 UA W/REF CRYSTAL CULTU RE mucus SLIGHT /lpf Not Available [facility] (Centralized Electronic Ordering - All Locations) Patient Can Go To The Location Of Their Choice, [facility] 12/10/2021 15:10:36 12/11/1912/10/2021 UA W/REF CRYSTAL CULTU [...] Their Choice, 12/10/2021 19:25:39 12/11/1912/10/2021 LIPID PANEL non HDL cholesterol (calc) 163 mg/dL (<160) high Not Available [facility] ([facility] Ordering - All Locations) Patient Can Go To The Location Of Their Choice, [id number] 12/10/2021 19:25:39 12/11/1912/10/2021 URINE CULTU RE specimen description URINE Not Available [facility] ([facility] - All Locations) Patient Can Go To The Location Of Their Choice, [id number] 12/11/2021 13:21:32 12/11/1912/10/2021 URINE CULTU RE special requests NONE Reflex ed from [id number] Not Available [facility] (Centralized Electronic Ordering - All Locations) Patient Can Go To The Location Of Their Choice, [id number] 12/11/2021 13:21:32 12/11/1912/11/2021 URINE CULTU RE culture Mixed bacter ial nury, indica tive of urogen ital contam inatio n. Not Available [facility] (Centralized Electronic Ordering - All Locations) Patient Can Go To The Location Of Their Choice, [id number] 12/11/2021 13:21:32 12/11/1912/11/2021 URINE CULTU RE report status FINAL 2021 Not Available [facility] (Centralized Electronic Ordering - All Locations) Patient Can Go To The Location Of Their Choice, [id number] 12/11/2021 13:21:32 01/04/20 22 01/06/2022 GI PROFI LE, STOOL , PCR campylobacte r NEGAT ASPEN Campy lobac ter speci es targe t nucle ic acid not detec nicolas. Not Available [facility] (Centralized Electronic Ordering - All Locations) Patient Can Go To The Location Of Their Choice, [id number] 01/06/2022 15:38:08 01/04/20 22 01/06/2022 GI PROFI LE, STOOL , PCR plesiomonas shigelloides NEGAT ASPEN Pleis iomon as shige lloid es targe t nucle ic acid not detec nicolas. Not Available [facility] (Centralized Electronic Ordering - All Locations) Patient Can Go To The Location Of Their Choice, [id number] 01/06/2022 15:38:08 01/04/20 22 01/06/2022 GI PROFI LE, STOOL , PCR salmonella NEGAT ASPEN Salmo aaron speci es targe t nucle ic acid not detec nicolas. Not Available [facility] (Centralized Electronic Ordering - All Locations) Patient Can Go To The Location Of Their Choice, [id number] 01/06/2022 15:38:08 01/04/20 22 01/06/2022 GI PROFI LE, STOOL , PCR vibrio NEGAT ASPEN Vibri o speci es targe t nucle ic acid not detec nicolas. Not Available [facility] (Centralized Electronic Ordering - All Locations) Patient Can Go To The Location Of Their Choice, [id number] 01/06/2022 15:38:08 01/04/20 22 01/06/2022 GI PROFI LE, STOOL , PCR vibrio cholerae NEGAT ASPEN Vibri o praful ra targe t nucle ic acid not detec nicolas. Not Available [facility] (Centralized Electronic Ordering - All Locations) Patient Can Go To The Location Of Their Choice, [id number] 01/06/2022 15:38:08 01/04/20 22 01/06/2022 GI PROFI LE, STOOL , PCR yersinia enterocoliti ca NEGAT ASPEN Yersi kt enter ocoli naman targe t nucle ic acid not detec nicolas. Not Available [facility] (Centralized Electronic Ordering - All Locations) Patient Can Go To The Location Of Their Choice, [id number] 01/06/2022 15:38:08 01/04/20 22 01/06/2022 GI PROFI LE, STOOL , PCR enteroaggreg ative E coli NEGAT ASPEN Enter oaggr egati ve E. coli targe t nucle ic acid not detec nicolas. Not Available [facility] (Centralized Electronic Ordering - All Locations) Patient Can Go To The Location Of Their Choice, [id number] 01/06/2022 15:38:08 01/04/20 22 01/06/2022 GI PROFI LE, STOOL , PCR enteropathog enic E coli NEGAT ASPEN Enter opath ogeni c E. coli targe t nucle ic acid not detec nicolas. Not Available [facility] (Centralized Electronic Ordering - All Locations) Patient Can Go To The Location Of Their Choice, [id number] 01/06/2022 15:38:08 01/04/20 22 01/06/2022 GI PROFI LE, STOOL , PCR enterotoxige maria elena E coli NEGAT ASPEN Enter otoxi genic E. coli lt/st targe t nucle ic acid not detec nicolas. Not Available [facility] (Centralized Electronic Ordering - All Locations) Patient Can Go To The Location Of Their Choice, [id number] 01/06/2022 15:38:08 01/04/20 22 01/06/2022 GI PROFI LE, STOOL , PCR shigatoxin producing E coli NEGAT ASPEN Shiga -like toxin -prod ucing E. coli stx1/ stx2 targe t nucle ic acid not detec nicolas. Not Available [facility] (Centralized Electronic Ordering - All Locations) Patient Can Go To The Location Of Their Choice, [id number] 01/06/2022 15:38:08 01/04/20 22 01/06/2022 GI PROFI LE, STOOL , PCR shigella/ent eroinvasive E coli NEGAT ASPEN Shige lla/E ntero invas aspen E. coli targe t nucle ic acid not detec nicolas. Not Available [facility] (Centralized Electronic Ordering - All Locations) Patient Can Go To The Location Of Their Choice, [id number] 01/06/2022 15:38:08 01/04/20 22 01/06/2022 GI PROFI LE, STOOL , PCR cryptosporid ium NEGAT ASPEN Crypt ospor idium targe t nucle ic acid not detec nicolas. Not Available [facility] (Centralized Electronic Ordering - All Locations) Patient Can Go To The Location Of Their Choice, [id number] 01/06/2022 15:38:08 01/04/20 22 01/06/2022 GI PROFI LE, STOOL , PCR cyclospora cayetanensis NEGAT ASPEN Cyclo spora cayet anens is targe t nucle ic acid not detec nicolas. Not Available [facility] (Centralized Electronic Ordering - All Locations) Patient Can Go To The Location Of Their Choice, [id number] 01/06/2022 15:38:08 01/04/20 22 01/06/2022 GI PROFI LE, STOOL , PCR entamoeba histolytica NEGAT ASPEN Entam oeba histo lytic a targe t nucle ic acid not detec nicolas. Not Available [facility] (Centralized Electronic Ordering - All Locations) Patient Can Go To The Location Of Their Choice, [id number] 01/06/2022 15:38:08 01/04/20 22 01/06/2022 GI PROFI LE, STOOL , PCR giardia lamblia NEGAT ASPEN Giard ia lambl ia targe t nucle ic acid not detec nicolas. Not Available [facility] (Centralized Electronic Ordering - All Locations) Patient Can Go To The Location Of Their Choice, [id number] 01/06/2022 15:38:08 01/04/20 22 01/06/2022 GI PROFI LE, STOOL , PCR adenovirus F 40/41 NEGAT ASPEN Adeno virus F40/4 1 targe t nucle ic acid not detec nicolas. Not Available [facility] (Centralized Electronic Ordering - All Locations) Patient Can Go To The Location Of Their Choice, [id number] 01/06/2022 15:38:08 01/04/20 22 01/06/2022 GI PROFI LE, STOOL , PCR astrovirus NEGAT ASPEN Stefano virus targe t nucle ic acid not detec nicolas. Not Available [facility] (Centralized Electronic Ordering - All Locations) Patient Can Go To The Location Of Their Choice, [id number] 01/06/2022 15:38:08 01/04/20 22 01/06/2022 GI PROFI LE, STOOL , PCR norovirus GI/gii NEGAT ASPEN Norov irus GI/GI I targe t nucle ic acid not detec nicolas. Not Available [facility] (Centralized Electronic Ordering - All Locations) Patient Can Go To The Location Of Their Choice, [id number] 01/06/2022 15:38:08 01/04/20 22 01/06/2022 GI PROFI LE, STOOL , PCR rotavirus A NEGAT ASPEN Rotav irus A targe t nucle ic acid not detec nicolas. Not Available [facility] (Centralized Electronic Ordering - All Locations) Patient Can Go To The Location Of Their Choice, [id number] 01/06/2022 15:38:08 01/04/20 22 01/06/2022 GI PROFI LE, STOOL , PCR sapovirus NEGAT ASPEN Sapov irus targe t nucle ic acid not detec nicoals. (NOTE ) All resul ts must be [...] Go To The Location Of Their Choice, [id number] 01/06/2022 15:38:08 08/19/1908/18/2022 ALT ALT 18 U/L (0-33) Not Available [facility] (Centralized Electronic Ordering - All Locations) Patient Can Go To The Location Of Their Choice, 08/18/2022 16:17:07 08/19/19 23 08/18/2022 LIPID PANEL cholesterol, total 254 mg/dL (<200) high Not Available [facility] ([facility] Ordering - All Locations) Patient Can Go To The Location Of Their Choice, 08/18/2022 16:17:08 08/19/1908/18/2022 LIPID PANEL triglyceride 41 mg/dL (<150) Not Available [facility] ([facility] Order[facility] - All Locations) Patient Can Go To The Location Of Their Choice, 08/18/2022 16:17:08 08/19/19 23 08/18/2022 LIPID PANEL HDL chol 89 mg/dL (>39) Not Available [facility] (Centralized Electronic Ordering - All Locations) Patient Can Go To The Location Of Their Choice, 08/18/2022 16:17:08 08/19/19 23 08/18/2022 LIPID PANEL LDL cholesterol, calculated 157 mg/dL (0-130 ) high Not Available [facility] (Centralized Electronic Ordering - All Locations) Patient Can Go To The Location Of Their Choice, [id number] 08/18/2022 16:17:08 08/19/19 23 08/18/2022 LIPID PANEL non HDL cholesterol (calc) 165 mg/dL (<160) high Not Available [facility] (Centralized [facility] Ordering - All Locations) Patient Can Go To The Location Of Their Choice, [id number] 08/18/2022 16:17:08 08/27/19 22 08/26/2021 MAMMO , [...] RIGHT MLO view, slight ly above the portrait painter ior nipple line at anteri or depth [...] Lay letter mailed to juliette godinez WSN: [id number] Orderi ng Physic jessica: Max ashantiJim Juliette godinez Class: Outpat ient [email or web address] [facility] (Outpt Imaging) [address] , [place], [address], 08/26/2021 15:58:16 09/13/19 22 09/12/2021 US, riki [...] year for bilate ral screen ing mammog roxnaa. RECOMM ENDATI ON: Annual mammog raphic screen ing BI-RAD S: 2 (Benig n) Lay letter mailed to juliette godinez WSN: [id number] Orderi ng Physic jessica: Jim Foley Dictat ed By: Emiliana Haji MD, I Dictat ed Date/T ganga: 11:59 a Review ed By: Emiliana Haji MD, I Signed By: Emiliana Haji MD, I Signed Date/T ganga: 11:59 am Transc ribed By: LUCIA Transc ribed Date/T ganga: 11:55 am Patien t Class: Outpat ient [email or web address] [facility] (Outpt Imaging) [address] [place], [address], 09/13/2021 15:29:35 09/13/19 22 09/12/2021 mm digit [...] indica nicolas clinic ally, recomm end patiangelika godinez return in 1 year for bilate ral screen ing mammog roxana. RECOMM ENDATI ON: Annual mammog raphic screen ing BI-RAD S: 2 (Benig n) Lay letter mailed to juliette godinez WSN: [id number] Orderi ng Physic jessica: Jim Foley Dictat ed By: Emiliana Haji MD, I Dictat ed Date/T ganga: 11:59 am Review ed By: Emiliana Haji MD, I Signed By: Emiliana Haji MD, I Signed Date/T ganga: 11:59 am Transc ribed By: LUCIA Transc riptio n Date/T ganga: 11:55 am Birads : Juliette godinez Class: Outpat ient [email or web address] [facility] (Outpt Imaging) [address] [place] [address] [place], [address], 09/13/2021 15:28:45 09/28/19 22 09/27/2021 elect rudi diogr am No observ ation record ed. [email or web address] In-Office Order Internal Use Only DO Not Attach Compendium DO Not Attach Compendium, Do Not Delete/merge, [id number] 09/27/2021 15:03:08 09/28/19 elect rocar diogr am No observ ation record ed. [email or web address] In-Office Order Internal Use Only DO Not Attach Compendium DO Not Attach Compendium, Do Not Delete/merge, [id number] 09/27/2021 12:58:52 08/23/19 23 08/11/2022 DEXA, axial skele ton Name:Pedro godinez ID: [id number] Age:72 years Sex:Fe male Ethnic ity:Wh [...] at or below -2.5 Impres marciano: The patien t has osteop orosis as determ ined by WHO criter ia. WSN: [id number] Orderi ng Physic jessica: Melita Callaway Dictat ed By: Hector Watts MD Dictat ed Date/T ganga: 4:41 pm Review ed By: Hector Watts MD Signed By: Hector Watts MD Signed Date/T ganga: 4:41 pm Transc ribed By: CSB Transc ribed Date/T ganga: 4:41 pm Patien t [facility]: [facility] (Outpt Imaging) [address], [place], [address], 09/01/2022 13:12:38 08/23/19 23 08/22/2022 bone densi ty No observ ation record ed. [facility] [address] [place], [address], 08/22/2022 18:01:22 Result Notes Documentation Provider Name [...] patient.) Lay letter mailed to patient WSN: [id number] Ordering Physician: Jim Acuna Patient Class: Outpatient Rosalind mast [facility] 08/26/2021 15:58:16 Dexa, Axial Skeleton : Name:MERCEDEZ [...] osteoporosis as determined by WHO criteria. WSN: [id number] Ordering Physician: Darren Callaway Dictated By: Damián Watts MD Dictated Date/Time: 08/22/22 4:41 pm Reviewed By: Damián Watts MD Signed By: Damián Watts MD Signed Date/Time: 08/22/22 4:41 pm Transcribed By: LUCIA Transcribed Date/Time: 08/22/22 4:41 pm Patient Class: Outpatient JESSY Hernández, [facility] 09/01/2022 13:12:38 Problems Name Problem SNOMED Code Status Onset Date Resolution Date Notes Provider Name and Address Organization Details Recorded Time Anemia 820232209 Active Christal Odell null, [facility] 0 15:44:01 Benign paroxysm al position al vertigo 779601925 Completed 07/06/2016 Jim Acuna MD [address] [address], [place], [address] , [facility] 7 12:18:11 Bipolar disorder 25433942 Active [facility] null, [facility] 0 15:44:01 Carpal tunnel syndrome 46818078 Active Christal Odell null, [facility] 0 15:44:02 [facility] hyperten marciano 14788210 Active Christal Odell null, [facility] 0 15:44:01 Fibromyo sitis 38371666 Active Christal Odell null, [facility] 0 15:44:01 Gastroes ophageal reflux disease 204874351 Active Christal Odell null, [facility] 0 15:44:02 Hyperlip idemia 16589085 Active Christal Odell null, [facility] 0 15:44:02 Irritabl e bowel syndrome 10875983 Active Christal Odell null, [facility] 0 15:44:01 Obesity 179625058 Active Christal Odell null, [facility] 0 15:44:01 Osteoart hritis 183820084 Active Christal Odell null, [facility] 0 15:44:02 Upper abdomina l pain 81535827 Completed 07/06/2016 Jim Acuna MD [address], [place], [address] , [facility] 7 12:17:35 Urge incontin ence of urine 07943728 Active Christal Odell null, 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 0 15:44:01 Acute sinusiti s 86356016 Completed 06/23/2018 ELVIS Freeman, [facility] 9 10:46:37 Cough 92059601 Completed 07/13/2017 ELVIS Freeman, [facility] 8 11:32:18 Inflamma tion of rotator cuff tendon 677491606 Active Christal mast, [facility] 0 15:44:02 Foot pain 06196751 Completed 09/09/2017 Sakina mast, [facility] 8 13:26:54 Greater trochant mariela pain syndrome 0932380 Active Christal mast, [facility] 0 15:44:01 Osteoart hritis of knee 976668439 Active Christal mast, [facility] 0 15:44:01 Advance directiv e lyndon d with patient 709983487 Active Christal mast, [facility] 0 15:44:02 Fatigue 87628752 Completed 07/06/2016 Jim Acuna MD [address] [address], [place], [address] , [facility] 7 12:17:31 Leukocyt es in urine 840235765 [facility] 15:[facility]:01 Urinary tract infectio us disease 14896391 Completed 07/06/2016 Jim Acuna MD [address] [address], [place], [address] , [facility] 7 12:17:42 Candidia sis of skin 70442188 Completed 07/06/2016 Jim Acuna MD [address] [address], [place], [address] , [facility] 7 12:17:49 Edema of lower extremit y 976175812 Active Christal mast, [facility] 0 15:44:01 Internal hemorrho ids 31394688 Active 2002 Christal mast, [facility] 0 15:44:02 Respirat ory finding Completed 200709/20/2013 IMPRESSI ON: PROBABLY RELATED TO OBESITY; RECORDED 11/30/19 08 9:59AM BY IRVING MARTINEZ MA, ANNOTATI ON/ADDEN DUM Not Available [facility] 4 13:53:51 General examinat ion of patient Completed 200709/20/2013 RECORDED 11/30/19 08 9:59AM BY IRVING MARTINEZ MA, ANNOTATI ON/ADDEN DUM Not Available [facility] 4 13:53:51 Respirat ory finding Completed 200710/10/2013 IMPRESSI ON: PROBABLY RELATED TO OBESITY; RECORDED 11/30/19 08 9:59AM BY IRVING MARTINEZ MA, ANNOTATI ON/ADDEN DUM Not Available [facility] 4 06:28:43 General examinat ion of patient Completed 200710/10/2013 RECORDED 11/30/19 08 9:59AM BY IRVING MARTINEZ MA, ANNOTATI ON/ADDEN DUM Not Available [facility] 4 06:28:43 Psychoti c disorder 41935879 Completed 200809/20/2013 RECORDED 12/27/19 09 10:34AM BY JMI ACUNA MD, ANNOTATI ON/ADDEN DUM Not Available [facility] 4 13:53:53 [facility] 27301599 Completed 200809/20/2013 RECORDED 12/27/19 09 10:35AM BY JIM ACUNA MD, ANNOTATI ON/ADDEN DUM Not Available [facility] 4 13:53:53 Heart murmur 60683920 Completed 200809/20/2013 IMPRESSI ON: RULE OUT SIGNIFIC ANT AORTIC STENOSIS ; RECORDED 12/27/19 09 10:34AM BY JIM ACUNA MD, ANNOTATI ON/ADDEN DUM ELVIS Freeman [facility] 8 11:15:53 Psychoti c disorder 60332348 Completed 200810/10/2013 RECORDED 12/27/19 09 10:34AM BY JIM ACUNA MD, ANNOTATI ON/ADDEN DUM Not Available [facility] 4 06:28:44 Enthesop athy of hip region 99869775 Completed 200810/10/2013 RECORDED 12/27/19 09 10:35AM BY JIM ACUNA MD, ANNOTATI ON/ADDEN DUM Not Available [facility] 4 06:28:44 Heart murmur 86822789 Completed 200810/10/2013 IMPRESSI ON: RULE OUT SIGNIFIC ANT AORTIC STENOSIS ; RECORDED 12/27/19 09 10:34AM BY JIM ACUNA MD, ANNOTATI ON/ADDEN DUM ELVIS Freeman [facility] 8 11:15:53 Chondrom alacia of patella 37256699 Completed 201009/20/2013 RECORDED 07/20/19 11 9:02AM BY IRVING MARTINEZ MA, ANNOTTONY ON/ADDEN DUM Not Available [facility] 4 13:53:51 Chondrom alacia of patella 38755854 Completed 201010/10/2013 RECORDED 07/20/19 11 9:02AM BY IRVING MARTINEZ MA, ANNOTATI ON/ADDEN DUM Not Available [facility] 4 06:28:43 Influenz a vaccine needed [id number] 06 Completed 201009/20/2013 DATE: 02/20/20 11; RECORDED 09/26/19 12 11:27AM BY IRVING MARTINEZ MA, ANNOTATI ON/ADDEN DUM Not Available [facility] 4 13:53:52 Influenz a vaccine needed [id number] 06 Completed 201010/10/2013 DATE: 02/20/20 11; RECORDED 09/26/19 12 11:27AM BY IRVING MARTINEZ MA, ANNOTATI ON/ADDEN DUM Not Available [facility] 4 06:28:43 Lateral epicondy litis 974037067 Completed 201109/20/2013 RECORDED 07/22/19 12 9:36AM BY JIM ACUNA MD, ANNOTATI ON/ADDEN DUM Not Available [facility] 4 13:53:52 Lateral epicondy litis 340008577 Completed 201110/10/2013 RECORDED 07/22/19 12 9:36AM BY JIM ACUNA MD, ANNOTATI ON/ADDEN DUM Not Available [facility] 4 06:28:43 Edema 944382172 Completed 201109/20/2013 RECORDED 09/26/19 12 11:26AM BY IRVING MARTINEZ MA, ANNOTATI ON/ADDEN DUM Not Available [facility] 4 13:53:51 Pain of elbow region 09068335 Completed 201109/20/2013 IMPRESSI ON: NORMAL EXAM. CANNOT REPRODUC E PAIN TODAY. WILL FOLLOW UP NEEDED.; RECORDED 09/26/19 12 11:27AM BY IRVING MARTINEZ MA, ANNOTTONY ON/ADDEN DUM Not Available [facility] 4 13:53:51 Dizzines s and giddines s 473220328 Completed 201109/20/2013 RECORDED 09/26/19 12 11:27AM BY IRVING MARTINEZ MA, ANNOTATI ON/ADDEN DUM Not Available [facility] 4 13:53:51 Malaise and fatigue 547140961 Completed 201109/20/2013 RECORDED 09/26/19 12 11:27AM BY IRVING MARTINEZ MA, ANNOTATI ON/ADDEN DUM Not Available [facility] 4 13:53:51 Hypersom kt 25349140 Completed 201109/20/2013 RECORDED 09/26/19 12 11:27AM BY IRVING MARTINEZ MA, ANNOTATI ON/ADDEN DUM Not Available [facility] 4 13:53:51 Low back pain 021892254 Completed 201109/20/2013 RECORDED 09/26/19 12 11:27AM BY IRVING MARTINEZ MA, ANNOTATI ON/ADDEN DUM Not Available [facility] 4 13:53:52 Pain of joint of wrist 688579573 Completed 201109/20/2013 RECORDED 09/26/19 12 11:27AM BY IRVING MARTINEZ MA, ANNOTATI ON/ADDEN DUM Not Available [facility] 4 13:53:53 Knee pain Completed 201109/20/2013 RECORDED 09/26/19 12 11:27AM BY IRVING MARTINEZ MA, ANNOTATI ON/ADDEN DUM Not Available [facility] 4 13:53:53 Tinnitus 29033682 Completed 201109/20/2013 RECORDED 09/26/19 12 11:26AM BY IRVING MARTINEZ MA, ANNOTATI ON/ADDEN DUM Not Available [facility] 4 13:53:53 Urge incontin ence of urine 46196753 Completed 201109/20/2013 RECORDED 09/26/19 12 11:27AM BY IRVING MARTINEZ MA, ANNOTATI ON/ADDEN DUM Not Available [facility] 4 13:53:53 Edema 189498205 Completed 201110/10/2013 RECORDED 09/26/19 12 11:26AM BY IRVING MARTINEZ MA, ANNOTATI ON/ADDEN DUM Not Available [facility] 4 06:28:43 Pain of elbow region 15791324 Completed 201110/10/2013 IMPRESSI ON: NORMAL EXAM. CANNOT REPRODUC E PAIN TODAY. WILL FOLLOW UP NEEDED.; RECORDED 09/26/19 12 11:27AM BY IRVING MARTINEZ MA, ANNOTATI ON/ADDEN DUM Not Available [facility] 4 06:28:43 Dizzines s and giddines s 924751187 Completed 201110/10/2013 RECORDED 09/26/19 12 11:27AM BY IRVING MARTINEZ MA, ANNOTATI ON/ADDEN DUM Not Available [facility] 4 06:28:43 Malaise and fatigue 510464349 Completed 201110/10/2013 RECORDED 09/26/19 12 11:27AM BY IRVING MARTINEZ MA, ANNOTATI ON/ADDEN DUM Not Available [facility] 4 06:28:43 Hypersom kt 44838638 Completed 201110/10/2013 RECORDED 09/26/19 12 11:27AM BY IRVING MARTINEZ MA, ANNOTATI ON/ADDEN DUM Not Available [facility] 4 06:28:43 Low back pain 164992412 Completed 201110/10/2013 RECORDED 09/26/19 12 11:27AM BY IRVING MARTINEZ MA, ANNOTATI ON/ADDEN DUM Not Available [facility] 4 06:28:43 Pain of joint of wrist 831107565 Completed 201110/10/2013 RECORDED 09/26/19 12 11:27AM BY IRVING MARTINEZ MA, ANNOTATI ON/ADDEN DUM Not Available [facility] 4 06:28:44 Knee pain Completed 201110/10/2013 RECORDED 09/26/19 12 11:27AM BY IRVING MARTINEZ MA, ANNOTATI ON/ADDEN DUM Not Available [facility] 4 06:28:44 Tinnitus 03431912 Completed 201110/10/2013 RECORDED 09/26/19 12 11:26AM BY IRVING MARTINEZ MA, ANNOTATI ON/ADDEN DUM Not Available [facility] 4 06:28:44 Urge incontin ence of urine 35898797 Completed 201110/10/2013 RECORDED 09/26/19 12 11:27AM BY IRVING MARTINEZ MA, ANNOTATI ON/ADDEN DUM Not Available [facility] 4 06:28:44 Neck pain 32282107 Completed 201109/20/2013 RECORDED 12/31/19 12 2:59PM BY IRVING MARTINEZ MA, ANNOTATI ON/ADDEN DUM Umberto Frost MD [address], [place], [address] , [facility] 8 14:00:26 Neck pain 96026106 Completed 201110/10/2013 RECORDED 12/31/19 12 2:59PM BY IRVING MARTINEZ MA, ANNOTATI ON/ADDEN DUM Umberto Frost MD [address], [place], [address] , [facility] 8 14:00:26 Bipolar I disorder 230025618 Completed 201209/20/2013 RECORDED 04/09/19 13 1:50AM BY IRVING MARTINEZ MA, ANNOTTONY ON/ADDEN DUM Not Available [facility] 4 13:53:50 Menstrua tion finding Completed 201209/20/2013 RECORDED 04/09/19 13 1:50AM BY IRVING MARTINEZ MA, ANNOTATI ON/ADDEN DUM Not Available [facility] 4 13:53:52 Bipolar I disorder 674785900 Completed 201210/10/2013 RECORDED 04/09/19 13 1:50AM BY IRVING MARTINEZ MA, ANNOTATI ON/ADDEN DUM Not Available [facility] 4 06:28:43 Menstrua tion finding Completed 201210/10/2013 RECORDED 04/09/19 13 1:50AM BY IRVING MARTINEZ MA, HE ON/ADDEN DUM Not Available [facility] 4 06:28:43 Follow-u p encounte r Completed 201209/20/2013 RECORDED 05/13/19 13 2:25PM BY IRVING MARTINEZ MA, ANNOTATI ON/ADDEN DUM Not Available [facility] 4 13:53:51 Laborato ry procedur e performe d 183701863 Completed 201209/20/2013 RECORDED 05/13/19 13 2:25PM BY IRVING MARTINEZ MA, ANNOTATI ON/ADDEN DUM Not Available [facility] 4 13:53:52 Follow-u p encounte r Completed 201210/10/2013 RECORDED 05/13/19 13 2:25PM BY IRVING MARTINEZ MA, ANNOTATI ON/ADDEN DUM Not Available [facility] 4 06:28:43 Abdomina l pain 76253637 Completed 201209/20/2013 RECORDED 07/01/19 13 10:11AM BY IRVING MARTINEZ MA, ANNOTATI ON/ADDEN DUM Not Available [facility] 4 13:53:50 Abdomina l pain 28320243 Completed 201210/10/2013 RECORDED 07/01/19 13 10:11AM BY IRVING MARTINEZ MA, ANNOTATI ON/ADDEN DUM Not Available [facility] 4 06:28:43 Screenin g for malignan t neoplasm of breast Completed 201209/20/2013 RECORDED 02/25/20 13 10:09AM BY IRVING MARTINEZ MA, ANNOTATI ON/ADDEN DUM Not Available [facility] 4 13:53:50 Screenin g for malignan t neoplasm of colon Completed 201209/20/2013 RECORDED 02/25/20 13 10:09AM BY IRVING MARTINEZ MA, ANNOTATI ON/ADDEN DUM Not Available [facility] 4 13:53:51 Hypercho lesterol emia 79459637 Completed 201209/20/2013 RECORDED 02/25/20 13 10:09AM BY IRVING MARTINEZ MA, ANNOTATI ON/ADDEN DUM Not Available [facility] 4 13:53:51 Renewal of prescrip tion Completed 201209/20/2013 RECORDED 02/25/20 13 10:08AM BY IRVING MARTINEZ MA, ANNOTATI ON/ADDEN DUM Not Available [facility] 4 13:53:52 Patient status finding [id number] Completed 201209/20/2013 RECORDED 02/25/20 13 10:08AM BY IRVING MARTINEZ MA, ANNOTATI ON/ADDEN DUM Not Available [facility] 4 13:53:53 Sheree landon 5228768 Completed 201209/20/2013 RECORDED 02/25/20 13 10:08AM BY IRVING MARTINEZ MA, ANNOTATI ON/ADDEN DUM ELVIS Freeman [facility] 2 09:58:30 Increase d frequenc y of urinatio n 463321622 Completed 201209/20/2013 RECORDED 02/25/20 13 10:08AM BY IRVING MARTINEZ MA, ANNOTATI ON/ADDEN DUM Not Available [facility] 4 13:53:53 Screenin g for malignan t neoplasm of breast Completed 201210/10/2013 RECORDED 02/25/20 13 10:09AM BY IRVING MARTINEZ MA, ANNOTATI ON/ADDEN DUM Not Available [facility] 4 06:28:43 Screenin g for malignan t neoplasm of colon Completed 201210/10/2013 RECORDED 02/25/20 13 10:09AM BY IRVING MARTINEZ MA, ANNOTATI ON/ADDEN DUM Not Available [facility] 4 06:28:43 Hypercho lesterol emia 41642334 Completed 201210/10/2013 RECORDED 02/25/20 13 10:09AM BY IRVING MARTINEZ MA, ANNOTATI ON/ADDEN DUM Not Available [facility] 4 06:28:43 Renewal of prescrip tion Completed 201210/10/2013 RECORDED 02/25/20 13 10:08AM BY IRVING MARTINEZ MA, ANNOTATI ON/ADDEN DUM Not Available [facility] 4 06:28:43 Tinwero landon [id number] Completed 201210/10/2013 ELVIS Freeman, [facility] 2 09:58:30 Increase d frequenc y of urinatio n 598932449 Completed 201210/10/2013 RECORDED 02/25/20 13 10:08AM BY IRVING MARTINEZ MA, ANNOTATI ON/ADDEN DUM Not Available [facility] 4 06:28:44 Tinwero pedis 0523235 Active 2012 ELVIS Freeman, [facility] 2 09:58:30 Adult health examinat ion Completed 201309/20/2013 RECORDED 05/13/19 14 11:06AM BY GINA LOZOYA MA, ANNOTATI ON/ADDEN DUM Not Available [facility] 4 13:53:51 Adult health examinat ion Completed 201310/10/2013 RECORDED 05/13/19 14 11:06AM BY GINA LOZOYA MA, ANNOTATI ON/ADDEN DUM Not Available [facility] 4 06:28:43 Mixed bipolar I disorder 89352169 Active 2013 Christal mast, [facility] 0 10:21:02 Acute sinusiti s 65617590 Completed 201309/20/2013 RECORDED 06/09/19 14 9:29AM BY IRVING MARTINEZ MA ANNOTATI ON/ADDEN DUM ELVIS Freeman, [facility] 9 10:46:37 Acute sinusiti s 84321946 Completed 201310/10/2013 RECORDED 06/09/19 14 9:29AM BY IRVING MARTINEZ MA ANNOTATI ON/ADDEN DUM ELVIS Freeman, [facility] 9 10:46:37 Osteopen ia 705536370 Completed 201308/22/2022 Darren Callaway MD [address], [place], [address] , [facility] 3 18:00:45 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 e 691111774 Active 2013 Christal Odell null, [facility] 0 10:21:02 Eczema 23278476 Active 2016 Christal Odell null, [facility] 0 10:21:02 Edema 140102902 Active 2016 Christal Odell null, [facility] 0 10:21:02 Keratoco nus 04476922 Active 2016 Christal Odell null, [facility] 0 15:44:01 Soft corn 78571394 Active 2016 Christal Odell null, [facility] 0 15:44:02 Cellulit is and abscess of toe 918551983 Completed 201609/12/2019 ELVIS Freeman, [facility] 0 10:59:12 Onychomy cosis 267479254 Active 2016 Christal Odell null, [facility] 0 15:44:01 Ulcer of toe 934956523 Active 2016 Christal Odell null, [facility] 0 15:44:02 Heart murmur 93214359 Active 2017 Christal Odell null, [facility] 0 15:44:02 Neck pain 97003634 Active 2017 Christal Odell null, [facility] 0 15:44:02 Macrocyt osis - no anemia 168077007 Active 2019 Christal mast [facility] 0 15:44:02 Thoracic back pain 868187712 Active 2019 Regino Bah PA-C [address], [place], [address] , [facility] 0 14:10:22 Hyperten marciano monitori ng status 806789560 Active 2022 dis enroll Renetta Eason kezia, [facility] 3 09:44:35 Osteopor osis 41627682 Active 2022 Darren Callaway MD [address], [place], [address] , [facility] 3 18:00:39 Problem Notes None recorded. Procedures Surgical History Date Name Laterality Status Provider Name and Address Organization Details Recorded Time 09/28/19 22 Advanced Care Planning completed Irving montes MA [facility] 09/27/2021 10:24:58 09/13/19 22 Most Recent Mammogram completed Christal Odell [facility] 09/13/2021 15:29:18 09/13/19 22 Mammogram screening completed Christal Odell [facility] 09/13/2021 15:29:11 09/13/19 22 ultrasonography of bilateral breasts completed Christal Odell [facility] 09/13/2021 15:29:49 09/12/19 20 Six-Item Cognitive Test completed Irving montes MA [facility] 09/12/2019 11:17:21 08/17/19 19 Mini-Cog Test completed Irving montes MA [facility] 08/16/2018 09:51:34 07/14/19 18 Mini-Cog Test completed Irving montes MA [facility] 07/13/2017 11:48:01 04/22/19 17 Date of Last Pap Smear completed Irving Cabral-Osmani jyoit, ELVIS [facility] 12/31/2016 08:56:34 04/30/19 16 Advanced Care Planning completed Irving Villasenorivan-Osmani os, [facility] 04/30/2015 13:14:24 08/24/19 14 Most Recent Bone Density completed Irving Cabral-Osmani os, [facility] 12/31/2016 08:57:31 08/24/19 14 Dxa bone density hunter vrt fx completed Irving Cabral-Osmani jyoti, [facility] 12/31/2016 08:57:41 02/01/20 03 Date of Last Colonoscopy completed Doreen Mahmood [facility] 07/04/2016 10:30:29 02/01/20 03 Colonoscopy completed Irving Cabral-Osmani jyoti, [facility] 08/16/2018 09:39:15 03/02/18 99 excision of uterine polyp completed Irving Cabral-Osmani jyoti, [facility] 04/24/2018 08:47:27 Cologuard completed Irving Villasenorivan-Osmani jyoti, [facility] 12/06/2021 14:12:10 Imaging Results None [...] bromide 21 mcg (0.03 %) nasal spray Sodus 2 sprays 3 times a day by [...] Given at [facility] 12/29/17 Not Available Not Available Not Available [...] (BMI) Body weight Heart rate Oxygen saturation Body temperature Systolic And Diastolic Systolic And Diastolic Provider Name and Address Organization Details Last Updated DateTime 2 168.91 cm 28.3 kg/m2 51886.4 4 g 47 /min 100 % 98.24 [degF] 150/77 mm[Hg] 132/80 mm[Hg] Doreen Bolcun, [place] [facility] 2 13:08:38 Date Recorded Heart rate Systolic And Diastolic Provider Name and Address Organization Details Last Updated DateTime 07/10/2021 46 /min 128/71 mm[Hg] Not Available [facility] 07/11/2021 17:46:05 Date Recorded Heart rate Systolic And Diastolic Provider Name and Address Organization Details Last Updated DateTime 07/11/2021 50 /min 113/77 mm[Hg] Not Available [facility] 07/11/2021 17:45:03 Date Recorded Body height Body mass index (BMI) Body weight Heart rate Oxygen saturation Body temperature Heart rate Heart rate Heart rate Systolic And Diastolic Systolic And Diastolic Systolic And Diastolic Systolic And Diastolic Provider Name and Address Organization Details Last Updated DateTime 2 168.91 cm 27.7 kg/m2 52194.0 7 g 51 /min 98 % 98.24 [degF] 42 /min 53 /min 48 /min 108/62 mm[Hg] 100/72 mm[Hg] 116/66 mm[Hg] 118/62 mm[Hg] Irving arias MA [facility] 2 11:38:19 Date Recorded Body height Body mass index (BMI) Body weight Heart rate Oxygen saturation Body temperature Systolic And Diastolic Provider Name and Address Organization Details Last Updated DateTime 2 168.91 cm 28.3 kg/m2 93490.4 4 g 56 /min 99 % 98.24 [degF] 129/74 mm[Hg] Irving arias MA [facility] 2 14:11:12 Social History Question Answer Notes LastModified by Organizat ion Details LastModified Time Tobacco Smoking Status Never Smoker ELVIS Vann [facility] 11/04/2013 12:55:47 Do You Have An Advance [...] Or With Others? With Others [facility] Information not available 08/16/2018 Do You Take [...] 03/12/2020 Have You Recently Traveled To A [place] [address] High Risk Area Or Gathering In The [...] not available 11/04/2013 Are you able to walk independently without assistance or assistive devices? YESWOREST Information not available 09/24/2020 Are you able to care for yourself independently? 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 10/18/2021 14:56:22 Tdap 016 completed ELVIS Gonzalez [facility] 10/18/2021 14:56:23 Influenza, split virus, quadrivalent, PF 017 cancelled patient objection Not Available [facility] 03/19/2019 02:22:07 zoster live 017 cancelled patient objection Not Available [facility] 03/19/2019 02:21:33 Pneumococcal conjugate PCV 13 018 cancelled patient objection Not Available [facility] 03/19/2019 02:21:38 Influenza, high-dose, trivalent, PF 018 cancelled patient objection Not Available [facility] 03/19/2019 02:22:14 Influenza, high-dose, quadrivalent, PF 020 cancelled patient objection Regino Bah PA-C [address] [address], [place], [address], [facility] 01/18/2020 11:55:35 varicella completed Christal Odell null, [facility] 12/08/2019 15:44:02 Td (adult), 2 Lf tetanus toxoid, preservative free, adsorbed completed Christal Odell null, [facility] 12/08/2019 15:44:02 Past Encounters Encounter ID Performer Location Encounter Start Date Encounter Closed Date Diagnosis/Indication Diagnosis SNOMED-CT Code Diagnosis ICD10 Code Diagnosis IMO Codes Diagnosis Note [id number] auto[facility]Comm erce [address] [facility] [place] [address] 04/08/2005 00:00:00 [id number] autoEComm erce [address] [facility] [place] [address] 10/07/2005 00:00:00 [id number] autoEComm erce [address] [facility] [place] [address] 09/01/2004 00:00:00 [id number] autoEComm erce [address] [facility] [place] [address] 03/14/2004 00:00:00 [id number] auto[employer]Comm erce [address] [facility] [place] [address] 04/21/2006 00:00:00 [id number] auto[employer] erce [address] [facility] [place] [address] 11/25/2006 00:00:00 [id number] autoEComm erce [address] [facility] [place] [address] 05/25/2007 00:00:00 [id number] autoEComm erce [address] [facility] [place] [address] 11/30/2007 00:00:00 [id number] autoEComm erce [address] [facility] [address] [place] [address] 12/17/2007 00:00:[id number] [facility] [address] [place] [address] 03/13/2008 00:00:00 [id number] [employer] [address] [facility],[address] [place] [address] 04/19/2008 00:00:00 [id number] [employer] [address] [facility],[address] [place] [address] 05/24/2008 00:00:00 [id number] [employer] [address] [facility],[address] [place] [address] 12/26/2008 00:00:00 [id number] [employer] [address] [facility],[address] [place] [address] 02/13/2009 00:00:00 [id number] [employer] [address] [facility],[address] [place] [address] 2 07/11/2009 00:00:00 [id number] [employer]ce [address] [facility],[address] [place] [address] 01/16/2010 00:00:00 [id number] [employer]ce [address] [facility],[address] [place] [address] 07/19/2010 00:00:00 [id number] [employer] [address] [facility],[address] [place] [address] 10/16/2010 00:00:00 [id number] [employer]ce [address] [facility],[address] [place] [address] 01/08/2011 00:00:00 [id number] [employer] erce [address] [facility],[address] [place] [address] 2 02/19/2011 00:00:00 [id number] [employer] [address] [facility],[address] [place] [address] 2 07/22/2011 00:00:00 [id number] [employer] [address] [place] [address] 09/26/2011 00:00:[address] [id number] [address] [address] [place] [address] 12/31/2011 00:00:00 [id number] [employer] erce [address] [place], [place] [address] 02/13/2012 00:00:00 [id number] [employer]ce [address] [place] [address] 2 05/12/2012 00:00:00 [id number] [employer] erce [address] [place] [address] 2 06/30/2012 00:00:00 [id number] [employer] [address] [facility],[address] [place], [place] [address] 02/24/2013 00:00:00 [id number] [employer]ce [address] [facility],[address] [place] [address] 05/12/2013 00:00:00 [id number] Jim Acuna MD Main Office [address] [facility] [address] [place], [place] [address] 11/04/2013 12:44:53 11/04/2013 13:18:10 Upper abdominal pain 54535445 [id number] ANNEMARIE Peterson Main Office [address] [facility] [address] [place], [place] [address] 11/23/2013 10:19:13 11/23/2013 11:07:31 Bipolar disorder 83108475 Off lithium for at least 2 weeks with psychotic features today. We called her pharmacy and she does not have a script for lithium there. Spoke with Nimco at [facility] who confirmed that patient's psychiatri st has left the practice and she needs to get appt with another psych provider. She states that they will take care of the lithium and getting her set up with new psych provider. [id number] Jim Acuna MD Main Office [address] [facility] [address] [place], [place] [address] 01/06/2014 13:39:27 01/06/2014 14:34:19 Urge incontinence of urine 20279344 Benign par oxysmal positional vertigo 760986864 Neck pain 28191940 Bipolar disorder 79662945 Body mass index 30+ - obesity 375800689 [id number] Jim Acuna MD Main Office [address] [address] [place] [address] 01/23/2014 10:15:09 01/23/2014 11:24:01 Screening for malignant neoplasm of colon 249301603 Ulnar neuropathy 323550113 Eczema 49083268 [id number] Jim Acuna MD Main Office [address] [address] [place] [address] 03/23/2014 12:52:26 03/23/2014 13:36:12 Ulnar neuropathy 576315028 Eczema 72118383 [id number] Jim Acuna MD Main Office [address] [address] [place] [address] 05/12/2014 13:19:24 05/12/2014 13:51:13 Acute sinusitis 44408430 Cough 89597133 Inflammati on of rotator cuff tendon 654631978 Urge incon tinence of urine 65309258 [id number] Jim Acuna MD Main Office [address] [address] [place] [address] 06/02/2014 09:56:15 06/02/2014 11:15:11 Foot pain 53506100 [id number] Jim Acuna MD Main Office [address] [address] [place] [address] 08/04/2014 13:49:12 08/04/2014 15:04:43 Inflammation of rotator cuff tendon 858246396 Greater tr ochanteric pain syndrome 9424938 Osteoarthr itis of knee 845191889 Left knee pain [id number] Jim Acuna MD Main Office [address] [address] [place] [address] 08/28/2014 15:41:48 08/28/2014 16:15:35 Osteoarthritis of knee 457529431 [id number] Jim Acuna MD Main Office [address] [address] [place] [address] 04/30/2015 12:54:18 04/30/2015 14:20:29 Adult health examination 528268560 Z00.00 Advance di rective discussed with patient 506872960 Z71.89 Body mass index 30+ - obesity 962957374 Z68.32 Administra tion of diphtheria, pertussis, and tetanus vaccine 445445213 Z23 Eczema 92608956 L30.9 Fatigue 07257338 R53.83 Hyperlipidemia 95866991 E78.5 Urge incon tinence of urine 63857392 N39.41 Bipolar disorder 0345646 4 F31.9 [id number] Jim Acuna MD Main Office [address] [address] [place] [address] 09/28/2015 15:19:11 09/28/2015 16:05:15 Edema of lower extremity 062509818 R60.0 Likely related to OA and swelling of right knee [id number] Jim Acuna MD Main Office [address] [address] [place] [address] 01/30/2016 12:37:28 01/30/2016 13:31:39 Edema of lower extremity 756542527 R60.0 Likely related to OA and swelling of right knee [id number] Jim Acuna MD Main Office [address] [address] [place] [address] 07/04/2016 10:56:03 07/04/2016 11:59:10 Adult health examination 669095719 Z00.00 Osteoarthr itis of knee 389081095 M17.0 Varicella vaccination 68 435061 Z23 Screening for malignant neoplasm of breast 138451206 Z12.39 Greater tr ochanteric pain syndrome 5812756 M70.62 Essential hypertension 97656130 I10 Stable on present medication s. Edema of l ower extremity 436293669 R60.0 Likely related to OA and swelling of right knee Bipolar disorder 9936116 4 F31.9 Stable on mood stabilizer s. Followed by psychiatry . [id number] Jim Acuna MD Main Office [address] [address] [place] [address] 10/02/2016 13:49:43 10/02/2016 13:57:42 [id number] Jim Acuna MD Main Office [address] [address] [place] [address] 11/05/2016 09:30:51 11/05/2016 14:09:26 [id number] Marisabel Bah PA-C Main Office [address] [address] [place] [address] 12/12/2016 11:35:08 12/12/2016 12:23:48 Ulcer of toe 167501273 L97.509 infected fungal ulcer of R. 5th toe. Start Abx as directed and antifungal . POdiatry referral ISMA w/i 1 week. Cellulitis of toe 695112 04 L03.031 [id number] Jim Acuna MD Main Office [address] [address] [place] [address] 12/29/2016 09:20:06 12/29/2016 10:50:03 Tinea pedis 5080846 B35.3 Osteoarthr itis of knee 400265137 M17.0 [id number] Jim Acuna MD Main Office [address] [address] [place] [address] 01/15/2017 10:56:09 01/15/2017 12:48:49 Immunization refused 987572625 Z28.21 Unexplaine d visual loss 361250023 H54.7 [id number] Jim Acuna MD Main Office [address] [address] [place] [address] 01/28/2017 14:14:29 01/28/2017 15:14:32 Carpal tunnel syndrome 83405818 G56.01 G56.02 Intolerant of cold 94122 000 R68.89 [id number] Jim Acuna MD Main Office [address] [address] [place] [address] 03/27/2017 15:38:56 03/27/2017 16:55:30 Neck pain 58607626 M54.2 [id number] Jim Acuna MD Main Office [address] [address] [place] [address] 03/31/2017 09:37:21 03/31/2017 16:40:58 [id number] Jim Acuna MD Main Office [address] [address] [place] [address] 05/20/2017 09:25:07 05/20/2017 13:50:34 [id number] Jim Acuna MD Main Office [address] [address] [place] [address] 06/15/2017 10:57:28 06/15/2017 11:57:04 Screening for malignant neoplasm of colon 887058884 Z12.11 Screening for malignant neoplasm of breast 817642873 Z12.31 Hepatitis C screening 41 9080897 Z11.59 Irritable bowel syndrome 29281016 K58.9 Fatigue 63113708 R53.83 Neck pain 32053473 M54.2 [id number] Jim Acuna MD Main Office [address] [address] [place] [address] 07/08/2017 09:51:00 07/08/2017 14:40:19 [id number] Jim Acuna MD Main Office [address] [address] [place] [address] 07/13/2017 11:27:59 07/13/2017 12:39:37 Screening for malignant neoplasm of colon 948698596 Z12.11 Screening for malignant neoplasm of breast 895531703 Z12.31 Administra tion of pneumococcal vaccine 72755508 Z23 Adult heal th examination 884130731 Z00.00 Essential hypertension 36846320 I10 Stable on present medication s. At [facility] ed risk for falls 541691886 Z91.81 Bipolar disorder 6181488 4 F31.9 Stable on mood stabilizer s. Followed by psychiatry . Daily headache 685331272 1 03 R51 [id number] Regino Bah PA-C Main Office [address] [address] [place] [address] 09/09/2017 14:06:29 09/09/2017 15:20:20 Eruption 741734121 R21 more so itchy nodules on various aspects of body, curr 2 lesions on R hand (dorsum) - will get derm eval - meanwhile, trial of zyrtec bedtime, could use benadryl cream topically, and give empiric bactrim - and probiotic supp/yogur t [id number] Umberto Frost MD Main Office [address] [address] [place] [address] 10/27/2017 13:21:07 10/27/2017 14:06:27 Neck pain 11317024 M54.2 Neck sprain possibly from sleeping in a sitting up position. [id number] Regino Bah PA-C Main Office [address] [address] [place] [address] 11/16/2017 08:34:27 11/16/2017 09:36:09 Neck pain 31791655 M54.2 pt confused about voltaren gel, wishes to use tablet for pain. rec nap 500mg bid c food, can use moist heat / hep, and if no sig help then try voltaren gel Osteoarthr itis of knee 885492668 M17.11 cont to f/u c ortho [id number] Jim Acuna MD Main Office [address] [address] [place] [address] 12/31/2017 09:37:15 12/31/2017 16:42:22 [id number] Jim Acuna MD Main Office [address] [address] [place] [address] 01/08/2018 13:10:17 01/08/2018 14:31:30 Influenza vaccine needed 8226232327 106 Z23 Acute cystitis 66941278 N30.01 Improved with abx. [id number] Jim Acuna MD Main Office [address] [address] [place] [address] 01/25/2018 10:28:45 01/25/2018 11:23:07 Edema of lower extremity 944359630 R60.0 Likely related to OA and swelling of right knee Bipolar disorder 6127870 4 F31.9 Stable on mood stabilizer s. Followed by psychiatry . [id number] Jim Acuna MD Main Office [address] [address] [place] [address] 04/24/2018 08:42:01 04/24/2018 10:03:44 Screening for malignant neoplasm of breast 551472461 Z12.31 Screening for malignant neoplasm of colon 106572758 Z12.11 Increased thirst 9597415 03 R63.1 Fatigue 36149878 R53.83 Tremor 96499257 R25.1 Likely medication side effect from Li salts Bipolar disorder 0714527 4 F31.9 Stable on mood stabilizer s. Followed by psychiatry . [id number] Debbie edward MD Main Office [address] [place] [address] 06/18/2018 09:41:12 06/18/2018 11:19:33 Lightheadedness 369120211 R42 check labs and US, normal neuro exam for today. Pt to call if acutely worsening. Unable to do EKG today as machine not working, pt declines going to cardiology office for this. Will come back next week to do this. BP low, will have pt stop hctz to see if this helps Neck pain 18435289 M54.2 pt has known arthritis, consider PT referral. Advised to try tylenol 2 tabs bid with local heat and if not better to call. [id number] Kan Newton MD Main Office [address] [place] [address] 07/12/2018 14:47:11 07/12/2018 15:47:19 Numbness of hand 083646537 R20.0 check addtional labs and do EMG of upper extremitie s Lightheadedness 89625234 8 R42 workup so far negative, will add labs above and awaiting echo. Pt advised to keep hydrated and change position slowly. If testing negative consider neurology referral. Pt seeing Dr Acuna in a month [id number] Jim Acuna MD Main Office [address] [address] 08/16/2018 09:20:14 08/16/2018 10:53:40 Screening for malignant neoplasm of breast 083090146 Z12.31 Administra tion of pneumococcal vaccine 90707729 Z23 Screening for malignant neoplasm of colon 141337043 Z12.11 Adult heal th examination 116630556 Z00.00 Essential hypertension 88268054 I10 Stable on present medication s. Osteoarthr itis of knee 284045742 M17.0 Bipolar disorder 3259055 4 F31.9 Stable on mood stabilizer s. Followed by psychiatry . Body mass index 25-29 - overweight 413623599 E66.3 Z68.25 Neck pain 70824939 M54.2 [id number] Jim Acuna MD Main Office [address] [place] [address] 09/17/2018 09:57:38 09/17/2018 12:43:17 [id number] Jim Acuna MD Main Office [address] [address] [place] [address] 09/20/2018 09:05:25 09/20/2018 10:46:33 Headache 98550508 R51 [id number] Debbie edward MD Main Office [address] [address] [place] [address] 01/28/2019 10:52:53 01/28/2019 11:39:09 Vertigo 190894230 R42 mild and brief only when turns head to left while in bed, of note pt with unilateral hearing loss on left dx by ENT and is trying to get a hearing aid, will refer to ENT for possible need for imaging due to unilateral hearing loss and vertigo. we will make appt Hearing loss 81358881 H9 1.92 dx prior to this visit by ENT, trying to get a heaaring aid for the left no hx of imaging as per pt [id number] Jim Acuna MD Main Office [address] [address] [place] [address] 04/01/2019 09:52:05 04/01/2019 10:54:38 Essential hypertension 86081938 I10 Stable on present medication s. Bipolar disorder 7933809 4 F31.9 Stable on mood stabilizer s. Followed by psychiatry . Body mass index 25-29 - overweight 088869854 E66.3 Z68.25 [id number] Jim Acuna MD Main Office [address] [address] [place] [address] 08/19/2019 09:56:11 08/19/2019 10:40:59 Hyperlipidemia 06319734 E78.5 Fatigue 97438308 R53.83 Edema of l ower extremity 790013421 R60.0 Likely related to OA and swelling of right knee [id number] Jim Acuna MD Main Office [address] [address] [place] [address] 09/12/2019 10:32:49 09/12/2019 11:42:12 Adult health examination 509166171 Z00.00 Declines PT program for fall prevention Essential hypertension 15532633 I10 Stable on present medication s. Edema of l ower extremity 723273765 R60.0 Likely related to OA and swelling of right knee Osteoarthr itis of knee 512901974 M17.0 Bipolar disorder 9846931 4 F31.9 Stable on mood stabilizer s. Followed by psychiatry . [id number] Kan Newton MD Main Office [address] [address] [place] [address] 12/14/2019 09:14:43 12/14/2019 10:35:34 Essential hypertension 47226462 I10 bp stable lately off of meds, encouraged pt to begin low dose indapamide if her bp > 140/90 ? 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 - no evidence of tia/cva - filled out clearance for dental work Edema of l ower extremity 777612475 R60.0 stable today - could use diuretic prn, rec elevate LE prn, consider resume comp socks prn [id number] Kan Newton MD Main Office [address] [address] [place] [address] 01/18/2020 10:19:01 01/18/2020 12:01:57 Influenza vaccine needed 7312049022 106 Z23 Thoracic back pain 35244 8004 M54.6 R rhomboid major sprain - printed other exercises from web and gave to pt, also could use warm compress or prn tyl [id number] Jim Acuna MD Main Office [address] [address] [place] [address] 03/12/2020 09:58:06 03/12/2020 11:15:43 Essential hypertension 09736989 I10 Stable on present medication s. Screening for malignant neoplasm of colon 649859361 Z12.11 Agrees to do FIT test. Declines repeat colonoscop y. Bipolar disorder 7468812 4 F31.9 Stable on mood stabilizer s. Followed by psychiatry . [id number] Regino Bah PA-C Main Office [address] [address] [place] [address] 07/18/2020 14:41:21 07/18/2020 16:12:57 Poor short-term memory 304644324 R41.3 will get neuro eval as per pt request - see hpi and pe as well Bipolar disorder 0039432 4 F31.9 cont meds, f/u c therapist, psychiatri as dir pt seemed very paranoid today - offered reassuranc e that her skull was normal - see above * will fwd this note to psych * [id number] Jim Acuna MD Main Office 36[address] [facility] [address] [facility] [place] [address] 09/24/2020 10:00:37 09/24/2020 11:36:05 Adult health examination 375989512 Z00.00 Declines PT program for fall prevention Essential hypertension 24198742 I10 Stable on present medication s. Fatigue 12413932 R53.83 Hyperlipidemia 65381428 E78.5 Tinea pedis 8830323 B35. 3 right foot between 4th and 5th digits Mixed bipo lar I disorder 00433839 F31.60 Followed by psychiatry . Stable on lithium [id number] Darren Callaway MD Main Office [address] [place] [address] 12/26/2020 09:19:14 12/26/2020 10:08:29 Essential hypertension 48457238 I10 Stable without medication Advised to cw lifestyle changes Mixed bipo lar I disorder 31276448 F31.60 Followed by psychiatry . Stable on lithium Pain in bi lateral feet 6416380237 0802125 M79.671 likely related to OA. Hyperlipidemia 73801363 E78.5 ASCVD 9.8% patient was not taking medication as prescribed .Advised to start due to risk will f/u in 6 mo visit.Medi cation adherence advised.Al so discussed lifestyle changes. [id number] Darren Callaway MD Main Office 36[address] [facility] 207 [facility] [place] [address] 05/03/2021 10:18:54 05/03/2021 10:59:53 Greater trochanteric pain syndrome 1170996 M70.61 M70.62 Denies hx smoking or calf [...] then to go to ED . Neuropathy 681970257 G62 .9 Notes to neuropathi c type pain going down legsThen tells me she also get down arms.On lithium thus will check levles. [id number] Darren Callaway MD Main Office [address] [facility] [address] [place] [address] 06/19/2021 12:39:29 06/19/2021 13:28:32 Essential hypertension 97967348 I10 Stable without medication within JNC 8 guideline but will do RPM to see if we need to regulate her bp more.Mercedez in asymptmati c.Advised to cw lifestyle changesLow sodium diet discussedC ounseled on diet/exerc iseAdvised to keep BP daily BP log and technique counseled. Red flags of HTN emergency discussed and when to go to ED. Screening for malignant neoplasm of colon 218507989 Z12.11 Z12.12 does not want to have colo prefers FIT.ordere d, limitation discussed. [id number] Darren Callaway MD Main Office [address] [facility] [address] [place] [address] 09/27/2021 10:18:49 09/27/2021 11:45:11 Essential hypertension 68729607 I10 Mercedez's blood pressures been stable she [...] to ED. Mixed bipo lar I disorder 64109621 F31.60 Followed by psychiatry . Stable on lithium/ri speridone. Advance di rective discussed with patient 231087378 Z71.89 Dizziness 663123911 R42 Mercedez's dizziness is triggered and episodic, [...] advised to limit caffeine intake. Nail changes 318722842 L 60.9 Carolyn nail changes was noted on the left thumb she denies any trauma she notes it was only noted when she went and got a manicure, and there is some darkening in the nailbed I have referred her to a dermatolog ist to ensure that this is not anything sinister. Incontinence of feces 72 051825 R15.9 A digital rectal exam was present, [...] physical exam. Benign par oxysmal positional vertigo 252240880 H81.10 Although this Hallpike was negative she notes that she had this before in the past and she did some vestibular therapy with good relief.Giv en the benign nature of physical therapy offered to provide it to her again. [id number] Darren Callaway MD Main Office 36[address] [facility] [address] [place] [address] 12/06/2021 13:55:38 12/06/2021 14:51:23 Adult health examination 759287427 Z00.00 Patient was counseled on healthy diet, [...] reconciled . Advance directives discussed. Essential hypertension 31674993 I10 Stable on present medication s. Hyperlipidemia 67047121 E78.5 ASCVD 9.8% patient was not taking medication as prescribed .Advised to start due to risk will f/u in 6 mo visit.Medi cation adherence advised.Al so discussed lifestyle changes. Mixed bipo lar I disorder 77642857 F31.60 Followed by psychiatry . Stable on lithium Administra tion of pneumococcal vaccine 74181452 Z23 Incontinence of feces 72 054216 R15.9 Notes resolved. Influenza vaccination declined 653330258 Z28.21 Pain in bi lateral legs 0730479749 6566006 M79.604 M79.605 No calf tenderness on exam, mold +1 edema.Gerald es cristel sx. Bone density finding 385 215436 M85.80 Screening for malignant neoplasm of colon 771864731 Z12.11 Z12.12 does not want to have colo prefers FIT.ordere d, limitation discussed. [id number] Debbie edward MD Telehealt h 36[address] [facility] [address] [place] [address] 02/08/2022 10:45:00 02/10/2022 12:02:30 Edema of lower extremity 967895321 R60.0 new problem to examiner, I reviewed [facility] in 12/06/21 in detail. had one plus edema bilateral then, will have pt start 20mg lasix in middday and f/u in a month in office. also will check why did not have LE US that Dr Callaway had planned on at [facility] 12/06. [id number] Darren Callaway MD Main Office [address] [address] 04/11/2022 08:49:28 04/11/2022 12:58:26 Health Concerns Section Related Observation LastModified by Organization Detai ls LastModified Time None Recorded Concern Status LastModified by Organization Details LastModified Time None Recorded Advance Directives Directive Y: HCP Payers Insurance Date Sequence Insurance Name Policy Number Policy Carson Covered Member ID Carson Member ID Guarantor Name 02/03/2025 2 [place] [facility] Mercedez Singh [id number] Mercedez Singh 09/27/2021 2 [place] [facility] Mercedez Singh [id number] Mercedez Singh 02/03/2025 1 [place] B[place]: [employer] Mercedez Singh [id number] Mercedez Singh Notes Date Note Type Note Provider Name and Address Organization Details Recorded Time 2 text/html Hypertension F/UReported by PatientHPIFor associated symptoms, patient reportsno dizziness,no lightheadedness,no chest pain,no shortness of breath,no palpitations,no edema, andno calf pain with exertion. For lifestyle, patient reportslimiting/avoiding salt.Reports good adherence.Was on thiazide in past.ROS as noted in the HPI Here as patient is aware she needs colonoscpy, tells me she prefer FIT test.No fhx of colon ca or symptoms within herself, discussed limitation and she understands. Darren Callaway MD [address], [address], [facility] 06/19/2021 13:29:58 2 text/html Skin LesionReported by PatientHPIFor location, patient reportshands (left thumb). For duration, patient reportsstarted 1 week(s) ago. For onset/timing, patient reportsabrupt. For context, patient reportsno known trigger(denies truama). For associated symptoms, patient reportsno fever,no cold symptoms,no nausea,no vomiting,no urinary symptoms,no skin flakes,no scabbing,no bruising,no draining,no lesions multiplying, andno lesions spreading. Hypertension F/UReported by PatientHPIFor associated symptoms, patient reportsno dizziness,no lightheadedness,no chest pain,no shortness of breath,no palpitations,no edema, andno calf pain with exertion. For lifestyle, patient reportslimiting/avoiding salt.Reports good adherence.Was on thiazide in past. Syncope/DizzinessReported by PatientHPIFor quality, patient reportsroom spinning. For context, patient reportssupine. For aggravating factors, patient reportsworse with lying down. For associated symptoms, patient reportsdiarrheabut reportsno recent vomitingandno associated palpitations(notes diarrhea.). For duration, patient reportslasts minutes (5 min)andtypical duration is 5 minutes. For onset/timing, (2 weeks onsent, notes 3-4 days/ week.).occurs when lay down, notes room spin.ROS as noted in the HPI Patient was supposed to have a physical appointment today however had various concerns he wanted to discuss this includes feeling dizzy, changes in her nails, and questionable fecal incontinence. Darren Callaway MD [address], [address], [facility] 09/27/2021 12:43:17 2 text/html Skin LesionReported by PatientHPIFor location, patient reportshands (left thumb). For duration, patient reportsstarted 1 week(s) ago. For onset/timing, patient reportsabrupt. For context, patient reportsno known trigger(denies truama). For associated symptoms, patient reportsno fever,no cold symptoms,no nausea,no vomiting,no urinary symptoms,no skin flakes,no scabbing,no bruising,no draining,no lesions multiplying, andno lesions spreading. Hypertension F/UReported by PatientHPIFor associated symptoms, patient reportsno dizziness,no lightheadedness,no chest pain,no shortness of breath,no palpitations,no edema, andno calf pain with exertion. For lifestyle, patient reportslimiting/avoiding salt.Reports good adherence.Was on thiazide in past. Syncope/DizzinessReported by PatientHPIFor quality, patient reportsroom spinning. For context, patient reportssupine. For aggravating factors, patient reportsworse with lying down. For associated symptoms, patient reportsdiarrheabut reportsno recent vomitingandno associated palpitations(notes diarrhea.). For duration, patient reportslasts minutes (5 min)andtypical duration is 5 minutes. For onset/timing, (2 weeks onsent, notes 3-4 days/ week.).occurs when lay down, notes room spin. Medicare Annual Wellness VisitReported by PatientSocial/Behavioral HistoryFor diet and nutrition, patient reportshealthy diet. For fracture risk, patient reportsno recent explained fracture. For physical activity, patient reportsexercises on a regular basisanddiscussed weightbearing activities.Mental Status:For concentration and memory, patient reportsno memory lapses or loss. For speech/motor difficulties, patient reportsno speech difficulties. For depression risk, (anxious.).Functional AbilityFor vision, patient reportsno vision problems(wears contacts.). For activities of daily living, patient reportsable to bathe with limited or no assistance,able to contol urination and bowels,able to dress with limited or no assistance,able to feed self with limited or no assistance,able to get out of chair or bed with limited or no assistance,able to groom with limited or no assistance, andable to toilet with limited or no assistance. For instrumental activities of daily living, patient reportsable to do house work with limited or no assistance,able to grocery shop with limited or no assistance,able to manage medications with limited or no assistance,able to manage money with limited or no assistance,able to prepare meals with limited or no assistance, andable to use the phone with limited or no assistance. For falls risk assessment, patient reportsno fall since last visit. For home safety, patient reportsworking smoke/co detectors,use of seatbelts,no fire arms, andreviewed sun protection. For hearing, (supposed to get hearing aids from ent.).ROS as noted in the HPI Patient present for well adult visit Complaints: Notes hx of circulation issues, tells me had work up in past, Is not using ASA. OTC/Herbal supplements use: centrum vitamin. 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 Darren Callaway MD [address], [place], [address], [facility] 12/06/2021 14:43:15 2 text/html telehealth visit. Pt is complaining of bilateral LE swelling, [...] not heard of an appt. Debbie mast, [facility] 02/08/2022 10:59:08 3 text/html Hospitalization Contact RecordReported by PatientHospitalization Contact RecordFor follow up, [facility]mit date: (please enter in format 'mm/dd/yyyy') (04/08/2022),date of discharge: (please enter in format 'mm/dd/yyyy') (04/10/2022), anddate of contact: (please enter in format 'mm/dd/yyyy') (04/11/2022).Medicare covered inpatient stay? yes Medicare JUDIE with in 48 working hours? yes High Complexity code valid on or before:April Moderate Complexity code valid on or before: April HCP on file? no MOLST on file? no Discharge Summary available? yes 71 year old female with long standing history of bipolar disorder and psychosis initially was seen at [facility] ED after sustaining a fall in a salon. Patient was evaluated noted psychosis was transferred to [facility] for psychiatric stabilization. Evaluation:chronic paranoidlong history non compliance Patient was admitted for 2 days monitored closely, patient continue to express she wanted to be discharge. At this point patient was at baseline and discharge to follow closely with outpatient services. Darren Callaway MD [address] [address], [place], [address], [facility] 04/11/2022 12:58:24 OBGyn Episode No OBEpisode recorded.
--- OUTSIDE RECORDS SUMMARY | 2025-02-21 13:31 | XMS_ITS | Clinical Summary ---
Author Organization [facility] Address [address] [place] [address] Phone Care Team Providers Care Wedding Cake Designer Name Role Phone Jim Acuna MD Primary Care Provider [phone] Allergies No known active allergies Medical History Medical History Date Comments Bipolar 1 disorder (CMS/HCC V24, CMS/HCC V28) Social History Tobacco Use Types Packs/Day Years Used Date Smoking Tobacco: Never Assessed Comments No Sex and Gender Information Value Date Recorded Sex Assigned at Not on file Legal Sex Female 7:20 AM EST Gender Identity Not on file Sexual Orientation Not on file Last Filed Vital Signs Vital Sign Reading Time Taken Comments Blood Pressure 118/71 10/04/2024 11:37 AM EDT Pulse 60 10/04/2024 11:37 AM EDT Temperature 36.8 C (98.2 F) 10/04/2024 11:37 AM EDT Respiratory Rate 18 10/04/2024 11:37 AM EDT Oxygen Saturation 98% 10/04/2024 11:37 AM EDT Inhaled Oxygen Concentration - - Weight 70.3 kg (155 lb) 10/04/2024 11:37 AM EDT Height 170.2 cm (5' 7 ) 10/04/2024 11:37 AM EDT Body Mass Index 24.28 10/04/2024 11:37 AM EDT Plan of Treatment Health Maintenance Due Date Last Done Comments Breast Cancer Screening 1950 Colorectal Cancer Screening: Colonoscopy 1950 Zoster Vaccines (1 of 2) 2002 05/29/1999 Cholesterol Screening (Lipid Panel) 02/02/2022 Falls Risk Assessment 02/02/2022 Hepatitis C Screening 02/02/2022 Medicare Annual Wellness Visit 02/02/2022 Osteoporosis Screening (Bone Density Screening) 02/02/2022 Social Influencers of Health Screening 02/02/2022 Depression Screening 03/02/2024 COVID-19 Vaccine (1 - 2024-2 6 season) 2024 Influenza Vaccine (#1) 2024 12/16/2022 DTaP,Tdap,and Td Vaccines (4 - Td or Tdap) 04/29/2025 04/30/2015, 02/14/2000, 02/14/2000 RSV Immunization Adult Patients (1 - 1-dose 75+ series) 06/18/2027 Varicella Vaccines Aged Out 05/29/1999 No longer eligible based on patient's age to complete this topic Pneumococcal Vaccine: 50+ Years Completed 08/16/2018, 08/16/2018 HIB Vaccines Aged Out No longer eligi [...] to complete this topic RSV Immunization Patients Under 20 months Aged Out No longer eligible b ased on patient's age to complete this topic Insurance MEDICARE Care Teams Wedding Cake Designer Relationship Specialty Start Date End Date Jim Acuna MD [id number] PCP - General Internal Medicine 01/13/14
== END 2025-02-21 08:26 | disposition home or self-care (01) ==
LOC: HO.HOSX 08:25
PROVIDERS: Visit Provider Orthopaedic Surgery
DX: M17.11 Unilateral primary osteoarthritis, right knee (principal); M54.50 Low back pain, unspecified
CPT/HCPCS: 20610; 99212; J1010; J2003

== ENCOUNTER 2025-02-21 12:45 | Outpatient (AMB) | payer MEDICARE, SELFPAY ==
--- NOTE | 2025-02-21 12:50 | A.OFFVIS_ITS ---
Intake Visit Reasons: OV-RT knee pain, Low back pain Intake Note: Mercedez is a 74 year old female who presents with complaints of progressively worsening right knee pain as well as low back pain which radiates down her right leg to her right foot. She describes her back pain as sharp in nature. Her back pain has gotten worse over the last year in spite of continued non operative treatments. She also reports intermittent weakness in her right leg. She does walk with a cane because of the weakness. She has failed the last 6 weeks of conservative treatment which has included Tylenol, anti-inflammatory medicines, a home exercise program and physical therapy exercises. Allergies No Known Allergies (No Known Allergies*) Allergy (Verified 05/09/24 11:23) Medication List - Last Reconciled 02/21/25 by Gurinder Doe MD cane As directed furosemide mg PO hydroxyzine pamoate mg PO [lithium carbonate 600 mg PO BID 30 days] [Risperdal 1 mg PO BEDTIME 30 days] [Topamax 200 mg PO DAILY 30 days] [facility] Medical History Hyperlipidemia Social History (Updated 06/02/23 @ 10:48 by Shari Platt CMA) Household Members: None Housing: Other Do you presently have visiting nurse or other home services: No Patient Tobacco Use Status: Never used Tobacco e-Cigarette/Vaping Use: Never Used Second Hand Smoke Exposure: No Substance Use Type: Unknown service: No Current occupational status: retired Current occupation: Right hand dominate Sexual orientation: Straight/Heterosexual Physical Exam Back/Spine/Pelvis Other: Low back examination shows right-sided paraspinal muscle tenderness, pain with range of motion, positive straight leg raise test on the right at 70 degrees, 4/5 strength with testing of her right hip flexors and knee extensors when compared to 5/5 strength on her left side Extrem Other: Right knee examination shows a minimal effusion, palpable crepitus with range of motion, pain with range of motion Office Procedures AMB Joint Injection/Aspiration Joint Injection/Aspiration Primary Site: Right Knee Prep: site was prepped using aseptic technique Injected: 40 mg of, DepoMedrol, with 3 mL of and 1% plain Lidocaine Procedure: The patient tolerated the procedure well Coding 70050 - Large joint Procedure code (CPT) selection complete Results Reviewed Results Reviewed: X-rays of the patient's right knee taken previously show severe joint space narrowing, subchondral sclerosis, osteophyte formation, no acute bony abnormalities Assessment & Plan Assessment & Plan (1) Arthritis of right knee: Code(s): M17.11 - Unilateral primary osteoarthritis, right knee Category: Medical (2) Low back pain: Code(s): M54.50 - Low back pain, unspecified Category: Medical Plan Ms. Bruce presents with progressively worsening low back pain which radiates down her right leg possibly due to lumbar stenosis or a disc herniation. Thus, I will send the patient for an MRI of her lumbar spine for further evaluation. She will contact me should her symptoms worsen prior to the MRI. She also has right knee pain due to degenerative joint disease. The risks and benefits of a right knee cortisone injection were discussed at length with the patient. The patient wished to proceed. She tolerated the injection well. She will continue with her home exercise program. She will contact me prior to her follow-up appointment in 3 months should any questions or concerns arise. I spent 21 minutes in reviewing the patient's records and imaging studies, seeing the patient and documenting in the medical record. Orders: Orders MR lumbar spine wo con 02/24/25 M54.50 - Low back pain, unspecified AMB Joint Injection/Aspiration Today M17.11 - Unilateral primary osteoarthritis, right knee Coding Level of Care Code Est Pt Level 3 (43587) Add On Problem Visit Only Diagnoses Arthritis of right knee M17.11 Low back pain M54.50 CPT Codes Coding - 72347 Large joint: 96162 - Large joint ([id number])
== END 2025-02-21 13:07 | disposition home or self-care (01) ==
LOC: HO.HOS 12:45
PROVIDERS: Visit Provider Orthopaedic Surgery
DX: M17.11 Unilateral primary osteoarthritis, right knee (principal); M54.50 Low back pain, unspecified
CPT/HCPCS: 20610; 99213